=== PATIENT | male | born 1980 ===

== ENCOUNTER → 2020-06-14 09:15 | Outpatient (BNVA) | payer MEDICARE, MEDICAID, SELFPAY | PROVIDERS: PCP Internal Medicine; Referring Provider Internal Medicine; Visit Provider Nurse Practitioner Family | DX: Z76.89 Persons encountering health services in other specified circumstances (principal) ==

== ENCOUNTER 2021-03-28 06:52 | Emergency (ER) | payer MEDICARE, MEDICAID, SELFPAY ==
--- NOTE | ~2021-03-28 | CT_ITS ---
EXAMINATION: CT MASTOID CLINICAL INFORMATION: Severe right-sided ear pain. COMPARISON: None TECHNIQUE: 0.6 mm thin axial and reformatted 0.6 mm thin sagittal and coronal images of the mastoid sinuses were obtained. DLP: 431 mGy-cm. FINDINGS: There is normal aeration of bilateral mastoid sinuses without mucoperiosteal thickening or air-fluid levels. RIGHT TEMPORAL BONE: There is soft tissue wax within the right external auditory canal. The middle ear is well aerated with a small soft tissue density lateral to middle ear ossicles, likely a small cholesteatoma. The tympanic membrane is maintained normal. The scutum is preserved. The epitympanum and hypotympanum appear normal without any air-fluid levels. The internal auditory canal is normal. LEFT TEMPORAL BONE: The external auditory canal is widely patent. The middle ear ossicles are intact. No soft tissue mass or fluid seen within the middle ear. Cochlea, semicircular canals are symmetrical and normal. The internal auditory bony canal is intact. There is a large left parotid enhancing lesion in the superficial gland approximately 2.5 x 1.8 cm. The right parotid gland is normal. The prevertebral, parapharyngeal and paravertebral soft tissues are normal. No abnormal neck lymphadenopathy seen. CT/CT mastoid IMPRESSION: There is mild mucosal thickening in between the right middle ear ossicles and the scutum likely cholesteatoma. There is no air-fluid collection within the middle ear. Soft tissue lesion left parotid gland. Differential diagnosis includes large inflammatory lymph node or primary parotid mass.
[2021-03-28 07:04] VITALS: BP 152/89; PULSE 83; RESP 18; TEMP 35.8; O2SAT 97; BMI 56.5
--- NOTE | 2021-03-28 07:46 | ED_ITS ---
HPI - Ear Problem General Chief complaint: Ear Problems Stated complaint: ear pain Time Seen by Provider: 03/28/21 07:44 Source: patient and other (significant other) Mode of arrival: ambulatory Limitations: no limitations History of Present Illness MD Complaint: ear pain Location: right ear Duration: constant Severity: severe Relieving factors: nothing Exacerbating factors: chewing, position of head and palpation Discharge from ear: no Associated symptoms ear: headache, external ear tenderness and ear swelling Treatment prior to arrival: none Related Data Previous Rx's Medication Instructions Recorded hydrocodone 5 mg-acetaminophen 325 1 tab PO Q6H PRN #12 tab 03/28/21 mg tablet levofloxacin 500 mg tablet 500 mg PO DAILY #6 tab 03/28/21 ofloxacin 0.3 % ear drops 10 drp OTIC (EARS) DAILY 7 Days #5 03/28/21 ml Allergies Allergy/AdvReac Type Severity Reaction Status Date / Time Penicillins Allergy Unknown RASH,SOB,SW Unverified 05/12/20 16:48 EATING Review of Systems Review of Systems: Constitutional : No Fever, No Chills ENT/Mouth : pos sore throat, No Rhinorrhea, pos ear pain Eyes: No Eye Pain, No Swelling, No Redness Cardiovascular : No Chest Pain, No SOB Respiratory : No Cough, No Sputum Gastrointestinal : No Nausea, No Vomiting, No Diarrhea Genitourinary : No Dysuria, No Urinary Frequency Musculoskeletal : No joint pain, No Myalgias, No Joint Swelling Skin : No Skin Lesions, No rash Neuro : No Weakness, No Numbness, No Dizziness, pos Headache Psych : No Anxiety/Panic, No Depression Heme/Lymph: No Bruising, No Bleeding,No Lymphadenopathy Endocrine : No Polyuria, No Polydipsia All other systems reviewed and are negative [facility] Past Medical History Attestation statement: The following information was validated with the patient. Medical History Asthma Diabetes HTN (hypertension) Surgical History History of carpal tunnel release Hx of colonoscopy Hx of cystoscopy Family History Family History (Updated 06/14/20 @ 09:09 by DAVID Chand) Father No problems noted. Mother No problems noted. Social History Social History (Updated 03/28/21 @ 07:52 by Melinda Pond DO) Patient Tobacco Use Status: Never used Tobacco Use of substances other than those prescribed or required for medical reasons: No Advance Directives: No Advance Directives Information Provided: No Physical Exam Vital Signs: Vital Signs: Last Vital Signs Temp 96.4 F L 03/28/21 07:04 Pulse 83 03/28/21 07:04 Resp 18 03/28/21 07:04 BP 152/89 H 03/28/21 07:04 Pulse Ox 97 03/28/21 07:04 Body Mass Index 56.5 Appearance: Alert. Oriented X3. No acute distress. When I went to examine the patient and palpate his mastoid and his cervical nodes the patient became agitated and raised his R arm to me as if he were going to strike me. I moved back quickly and offered him another provider if he was going to continue this behavior, his response was No but you're not the one in fucking pain. His significant other was at the bedside and tried to calm him down. I explained I need to examine him in order to treat and diagnose him and he agreed to correct his responses and behaviors going forward. Eyes: Pupils equal, round and reactive to light. ENT: Pharynx normal. R TM with suppurative effusion, no perforation noted but patient now allowing full exam, R ext ear canal mild swelling and erythema, reports mild ttp in mastoid area, preauricular lymph node present Neck: Normal inspection. Neck supple. very thick neck with folds CVS: Normal heart rate and rhythm. Pulses normal. Respiratory: No respiratory distress. Breath sounds normal. Abdomen: Soft and nontender. Skin: Skin warm and dry. Normal skin color. Normal skin turgor. Extremities: No lower extremity edema. No calf ttp Neuro: Oriented X 3. No motor deficit. No sensory deficit. Course Course Course Narrative: no mastoiditis on CT scan will refer to ENT given possible parotid lesion MDM - Ear MDM Narrative Medical decision making narrative: 40 yo male with HTN, DM here with R ear pain dx of AOM and otitis externa his pain is out of proportion on exam I do not appreciate any auricular swelling or cellulitis , I am ordered PO antibiotics and drops, CT scan given the degree of his pain for mastoiditis, has allergy to PCN given DM will start on levofloxacin. Discharge Plan Discharge Clinical Impression: Otitis externa Qualifiers: Otitis externa type: diffuse Chronicity: acute Laterality: right Qualified Code(s): H60.311 - Diffuse otitis externa, right ear Otitis media Qualifiers: Otitis media type: suppurative Chronicity: acute Laterality: right Recurrence: recurrent Spontaneous tympanic membrane rupture: without spontaneous rupture Qualified Code(s): H66.004 - Acute suppurative otitis media without spontaneous rupture of ear drum, recurrent, right ear Patient Disposition: Home, Self-Care Instructions: Ear Infection (ED) Additional Instructions: return to ED for any worsening symptoms or concerns call ENT for follow up appointment Prescriptions: New hydrocodone-acetaminophen 5-325 mg tablet 1 tab PO Q6H PRN (Reason: pain) Qty: 12 RF: 0 ofloxacin 0.3 % drops 10 drp otic (ears) DAILY 7 Days Qty: 5 RF: 0 levofloxacin 500 mg tablet 500 mg PO DAILY Qty: 6 RF: 0 Referrals: Sunday Echevarria [Physician] - 10 days (Soft tissue lesion left parotid gland. Differential diagnosis includes large inflammatory lymph node or primary parotid mass.)
[2021-03-28] MEDS: levoFLOXacin 500 MG TABLET PO (08:15)
[2021-03-28] MEDS: HYDROcodone Bit/Acetam 5/325 TABLET 1 TAB PO (08:15)
[2021-03-28] MEDS: oxyCODONE HCl Immed Release 5 MG TABLET 10 MG PO (10:39)
== END 2021-03-28 10:57 | disposition home or self-care (01) ==
PROVIDERS: Emergency Provider Emergency Medicine; PCP Internal Medicine
DX: H60.311 Diffuse otitis externa, right ear (principal); H66.004 Acute suppurative otitis media without spontaneous rupture of ear drum, recurrent, right ear; H92.01 Otalgia, right ear; Z79.899 Other long term (current) drug therapy
CPT/HCPCS: 70481; 99284

== ENCOUNTER 2023-02-01 01:59 | Emergency (ER) | payer MEDICARE, MEDICAID, SELFPAY ==
--- NOTE | 2023-02-01 | ECG_ITS ---
Test Reason : WEAK Blood Pressure : / mmHG Vent. Rate : 111 BPM Atrial Rate : 111 BPM P-R Int : 136 ms QRS Dur : 102 ms QT Int : 366 ms P-R-T Axes : 037 038 025 degrees QTc Int : 497 ms Sinus tachycardia Otherwise normal ECG When compared with ECG of 20-SEP-2017 05:37, Vent. rate has increased BY 42 BPM Referred By: Generic ED Physician Electronically Signed By:Nabor Villarreal
[2023-02-01 02:07] VITALS: BP 148/71; BP 150/90; PULSE 115; PULSE 120; RESP 28; TEMP 36.6; O2SAT 96; O2SAT 97; BMI 49.9
[2023-02-01 02:25] LABS: Glucose, Whole Blood 335 mg/dL (60-115)
--- NOTE | 2023-02-01 02:32 | PC.NURSE ---
this RN spoke to pts who stated that he ate a few edibles and every time he eats edibles he feels very similar to this, he starts to feel palpitations, dizziness and nausea. Pt repeatedly stating his mouth is dry. Pt educated about not having any fluids by mouth until vomiting ceases. Pt projectile vomited a copious amount of pink, chunky vomit and then expressed having chest pain. EKG completed, 20g IV placed in LAC, blood drawn
[2023-02-01 02:34] LABS: Basophils Absolute Auto 0.1 X10*3/uL (0.0-0.2); Basophils Percent Auto 0.5 % (0-2); Eosinophils Absolute Auto 0.5 X10*3/uL (0.0-0.4); Eosinophils Percent Auto 2.4 % (0-4); Hematocrit 44.4 % (42.0-52.0); Hemoglobin 15.1 g/dl (14.0-18.0); Imm Gran Abs Auto 0.24 X10*3/uL (0.00-0.03); Imm Gran Pct Auto 1.2 % (0.0-0.4); Lymphocytes Percent Auto 37.5 % (20-40); MANUAL DIFF FLAG SCAN; Mean Corpuscular Hemoglobin 29.7 pg (27.0-33.0); Mean Corpuscular Volume 87.4 fL (80.0-98.0); Mean Platelet Volume 10.8 fL (9.4-12.4); Monocytes Absolute Auto 1.3 X10*3/uL (0.1-1.2); Monocytes Percent Auto 6.8 % (2-11); Neutrophils Percent Auto 51.6 % (45-73); Platelet Count 322 X10*3/uL (160-400); Red Blood Count 5.08 X10*6/uL (4.60-5.80); Red Cell Distribution Width 12.9 % (11.0-16.0); SCAN SMEAR FLAG 1; White Blood Count 19.5 X10*3/uL (4.8-10.8)
[2023-02-01 02:37] LABS: Lymphocytes Absolute Auto 7.3 X10*3/uL (1.2-4.9)
[2023-02-01 02:51] VITALS: BP 122/59; PULSE 96; RESP 31; O2SAT 94
[2023-02-01 02:52] LABS: SLIDE REVIEW VERIFIED
[2023-02-01] MEDS: 0.9 % Sodium Chloride 1,000 ML 999 ML IV (02:53)
[2023-02-01] MEDS: ondansetron HCL 4 MG/2 ML VIAL IVPUSH ×2 (02:53→03:40)
[2023-02-01 03:01] LABS: Alanine Aminotransferase 77 U/L (0-40); Albumin Level 3.9 g/dL (3.5-5.0); Alkaline Phosphatase 95 U/L (39-117); Anion Gap 14 (12-20); Aspartate Amino Transferase 67 U/L (5-37); Bilirubin Total 0.7 mg/dL (0.0-1.0); Blood Urea Nitrogen 14 mg/dL (9-16); Calcium 9.8 mg/dL (8.4-10.2); Carbon Dioxide 25 mmol/L (22-29); Chloride 102 mmol/L (96-108); Creatinine Clr Calc Pharmacy 117.6; Estimated Glomerular Filt Rate > 60; Glucose Random 356 mg/dL (60-115); Potassium 3.3 mmol/L (3.3-5.1); Sodium 138 mmol/L (135-145); Total Protein 7.4 g/dL (6.5-8.0)
--- NOTE | 2023-02-01 03:11 | PC.NURSE ---
pt medicated per MAR (verbal orders entered from MD Olson), pt now sleeping, respirations even and unlabored, skin pink, warm and sweaty. MD Olson aware of pts presence, has not seen patient at this time Report handed to YULIA Last
--- NOTE | 2023-02-01 03:15 | PC.NURSE ---
Took over care from YULIA Acevedo at 3:15am, pt is resting in bed with at the bedside, fluid running, no sign of distress at this time.
[2023-02-01 03:21] LABS: Troponin-I High Sensitivity < 2.7 ng/L (<3.5-35.0)
--- NOTE | 2023-02-01 03:35 | ED_ITS ---
HPI - General Adult General Chief complaint: General Medical Stated complaint: palpitations dizziness Time Seen by Provider: 02/01/23 03:20 Source: patient and family Mode of arrival: EMS Limitations: no limitations History of Present Illness HPI narrative: Patient comes to the emergency room via EMS complaining of not feeling well, anxious, complaining of dry mouth. Patient's explains that the patient ate an edible earlier today, and since then, the patient has been complaining of feeling nauseous, vomiting and feeling very anxious. Patient denies fever chills. Patient states that he feels weird/dizzy. Related Data Previous Rx's Medication Instructions Recorded hydrocodone 5 mg-acetaminophen 325 1 tab PO Q6H PRN pain #12 tabs 03/28/21 mg tablet levofloxacin 500 mg tablet 500 mg PO DAILY #6 tabs 03/28/21 ofloxacin 0.3 % ear drops 10 drp otic (ears) DAILY 7 days #5 03/28/21 mL Allergies Allergy/AdvReac Type Severity Reaction Status Date / Time Penicillins Allergy Severe angioedema Verified 02/01/23 02:54 and SOB Review of Systems 2 Review of Systems: Constitutional : No Weight loss, No Fever, No Chills, No Night Sweats, No Fatigue, No Malaise, complaining of feeling unwell ENT/Mouth : No Hearing loss, No Ear Pain, No Nasal Congestion, No Sinus Pain, No Hoarseness, No sore throat, No Rhinorrhea, No Swallowing Difficulty Eyes: No Eye Pain, No Swelling, No Redness, No Foreign Body, No Discharge, No Vision Changes Cardiovascular : No Chest Pain, No SOB, No Dyspnea on Exertion, No Orthopnea, No Edema, No Palpitations Respiratory : No Cough, No Sputum, No Wheezing, No Smoke Exposure, No Dyspnea Gastrointestinal : No Nausea, No Vomiting, No Diarrhea, No Constipation, No abdominal Pain, No Hematochezia, No Melena Genitourinary : no irregular bleeding, No Dysuria, No Urinary Frequency, No Hematuria, No Urinary Incontinence, No Urgency, No Flank Pain, No Urinary Flow Changes, No Hesitancy Musculoskeletal : No joint pain, No Myalgias, No Joint Swelling Skin : No Skin Lesions, No rash Neuro : No Weakness, No Numbness, No Paresthesias, No Loss of Consciousness, No Dizziness, No Headache Psych : No Anxiety/Panic, No Depression, No SI/HI/AH/VH, use marijuana/THC edibles Heme/Lymph: No Bruising, No Bleeding,No Lymphadenopathy Endocrine : No Polyuria, No Polydipsia, No Temperature Intolerance [facility] Past Medical History Medical History Asthma Diabetes HTN (hypertension) Surgical History History of carpal tunnel release Hx of colonoscopy Hx of cystoscopy Family History Family History (Updated 06/14/20 @ 09:09 by Shwetha Denney Addie) Father No problems noted. Mother No problems noted. Social History Social History (Updated 03/28/21 @ 07:52 by Desi Pond DO) Alcohol intake: never Patient Tobacco Use Status: Never used Tobacco Smoked in Last 30 Days: No Use of substances other than those prescribed or required for medical reasons: Yes Substance Use Type: Marijuana Substance Use Frequency: Occasionally Advance Directives: No Advance Directives Information Provided: Yes Physical Exam ED Vital Signs: Vital Signs - 24 hr 02/01/23 02:07 02/01/23 02:51 02/01/23 04:10 Temperature 97.8 F 97.9 F Pulse Rate 115 H 96 93 Respiratory Rate 28 H 31 H 20 Blood Pressure 148/71 H 122/59 L 110/50 L Pulse Oximetry 96 94 97 Oxygen Delivery Method Room Air Room Air Nasal Cannula Oxygen Flow Rate 3 BMI result Body Mass Index 49.9 Const Other: Appearance: Alert. Oriented X3. No acute distress. Very somnolent but easily arousable Eyes: Pupils equal, round and reactive to light. ENT: Pharynx normal. Neck: Normal inspection. Neck supple. No lymph nodes noted. No crepitus CVS: Normal heart rate and rhythm. Pulses normal. Normal S1 and S2 Respiratory: No respiratory distress. Breath sounds normal. No Wheezing. No rales Abdomen: Soft and nontender. No rigidity. No distention. Skin: Skin warm and dry. Normal skin color. Normal skin turgor. Extremities: No lower extremity edema. No Lacerations. No Rash Neuro: Oriented X 3. No motor deficit. No sensory deficit. Moving all extremities. No slurred speech. CN 2 through 12 grossly intact Psych: calm, cooperative, normal affect Medications Administered Discontinued Medications Generic Name Dose Route Start Last Admin Trade Name Saira PRN Reason Stop Dose Admin Sodium Chloride 1,000 mls @ 999 mls/hr 02/01/23 03:00 02/01/23 02:53 Ns IV 02/01/23 04:00 999 mls/hr .Q1H1M CORINNA Administration Sodium Chloride 1,000 mls @ 999 mls/hr 02/01/23 03:27 02/01/23 05:06 Ns IVCONT 02/01/23 04:27 Infused .Q1H1M ONE Infusion Insulin Human Regular 10 unit 02/01/23 03:27 02/01/23 03:36 Insulin Regular, Human 100 Unit/Ml 3 Ml Vial IVPUSH 02/01/23 03:28 10 unit ONCE ONE Administration Ondansetron HCl 4 mg 02/01/23 02:51 02/01/23 02:53 Ondansetron Hcl 4 Mg/2 Ml Vial IVPUSH 02/01/23 02:52 4 mg ONCE ONE Administration Ondansetron HCl 4 mg 02/01/23 03:27 02/01/23 03:40 Ondansetron Hcl 4 Mg/2 Ml Vial IVPUSH 02/01/23 03:28 4 mg ONCE ONE Administration Medical Decision Making Medical Decision Making MDM Narrative: -patient has been vomiting multiple times since he got here. Denies abdominal pain. Patient getting IV fluids and Zofran. -patient known to be diabetic, glucose today 256, patient receiving already IV fluids and 10 units of insulin. -discussed with the patient that ideally he should receive more insulin and fluids, glucose 315. Patient is here with his , both requesting to be discharged because they need to take their kids to school. Patient states that he has enough medications at home. Lab Data 02/01/23 02:25 02/01/23 02:25 Labs: Lab Results 02/01/23 02/01/23 02/01/23 Range/Units 02:20 02:25 02:25 WBC 19.5 H (4.8-10.8) X10*3/uL RBC 5.08 (4.60-5.80) X10*6/uL Hgb 15.1 (14.0-18.0) g/dl Hct 44.4 (42.0-52.0) % MCV 87.4 (80.0-98.0) fL MCH 29.7 (27.0-33.0) pg MCHC 34.0 (31.0-36.0) g/dl RDW 12.9 (11.0-16.0) % Plt Count 322 (160-400) X10*3/uL MPV 10.8 (9.4-12.4) fL Immature Gran % (Auto) 1.2 H (0.0-0.4) % Neut % (Auto) 51.6 (45-73) % Lymph % (Auto) 37.5 (20-40) % Cameron % (Auto) 6.8 (2-11) % Eos % (Auto) 2.4 (0-4) % Baso % (Auto) 0.5 (0-2) % Lymph # (Auto) 7.3 H (1.2-4.9) X10*3/uL Cameron # (Auto) 1.3 H (0.1-1.2) X10*3/uL Eos # (Auto) 0.5 H (0.0-0.4) X10*3/uL Baso # (Auto) 0.1 (0.0-0.2) X10*3/uL Abs Immat Gran (auto) 0.24 H (0.00-0.03) X10*3/uL Absolute Neuts (auto) 10.0 H (2.0-8.3) x10*3/uL Absolute Nucleated RBC 0.000 (0.0-0.012) X10*3/uL Nucleated RBC % (auto) 0.0 (0.0-0.2) /100WBC Smear Tech's Comments VERIFIED Sodium 138 (135-145) mmol/L Potassium 3.3 (3.3-5.1) mmol/L Chloride 102 (96-108) mmol/L Carbon Dioxide 25 (22-29) mmol/L Anion Gap 14 (12-20) BUN 14 (9-16) mg/dL Creatinine 1.14 (0.5-1.4) mg/dL Estim Creat Clear Calc 117.6 Estimated GFR > 60 POC Glucose 335 H (60-115) mg/dL Random Glucose 356 H* (60-115) mg/dL Calcium 9.8 (8.4-10.2) mg/dL Total Bilirubin 0.7 (0.0-1.0) mg/dL AST 67 H (5-37) U/L ALT 77 H (0-40) U/L Alkaline Phosphatase 95 (39-117) U/L Troponin I High Sens (<3.5-35.0) ng/L Total Protein 7.4 (6.5-8.0) g/dL Albumin 3.9 (3.5-5.0) g/dL 02/01/23 02/01/23 02/01/23 Range/Units 02:49 04:14 04:46 WBC (4.8-10.8) X10*3/uL RBC (4.60-5.80) X10*6/uL Hgb (14.0-18.0) g/dl Hct (42.0-52.0) % MCV (80.0-98.0) fL MCH (27.0-33.0) pg MCHC (31.0-36.0) g/dl RDW (11.0-16.0) % Plt Count (160-400) X10*3/uL MPV (9.4-12.4) fL Immature Gran % (Auto) (0.0-0.4) % Neut % (Auto) (45-73) % Lymph % (Auto) (20-40) % Cameron % (Auto) (2-11) % Eos % (Auto) (0-4) % Baso % (Auto) (0-2) % Lymph # (Auto) (1.2-4.9) X10*3/uL Cameron # (Auto) (0.1-1.2) X10*3/uL Eos # (Auto) (0.0-0.4) X10*3/uL Baso # (Auto) (0.0-0.2) X10*3/uL Abs Immat Gran (auto) (0.00-0.03) X10*3/uL Absolute Neuts (auto) (2.0-8.3) x10*3/uL Absolute Nucleated RBC (0.0-0.012) X10*3/uL Nucleated RBC % (auto) (0.0-0.2) /100WBC Smear Tech's Comments Sodium (135-145) mmol/L Potassium (3.3-5.1) mmol/L Chloride (96-108) mmol/L Carbon Dioxide (22-29) mmol/L Anion Gap (12-20) BUN (9-16) mg/dL Creatinine (0.5-1.4) mg/dL Estim Creat Clear Calc Estimated GFR POC Glucose 320 H 316 H (60-115) mg/dL Random Glucose (60-115) mg/dL Calcium (8.4-10.2) mg/dL Total Bilirubin (0.0-1.0) mg/dL AST (5-37) U/L ALT (0-40) U/L Alkaline Phosphatase (39-117) U/L Troponin I High Sens < 2.7 (<3.5-35.0) ng/L Total Protein (6.5-8.0) g/dL Albumin (3.5-5.0) g/dL 02/01/23 Range/Units 05:51 WBC (4.8-10.8) X10*3/uL RBC (4.60-5.80) X10*6/uL Hgb (14.0-18.0) g/dl Hct (42.0-52.0) % MCV (80.0-98.0) fL MCH (27.0-33.0) pg MCHC (31.0-36.0) g/dl RDW (11.0-16.0) % Plt Count (160-400) X10*3/uL MPV (9.4-12.4) fL Immature Gran % (Auto) (0.0-0.4) % Neut % (Auto) (45-73) % Lymph % (Auto) (20-40) % Cameron % (Auto) (2-11) % Eos % (Auto) (0-4) % Baso % (Auto) (0-2) % Lymph # (Auto) (1.2-4.9) X10*3/uL Cameron # (Auto) (0.1-1.2) X10*3/uL Eos # (Auto) (0.0-0.4) X10*3/uL Baso # (Auto) (0.0-0.2) X10*3/uL Abs Immat Gran (auto) (0.00-0.03) X10*3/uL Absolute Neuts (auto) (2.0-8.3) x10*3/uL Absolute Nucleated RBC (0.0-0.012) X10*3/uL Nucleated RBC % (auto) (0.0-0.2) /100WBC Smear Tech's Comments Sodium (135-145) mmol/L Potassium (3.3-5.1) mmol/L Chloride (96-108) mmol/L Carbon Dioxide (22-29) mmol/L Anion Gap (12-20) BUN (9-16) mg/dL Creatinine (0.5-1.4) mg/dL Estim Creat Clear Calc Estimated GFR POC Glucose 315 H (60-115) mg/dL Random Glucose (60-115) mg/dL Calcium (8.4-10.2) mg/dL Total Bilirubin (0.0-1.0) mg/dL AST (5-37) U/L ALT (0-40) U/L Alkaline Phosphatase (39-117) U/L Troponin I High Sens (<3.5-35.0) ng/L Total Protein (6.5-8.0) g/dL Albumin (3.5-5.0) g/dL Discharge Plan Discharge Clinical Impression: Cannabis intoxication, Acute hyperglycemia Patient Disposition: Home, Self-Care Instructions: Diabetic Hyperglycemia (ED) Additional Instructions: Please follow-up with your primary care physician tomorrow. If you have any worsening or new symptoms, please return to the emergency room or call 911 Prescriptions: No Action hydrocodone-acetaminophen 5-325 mg tablet 1 tab PO Q6H PRN (Reason: pain) Qty: 12 0RF ofloxacin 0.3 % drops 10 drp otic (ears) DAILY 7 Days Qty: 5 0RF levofloxacin 500 mg tablet 500 mg PO DAILY Qty: 6 0RF Rx Instructions: start on 03/29 given dose in the ED
[2023-02-01] MEDS: Insulin Regular, Human 100 UNIT/ML 3 ML VIAL 10 UNIT IVPUSH (03:36)
[2023-02-01] MEDS: 0.9 % Sodium Chloride 1,000 ML 999 ML IVCONT (03:40)
[2023-02-01 04:10] VITALS: BP 110/50; PULSE 93; RESP 20; TEMP 36.6; O2SAT 97
[2023-02-01 04:25] LABS: Glucose, Whole Blood 320 mg/dL (60-115)
[2023-02-01 04:50] LABS: Glucose, Whole Blood 316 mg/dL (60-115)
[2023-02-01 05:55] LABS: Glucose, Whole Blood 315 mg/dL (60-115)
[2023-02-01 06:00] VITALS: BP 116/68; PULSE 81; RESP 20; TEMP 36.6; O2SAT 99
--- NOTE | 2023-02-01 06:14 | PC.NURSE ---
Pt a&o, denied any sob or chest pain, Notified Dr. Pérez of [facility], Reviewed discharge instructions with pt. pt verbalized understanding. Pt discharged home with .
== END 2023-02-01 06:15 | disposition home or self-care (01) ==
PROVIDERS: Emergency Provider Emergency Medicine
DX: F12.929 Cannabis use, unspecified with intoxication, unspecified (principal); E11.65 Type 2 diabetes mellitus with hyperglycemia; R00.2 Palpitations; R42 Dizziness and giddiness; Z79.899 Other long term (current) drug therapy
CPT/HCPCS: 36415; 80053; 82947; 84484; 85025; 93005; 96361; 96374; 96375; 96376; 99284; 99285; J2405

== ENCOUNTER 2023-04-27 23:21 | Emergency (ER) | payer MEDICARE, MEDICAID, SELFPAY ==
--- NOTE | 2023-04-27 | ECG_ITS ---
Test Reason : chest pain Blood Pressure : / mmHG Vent. Rate : 102 BPM Atrial Rate : 102 BPM P-R Int : 128 ms QRS Dur : 100 ms QT Int : 364 ms P-R-T Axes : 028 028 035 degrees QTc Int : 474 ms Sinus tachycardia RSR' or QR pattern in V1 suggests right ventricular conduction delay Abnormal ECG When compared with ECG of 01-FEB-2023 02:16, RSR' or QR pattern in V1 suggests right ventricular conduction delay Referred By: Jose Barrientos Electronically Signed By:JD MASON
[2023-04-27 23:28] VITALS: BP 152/82; PULSE 110; O2SAT 94
[2023-04-27 23:30] VITALS: BP 112/74; PULSE 102; RESP 20; TEMP 36.8; O2SAT 95; BMI 58.1
--- NOTE | 2023-04-27 23:44 | ED.EXTPRO ---
HPI - Extremity Problem General Chief complaint: Extremity Problem Stated complaint: extreme cramps all on lower extremities, dizziness Time Seen by Provider: 04/27/23 23:23 Source: patient Mode of arrival: ambulatory Limitations: no limitations History of Present Illness HPI Narrative: Patient diabetic were 3 years been having lower extremity cramps for last 5- 6 years off and on seen PCP was prescribed muscle relaxants without much help has taken gabapentin which he did not like now taking amitriptyline which is not helping patient worked outside all day today came inside the house was feeling fine went for a drive started having leg times followed by anxiety none complaining of pain all over body no swelling of the extremities patient does take Lipitor for long time Related Data Previous Rx's Medication Instructions Recorded hydrocodone 5 mg-acetaminophen 325 1 tab PO Q6H PRN pain #12 tabs 03/28/21 mg tablet levofloxacin 500 mg tablet 500 mg PO DAILY #6 tabs 03/28/21 ofloxacin 0.3 % ear drops 10 drp otic (ears) DAILY 7 days #5 03/28/21 mL cyclobenzaprine 10 mg tablet 10 mg PO Q8H #20 tabs 04/28/23 Allergies Allergy/AdvReac Type Severity Reaction Status Date / Time Penicillins Allergy Severe angioedema Verified 04/27/23 23:34 and SOB Review of Systems Review of Systems: Yes all other systems are reviewed and are negative PMFSH Past Medical History Medical History Asthma Diabetes HTN (hypertension) Surgical History History of carpal tunnel release Hx of colonoscopy Hx of cystoscopy Family History Family History Father No problems noted. Mother No problems noted. Social History Social History Alcohol intake: never Patient Tobacco Use Status: Never used Tobacco Smoked in Last 30 Days: No Use of substances other than those prescribed or required for medical reasons: No Substance Use Type: Marijuana Advance Directives: No Advance Directives Information Provided: Yes Physical Exam Vital Signs: Vital Signs: Last Vital Signs Temp 97.8 F 04/28/23 02:47 Pulse 86 04/28/23 02:47 Resp 16 04/28/23 02:47 BP 121/77 04/28/23 02:47 Pulse Ox 93 04/28/23 02:47 O2 Del Method Room Air 04/28/23 02:47 BMI result Body Mass Index 58.1 Appearance: Alert. Oriented X3. In moderate distress, anxious. Eyes: PERRLA, No Nystagmus ENT: Pharynx normal. Oral Mucosa moist Neck: Normal inspection. Neck supple. CVS: Normal heart rate and rhythm. Pulses normal. Respiratory: No respiratory distress. Equal air entry bilateral, no wheezing/rales/rhonchi Abdomen: Soft and nontender. Bowel sounds are present, no mass palpable, no CVA tenderness Skin: Skin warm and dry. Normal skin color. Normal skin turgor. Extremities: No lower extremity edema. No calf tenderness Neuro: Oriented X 3. No motor deficit. No sensory deficit.No cerebellar signs , cranial nerves II-XII intact Medications Administered Discontinued Medications Generic Name Dose Route Start Last Admin Trade Name Freq PRN Reason Stop Dose Admin Sodium Chloride 1,000 mls @ 999 mls/hr 04/28/23 00:00 04/28/23 01:18 Ns IV 04/28/23 01:00 Infused .Q1H1M ONE Infusion Sodium Chloride 1,000 mls @ 999 mls/hr 04/28/23 01:21 04/28/23 02:43 Ns IV 04/28/23 02:21 Infused .Q1H1M ONE Infusion Ketorolac Tromethamine 30 mg 04/28/23 00:00 04/28/23 00:09 Ketorolac Tromethamine 30 Mg/Ml Vial IVPUSH 04/28/23 00:01 30 mg ONCE ONE Administration Lorazepam 1 mg 04/28/23 00:00 04/28/23 00:09 Lorazepam 2 Mg/Ml Vial IVPUSH 04/28/23 00:01 1 mg STAT STA Administration Morphine Sulfate 4 mg 04/28/23 01:25 04/28/23 01:40 Morphine Sulfate 4 Mg/Ml Cartridge IVPUSH 04/28/23 01:26 4 mg ONCE ONE Administration Protocol Medical Decision Making Medical Decision Making MDM Narrative: Patient taking Lipitor for last few years comes here with lower extremity cramps for last few years CPK slightly elevated. Will give patient IV fluids possible etiology could be Lipitor use/painful neuropathy / Differential Diagnosis Differential Diagnoses: The differential diagnosis associated with the presentation includes Rhabdomyolysis/restless leg syndrome/painful neuropathy Lab Data MDM Lab Attestation statement: I reviewed the patient's lab results. 04/28/23 00:05 04/28/23 00:05 Labs: Lab Results 04/28/23 04/28/23 04/28/23 Range/Units 00:05 00:05 02:51 WBC 11.7 H (4.8-10.8) X10*3/uL RBC 5.36 (4.60-5.80) X10*6/uL Hgb 16.0 (14.0-18.0) g/dl Hct 45.8 (42.0-52.0) % MCV 85.4 (80.0-98.0) fL MCH 29.9 (27.0-33.0) pg MCHC 34.9 (31.0-36.0) g/dl RDW 12.4 (11.0-16.0) % Plt Count 221 D (160-400) X10*3/uL MPV 10.5 (9.4-12.4) fL Immature Gran % (Auto) 0.6 H (0.0-0.4) % Neut % (Auto) 70.1 (45-73) % Lymph % (Auto) 21.0 (20-40) % [place] % (Auto) 6.5 (2-11) % Eos % (Auto) 1.4 (0-4) % Baso % (Auto) 0.4 (0-2) % Lymph # (Auto) 2.5 (1.2-4.9) X10*3/uL [place] # (Auto) 0.8 (0.1-1.2) X10*3/uL Eos # (Auto) 0.2 (0.0-0.4) X10*3/uL Baso # (Auto) 0.1 (0.0-0.2) X10*3/uL Abs Immat Gran (auto) 0.07 H (0.00-0.03) X10*3/uL Absolute Neuts (auto) 8.2 (2.0-8.3) x10*3/uL Absolute Nucleated RBC 0.000 (0.0-0.012) X10*3/uL Nucleated RBC % (auto) 0.0 (0.0-0.2) /100WBC Sodium 138 (135-145) mmol/L Potassium 3.3 (3.3-5.1) mmol/L Chloride 103 (96-108) mmol/L Carbon Dioxide 24 (22-29) mmol/L Anion Gap 14 (12-20) BUN 14 (9-16) mg/dL Creatinine 0.98 (0.5-1.4) mg/dL Estim Creat Clear Calc 122.9 Estimated GFR > 60 Random Glucose 211 H (60-115) mg/dL Calcium 10.0 (8.4-10.2) mg/dL Magnesium 2.0 (1.6-2.6) mg/dL Total Bilirubin 0.7 (0.0-1.0) mg/dL AST 88 H (5-37) U/L ALT 84 H (0-40) U/L Alkaline Phosphatase 102 (39-117) U/L Total Creatine Kinase 717 H (38-174) U/L Total Protein 8.3 H (6.5-8.0) g/dL Albumin 4.0 (3.5-5.0) g/dL Urine Color Dark Yellow Urine Appearance Clear Urine pH 5.5 (5.0-9.0) Ur Specific [place] >= 1.030 H (1.005-1.025) Urine Protein 100 (2+) H (Neg-Trace) mg/dL Urine Glucose (UA) >=1000 H (Negative) mg/dL Urine Ketones Trace (Negative) mg/dL Urine Blood Negative (Negative) Urine Nitrite Negative (Negative) Ur Leukocyte Esterase Negative (Negative) Urine RBC 0-2 (0-2) /HPF Urine WBC 0-5 (0-5) /HPF Ur Squamous Epith Cells 0-2 (0-2) /HPF Urine Bacteria Trace (None Seen) Hyaline Casts 6-10 (0-2) /LPF Granular Casts Present Discharge Plan Discharge Clinical Impression: Myalgia, Rhabdomyolysis Patient Disposition: Home, Self-Care Instructions: Rhabdomyolysis (ED), Musculoskeletal Pain (ED) Additional Instructions: Drink plenty of fluids Do not take Lipitor as this could be causing the pain Follow with your PCP Muscle relaxants as prescribed Prescriptions: New cyclobenzaprine 10 mg tablet 10 mg PO Q8H Qty: 20 0RF No Action hydrocodone-acetaminophen 5-325 mg tablet 1 tab PO Q6H PRN (Reason: pain) Qty: 12 0RF ofloxacin 0.3 % drops 10 drp otic (ears) DAILY 7 Days Qty: 5 0RF levofloxacin 500 mg tablet 500 mg PO DAILY Qty: 6 0RF Rx Instructions: start on 03/29 given dose in the ED Interventions: ED Discharge Assessment Last Done: 04/28/23 03:35 Discharge Date/Time: 04/28/23 03:38
[2023-04-28 00:08] LABS: MANUAL DIFF FLAG NO
[2023-04-28] MEDS: LORazepam 2 MG/ML VIAL 1 MG IVPUSH (00:09)
[2023-04-28] MEDS: Ketorolac Tromethamine 30 MG/ML VIAL IVPUSH (00:09)
[2023-04-28] MEDS: 0.9 % Sodium Chloride 1,000 ML 999 ML IV ×2 (00:09→01:40)
[2023-04-28 00:12] LABS: Basophils Absolute Auto 0.1 X10*3/uL (0.0-0.2); Basophils Percent Auto 0.4 % (0-2); Eosinophils Absolute Auto 0.2 X10*3/uL (0.0-0.4); Eosinophils Percent Auto 1.4 % (0-4); Hematocrit 45.8 % (42.0-52.0); Imm Gran Abs Auto 0.07 X10*3/uL (0.00-0.03); Imm Gran Pct Auto 0.6 % (0.0-0.4); Lymphocytes Absolute Auto 2.5 X10*3/uL (1.2-4.9); Mean Corpuscular HGB Conc 34.9 g/dl (31.0-36.0); Mean Corpuscular Hemoglobin 29.9 pg (27.0-33.0); Mean Corpuscular Volume 85.4 fL (80.0-98.0); Mean Platelet Volume 10.5 fL (9.4-12.4); Monocytes Absolute Auto 0.8 X10*3/uL (0.1-1.2); Monocytes Percent Auto 6.5 % (2-11); Neutrophils Absolute Auto 8.2 x10*3/uL (2.0-8.3); Neutrophils Percent Auto 70.1 % (45-73); Platelet Count 221 X10*3/uL (160-400); Red Blood Count 5.36 X10*6/uL (4.60-5.80); Red Cell Distribution Width 12.4 % (11.0-16.0); White Blood Count 11.7 X10*3/uL (4.8-10.8)
[2023-04-28 00:25] LABS: Anion Gap 14 (12-20)
[2023-04-28 00:28] LABS: Alanine Aminotransferase 84 U/L (0-40); Alkaline Phosphatase 102 U/L (39-117); Aspartate Amino Transferase 88 U/L (5-37); Bilirubin Total 0.7 mg/dL (0.0-1.0); Blood Urea Nitrogen 14 mg/dL (9-16); Carbon Dioxide 24 mmol/L (22-29); Chloride 103 mmol/L (96-108); Creatinine Clr Calc Pharmacy 122.9; Estimated Glomerular Filt Rate > 60; Glucose Random 211 mg/dL (60-115); Potassium 3.3 mmol/L (3.3-5.1); Sodium 138 mmol/L (135-145); Total Protein 8.3 g/dL (6.5-8.0)
[2023-04-28 01:11] VITALS: BP 133/75; PULSE 94; RESP 16; TEMP 36.8; O2SAT 91
[2023-04-28] MEDS: Morphine Sulfate 4 MG/ML CARTRIDGE IVPUSH (01:40)
[2023-04-28 02:47] VITALS: BP 121/77; PULSE 86; RESP 16; TEMP 36.6; O2SAT 93
[2023-04-28 03:00] LABS: Appearance Urine Clear; Color Urine Dark Yellow; Glucose Urine UA >=1000 mg/dL (Negative); Leukocyte Esterase Urine Negative (Negative); Nitrite Urine Negative (Negative); PH 5.5 (5.0-9.0); Specific Gravity - Urine >= 1.030 (1.005-1.025); UMIC TRIGGER UACC YES; Urine Blood Negative (Negative); Urine Ketones Trace mg/dL (Negative); Urine Protein 100 (2+) mg/dL (Neg-Trace)
[2023-04-28 03:29] LABS: Bacteria Urine Trace (None Seen); Granular Casts Urine Present; RBC Urine 0-2 /HPF (0-2); Squamous Epithelial Cell Urine 0-2 /HPF (0-2); WBC Urine 0-5 /HPF (0-5)
== END 2023-04-28 03:38 | disposition home or self-care (01) ==
PROVIDERS: Emergency Provider Internal Medicine; PCP Internal Medicine
DX: M62.82 Rhabdomyolysis (principal); F12.90 Cannabis use, unspecified, uncomplicated; E11.9 Type 2 diabetes mellitus without complications; I10 Essential (primary) hypertension; Z79.899 Other long term (current) drug therapy
CPT/HCPCS: 36415; 80053; 81001; 81003; 82550; 83735; 85025; 93005; 96361; 96374; 96375; 99284; 99285; J1885; J2060; J2270

== ENCOUNTER 2023-05-31 00:18 | Emergency (ER) | payer MEDICARE, MEDICAID, SELFPAY ==
[2023-05-31 00:28] VITALS: BP 132/87; BP 164/87; PULSE 113; PULSE 114; RESP 18; TEMP 36.8; O2SAT 97; O2SAT 99; BMI 38.2
--- NOTE | 2023-05-31 01:43 | ED.GENADULT ---
HPI - General Adult General Chief complaint: Extremity Injury, Lower Stated complaint: Leg Cramps Time Seen by Provider: 05/31/23 01:09 Source: patient, family, RN notes reviewed and old records reviewed Mode of arrival: EMS Limitations: no limitations History of Present Illness HPI narrative: 42-year-old male past medical history significant for obesity, diabetes, sleep apnea, presents for evaluation of leg cramps. He has a history of similar. He reports his symptoms started 30 minutes prior to arrival in the has severe cramping leg pain from his anterior thighs down towards his calves Since he reports that he has ?blood vessels popping out in the left leg. ? He has been seen here in the past for similar episodes and was treated with fluids, morphine, Ativan with improvement He has been taking with no improvement today Denies any trauma Denies any abdominal pain, pain in his groin/generals Denies any back pain, numbness, tingling, weakness His symptoms are waxing and waning and at worst 10/10 Related Data Previous Rx's Medication Instructions Recorded hydrocodone 5 mg-acetaminophen 325 1 tab PO Q6H PRN pain #12 tabs 03/28/21 mg tablet levofloxacin 500 mg tablet 500 mg PO DAILY #6 tabs 03/28/21 ofloxacin 0.3 % ear drops 10 drp otic (ears) DAILY 7 days #5 03/28/21 mL cyclobenzaprine 10 mg tablet 10 mg PO Q8H #20 tabs 04/28/23 cyclobenzaprine 10 mg tablet 10 mg PO TID PRN muscle spasm #15 05/31/23 tabs Allergies Allergy/AdvReac Type Severity Reaction Status Date / Time Penicillins Allergy Severe angioedema Verified 04/27/23 23:34 and SOB Review of Systems Constitutional: Constitutional: Denies chills and Denies fever(s) Eyes: Eyes: Denies blurry vision ENT: Denies sore throat Cardiovascular: Cardiovascular: Denies chest pain and Denies dyspnea Respiratory: Respiratory: Denies dyspnea Gastrointestinal: Gastrointestinal: Denies abdominal pain, Denies nausea and Denies vomiting Genitourinary: Genitourinary: Denies dysuria and Denies flank pain Musculoskeletal: Musculoskeletal: Denies back pain, Denies arthralgias, Reports muscle cramps and Reports stiffness Integumentary/Breasts: Skin/Breast: Denies rash PMFSH Past Medical History Medical History Asthma Diabetes HTN (hypertension) Surgical History History of carpal tunnel release Hx of colonoscopy Hx of cystoscopy Family History Family History Father No problems noted. Mother No problems noted. Social History Social History Alcohol intake: never Patient Tobacco Use Status: Never used Tobacco Smoked in Last 30 Days: No Use of substances other than those prescribed or required for medical reasons: No Substance Use Type: Marijuana Advance Directives: No Advance Directives Information Provided: Yes Physical Exam ED Vital Signs: Vital Signs - 24 hr 05/31/23 00:28 Temperature 98.3 F Pulse Rate 113 H Respiratory Rate 18 Blood Pressure 164/87 H Pulse Oximetry 97 BMI result Body Mass Index 38.2 Const General: healthy appearing, comfortable, no acute distress, alert and awake Nutritional Appearance: well nourished Orientation/consciousness: patient oriented x3 HENMT Head: Yes normocephalic and Yes atraumatic Eyes Eyelids: Yes eyelids normal Conjunctivae: conjunctivae normal Sclerae: sclerae normal Corneas: corneas normal Pupils: Equal, round and reactive pupils present EOM: EOMs intact bilaterally Neck Neck: Yes full ROM Resp Effort & Inspection: normal respiratory effort, able to speak in complete sentences and not labored GI Inspection: No distended Palpation (GI): Soft to palpation, not firm, nontender, no guarding and not rigid Auscultation: normoactive bowel sounds Back/Spine/Pelvis Other: Low lumbar tenderness. Negative straight leg raise Skin General skin exam: no rashes or lesions noted and elasticity normal Neuro General: patient oriented x3 Cranial nerves: Yes Equal, round and reactive pupils present and Yes Bilaterally intact EOM present Cognition (Neuro): normal cognition Extrem Other: Moving all extremities well without any obvious deformities. Negative Homans sign, no palpable cords Medications Administered Generic Name Dose Route Start Last Admin Trade Name Freq PRN Reason Stop Dose Admin Sodium Chloride 1,000 mls @ 999 mls/hr 05/31/23 01:15 05/31/23 01:35 Ns IV 05/31/23 02:15 999 mls/hr .Q1H1M CORINNA Administration Discontinued Medications Generic Name Dose Route Start Last Admin Trade Name Saira PRN Reason Stop Dose Admin Lorazepam 1 mg 05/31/23 01:14 05/31/23 01:38 Lorazepam 2 Mg/Ml Vial IVPUSH 05/31/23 01:15 Not Given STAT STA Morphine Sulfate 4 mg 05/31/23 01:14 05/31/23 01:35 Morphine Sulfate 4 Mg/Ml Cartridge IVPUSH 05/31/23 01:15 4 mg ONCE ONE Administration Protocol Medical Decision Making Medical Decision Making MDM Narrative: 42-year-old male presents for evaluation of muscle cramps. He has a history of same. Given that he feels his left side is worse and feels though there veins were pale will get ultrasound to rule out DVT. He has no lower back pain, abdominal pain. Low suspicion for cauda equina syndrome. Will check basic labs including CPK Differential Diagnosis Differential Diagnoses: The differential diagnosis associated with the presentation includes Muscle cramps Dehydration Electrolyte abnormality Hypocalcemia DVT Discharge Plan Discharge Clinical Impression: Bilateral leg cramps Patient Disposition: Home, Self-Care Instructions: Leg Cramps (ED) Additional Instructions: Your workup in the emergency department today was reassuring. He does not have a blood clot in your left leg Continue to use Flexeril as needed for pain Follow-up with your primary doctor Prescriptions: New cyclobenzaprine 10 mg tablet 10 mg PO TID PRN (Reason: muscle spasm) Qty: 15 0RF No Action hydrocodone-acetaminophen 5-325 mg tablet 1 tab PO Q6H PRN (Reason: pain) Qty: 12 0RF ofloxacin 0.3 % drops 10 drp otic (ears) DAILY 7 Days Qty: 5 0RF levofloxacin 500 mg tablet 500 mg PO DAILY Qty: 6 0RF Rx Instructions: start on 03/29 given dose in the ED cyclobenzaprine 10 mg tablet 10 mg PO Q8H Qty: 20 0RF
--- NOTE | 2023-05-31 02:09 | PC.NURSE ---
Assumed care of pt at 0028. pt transferred from EMS stretcher. pt c/o BLE cramping similar to previous episodes. pt took home Flexeril approx 15-30 min [employer]ANT. pt moving all extremities. After orders placed, this RN entered room to medicate pt for pain, pt found to be sleeping, sig other at bedside. Woke pt to provide prescribed morphine, Ativan held per pt. No acute distress noted at that time.
== END 2023-05-31 02:44 | disposition home or self-care (01) ==
PROVIDERS: Emergency Provider Internal Medicine
DX: R25.2 Cramp and spasm (principal); M79.605 Pain in left leg; E11.9 Type 2 diabetes mellitus without complications; I10 Essential (primary) hypertension; Z79.899 Other long term (current) drug therapy
CPT/HCPCS: 36415; 80053; 82550; 83735; 84100; 85025; 85610; 93971; 96361; 96374; 99284; J2270

== ENCOUNTER 2023-08-05 22:38 | Emergency (ER) | payer MEDICARE, MEDICAID, SELFPAY ==
[2023-08-05 22:44] VITALS: BP 142/83; PULSE 62; RESP 16; TEMP 36.4; O2SAT 97; BMI 44.1
[2023-08-06 06:12] VITALS: BP 130/98; PULSE 93; RESP 16; TEMP 36.8; O2SAT 99
--- NOTE | 2023-08-09 01:41 | ED_ITS ---
HPI - Dental/Oral General Chief complaint: Dental/Oral Stated complaint: jaw pain after dental procedure today Time Seen by Provider: 08/06/23 00:49 Source: patient Mode of arrival: ambulatory Limitations: no limitations History of Present Illness HPI Narrative: Patient with dental caries status post tooth extraction comes here for pain in that area with slight gum swelling no antibiotics were given by the dentist Related Data Previous Rx's Medication Instructions Recorded hydrocodone 5 mg-acetaminophen 325 1 tab PO Q6H PRN pain #12 tabs 03/28/21 mg tablet levofloxacin 500 mg tablet 500 mg PO DAILY #6 tabs 03/28/21 ofloxacin 0.3 % ear drops 10 drp otic (ears) DAILY 7 days #5 03/28/21 mL cyclobenzaprine 10 mg tablet 10 mg PO Q8H #20 tabs 04/28/23 cyclobenzaprine 10 mg tablet 10 mg PO TID PRN muscle spasm #15 05/31/23 tabs Allergies Allergy/AdvReac Type Severity Reaction Status Date / Time Penicillins Allergy Severe angioedema Verified 08/05/23 22:44 and SOB Review of Systems Review of Systems: Yes all other systems are reviewed and are negative [facility] Past Medical History Medical History HTN (hypertension) Asthma Diabetes Surgical History Hx of colonoscopy Hx of cystoscopy History of carpal tunnel release Family History Family History Father No problems noted. Mother No problems noted. Social History Social History Alcohol intake: never Patient Tobacco Use Status: Never used Tobacco Substance Use Type: Marijuana Advance Directives: No Advance Directives Information Provided: Yes Physical Exam Vital Signs: Vital Signs: Last Vital Signs Temp 98.3 F 08/06/23 06:12 Pulse 93 08/06/23 06:12 Resp 16 08/06/23 06:12 BP 130/98 H 08/06/23 06:12 Pulse Ox 99 08/06/23 06:12 O2 Del Method Room Air 08/06/23 06:12 BMI result Body Mass Index 44.1 Appearance: Alert. Oriented X3. No acute distress. ENT: Pharynx normal. Oral Mucosa moist extracted tooth with slight gum swelling left lower molar Neck: Normal inspection. Neck supple. CVS: Normal heart rate and rhythm. Pulses normal. Respiratory: No respiratory distress. Neuro: Oriented X 3. Discharge Plan Discharge Clinical Impression: Status post tooth extraction Patient Disposition: Home, Self-Care Instructions: Toothache (ED) Additional Instructions: Take pain medication antibiotic as prescribed and follow-up with your dentist Patient was given written prescription for Augmentin and naproxen Prescriptions: No Action hydrocodone-acetaminophen 5-325 mg tablet 1 tab PO Q6H PRN (Reason: pain) Qty: 12 0RF ofloxacin 0.3 % drops 10 drp otic (ears) DAILY 7 Days Qty: 5 0RF levofloxacin 500 mg tablet 500 mg PO DAILY Qty: 6 0RF Rx Instructions: start on 03/29 given dose in the ED cyclobenzaprine 10 mg tablet 10 mg PO Q8H Qty: 20 0RF cyclobenzaprine 10 mg tablet 10 mg PO TID PRN (Reason: muscle spasm) Qty: 15 0RF Interventions: ED Discharge Assessment Last Done: 08/06/23 06:13 Discharge Date/Time: 08/06/23 01:38
== END 2023-08-06 01:38 | disposition home or self-care (01) ==
PROVIDERS: Emergency Provider Internal Medicine; PCP Internal Medicine
DX: R68.84 Jaw pain (principal); Z79.899 Other long term (current) drug therapy
CPT/HCPCS: 99283; 99284

== ENCOUNTER 2023-10-08 04:27 | Emergency (ER) | payer MEDICARE, MEDICAID, SELFPAY ==
--- NOTE | 2023-10-08 | ECG_ITS ---
Test Reason : CHEST PAIN Blood Pressure : / mmHG Vent. Rate : 093 BPM Atrial Rate : 093 BPM P-R Int : 124 ms QRS Dur : 086 ms QT Int : 342 ms P-R-T Axes : -03 236 255 degrees QTc Int : 425 ms Suspect limb leads reversal Normal sinus rhythm Right superior axis deviation Low voltage QRS Abnormal ECG When compared with ECG of 27-APR-2023 23:44, QRS axis Shifted left Nonspecific T wave abnormality, worse in Inferior leads Nonspecific T wave abnormality, worse in Lateral leads Referred By: Generic ED Physician Electronically Signed By:Nabor Villarreal
--- NOTE | ~2023-10-08 | XR_ITS ---
EXAMINATION: XR CHEST CLINICAL INFORMATION: Chest pressure. COMPARISON: 09/20/2017. TECHNIQUE: 2 views of the chest were obtained. FINDINGS: No significant abnormality is noted involving the heart, lungs, mediastinum, bony thorax or soft tissues. XR/XR chest 2V IMPRESSION: Unremarkable examination.
[2023-10-08 04:30] VITALS: BP 139/68; PULSE 94; RESP 18; TEMP 37.1; O2SAT 95; BMI 46.5
[2023-10-08 04:57] LABS: Basophils Percent Auto 0.2 % (0-2); Eosinophils Percent Auto 0.2 % (0-4); Hematocrit 39.5 % (42.0-52.0); Hemoglobin 13.8 g/dl (14.0-18.0); Imm Gran Abs Auto 0.07 X10*3/uL (0.00-0.03); Imm Gran Pct Auto 1.6 % (0.0-0.4); Lymphocytes Absolute Auto 0.8 X10*3/uL (1.2-4.9); Lymphocytes Percent Auto 17.8 % (20-40); MANUAL DIFF FLAG NO; Mean Corpuscular HGB Conc 34.9 g/dl (31.0-36.0); Mean Corpuscular Hemoglobin 30.3 pg (27.0-33.0); Mean Corpuscular Volume 86.6 fL (80.0-98.0); Monocytes Absolute Auto 0.5 X10*3/uL (0.1-1.2); Monocytes Percent Auto 11.5 % (2-11); Neutrophils Percent Auto 68.7 % (45-73); Platelet Count 159 X10*3/uL (160-400); Red Blood Count 4.56 X10*6/uL (4.60-5.80); Red Cell Distribution Width 12.6 % (11.0-16.0); White Blood Count 4.4 X10*3/uL (4.8-10.8)
[2023-10-08 05:10] LABS: COVID-19 Test Negative (Negative); IDNOW Serial# 08D9AD1C; IDNOW Serial# 152EDE1D; Influenza A Negative (Negative); Influenza B2 Negative (Negative)
[2023-10-08 05:12] LABS: Alanine Aminotransferase 61 U/L (0-40); Albumin Level 3.4 g/dL (3.5-5.0); Alkaline Phosphatase 77 U/L (39-117); Anion Gap 13 (12-20); Aspartate Amino Transferase 65 U/L (5-37); Bilirubin Total 0.5 mg/dL (0.0-1.0); Blood Urea Nitrogen 9 mg/dL (9-16); Calcium 7.9 mg/dL (8.4-10.2); Carbon Dioxide 21 mmol/L (22-29); Chloride 102 mmol/L (96-108); Creatinine Clr Calc Pharmacy 146.4; Estimated Glomerular Filt Rate > 60; Glucose Random 367 mg/dL (60-115); Potassium 4.3 mmol/L (3.3-5.1); Sodium 132 mmol/L (135-145); Total Protein 6.6 g/dL (6.5-8.0)
[2023-10-08 05:17] LABS: Troponin-I High Sensitivity < 2.7 ng/L (<3.5-35.0)
[2023-10-08] MEDS: Acetaminophen 325 MG TABLET 975 MG PO (05:29)
[2023-10-08 05:30] VITALS: TEMP 38.1
[2023-10-08 06:15] VITALS: BP 119/58; PULSE 85; RESP 16; TEMP 37.1; O2SAT 98
[2023-10-08 06:16] VITALS: BP 118/62; PULSE 84; RESP 16; O2SAT 94
--- NOTE | 2023-10-08 08:02 | ED.GENADULT ---
HPI - General Adult General Chief complaint: General Medical Stated complaint: fever Time Seen by Provider: 10/08/23 07:00 History of Present Illness HPI narrative: Patient is a 43-year-old male presents today with having fever body aches malaise for the last 5 days patient claims the symptoms ongoing for the last 5 days. Symptom worse when he lies down. Complaining of bilateral eye pain. Related Data Previous Rx's Medication Instructions Recorded hydrocodone 5 mg-acetaminophen 325 1 tab PO Q6H PRN pain #12 tabs 03/28/21 mg tablet levofloxacin 500 mg tablet 500 mg PO DAILY #6 tabs 03/28/21 ofloxacin 0.3 % ear drops 10 drp otic (ears) DAILY 7 days #5 03/28/21 mL cyclobenzaprine 10 mg tablet 10 mg PO Q8H #20 tabs 04/28/23 cyclobenzaprine 10 mg tablet 10 mg PO TID PRN muscle spasm #15 05/31/23 tabs Allergies Allergy/AdvReac Type Severity Reaction Status Date / Time Penicillins Allergy Severe angioedema Verified 10/08/23 04:30 and SOB Review of Systems Review of Systems: Patient refused to answer PMFSH Past Medical History Medical History HTN (hypertension) Asthma Diabetes Surgical History Hx of colonoscopy Hx of cystoscopy History of carpal tunnel release Family History Family History Father No problems noted. Mother No problems noted. Social History Social History Alcohol intake: never Patient Tobacco Use Status: Never used Tobacco Substance Use Type: Marijuana Advance Directives: No Physical Exam ED Vital Signs: Vital Signs - 24 hr 10/08/23 04:30 10/08/23 05:30 10/08/23 06:15 Temperature 98.7 F 100.6 F H 98.8 F Pulse Rate 94 85 Respiratory Rate 18 16 Blood Pressure 139/68 119/58 L Pulse Oximetry 95 98 Oxygen Delivery Method Room Air 10/08/23 06:16 Temperature Pulse Rate 84 Respiratory Rate 16 Blood Pressure 118/62 Pulse Oximetry 94 Oxygen Delivery Method Room Air BMI result Body Mass Index 46.5 Deferred Medications Administered Discontinued Medications Generic Name Dose Route Start Last Admin Trade Name Saira PRN Reason Stop Dose Admin Acetaminophen 975 mg 10/08/23 05:26 10/08/23 05:29 Acetaminophen 325 Mg Tablet PO 10/08/23 05:27 975 mg ONCE ONE Administration Medical Decision Making Medical Decision Making [facility] Narrative: On talking to patient patient got very upset did not want to be treated. Stated he has been here since 12/23 in the morning. Did not want any further evaluation understood risk of infection stormed out of the emergency department. Patient put his own clothes on ambulated out. Explained to patient will welcome to see him we want to see him and find out what is wrong with him he refused. Risks include infection, meningitis, viral infection, pneumonia. I did review patient's lab that has already returned at this point patient's white count is normal. His sugar is 367 consistent with diabetes. He has no anion gap. His COVID and flu are negative. One set of troponin were done they were negative. Sinus pattern heart rate was about 100 PA QRS QTC within normal limits there is T-wave inversions over the inferior and lateral leads. I reviewed patient's chest x-ray. Grossly negative for any acute evidence of pneumonia. I reviewed radiology's reading. Patient left against medical advice. Patient did not wait for his paperwork. Differential Diagnosis Differential Diagnoses: The differential diagnosis associated with the presentation includes Meningitis, viral illness, pneumonia, urinary tract infection Lab Data 10/08/23 04:51 10/08/23 04:51 Labs: Lab Results 10/08/23 Range/Units 04:51 WBC 4.4 L (4.8-10.8) X10*3/uL RBC 4.56 L (4.60-5.80) X10*6/uL Hgb 13.8 L (14.0-18.0) g/dl Hct 39.5 L (42.0-52.0) % MCV 86.6 (80.0-98.0) fL MCH 30.3 (27.0-33.0) pg MCHC 34.9 (31.0-36.0) g/dl RDW 12.6 (11.0-16.0) % Plt Count 159 L (160-400) X10*3/uL MPV 10.0 (9.4-12.4) fL Immature Gran % (Auto) 1.6 H (0.0-0.4) % Neut % (Auto) 68.7 (45-73) % Lymph % (Auto) 17.8 L (20-40) % [place] % (Auto) 11.5 H (2-11) % Eos % (Auto) 0.2 (0-4) % Baso % (Auto) 0.2 (0-2) % Lymph # (Auto) 0.8 L (1.2-4.9) X10*3/uL [place] # (Auto) 0.5 (0.1-1.2) X10*3/uL Eos # (Auto) 0.0 (0.0-0.4) X10*3/uL Baso # (Auto) 0.0 (0.0-0.2) X10*3/uL Abs Immat Gran (auto) 0.07 H (0.00-0.03) X10*3/uL Absolute Neuts (auto) 3.0 (2.0-8.3) x10*3/uL Absolute Nucleated RBC 0.000 (0.0-0.012) X10*3/uL Nucleated RBC % (auto) 0.0 (0.0-0.2) /100WBC Sodium 132 L (135-145) mmol/L Potassium 4.3 (3.3-5.1) mmol/L Chloride 102 (96-108) mmol/L Carbon Dioxide 21 L (22-29) mmol/L Anion Gap 13 (12-20) BUN 9 (9-16) mg/dL Creatinine 0.87 (0.5-1.4) mg/dL Estim Creat Clear Calc 146.4 Estimated GFR > 60 Random Glucose 367 H* (60-115) mg/dL Calcium 7.9 L D (8.4-10.2) mg/dL Total Bilirubin 0.5 (0.0-1.0) mg/dL AST 65 H (5-37) U/L ALT 61 H (0-40) U/L Alkaline Phosphatase 77 (39-117) U/L Troponin I High Sens < 2.7 (<3.5-35.0) ng/L Total Protein 6.6 (6.5-8.0) g/dL Albumin 3.4 L (3.5-5.0) g/dL COVID-19 (REGI) Negative (Negative) COVID-19 Clin Com See Note Influenza Type A (JORGE ALBERTO) Negative (Negative) Influenza Type B (JORGE ALBERTO) Negative (Negative) Influenza A & B Note See Note Discharge Plan Discharge Clinical Impression: Fever Patient Disposition: Left Against Medical Advice Prescriptions: No Action hydrocodone-acetaminophen 5-325 mg tablet 1 tab PO Q6H PRN (Reason: pain) Qty: 12 0RF ofloxacin 0.3 % drops 10 drp otic (ears) DAILY 7 Days Qty: 5 0RF levofloxacin 500 mg tablet 500 mg PO DAILY Qty: 6 0RF Rx Instructions: start on 03/29 given dose in the ED cyclobenzaprine 10 mg tablet 10 mg PO Q8H Qty: 20 0RF cyclobenzaprine 10 mg tablet 10 mg PO TID PRN (Reason: muscle spasm) Qty: 15 0RF Referrals: Aubree Matute MD [Primary Care Provider] - 10/08/23 Stand Alone Forms: Against Medical Advice
== END 2023-10-08 08:35 | disposition left against medical advice (07) ==
PROVIDERS: Emergency Provider Emergency Medicine Emergency Medical Services; PCP Internal Medicine
DX: R50.9 Fever, unspecified (principal); M79.10 Myalgia, unspecified site; R07.89 Other chest pain; H57.13 Ocular pain, bilateral; Z11.52 Encounter for screening for COVID-19; Z79.899 Other long term (current) drug therapy
CPT/HCPCS: 36415; 71046; 80053; 84484; 85025; 87502; 87635; 93005; 99283; 99284

== ENCOUNTER → 2023-10-08 04:43 | Outpatient (BNV) | payer MEDICARE, MEDICAID, SELFPAY | PROVIDERS: Emergency Provider Emergency Medicine Emergency Medical Services; PCP Internal Medicine; Visit Provider Internal Medicine Cardiovascular Disease | DX: R94.31 Abnormal electrocardiogram [ECG] [EKG] (principal) | CPT/HCPCS: 93010 ==

== ENCOUNTER 2024-04-02 13:57 | Outpatient (REF) | payer MEDICARE, MEDICAID, SELFPAY ==
--- NOTE | ~2024-04-02 | XR_ITS ---
EXAMINATION: XR SHOULDER, LEFT CLINICAL INFORMATION: Pain COMPARISON: None available. TECHNIQUE: AP external rotation, Grashey, scapular Y, and axillary views of the left shoulder. Today's examination is limited secondary to difficulties with patient positioning due to body habitus. FINDINGS: Visualized portions of the proximal humerus demonstrate no fracture. Humeral head demonstrates good articulation with the glenoid fossa. No significant degenerative changes of the shoulder. Visualized ribs and lung parenchyma are unremarkable. XR/XR shoulder LT min 2V IMPRESSION: Unremarkable radiographs of the left shoulder.
[2024-04-02 16:51] LABS: Alanine Aminotransferase 55 U/L (0-40); Albumin Level 3.9 g/dL (3.5-5.0); Alkaline Phosphatase 83 U/L (39-117); Anion Gap 10 (12-20); Aspartate Amino Transferase 58 U/L (5-37); Bilirubin Total 0.8 mg/dL (0.0-1.0); Blood Urea Nitrogen 13 mg/dL (9-16); Calcium 9.7 mg/dL (8.4-10.2); Carbon Dioxide 30 mmol/L (22-29); Chloride 101 mmol/L (96-108); Cholesterol 198 mg/dL (<200); Estimated Glomerular Filt Rate > 60; Glucose Random 262 mg/dL (60-115); HDL Cholesterol 34 mg/dL (>40); LDL Cholesterol Calculated 128 mg/dL (<100); Potassium 4.3 mmol/L (3.3-5.1); Sodium 137 mmol/L (135-145); Triglycerides 180 mg/dL (<150)
[2024-04-02 16:58] LABS: TSH reflex Free T4 1.73 uIU/mL (0.32-4.0)
[2024-04-02 17:56] LABS: Reflex LDLD? No
== END 2024-04-02 13:58 | disposition home or self-care (01) ==
LOC: HO.HHCL 13:57
PROVIDERS: Visit Provider Internal Medicine
DX: M25.512 Pain in left shoulder (principal); I10 Essential (primary) hypertension; E11.65 Type 2 diabetes mellitus with hyperglycemia; Z79.4 Long term (current) use of insulin
CPT/HCPCS: 36415; 73030; 80053; 80061; 84443

== ENCOUNTER 2024-04-06 01:18 | Inpatient (IN) | payer MEDICARE, MEDICAID, SELFPAY ==
[2024-04-06] VITALS (12 sets, daily range): BP systolic 111–169; BP diastolic 61–99; PULSE 66–102; RESP 14–26; TEMP 36.3–37; O2SAT 92–98; BMI 45.5; BMI 47.0
--- NOTE | ~2024-04-06 | CT_ITS ---
EXAMINATION: CT ABDOMEN AND PELVIS WITHOUT CONTRAST CLINICAL INFORMATION: Right lower quadrant pain COMPARISON: 09/20/2017. TECHNIQUE: Multidetector volumetric imaging was performed from the superior aspect of the liver through the pubic symphysis. Sagittal and coronal reformatted images were obtained on the technologist's workstation. This CT examination was performed using dose optimization techniques as appropriate, variously including the following: *Automated exposure control *Adjustment of mA and/or kV according to patient size (this includes techniques or standardized protocols for targeted exams where dose is matched to indication/reason for exam; i.e. extremities or head) *Use of iterative reconstruction technique DLP: 1017 mGy-cm FINDINGS: LUNG BASES: The visualized lung bases are unremarkable. LIVER, GALLBLADDER, AND BILIARY TREE: The liver is slightly irregular in contour and heterogeneous in attenuation. No focal liver lesions are seen. The gallbladder is unremarkable with no evidence of radiopaque gallstones, gallbladder wall thickening, or obvious pericholecystic inflammatory changes. PANCREAS: Unremarkable. SPLEEN: Unremarkable. ADRENAL GLANDS: Unremarkable. KIDNEYS AND URETERS: The kidneys are normal in size, shape, and attenuation. No hydronephrosis, hydroureter, or calculi seen. No perinephric stranding. BLADDER: Unremarkable. GASTROINTESTINAL TRACT: The large and small bowel are unremarkable. The appendix is dilated up to 1.1 cm with multiple small appendicoliths and mild surrounding infiltration. ABDOMINAL WALL: No significant hernia is appreciated. LYMPH NODES: Normal. VASCULAR: There is atherosclerotic plaque of the abdominal aorta and proximal branches. PELVIC VISCERA: Unremarkable. OSSEOUS STRUCTURES: There is diffuse thoracolumbar degenerative change. CT/CT abdomen pelvis wo IV con IMPRESSION: Acute appendicitis. No evidence of perforation or abscess formation. Heterogeneous irregular liver suggests hepatocellular disease/early cirrhosis. Fleischner guidelines were followed.
[2024-04-06 02:43] LABS: Hematocrit 43.5 % (42.0-52.0); Mean Corpuscular HGB Conc 34.5 g/dl (31.0-36.0); Mean Corpuscular Hemoglobin 29.8 pg (27.0-33.0); Mean Corpuscular Volume 86.3 fL (80.0-98.0); Mean Platelet Volume 10.4 fL (9.4-12.4); Platelet Count 206 X10*3/uL (160-400); Red Blood Count 5.04 X10*6/uL (4.60-5.80); Red Cell Distribution Width 12.8 % (11.0-16.0); White Blood Count 16.7 X10*3/uL (4.8-10.8)
[2024-04-06 02:56] LABS: Alanine Aminotransferase 53 U/L (0-40); Albumin Level 3.8 g/dL (3.5-5.0); Alkaline Phosphatase 89 U/L (39-117); Anion Gap 14 (12-20); Aspartate Amino Transferase 61 U/L (5-37); Bilirubin Total 1.3 mg/dL (0.0-1.0); Blood Urea Nitrogen 14 mg/dL (9-16); Calcium 9.6 mg/dL (8.4-10.2); Carbon Dioxide 27 mmol/L (22-29); Chloride 101 mmol/L (96-108); Creatinine Clr Calc Pharmacy 146.2; Estimated Glomerular Filt Rate > 60; Glucose Random 212 mg/dL (60-115); Lipase 17 U/L (8-78); Sodium 138 mmol/L (135-145); Total Protein 7.6 g/dL (6.5-8.0)
[2024-04-06] MEDS: Ketorolac Tromethamine 30 MG/ML VIAL IVPUSH (03:40)
[2024-04-06] MEDS: Morphine Sulfate 2 MG/ML CARTRIDGE IVPUSH (03:40)
[2024-04-06] MEDS: 0.9 % Sodium Chloride 1,000 ML 999 ML IV ×2 (03:41→04:52)
[2024-04-06] MEDS: HYDROmorphone HCl 1 MG/ML SYRINGE IVPUSH ×2 (04:53→08:51)
--- NOTE | 2024-04-06 06:19 | ED.ABDPAIN ---
HPI - Abdominal Pain General Chief Complaint: Abdominal Pain Stated Complaint: vomiting,abd pain Time Seen by Provider: 04/06/24 03:01 Source: patient and family Mode of arrival: ambulatory Limitations: no limitations History of Present Illness ED Provider: DR. Sanabria HPI narrative: 43-year-old male came in for evaluation of abdominal pain started since yesterday pain is progressively getting worse, complaining of nausea, vomiting, decreased appetite. Patient appear in apparent discomfort and pain. No dysuria, no frequency urination, no hematuria. Last bowel movement was earlier yesterday, passing flatus, no history of intra-abdominal surgery. Related Data Previous Rx's ?Medication ?Instructions ?Recorded hydrocodone 5 mg-acetaminophen 325 1 tab PO Q6H PRN pain #12 tabs 03/28/21 mg tablet levofloxacin 500 mg tablet 500 mg PO DAILY #6 tabs 03/28/21 ofloxacin 0.3 % ear drops 10 drp otic (ears) DAILY 7 days #5 03/28/21 mL cyclobenzaprine 10 mg tablet 10 mg PO Q8H #20 tabs 04/28/23 cyclobenzaprine 10 mg tablet 10 mg PO TID PRN muscle spasm #15 05/31/23 tabs Allergies Allergy/AdvReac Type Severity Reaction Status Date / Time Penicillins Allergy Severe angioedema Verified 04/06/24 01:33 and SOB Review of Systems Review of Systems All other systems are reviewed and are negative Constitutional: Reports as per HPI and Reports no additional constitutional complaints Eyes: Reports as per HPI and Reports no additional eye complaints Reports system reviewed and no additional complaints, except as documented Cardiovascular: Reports as per HPI and Reports no additional cardiovascular complaints Respiratory: Reports as per HPI and Reports no additional respiratory complaints Gastrointestinal: Reports as per HPI and Reports no additional gastrointestinal complaints Genitourinary: Reports no additional female genitourinary complaints Musculoskeletal: Reports no additional musculoskeletal complaints Skin/Breast: Reports system reviewed and no additional complaints, except as docu Psychiatric: Reports no additional psychiatric complaints Endocrine: Reports no additional endocrine complaints Hematologic/Lymphatic: Reports no additional hematologic/lymphatic complaints Allergic/Immunologic: Reports no additional allergic/immunologic complaints Reports system reviewed and no additional complaints, except as documented and Reports Abnormal speech present [facility] Past Medical History Medical History HTN (hypertension) Asthma Diabetes Surgical History Hx of colonoscopy Hx of cystoscopy History of carpal tunnel release Family History Family History Father No problems noted. Mother No problems noted. Social History Social History Alcohol intake: never Patient Tobacco Use Status: Never used Tobacco Smoked in Last 30 Days: No Use of substances other than those prescribed or required for medical reasons: No Substance Use Type: Marijuana Advance Directives: No Advance Directives Information Provided: Yes Do you have a plan to hurt others: No Plan Physical Exam ED Vital Signs: Vital Signs - 24 hr 04/06/24 01:32 Temperature 98.6 F Pulse Rate 67 Respiratory Rate 22 H Blood Pressure 134/77 Pulse Oximetry 98 Oxygen Delivery Method Room Air BMI result Body Mass Index 45.5 Vital signs have been reviewed and appear to be correct. Blood pressure elevated. Heart rate normal. Respiratory rate normal. Temperature normal. Oxygen saturation normal. Appearance: Alert. Oriented X3. No acute distress. Head: Normal external exam. Normocephalic. Atraumatic. No Lindsey signs noted. No raccoon eyes noted Eyes: PERRLA. EOMI. Conjunctiva and sclera normal. Eyelids normal. ENT: TM's Normal. Pharynx normal. Uvula midline. Moist mucous membranes. No trismus noted. No drooling noted. No muffled voice noted. Neck: Normal inspection. Neck supple. FROM. No adenopathy. Thyroid Normal. No meningeal signs. No neck mass noted. CVS: Normal heart rate and rhythm. Heart sound normal. No murmurs noted. Pulses normal throughout. Respiratory: No respiratory distress. Painless inspiration. Breath sounds normal. No wheezes/rales/rhonchi noted. Chest nontender. No accessory muscle usage noted or decreased air movement noted. Abdomen: Obese, right lower quadrant tenderness, voluntary guarding, Bowel sounds normal in all 4 quadrants. No distention noted. No organomegaly noted. No visible injury noted. Back: No CVA tenderness. Full range of motion noted. Skin: Skin warm and dry. Normal skin color. Normal skin turgor. No rashes/lesions/lacerations noted. Extremities: No lower extremity edema. Extremities exhibit normal range of motion. Extremities nontender. Neuro: Oriented X 3. Cranial nerve exam: II-XII are grossly intact No motor deficit. No sensory deficit. Reflexes normal. Course Reevaluation(s) Reevaluation #1: 43-year-old with abdominal pain CT is consistent with acute appendicitis case discussed with Dr. Gottlieb who will evaluate the patient in the emergency department. Time: 06:21 Medical Decision Making Differential Diagnosis Differential Diagnoses: The differential diagnosis associated with the presentation includes (Acute appendicitis, colitis, acute diverticulitis, perforated viscus, ileus, SBO, pancreatitis, acute cholecystitis, electrolyte derangement, severe anemia.) Admission/Observation Consideration of admission/observation: Escalation of care including admission/observation considered Consult Healthcare Provider Management of the patient was discussed with: Gis Analyst Developer (Dr. Gottlieb) Lab Data MDM Lab Attestation statement: I reviewed the patient's lab results. 04/06/24 02:36 04/06/24 02:36 Labs: Lab Results 04/06/24 Range/Units 02:36 WBC 16.7 H (4.8-10.8) X10*3/uL RBC 5.04 (4.60-5.80) X10*6/uL Hgb 15.0 (14.0-18.0) g/dl Hct 43.5 (42.0-52.0) % MCV 86.3 (80.0-98.0) fL MCH 29.8 (27.0-33.0) pg MCHC 34.5 (31.0-36.0) g/dl RDW 12.8 (11.0-16.0) % Plt Count 206 D (160-400) X10*3/uL MPV 10.4 (9.4-12.4) fL Absolute Nucleated RBC 0.000 (0.0-0.012) X10*3/uL Nucleated RBC % (auto) 0.0 (0.0-0.2) /100WBC Sodium 138 (135-145) mmol/L Potassium 4.0 (3.3-5.1) mmol/L Chloride 101 (96-108) mmol/L Carbon Dioxide 27 (22-29) mmol/L Anion Gap 14 (12-20) BUN 14 (9-16) mg/dL Creatinine 0.86 (0.5-1.4) mg/dL Estim Creat Clear Calc 146.2 Estimated GFR > 60 Random Glucose 212 H (60-115) mg/dL Calcium 9.6 (8.4-10.2) mg/dL Total Bilirubin 1.3 H (0.0-1.0) mg/dL AST 61 H (5-37) U/L ALT 53 H (0-40) U/L Alkaline Phosphatase 89 (39-117) U/L Total Protein 7.6 (6.5-8.0) g/dL Albumin 3.8 (3.5-5.0) g/dL Lipase 17 (8-78) U/L Independent Interpretation I performed an independent interpretation of an: CT Scan (Abdomen and pelvis: Acute noncomplicated appendicitis) Radiology Impression Discussion of test interpretation with radiology: I have reviewed the radiologist's reading. Medications Administered Discontinued Medications Generic Name Dose Route Start Last Admin Trade Name Freq PRN Reason Stop Dose Admin Hydromorphone HCl 1 mg 04/06/24 04:34 04/06/24 04:53 Hydromorphone Hcl 1 Mg/Ml Syringe IVPUSH 04/06/24 04:35 1 mg ONCE ONE Administration Protocol Sodium Chloride 1,000 mls @ 999 mls/hr 04/06/24 03:02 04/06/24 04:52 Ns IV 04/06/24 04:02 Infused .Q1H1M ONE Infusion Sodium Chloride 1,000 mls @ 999 mls/hr 04/06/24 04:34 04/06/24 05:53 Ns IV 04/06/24 05:34 Infused .Q1H1M ONE Infusion Ketorolac Tromethamine 30 mg 04/06/24 03:02 04/06/24 03:40 Ketorolac Tromethamine 30 Mg/Ml Vial IVPUSH 04/06/24 03:03 30 mg ONCE ONE Administration Morphine Sulfate 2 mg 04/06/24 03:02 04/06/24 03:40 Morphine Sulfate 2 Mg/Ml Cartridge IVPUSH 04/06/24 03:03 2 mg ONCE ONE Administration Protocol Discharge Plan Discharge Clinical Impression: Acute appendicitis Patient Disposition: Admitted As Inpatient Prescriptions: No Action hydrocodone-acetaminophen 5-325 mg tablet 1 tab PO Q6H PRN (Reason: pain) Qty: 12 0RF ofloxacin 0.3 % drops 10 drp otic (ears) DAILY 7 Days Qty: 5 0RF levofloxacin 500 mg tablet 500 mg PO DAILY Qty: 6 0RF Rx Instructions: start on 03/29 given dose in the ED cyclobenzaprine 10 mg tablet 10 mg PO Q8H Qty: 20 0RF cyclobenzaprine 10 mg tablet 10 mg PO TID PRN (Reason: muscle spasm) Qty: 15 0RF Print Language: Frisian
--- NOTE | 2024-04-06 07:25 | PM.HPGS ---
History of Present Illness History of Present Illness Date of Service: 04/09/24 Chief complaint: appendicitis Narrative: Delonte Flanagan is a 43 year old male diabetes and morbid obesity, who came to the ER this morning because of abdominal pain. He said this started yesterday around 01:00 o'clock in the afternoon. This had persisted throughout the day so he decided to come to the emergency room last night. He describes some nausea and vomiting as well about 5 times since yesterday He denies any fever or chills. He denies any diarrhea or constipation. He has known diabetes and previously was on Ozempic but he said he has not been taking this. He is on glipizide and is not on any insulin. He has never had any abdominal surgeries before. Review of Systems Constitutional: Constitutional: Denies chills and Denies fever(s) Cardiovascular: Cardiovascular: Denies chest pain, Denies dyspnea and Denies dyspnea on exertion Respiratory: Respiratory: Denies cough, Denies dyspnea and Denies dyspnea on exertion Gastrointestinal: Gastrointestinal: Denies hematochezia and Denies change in bowel habits Genitourinary: Genitourinary: Denies hematuria and Denies difficulty urinating Musculoskeletal: Musculoskeletal: Denies back pain and Denies limited range of motion Neurologic: Denies focal weakness and Denies convulsions Psychiatric: Psychiatric: Denies depression and Denies mood swings PMFSH Past Medical History Medical History (Updated 04/06/24 @ 15:15 by Emma Hall RN) FANY (obstructive sleep apnea) HTN (hypertension) Asthma Diabetes Family History Family History Father No problems noted. Mother No problems noted. Surgical History Surgical History (Updated 04/07/24 @ 07:47 by Kaylene Murillo PA-C) No pertinent past surgical history Social History Social History Household Members: Family Housing: Apartment Do you presently have visiting nurse or other home services: No Alcohol intake: never Patient Tobacco Use Status: Former Tobacco user Tobacco use type: Cigarette Years Smoked: 35 Second Hand Smoke Exposure: No Substance Use Type: Marijuana service: No Meds Allergies Allergy/AdvReac Type Severity Reaction Status Date / Time Penicillins Allergy Severe angioedema Verified 04/06/24 15:04 and SOB Home Medications ?Medication ?Instructions ?Recorded ?Confirmed ?Last Taken ?Type fluoxetine 40 mg capsule 40 mg PO DAILY 04/06/24 04/06/24 04/05/24 History glipizide 10 mg tablet, extended 10 mg PO DAILY 04/06/24 04/06/24 04/05/24 History release 24 hr Physical Exam Vital Signs: Vital Signs: Last Vital Signs Temp 98.0 F 04/06/24 06:21 Pulse 73 04/06/24 06:21 Resp 14 04/06/24 06:21 BP 129/73 04/06/24 06:21 Pulse Ox 95 04/06/24 06:21 O2 Del Method Room Air 04/06/24 06:21 BMI result Body Mass Index 45.5 Const: Other: Morbidly obese General: comfortable and no acute distress Orientation/consciousness: patient oriented x3 Neck: Neck: Yes no lymphadenopathy Resp: Auscultation: clear to auscultation bilaterally Cardio: Rhythm: regular rhythm GI: Other: Some tenderness on right lower quadrant, no guarding rebound Palpation (GI): Soft to palpation, Tenderness to palpation present (GI) and no guarding Neuro: General: patient oriented x3 Results Results Labs: Short CBC 04/06/24 Range/Units 02:36 WBC 16.7 H (4.8-10.8) X10*3/uL Hgb 15.0 (14.0-18.0) g/dl Hct 43.5 (42.0-52.0) % Plt Count 206 D (160-400) X10*3/uL BMP 04/06/24 02:36 Sodium 138 Potassium 4.0 Chloride 101 Carbon Dioxide 27 BUN 14 Creatinine 0.86 Calcium 9.6 Liver Function 04/06/24 Range/Units 02:36 Total Bilirubin 1.3 H (0.0-1.0) mg/dL AST 61 H (5-37) U/L ALT 53 H (0-40) U/L Alkaline Phosphatase 89 (39-117) U/L Albumin 3.8 (3.5-5.0) g/dL Assessment and Plan (1) Acute appendicitis: Status: Acute He was admitted for abdominal pain on the right lower quadrant his CAT scan shows inflammatory changes along with edema of the appendix consistent with acute appendicitis. He has leukocytosis. I had a long discussion with him about the option of proceeding with appendectomy versus IV antibiotic treatment. I explained the technique of laparoscopic appendectomy and possible open appendectomy. I reviewed the risks including but not limited to bleeding, infections, injury to other organs including bowel and urinary tract, staple line leak, blood clots, pneumonia, as well as the benefits and alternatives. He wants to proceed with appendectomy. We will set him of the add on schedule today. His was with him during the visit. He understands that his diabetes as well as his morbid obesity puts him at an above average risk for the procedure. He does state that his blood sugars are usually below 200. Quality Stroke Does the patient have a stroke diagnosis?: No VTE Prior VTE?: No VTE Risk Level:: Medical - moderate - high VTE Device Contraindication: N/A - Device Ordered VTE Drug Contraindication: N/A - Med Ordered Procedures Date of Service Date of Service: 04/09/24
[2024-04-06] MEDS: levoFLOXacin/D5W 500 MG/100 ML PIGGYBACK 100 MG IV (08:05)
[2024-04-06] MEDS: metroNIDAZOLE/NS 500 MG/100 ML PIGGYBACK 100 MG IV ×2 (08:05→15:38)
[2024-04-06] MEDS: Lactated Ringers 1,000 ML 80 ML IVCONT ×2 (08:05→19:57)
--- NOTE | 2024-04-06 08:09 | MHC.EDTECH ---
[facility] resting, call pettit within reach. Pt request Allergy bracelet- allergic to PNC: anaphylaxis.
--- NOTE | 2024-04-06 08:31 | MHC.EDTECH ---
Pt vital signs checked, pt c/o ABd pain 10/, RN Luis notified.
--- NOTE | 2024-04-06 09:25 | P.CONHOSP_ITS ---
History of Present Illness Data of Consult Service Date: 04/06/24 Requesting physician: Rolando Gottlieb Primary Care Provider: Aubree Ramirez MD [facility] Reason for consult: Medical management 43-year-old male with history of [id number] type 2 diabetes, diabetic polyneuropathy, mood disorder, hypertension, FANY compliant with cpap, and unspecified asthma who is morbidly obese with BMI greater than 45 admitted to general surgery for acute appendicitis. He is plan for appendectomy later on today and hospitalist service has been consulted for risk stratification as well as medical management. He denies any known history of obstructive sleep apnea. denies any cigarette smoking. No regular alcohol use or illicit drug use. Reports last Ozempic use was about 2 months ago. Review of Systems 2 Review of Systems: General: No fevers, malaise, unintentional weight loss HEENT: No blurred vision, diplopia. No sore throat, nasal congestion, rhinorrhea, sinus pain, ear pain Cardiovascular: No chest pain, palpitations, or leg edema Respiratory: No shortness of breath, wheezing, cough GI:+ abdominal pain. No nausea, vomiting, diarrhea, constipation, melena, hematochezia : No dysuria, hematuria, increased urinary frequency, decreased urinary output MSK: No myalgia, back pain Neuro: No headaches, weakness, paresthesias Skin: No rashes or lesions Yes all other systems are reviewed and are negative [facility] Medical History HTN (hypertension) Asthma Diabetes Family History Father No problems noted. Mother No problems noted. Surgical History Hx of colonoscopy Hx of cystoscopy History of carpal tunnel release Social History Alcohol intake: never Patient Tobacco Use Status: Never used Tobacco Smoked in Last 30 Days: No Use of substances other than those prescribed or required for medical reasons: No Substance Use Type: Marijuana Advance Directives: No Advance Directives Information Provided: Yes Do you have a plan to hurt others: No Plan Nutrition Risks: Acute nausea or vomiting x1 week Meds Allergies Allergy/AdvReac Type Severity Reaction Status Date / Time Penicillins Allergy Severe angioedema Verified 04/06/24 01:33 and SOB Active Medications: Current Medications Acetaminophen (Acetaminophen 325 Mg Tablet) 650 mg PO Q6H PRN PRN Reason: Pain, Mild (Pain Scale 1-3), fever or headache Calcium Carbonate (Calcium Carbonate 750 Mg Tab.Chew) 750 mg PO Q4H PRN PRN Reason: Heartburn Heparin Sodium (Porcine) (Heparin Sodium,Porcine 5,000 Unit/Ml Vial) 5,000 unit SUBCUT Q8H [facility] Lactated Ringer's (Lr) 1,000 mls @ 80 mls/hr IVCONT .[id number] [facility] Last Admin: 04/06/24 08:05 Dose: 80 mls/hr Levofloxacin (Levaquin) 500 mg in 100 mls @ 100 mls/hr IV Q24H [facility] Last Infusion: 04/06/24 09:00 Dose: Infused Metronidazole (Flagyl) 500 mg in 100 mls @ 100 mls/hr IV Q8H [facility] Last Infusion: 04/06/24 08:56 Dose: Infused Magnesium Hydroxide (Milk Of Magnesia 30 Ml Oral.Susp) 30 ml PO DAILY PRN PRN Reason: Constipation Melatonin (Melatonin 3 Mg Tablet) 6 mg PO BEDTIME PRN PRN Reason: Insomnia Sodium Chloride (0.9 % Sodium Chloride Flush 3 Ml Syringe) 3 ml IVFLUSH QSHIFT [facility] Last Admin: 04/06/24 08:19 Dose: Not Given Home Medications ?Medication ?Instructions ?Recorded ?Confirmed ?Last Taken ?Type amitriptyline 25 mg tablet 25 mg PO BEDTIME pain 04/06/24 Unknown History bupropion HCl 150 mg tablet,12 hr 150 mg PO BID 04/06/24 Unknown History sustained-release canagliflozin 300 mg tablet 300 mg PO QAM 04/06/24 Unknown History (Invokana) fluoxetine 40 mg capsule 40 mg PO DAILY 04/06/24 Unknown History gabapentin 100 mg capsule 300 mg PO Q8H 04/06/24 Unknown History metformin 500 mg tablet 1,000 mg PO BID 04/06/24 Unknown History multivitamin 1 tab PO DAILY 04/06/24 Unknown History semaglutide 1 mg/dose (4 mg/3 mL) 1 mg subcut QWEEK 04/06/24 Unknown History subcutaneous pen injector (Ozempic) Physical Exam 2 Vital Signs and Narrative: Vital Signs: Last Vital Signs Temp 98.0 F 04/06/24 08:28 Pulse 66 04/06/24 08:28 Resp 20 04/06/24 08:51 BP 129/77 04/06/24 08:28 Pulse Ox 96 04/06/24 08:28 O2 Del Method Room Air 04/06/24 08:28 BMI result Body Mass Index 45.5 Constitutional - Awake and Alert, No apparent distress Eyes - PERRLA, EOMI Cardiovascular - S1S2, RRR, No edema Respiratory - Normal lung expansion, Normal respiratory effort, No respiratory distress, CTA bilaterally Extremities - no calf tenderness bilaterally, no swelling Skin - Warm/Dry Neurological - Alert & oriented x3, CN II-XII in tact, 5/5 strength BUE and BLE Psychological - Appropriate affect Results Labs 04/06/24 02:36 04/06/24 02:36 Labs: Laboratory Results - last 24 hr 04/06/24 02:36 MCV 86.3 MCH 29.8 MCHC 34.5 RDW 12.8 Plt Count 206 D MPV 10.4 Absolute Nucleated RBC 0.000 Nucleated RBC % (auto) 0.0 Anion Gap 14 Estim Creat Clear Calc 146.2 Estimated GFR > 60 Random Glucose 212 H Calcium 9.6 Total Bilirubin 1.3 H AST 61 H ALT 53 H Alkaline Phosphatase 89 Total Protein 7.6 Albumin 3.8 Lipase 17 Imaging Radiologist's Impressions: Impressions Abdomen/Pelvis CT 04/06/24 03:15 IMPRESSION: Acute appendicitis. No evidence of perforation or abscess formation. Heterogeneous irregular liver suggests hepatocellular disease/early cirrhosis. Fleischner guidelines were followed. Assessment and Plan (1) Acute appendicitis: Status: Acute Plan 43-year-old male with history of [id number] type 2 diabetes, diabetic polyneuropathy, mood disorder, hypertension, and unspecified asthma who is morbidly obese with BMI greater than 45 admitted to general surgery for acute appendicitis. # acute appendicitis -plan per General surgery -Class I risk on revised cardiac risk index. underlying FANY will increase surgical risk. Given urgent/emergent nature of surgery would proceed as planned with appropriate anesthesia precautions # [id number]-[id number] type 2 diabetes -POC glucose, advanced to diabetic diet with recommendation from General surgery -Humalog on sliding scale -hold p.o. medications # hypertension -not on antihypertensives -monitor blood pressures # unspecified asthma -not on home inhalers, albuterol p.r.n. # mood disorder -continue home medications #FANY -cpap bedtime, use anesthesia precautions breanna-operatively #morbid obesity with BMI greater than 45 -weight loss efforts encouraged Thank you for this consult, we will continue following
[2024-04-06 10:34] LABS: Glucose, Whole Blood 189 mg/dL (60-115)
--- NOTE | 2024-04-06 11:41 | PHA.MEDREC ---
Addendum entered by Roxie Zamarripa RPh 04/06/24 12:18: med rec done by [facility], reviewed by [facility] Original Note: Pharmacy Consult ? Medication Reconciliation Pharmacy has completed the medication reconciliation. Confirmed medications with patient and patient at bedside. Patient not compliant with his medication. His stated he gets all his medications filled together but he is only taking Fluoxitine, Glipizide and Gabapentin as needed . I asked about Amitriptyline 25mg, Bupropion 150mg and Invokana 300mg since those were filled 03/31 for 30 days and she states the patient has not taken those medications in over a year but has been getting them filled from pharmacy and has an overstock of it at home. Patient also was taking Metofrmin 1000mg BID but has not been taking either according to her. I also asked about the Basaglar Kwik Pen and the patient stated I have not taken that in a while . Patient also has a Glipizide 10mg tab that he was suppose to be taking 1 tab BID and he is taking 1 tab daily instead per his . Patient also taking a Gabapentin tab 100mg and patient originally was taking to 300mg Q8H but per his he is now taking 1 tablet as needed for nerve pain.
[2024-04-06 12:25] LABS: Glucose, Whole Blood 222 mg/dL (60-115)
--- NOTE | 2024-04-06 15:00 | HO.ANESPROP2 ---
HPI - Anesthesia Eval Consult details Narrative: 43 yo male patient for Laparoscopic appendectomy PMFSH Active Problems Active Problems: All Active Problems Acute appendicitis (Acute) H/o cannabis intoxication per ER record. Patient denies Anxiety/Depression FANY Asthma- long time ago per patient. No recent use of inhaler HTN- Patient not compliant with medication Gabapentin prescribed for pain- patient not using Past Medical History Medical History (Updated 04/06/24 @ 15:15 by Emma Hall RN) FANY (obstructive sleep apnea) HTN (hypertension) Asthma Diabetes Family History Family History Father No problems noted. Mother No problems noted. Family history of problems with anesthesia: No Surgical History Surgical History (Updated 04/06/24 @ 15:15 by Emma Hall RN) No pertinent past surgical history History of Problems with Anesthesia: No (Some surgeries noted in patient's previous medical records but patient denies having any surgeries ) Social History Social History Alcohol intake: never Patient Tobacco Use Status: Former Tobacco user Tobacco use type: Cigarette Years Smoked: 35 Substance Use Type: Marijuana Meds Allergies Allergy/AdvReac Type Severity Reaction Status Date / Time Penicillins Allergy Severe angioedema Verified 04/06/24 15:04 and SOB Active Medications: Current Medications Acetaminophen (Acetaminophen 325 Mg Tablet) 650 mg PO Q6H PRN PRN Reason: Pain, Mild (Pain Scale 1-3), fever or headache Calcium Carbonate (Calcium Carbonate 750 Mg Tab.Chew) 750 mg PO Q4H PRN PRN Reason: Heartburn Glucose (Glucose Gel 15 Gm Gel..Gram.) 15 gm PO Q15M PRN; Protocol PRN Reason: per Hypoglycemia Standing Ord. Heparin Sodium (Porcine) (Heparin Sodium,Porcine 5,000 Unit/Ml Vial) 5,000 unit SUBCUT Q8H [facility] Lactated Ringer's (Lr) 1,000 mls @ 80 mls/hr IVCONT .[id number] [facility] Last Admin: 04/06/24 08:05 Dose: 80 mls/hr Levofloxacin (Levaquin) 500 mg in 100 mls @ 100 mls/hr IV Q24H [facility] Last Infusion: 04/06/24 09:00 Dose: Infused Metronidazole (Flagyl) 500 mg in 100 mls @ 100 mls/hr IV Q8H [facility] Last Infusion: 04/06/24 08:56 Dose: Infused Dextrose (D10) 250 mls @ 750 mls/hr IV Q15M PRN; Protocol PRN Reason: per Hypoglycemia Standing Ord. Insulin Human Lispro (Insulin Lispro 100 Unit/Ml 3 Ml Vial) 0 unit SUBCUT QIDACHS [facility]; Protocol Last Admin: 04/06/24 11:54 Dose: Not Given Magnesium Hydroxide (Milk Of Magnesia 30 Ml Oral.Susp) 30 ml PO DAILY PRN PRN Reason: Constipation Melatonin (Melatonin 3 Mg Tablet) 6 mg PO BEDTIME PRN PRN Reason: Insomnia Morphine Sulfate (Morphine Sulfate 4 Mg/Ml Cartridge) 3 mg IVPUSH Q4H PRN; Protocol PRN Reason: Pain, Severe (Pain Scale 7-10) Sodium Chloride (0.9 % Sodium Chloride Flush 3 Ml Syringe) 3 ml IVFLUSH QSHIFT [facility] Last Admin: 04/06/24 08:19 Dose: Not Given Home Medications ?Medication ?Instructions ?Recorded ?Confirmed ?Last Taken ?Type fluoxetine 40 mg capsule 40 mg PO DAILY 04/06/24 04/06/24 04/05/24 History glipizide 10 mg tablet, extended 10 mg PO DAILY 04/06/24 04/06/24 04/05/24 History release 24 hr Exam Height,Weight and Vital Signs: Height 5 ft 8 in Weight 135.7 kg Last Vital Signs Temp 98.0 F 04/06/24 08:28 Pulse 66 04/06/24 08:28 Resp 20 04/06/24 08:51 BP 129/77 04/06/24 08:28 Pulse Ox 96 04/06/24 08:28 O2 Del Method Room Air 04/06/24 08:28 Vital Signs Temp Pulse Resp BP Pulse Ox O2 Del Method 04/06/24 15:05 97.8 F 102 H 16 169/99 H 94 Room Air 04/06/24 08:51 20 04/06/24 08:28 98.0 F 66 18 129/77 96 Room Air 04/06/24 07:30 98.1 F 78 14 123/75 96 Room Air 04/06/24 06:21 98.0 F 73 14 129/73 95 Room Air 04/06/24 01:32 98.6 F 67 22 H 134/77 98 Room Air Pertinent Lab Results Pertinent Lab Results: Laboratory Tests 04/06/24 04/06/24 04/06/24 02:36 10:30 12:21 WBC 16.7 H RBC 5.04 Hgb 15.0 Hct 43.5 MCV 86.3 MCH 29.8 MCHC 34.5 RDW 12.8 Plt Count 206 D MPV 10.4 Absolute Nucleated RBC 0.000 Nucleated RBC % (auto) 0.0 Sodium 138 Potassium 4.0 Chloride 101 Carbon Dioxide 27 Anion Gap 14 BUN 14 Creatinine 0.86 Estim Creat Clear Calc 146.2 Estimated GFR > 60 POC Glucose 189 H 222 H Random Glucose 212 H Calcium 9.6 Total Bilirubin 1.3 H AST 61 H ALT 53 H Alkaline Phosphatase 89 Total Protein 7.6 Albumin 3.8 Lipase 17 Airway Mallampati Class: Patient Non-Cooperative (Large head. Short fat neck. May be difficult to ventilate) TM Dist: >3cm Neck ROM: Full Loose/Missing/Broken Teeth: Yes (Some teeth missing ) Heart: RRR Lungs: CTAB Assessment and Plan Assessment Anesthesia Assessment: Anesthesia Plan Discussed and Chart Reviewed Final Anesthetic Review Family History of Problems with Anesthesia: No History of Problems with Anesthesia: No (Some surgeries noted in patient's previous medical records but patient denies having any surgeries ) NPO: Yes ASA Class: III and Emergency Final Preanesthetic Review: No Changes in Pt Med Stat, Meds/Allgs Chart Reviewed, Consent Obtained/Reviewed and Anes Risks/Benef Reviewed Patient Risk: Intermediate Procedure Risk: Intermediate Assessment/Block/Sedation in SS: Assess/Block/Sedation-SS Anesthetic Plan Anesthetic Plan: GA Disposition: Standard PACU
[2024-04-06 15:24] LABS: Glucose, Whole Blood 243 mg/dL (60-115)
[2024-04-06] MEDS: Lactated Ringers 1,000 ML 100 ML IVCONT (15:38)
--- NOTE | 2024-04-06 18:05 | P.OP_ITS ---
Operative Note Operative Note Date of Service: 04/06/24 Narrative: Preop diagnosis: Acute appendicitis Postop diagnosis: acute appendicitis, with a markedly suppurated and indurated appendix; the liver appeared cirrhotic Procedure: Laparoscopic appendectomy Surgeon: Rolando Gottlieb MD roofer assistant: koffi Mccall student The patient is a 43-year-old male admitted this morning because of right lower quadrant pain with note of acute appendicitis on imaging studies. He understood the technique of the procedure as well as the risks, benefits, and alternatives. He was brought to the operating room. He was placed supine under general anesthesia via endotracheal tube. A Gilbert catheter was inserted. The abdomen was prepped and draped in usual sterile fashion. A surgical time-out was done. The patient was receiving scheduled antibiotics He had a short supraumbilical incision with a blade 15. This was carried down through the full-thickness of the skin and subcutaneous fat. The patient had a very thick subcutaneous fat because of morbid obesity. We were able to eventually see the fascia. The fascia was incised. The peritoneum was entered. Through this incision the Herron port was introduced. Pneumoperitoneum was introduced to a pressure of 15 mm Hg. From here on the rest of the procedure was done under vision with the 10 mm 30 degree scope. The With laparoscopic visualization I inserted a 5/12 mm port in the left lower quadrant through a small stab incision. A 5 mm port is introduced a small incision in the suprapubic margin. Graspers were placed through the working ports. The patient was placed in a head down and [id number] position. The cecum was seen. There were a lot of bowel loops covering this right lower quadrant so we had to reflect these away gently. Following the cecum I was able to eventually see the tip of the appendix. The appendix was markedly inflamed, indurated and very superior active. I applied a grasper gently at the distal 3rd of the appendix. Was note of a lot of indurated fatty tissue surrounding this all the way to the base. We had to carefully separate this tissue from the rest of the appendix. We had to apply the grasper gently at the mid part of the appendix to allow better retraction. The appendix seemed to be friable at the mid base because of the acute inflammatory process. By applying traction I was able to visualize the base of the appendix. I used the LigaSure to divide the mesoappendix. There was note of some bleeding from the divided mesoappendix which we had to control with the application of the clip and the application of the LigaSure. Eventually, we achieved good hemostasis. I was able to therefore define the base of the appendix. This appeared to be viable. I used an Endo-JIMMY 30 mm stapler and positioned this across the base of the appendix. This was fired and the appendix was transected at the base The mesoappendix at the earlier been divided so was able to retrieved the appendix using an endobag through the left lower quadrant incision. I reinser shea all ports and re-insufflated. I was able to visualize the staple line and this was intact. There was no bleeding from the area. I irrigated and suctioned out the irrigant fluid including blood clots I observed all 4 quadrants. The liver appeared cirrhotic There was no other pathology or any evidence of any bowel injury I re-examined the area of dissection. Again this remained hemostatic without any signs of any bleeding I therefore desufflated through the port sites. I removed all ports under vision with the laparoscope. The umbilical port was removed last The fascia of the umbilical incision was closed with a [id number] Polysorb 0 stitch. Skin closure was achieved on all incisions using Polysorb 4-0 subcuticular running sutures. All incisions were infiltrated with Marcaine 0.5% for postop analgesia. Steri-Strips and dressings were applied. The procedure was completed The patient tolerated the procedure well. There were no immediate complications. Initial and final counts of sponges and instruments were correct. Estimated blood loss was about 50 cc The patient was extubated without difficulty and transferred to the recovery room with stable vital signs.
--- NOTE | 2024-04-06 18:27 | PM.EVENT ---
Event Note Date of Service: 04/06/24 Event Note: Underwent laparoscopic appendectomy - appendix was very indurated, suppurative, and surrounded by indurated fatty tissue Seen postop Still drowsy from anesthesia Otherwise looks comfortable Stable vital signs Pain management Patient has severe anxiety so Ativan also ordered p.r.n. Discussed with Time Spent With Patient Time: Total time managing care of this patient today ____ minutes.
[2024-04-06 18:55] LABS: Glucose, Whole Blood 274 mg/dL (60-115)
[2024-04-06] MEDS: 0.9 % Sodium Chloride Flush 3 ML SYRINGE IVFLUSH (19:57)
[2024-04-06 20:46] LABS: Glucose, Whole Blood 312 mg/dL (60-115)
[2024-04-06] MEDS: Insulin Lispro 100 UNIT/ML 3 ML VIAL SUBCUT (20:59)
[2024-04-06 22:25] LABS: Appearance Urine Clear; Color Urine Yellow; Glucose Urine UA >=1000 mg/dL (Negative); Leukocyte Esterase Urine Negative (Negative); Nitrite Urine Negative (Negative); PH 6.5 (5.0-9.0); Specific Gravity - Urine 1.025 (1.005-1.025); UMIC TRIGGER UACC YES; Urine Blood Trace (Negative); Urine Ketones Negative (Negative); Urine Protein Negative (Neg-Trace)
[2024-04-06 22:27] LABS: Bacteria Urine None Seen (None Seen); Hyaline Casts Urine 0-2 /LPF (0-2); Squamous Epithelial Cell Urine 0-2 /HPF (0-2); WBC Urine 0-5 /HPF (0-5)
[2024-04-07 00:32] VITALS: PULSE 86; RESP 21; O2SAT 94
[2024-04-07] MEDS: FLUoxetine HCl 20 MG CAPSULE 40 MG PO (00:45)
[2024-04-07] MEDS: metroNIDAZOLE/NS 500 MG/100 ML PIGGYBACK 100 MG IV ×2 (00:45→09:11)
[2024-04-07 03:57] VITALS: BP 139/77; PULSE 74; RESP 16; TEMP 36.7; O2SAT 96
[2024-04-07 06:58] VITALS: BP 122/76; PULSE 74; RESP 18; TEMP 36.6; O2SAT 95
[2024-04-07 07:09] LABS: Glucose, Whole Blood 167 mg/dL (60-115)
[2024-04-07] MEDS: levoFLOXacin/D5W 500 MG/100 ML PIGGYBACK 100 MG IV (07:32)
[2024-04-07] MEDS: Insulin Lispro 100 UNIT/ML 3 ML VIAL SUBCUT ×2 (07:33→11:36)
[2024-04-07] MEDS: Heparin Sodium,Porcine 5,000 UNIT/ML VIAL 5000 UNIT SUBCUT (07:34)
[2024-04-07] MEDS: 0.9 % Sodium Chloride Flush 3 ML SYRINGE IVFLUSH (07:37)
--- NOTE | 2024-04-07 07:45 | P.PNGS_ITS ---
Subjective Subjective Date of Service: 04/07/24 <Kaylene Murillo PA-C - Last Filed: 04/07/24 07:47> 04/07/24 <Rolando Gottlieb MD - Last Filed: 04/07/24 10:33> Interval history: Feels well. Tolerating solid diet. OOB and ambulating,denies any abdominal pain. <Kaylene Murillo PA-C - Last Filed: 04/07/24 07:47> Physical Exam 2 Vital Signs: Vital Signs: Last Vital Signs Temp 98 F 04/07/24 06:58 Pulse 74 04/07/24 06:58 Resp 18 04/07/24 06:58 BP 122/76 04/07/24 06:58 Pulse Ox 95 04/07/24 06:58 O2 Del Method Room Air 04/07/24 06:58 O2 Flow Rate 2 04/06/24 19:18 BMI result Body Mass Index 47.0 <Kaylene Murillo PA-C - Last Filed: 04/07/24 07:47> Const: General: comfortable, no acute distress and alert <Kaylene Murillo PA-C - Last Filed: 04/07/24 07:47> Nutritional Appearance: obese <Kaylene Murillo PA-C - Last Filed: 04/07/24 07:47> Resp: Effort & Inspection: normal respiratory effort <Kaylene Murillo PA-C - Last Filed: 04/07/24 07:47> GI: Other: protuberant abdomen <Kaylene Murillo PA-C - Last Filed: 04/07/24 07:47> Inspection: No distended and Yes incision (clean and intact) <Kaylene Murillo PA-C - Last Filed: 04/07/24 07:47> Palpation (GI): Soft to palpation, Tenderness to palpation present (GI) (mild incisional) and no guarding <SHELLIE Ortega Last Filed: 04/07/24 07:47> Skin: General skin exam: no rashes or lesions noted <SHELLIE Ortega Last Filed: 04/07/24 07:47> Objective Data Active Medications Acetaminophen (Acetaminophen 325 Mg Tablet) 650 mg PO Q6H PRN PRN Reason: Pain, Mild (Pain Scale 1-3), fever or headache Calcium Carbonate (Calcium Carbonate 750 Mg Tab.Chew) 750 mg PO Q4H PRN PRN Reason: Heartburn Fluoxetine HCl (Fluoxetine Hcl 20 Mg Capsule) 40 mg PO DAILY [facility] Last Admin: 04/07/24 00:45 Dose: 40 mg Documented By: RENE Glucose (Glucose Gel 15 Gm Gel..Gram.) 15 gm PO Q15M PRN; Protocol PRN Reason: per Hypoglycemia Standing Ord. Heparin Sodium (Porcine) (Heparin Sodium,Porcine 5,000 Unit/Ml Vial) 5,000 unit SUBCUT Q8H [facility] Last Admin: 04/07/24 07:34 Dose: 5,000 unit Documented By: SUSANNAH Lactated Ringer's (Lr) 1,000 mls @ 80 mls/hr IVCONT .[id number] [facility] Last Infusion: 04/07/24 07:20 Dose: Infused Documented By: SUSANNAH Levofloxacin (Levaquin) 500 mg in 100 mls @ 100 mls/hr IV Q24H [facility] Last Admin: 04/07/24 07:32 Dose: 100 mls/hr Documented By: SUSANNAH Metronidazole (Flagyl) 500 mg in 100 mls @ 100 mls/hr IV Q8H [facility] Last Infusion: 04/07/24 02:22 Dose: Infused Documented By: RENE Dextrose (D10) 250 mls @ 750 mls/hr IV Q15M PRN; Protocol PRN Reason: per Hypoglycemia Standing Ord. Insulin Human Lispro (Insulin Lispro 100 Unit/Ml 3 Ml Vial) 0 unit SUBCUT QIDACHS [facility]; Protocol Last Admin: 04/07/24 07:33 Dose: 2 unit Documented By: SUSANNAH Lorazepam (Lorazepam 1 Mg Tablet) 1 mg PO Q6H PRN PRN Reason: anxiety/restlessness Magnesium Hydroxide (Milk Of Magnesia 30 Ml Oral.Susp) 30 ml PO DAILY PRN PRN Reason: Constipation Melatonin (Melatonin 3 Mg Tablet) 6 mg PO BEDTIME PRN PRN Reason: Insomnia Morphine Sulfate (Morphine Sulfate 4 Mg/Ml Cartridge) 3 mg IVPUSH Q4H PRN; Protocol PRN Reason: Pain, Severe (Pain Scale 7-10) Oxycodone HCl (Oxycodone Hcl Immed Release 5 Mg Tablet) 10 mg PO Q4H PRN PRN Reason: Pain, Moderate(Pain Scale 4-6) Sodium Chloride (0.9 % Sodium Chloride Flush 3 Ml Syringe) [facility] Last Admin: 04/07/24 07:37 Dose: 3 ml Documented By: SUSANNAH <Kaylene Murillo PA-C - Last Filed: 04/07/24 07:47> Labs CBC & Chem 7: 04/06/24 02:36 04/06/24 02:36 <Kaylene Murillo PA-C - Last Filed: 04/07/24 07:47> Labs: Laboratory Results - last 24 hr 04/06/24 04/06/24 04/06/24 10:30 12:21 15:19 POC Glucose 189 H 222 H 243 H Urine Color Urine Appearance Urine pH Ur Specific [place] Urine Protein Urine Glucose (UA) Urine Ketones Urine Blood Urine Nitrite Ur Leukocyte Esterase Urine RBC Urine WBC Ur Squamous Epith Cells Urine Bacteria Hyaline Casts 04/06/24 04/06/24 04/06/24 18:51 20:35 22:11 POC Glucose 274 H 312 H Urine Color Yellow Urine Appearance Clear Urine pH 6.5 Ur Specific [place] 1.025 Urine Protein Negative Urine Glucose (UA) >=1000 H Urine Ketones Negative Urine Blood Trace H Urine Nitrite Negative Ur Leukocyte Esterase Negative Urine RBC 3-5 H Urine WBC 0-5 Ur Squamous Epith Cells 0-2 Urine Bacteria None Seen Hyaline Casts 0-2 04/07/24 07:05 POC Glucose 167 H Urine Color Urine Appearance Urine pH Ur Specific [place] Urine Protein Urine Glucose (UA) Urine Ketones Urine Blood Urine Nitrite Ur Leukocyte Esterase Urine RBC Urine WBC Ur Squamous Epith Cells Urine Bacteria Hyaline Casts <Kaylene Murillo PA-C - Last Filed: 04/07/24 07:47> Procedures Date of Service Date of Service: 04/07/24 <Kaylene Murillo PA-C - Last Filed: 04/07/24 07:47> 04/07/24 <Rolando Gottlieb MD - Last Filed: 04/07/24 10:33> Progress Note: A&P Assessment and plan (1) S/P laparoscopic appendectomy: Status: Acute <Kaylene Murillo PA-C - Last Filed: 04/07/24 07:47> Assessment and Plan: Feels much better this morning Tolerating diet Good pain control Looks well Says he is ready to be discharged Follow-up instructions reinforced with patient Seen and examined independently <Rolando Gottlieb MD - Last Filed: 04/07/24 10:33> Assessment and Plan: POD #1 s/p lap appy. Doing well post op. Tolerating solid diet, OOB and ambulating, minimal abd pain. VSS. Abd exam benign with appropriate post op tenderness, clean and intact dressings. Stable for dc to home today. F/u in office in 2 weeks. Patient comfortable with plan. <Kaylene Murillo PA-C - Last Filed: 04/07/24 07:47> Time Spent With Patient Time: Total time managing care of this patient today ____ minutes. <Kaylene Murillo PA-C - Last Filed: 04/07/24 07:47> Quality Stroke Does the patient have a stroke diagnosis?: No <Kaylene Murillo PA-C - Last Filed: 04/07/24 07:47> VTE Prior VTE?: No <Kaylene Murillo PA-C - Last Filed: 04/07/24 07:47> VTE Risk Level:: Medical - moderate - high <Kaylene Murillo PA-C - Last Filed: 04/07/24 07:47> VTE Device Contraindication: N/A - Device Ordered <Kaylene Murillo PA-C - Last Filed: 04/07/24 07:47> VTE Drug Contraindication: N/A - Med Ordered <SHELLIE Ortega Last Filed: 04/07/24 07:47>
--- NOTE | 2024-04-07 08:45 | HO.POSTANES ---
Post Anesthesia Evaluation Post Anesthesia Evaluation Date of Service: 04/06/24 Vital Signs: Vital Signs Temp Pulse Resp BP Pulse Ox O2 Del Method 04/07/24 06:58 98 F 74 18 122/76 95 Room Air 04/07/24 03:57 98.0 F 74 16 139/77 96 CPAP 04/07/24 00:32 21 H Anesthesia: General Mental Status: Awake Pain Control: Satisfactory Nausea/Vomiting: None Hydration: Adequate Anesthesia-Related Issues: No Anes. Related Issues
--- NOTE | 2024-04-07 09:23 | HO.PM.IMPN ---
Subjective Subjective Date of Service: 04/07/24 Interval History: f/u on med consult doing well post op, tolerating Physical Exam Vital Signs: Vital Signs: Last Vital Signs Temp 98 F 04/07/24 06:58 Pulse 74 04/07/24 06:58 Resp 18 04/07/24 06:58 BP 122/76 04/07/24 06:58 Pulse Ox 95 04/07/24 06:58 O2 Del Method Room Air 04/07/24 06:58 O2 Flow Rate 2 04/06/24 19:18 BMI result Body Mass Index 47.0 General: AO X 3, no acute distress Resp: CTA bilateral CVS: S1,S2,RRR GI: +BS, NT, no distention, incision site d/c/i Skin: No rash Neuro: motor grossly intact Psych: appropriate affect Objective Data Active Medications Acetaminophen (Acetaminophen 325 Mg Tablet) 650 mg PO Q6H PRN PRN Reason: Pain, Mild (Pain Scale 1-3), fever or headache Calcium Carbonate (Calcium Carbonate 750 Mg Tab.Chew) 750 mg PO Q4H PRN PRN Reason: Heartburn Fluoxetine HCl (Fluoxetine Hcl 20 Mg Capsule) 40 mg PO DAILY [facility] Last Admin: 04/07/24 00:45 Dose: 40 mg Documented By: RENE Glucose (Glucose Gel 15 Gm Gel..Gram.) 15 gm PO Q15M PRN; Protocol PRN Reason: per Hypoglycemia Standing Ord. Heparin Sodium (Porcine) (Heparin Sodium,Porcine 5,000 Unit/Ml Vial) 5,000 unit SUBCUT Q8H [facility] Last Admin: 04/07/24 07:34 Dose: 5,000 unit Documented By: SUSANNAH Lactated Ringer's (Lr) 1,000 mls @ 80 mls/hr IVCONT .[id number] [facility] Last Infusion: 04/07/24 07:20 Dose: Infused Documented By: SUSANNAH Levofloxacin (Levaquin) 500 mg in 100 mls @ 100 mls/hr IV Q24H [facility] Last Infusion: 04/07/24 09:01 Dose: Infused Documented By: SUSANNAH Dextrose (D10) 250 mls @ 750 mls/hr IV Q15M PRN; Protocol PRN Reason: per Hypoglycemia Standing Ord. Metronidazole (Flagyl) 500 mg in 100 mls @ 100 mls/hr IV Q8H [facility] Last Admin: 04/07/24 09:11 Dose: 100 mls/hr Documented By: SUSANNAH Insulin Human Lispro (Insulin Lispro 100 Unit/Ml 3 Ml Vial) [facility]; Protocol Last Admin: 04/07/24 07:33 Dose: 2 unit Documented By: SUSANNAH Lorazepam (Lorazepam 1 Mg Tablet) 1 mg PO Q6H PRN PRN Reason: anxiety/restlessness Magnesium Hydroxide (Milk Of Magnesia 30 Ml Oral.Susp) 30 ml PO DAILY PRN PRN Reason: Constipation Melatonin (Melatonin 3 Mg Tablet) 6 mg PO BEDTIME PRN PRN Reason: Insomnia Morphine Sulfate (Morphine Sulfate 4 Mg/Ml Cartridge) 3 mg IVPUSH Q4H PRN; Protocol PRN Reason: Pain, Severe (Pain Scale 7-10) Oxycodone HCl (Oxycodone Hcl Immed Release 5 Mg Tablet) 10 mg PO Q4H PRN PRN Reason: Pain, Moderate(Pain Scale 4-6) Sodium Chloride (0.9 % Sodium Chloride Flush 3 Ml Syringe) 3 ml IVFLUSH [facility] Last Admin: 04/07/24 07:37 Dose: 3 ml Documented By: SUSANNAH Labs 04/06/24 02:36 04/06/24 02:36 Labs: Laboratory Results - last 24 hr 04/06/24 04/06/24 04/06/24 10:30 12:21 15:19 POC Glucose 189 H 222 H 243 H Urine Color Urine Appearance Urine pH Ur Specific [place] Urine Protein Urine Glucose (UA) Urine Ketones Urine Blood Urine Nitrite Ur Leukocyte Esterase Urine RBC Urine WBC Ur Squamous Epith Cells Urine Bacteria Hyaline Casts 04/06/24 04/06/24 04/06/24 18:51 20:35 22:11 POC Glucose 274 H 312 H Urine Color Yellow Urine Appearance Clear Urine pH 6.5 Ur Specific [place] 1.025 Urine Protein Negative Urine Glucose (UA) >=1000 H Urine Ketones Negative Urine Blood Trace H Urine Nitrite Negative Ur Leukocyte Esterase Negative Urine RBC 3-5 H Urine WBC 0-5 Ur Squamous Epith Cells 0-2 Urine Bacteria None Seen Hyaline Casts 0-2 04/07/24 07:05 POC Glucose 167 H Urine Color Urine Appearance Urine pH Ur Specific [place] Urine Protein Urine Glucose (UA) Urine Ketones Urine Blood Urine Nitrite Ur Leukocyte Esterase Urine RBC Urine WBC Ur Squamous Epith Cells Urine Bacteria Hyaline Casts Assessment and Plan (1) Acute appendicitis: Status: Acute Plan 43-year-old male with history of [id number] type 2 diabetes, diabetic polyneuropathy, mood disorder, hypertension, and unspecified asthma who is morbidly obese with BMI greater than 45 admitted to general surgery for acute appendicitis. # acute appendicitis -S/P surgery, plan per General surgery # [id number] type 2 diabetes -POC glucose, advanced to diabetic diet with recommendation from General surgery -Humalog on sliding scale -resume meds upon dc # hypertension--nl, no meds # unspecified asthma -not on home inhalers, albuterol p.r.n. # mood disorder -continue home medications #FANY -cpap bedtime, use anesthesia precautions breanna-operatively #morbid obesity with BMI greater than 45 -weight loss efforts encouraged medically ok to dc with prior meds Quality Stroke Does the patient have a stroke diagnosis?: No VTE Prior VTE?: No VTE Risk Level:: Medical - moderate - high VTE Device Contraindication: N/A - Device Ordered VTE Drug Contraindication: N/A - Med Ordered
[2024-04-07 11:14] LABS: Glucose, Whole Blood 223 mg/dL (60-115)
--- NOTE | 2024-04-07 11:19 | PM.DS ---
DS: Providers Provider Date of Service: 04/07/24 Date of admission: 04/06/24 07:30 Date of discharge: 04/07/24 Primary care physician: Aubree Ramirez MD Attending physician on admission: Rolando Gottlieb Consults: 04/06/24 06:22 Consult to General Surgery Stat Consulting Provider: [facility] Reason for consultation: Acute appendicitis Has provider been notified: Yes 04/06/24 07:32 Consult to Hospitalist Routine Comment: Consulting Provider: Hospitalist Reason For Exam: DM Attending physician on discharge: Rolando Gottlieb DS: Diagnosis Discharge Diagnosis (1) S/P laparoscopic appendectomy: Status: Acute DS: Summary Hospital Course Hospital Course: HPI AT ADMISSION: Delonte Flanagan is a 43 year old male diabetes and morbid obesity, who came to the ER this morning because of abdominal pain. He said this started yesterday around 01:00 o'clock in the afternoon. This had persisted throughout the day so he decided to come to the emergency room last night. He describes some nausea and vomiting as well about 5 times since yesterday. He denies any fever or chills. He denies any diarrhea or constipation. He has known diabetes and previously was on Ozempic but he said he has not been taking this. He is on glipizide and is not on any insulin. He has never had any abdominal surgeries before. CAT scan shows inflammatory changes along with edema of the appendix consistent with acute appendicitis. He has leukocytosis. HOSPITAL COURSE: The patient was admitted to the surgical service for further treatment of the acute appendicitis. He elected to proceed with laparoscopic appendectomy. He was added onto the OR schedule for that day. Hospitalist consult was obtained for management of his diabetes. On 04/06/24, a laparoscopic appendectomy was performed by Dr. Gottlieb without complication. The patient tolerated the procedure well. He had an uncomplicated recovery course. On POD #1, he felt well and was tolerating a solid diet without nausea or vomiting, had good pain control and was ambulating without difficulty. He was hemodynamically stable. His abdomen was benign with appropriate post op tenderness and clean and intact dressings. He felt ready for discharge. He was discharged to home on 04/07/24 in stable condition. He is to follow up in the office in 2 weeks. Time Attestation Discharge Coordination Time (in mins): 30 Quality: Safe Use of Opioids Does Pt have an Active Cancer Diagnosis on the Problem List?: No Quality: Stroke Does the patient have a stroke diagnosis?: No Physical Exam Vital Signs: Vital Signs: Last Vital Signs Temp 98 F 04/07/24 06:58 Pulse 74 04/07/24 06:58 Resp 18 04/07/24 06:58 BP 122/76 04/07/24 06:58 Pulse Ox 95 04/07/24 06:58 O2 Del Method Room Air 04/07/24 06:58 O2 Flow Rate 2 04/06/24 19:18 BMI result Body Mass Index 47.0 Const: General: comfortable, no acute distress and alert Orientation/consciousness: patient oriented x3 Resp: Effort & Inspection: normal respiratory effort GI: Other: protuberant abdomen Inspection: No distended and Yes incision (dressings clean and intact) Palpation (GI): Soft to palpation, Tenderness to palpation present (GI) (mild incisional) and no guarding Skin: General skin exam: no rashes or lesions noted Neuro: General: patient oriented x3 DS: Data Data Completed and Pending Pending studies at discharge: Pending at discharge 04/06/24 17:38 Surgical [PTH] Routine Labs on day of discharge: Laboratory Results - last 24 hr 04/06/24 04/06/24 04/06/24 12:21 15:19 18:51 POC Glucose 222 H 243 H 274 H Urine Color Urine Appearance Urine pH Ur Specific [place] Urine Protein Urine Glucose (UA) Urine Ketones Urine Blood Urine Nitrite Ur Leukocyte Esterase Urine RBC Urine WBC Ur Squamous Epith Cells Urine Bacteria Hyaline Casts 04/06/24 04/06/24 04/07/24 20:35 22:11 07:05 POC Glucose 312 H 167 H Urine Color Yellow Urine Appearance Clear Urine pH 6.5 Ur Specific [place] 1.025 Urine Protein Negative Urine Glucose (UA) >=1000 H Urine Ketones Negative Urine Blood Trace H Urine Nitrite Negative Ur Leukocyte Esterase Negative Urine RBC 3-5 H Urine WBC 0-5 Ur Squamous Epith Cells 0-2 Urine Bacteria None Seen Hyaline Casts 0-2 04/07/24 11:05 POC Glucose 223 H Urine Color Urine Appearance Urine pH Ur Specific Hazlet Urine Protein Urine Glucose (UA) Urine Ketones Urine Blood Urine Nitrite Ur Leukocyte Esterase Urine RBC Urine WBC Ur Squamous Epith Cells Urine Bacteria Hyaline Casts Discharge Plan Discharge Anticipated Discharge Date/Time: 04/07/24 10:48 Patient Disposition: Home, Self-Care Discharge Diagnosis: s/p laparoscopic appendectomy Referrals: Aubree Matute MD [Primary Care Provider] - 1 Week Rolando Gottlieb MD [Physician] - 2 Weeks Discharge Medications: New oxycodone 5 mg tablet 5 mg PO Q4H PRN (Reason: pain (scale score 7-10)) Qty: 24 0RF Rx Instructions: Partial Fill upon patient request. docusate sodium [Colace] 100 mg capsule 100 mg PO BID Qty: 30 0RF Continued fluoxetine 40 mg capsule 40 mg PO DAILY glipizide 10 mg tablet extended release 24hr 10 mg PO DAILY Discharge Orders: Discharge Order (Routine); Ordered 04/07/24 Ordered By: Kaylene Murillo Diet: Diabetic diet Activity on Discharge: No heavy lifting Stand Alone Forms: Patient Portal Discharge page Print Language: Polish Activity Restrictions/Additional Instructions: If the incision area is tender, you may apply an ice pack for short intervals (No more than 20 minutes on, followed by at least 20 minutes off). Do not apply heat. Do not use creams, lotions, or topical antibiotics. These can cause infection or allergic reaction. Ok to shower 24 hours after your surgery. Remove bandaids in 2 days and replace. You have steri strips (small white cloth strips) covering your incision- these will fall off ~1 week. Follow up in office with Dr. Gottlieb in 2 weeks. ([phone]) No heavy lifting (>10-20lbs) or strenuous activity! Call Your Doctor If: -Your temperature exceeds 101.5? F -You experience excessive pain or swelling -You have an unexpected reaction to medication -You have excessive bleeding -You experience continued vomiting/nausea -Your incision begins to separate -Your incision shows signs of infection such as increased redness, swelling, excessive pain, drainage (light blood or clear fluid is normal) or heat Care Plan Goals: Return to baseline health and resume normal activities following recovery period. Health Concerns: acute appendicitis diabetes mellitus Plan of Treatment: s/p laparoscopic appendectomy f/u in office in 2 weeks pain control Assessment: doing well post op
--- NOTE | 2024-04-07 12:06 | MHC.CM.PN ---
IMM 04/07. Pt self-care, lives at home with his who will transport him home. New HCP completed with pt, now on file. PCP: Aubree Ramirez
--- NOTE | 2024-04-07 12:08 | MHC.CM.PN ---
Pt is medically cleared for discharge home self-care, pts to transport him home.
== END 2024-04-07 12:10 | disposition home or self-care (01) | DRG 398 ==
LOC: HO.ED 07:18 → HO.EDOVER 07:34 → HO.S3 14:50
PROVIDERS: Emergency Medicine; Admitting Provider Surgery; Emergency Provider Emergency Medicine Emergency Medical Services; PCP Internal Medicine; Visit Provider Surgery
PROC: 0DTJ4ZZ Resection of Appendix, Percutaneous Endoscopic Approach (ICD-10-PCS; CPT 44970; principal; 2024-04-06 15:30)
DX: K35.80 Unspecified acute appendicitis (principal); Z68.42 Body mass index [BMI] 45.0-49.9, adult; E11.42 Type 2 diabetes mellitus with diabetic polyneuropathy; F39 Unspecified mood [affective] disorder; I10 Essential (primary) hypertension; K74.60 Unspecified cirrhosis of liver; J45.909 Unspecified asthma, uncomplicated; G47.33 Obstructive sleep apnea (adult) (pediatric); E66.01 Morbid (severe) obesity due to excess calories; Z87.891 Personal history of nicotine dependence; Z79.84 Long term (current) use of oral hypoglycemic drugs; Z79.899 Other long term (current) drug therapy
CPT/HCPCS: 44970; 36415; 74176; 80053; 81001; 82947; 83690; 85027; 88304; 94660; 96361; 96365; 96366; 96368; 96372; 96375; 96376; 99285; J0131; J1100; J1170; J1644; J1836; J1885; J1956; J2250; J2270; J2405; J2704; J2795; J3010; J7120

== ENCOUNTER → 2024-04-06 07:30 | Outpatient (BNV) | payer MEDICARE, MEDICAID, SELFPAY | PROVIDERS: Admitting Provider Surgery; Emergency Provider Emergency Medicine Emergency Medical Services; PCP Internal Medicine; Visit Provider Physician Assistant | DX: E11.42 Type 2 diabetes mellitus with diabetic polyneuropathy (principal); K35.80 Unspecified acute appendicitis | CPT/HCPCS: 99222; 99232 ==

== ENCOUNTER → 2024-04-06 07:30 | Outpatient (BNV) | payer MEDICARE, MEDICAID, SELFPAY | PROVIDERS: Admitting Provider Surgery; Emergency Provider Emergency Medicine Emergency Medical Services; PCP Internal Medicine; Visit Provider Surgery | DX: Z90.49 Acquired absence of other specified parts of digestive tract (principal) | CPT/HCPCS: 44970; 99024; 99222; 99499 ==

== ENCOUNTER 2024-12-12 00:19 | Emergency (ER) | payer MEDICARE, MEDICAID, SELFPAY ==
--- NOTE | ~2024-12-12 | XR_ITS ---
CLINICAL HISTORY: s p fall, severe knee pain 4 view right knee Comparison: None Findings: Moderate effusion present. No acute displaced fracture. No dislocation. Mild osteoarthritis of the right knee. Vascular calcifications noted. Ligament calcifications include patellar tendon. Periosteal thickening including proximal tibia as can be seen with venous stasis and stress phenomenon. No radiopaque retained foreign body. IMPRESSION: 1. Abnormal effusion. 2. Mild osteoarthritis without acute fracture. This document has been electronically signed by: Anirudh Bucio MD on 12/12/2024 01:28:15
--- NOTE | ~2024-12-12 | CT_ITS ---
CLINICAL HISTORY: trauma CT right knee without contrast Comparison: CR/PA - XR KNEE RT 4V - 12/12/24 00:48 EDT Findings: The distal quadriceps tendon is thickened and ill-defined with some surrounding ill-defined hematoma suspicious for quadriceps tendon rupture. There are few tiny bone fragments superior to the patella in the region of the distal quadriceps tendon most likely small avulsion fractures from the patella. Joint alignment is normal. Joint spaces are preserved. There is no effusion. There is arterial calcification. IMPRESSION: Findings suspicious for distal quadriceps tendon rupture with small avulsion fractures from the superior patella. This document has been electronically signed by: Nick Gan MD on 12/12/2024 04:23:21
[2024-12-12 00:27] VITALS: BP 109/69; BP 152/84; PULSE 76; PULSE 80; RESP 20; TEMP 36.8; O2SAT 96; O2SAT 99; BMI 37.6
[2024-12-12 02:36] VITALS: RESP 18
[2024-12-12] MEDS: Morphine Sulfate 10 MG/ML CARTRIDGE 8 MG IM (02:36)
[2024-12-12] MEDS: Ondansetron ODT 4 MG TAB.RAPDIS TRANSLINGU (02:36)
--- NOTE | 2024-12-12 03:00 | ED_ITS ---
HPI - General Adult General Chief complaint: Extremity Injury, Lower Stated complaint: R knee injury Time Seen by Provider: 12/12/24 01:42 Source: patient, RN notes reviewed and old records reviewed Mode of arrival: EMS Limitations: no limitations History of Present Illness ED Provider: Kelsey WOOD narrative: 44-year-old male presents for evaluation of right knee pain. Patient reports that he was on his steps outside of his apartment. He bent down to pick something up off the ground when he fell down 3 steps. He injured his right knee He was unable to bear any weight or even bend the knee. Denies any his head or losing consciousness. Denies any other injuries He was not on any anticoagulation His pain is 06/04 Related Data Home Medications ?Medication ?Instructions ?Recorded ?Confirmed fluoxetine 40 mg capsule 40 mg PO DAILY 04/06/24 04/06/24 glipizide 10 mg tablet, extended 10 mg PO DAILY 04/06/24 04/06/24 release 24 hr Previous Rx's ?Medication ?Instructions ?Recorded docusate sodium 100 mg capsule 100 mg PO BID #30 caps 04/07/24 (Colace) oxycodone 5 mg tablet 5 mg PO Q4H PRN pain (scale score 04/07/24 7-10) #24 tabs oxycodone 5 mg tablet 5 mg PO Q6H PRN severe pain (scale 12/12/24 score 7-10) #12 tabs Allergies Allergy/AdvReac Type Severity Reaction Status Date / Time Penicillins Allergy Severe angioedema Verified 12/12/24 00:29 and SOB Review of Systems Constitutional: Constitutional: Denies body ache(s), Denies chills and Denies fever(s) Eyes: Eyes: Denies blurry vision ENT: Denies vertigo and Denies dizziness Cardiovascular: Cardiovascular: Denies chest pain Musculoskeletal: Musculoskeletal: Reports arthralgias, Reports joint swelling and Reports limited range of motion Integumentary/Breasts: Skin/Breast: Denies rash Neurologic: Denies vertigo and Denies dizziness [facility] Past Medical History Medical History (Updated 12/13/24 @ 00:01 by Jyothi Graham) FANY (obstructive sleep apnea) HTN (hypertension) Asthma Diabetes Surgical History (Updated 04/07/24 @ 07:47 by Kaylene Murillo PA-C) No pertinent past surgical history Family History Family History Father No problems noted. Mother No problems noted. Social History Social History Household Members: Family Housing: Apartment Do you presently have visiting nurse or other home services: No Alcohol intake: never Patient Tobacco Use Status: Former Tobacco user Tobacco use type: Cigarette Years Smoked: 35 Smoked in Last 30 Days: No Second Hand Smoke Exposure: No Use of substances other than those prescribed or required for medical reasons: No Substance Use Type: Marijuana Advance Directives: No Advance Directives Information Provided: Yes Do you have a plan to hurt others: No Plan service: No Physical Exam ED Vital Signs: Vital Signs - 24 hr 12/12/24 00:27 12/12/24 02:36 12/12/24 05:09 Temperature 98.2 F 98.0 F Pulse Rate 76 82 Respiratory Rate 20 18 16 Blood Pressure 109/69 126/70 Pulse Oximetry 96 97 Oxygen Delivery Method Room Air Room Air BMI result Body Mass Index 37.6 Const General: healthy appearing, comfortable, no acute distress, alert and awake Nutritional Appearance: well nourished Orientation/consciousness: patient oriented x3 HENMT Head: Yes normocephalic and Yes atraumatic Eyes Eyelids: Yes eyelids normal Conjunctivae: conjunctivae normal Sclerae: sclerae normal Corneas: corneas normal Pupils: Equal, round and reactive pupils present EOM: EOMs intact bilaterally Neck Neck: Yes full ROM Resp Effort & Inspection: normal respiratory effort, able to speak in complete sentences and not labored Skin General skin exam: elasticity normal Neuro General: patient oriented x3 Cranial nerves: Yes Equal, round and reactive pupils present and Yes Bilaterally intact EOM present Cognition (Neuro): normal cognition Extrem Other: There is a moderate to large joint effusion of the right knee. The right knee is globally tender to palpation. It was difficult to assess laxity as the patient is unable to tolerate a thorough exam of the right knee. There is tenderness over the patellar tendon region and quadriceps tendon region without bogginess. He has reduced range of motion. Medications Administered Discontinued Medications Generic Name Dose Route Start Last Admin Trade Name Freq PRN Reason Stop Dose Admin Acetaminophen 975 mg 12/12/24 04:03 12/12/24 04:10 Acetaminophen 325 Mg Tablet PO 12/12/24 04:04 975 mg ONCE ONE Administration Morphine Sulfate 8 mg 12/12/24 02:28 12/12/24 02:36 Morphine Sulfate 10 Mg/Ml Cartridge IM 12/12/24 02:29 8 mg ONCE ONE Administration Protocol Ondansetron HCl 4 mg 12/12/24 02:28 12/12/24 02:36 Ondansetron Odt 4 Mg Tab.Rapdis TRANSLINGU 12/12/24 02:29 4 mg ONCE ONE Administration Medical Decision Making Medical Decision Making MDM Narrative: 44-year-old male presents for evaluation of a traumatic injury to the right knee. He was unable to bear weight. X-ray shows an abnormal joint effusion of the right knee. This is likely a traumatic effusion given a recent fall. There was no reason to suggest infectious process. Given the patient's significant exam findings we will get a CT scan of the knee to evaluate for surgical emergency such as quadriceps tendon rupture, patellar tendon rupture. I received sign-out from my colleague RACHEL Cole CT scan suspicious for distal quadriceps tendon rupture with small avulsion fractures from the superior patella Patient is like was placed on a knee brace and given crutches. Patient instructed to follow-up with orthopedics and primary care physician. Differential Diagnosis Differential Diagnoses: The differential diagnosis associated with the presentation includes Right knee pain Right knee contusion Quadriceps tendon rupture Patellar tendon rupture Patellar fracture Tibial plateau fracture Admission/Observation Consideration of admission/observation: Escalation of care including admission/observation considered (Given patient's complaining of pain, observation was considered) Independent Interpretation I performed an independent interpretation of an: CT Scan Radiology Impression Discussion of test interpretation with radiology: I have reviewed the radiologist's reading. Radiologist Impression: The distal quadriceps tendon is thickened and ill-defined with some surrounding ill-defined hematoma suspicious for quadriceps tendon rupture. There are few tiny bone fragments superior to the patella in the region of the distal quadriceps tendon most likely small avulsion fractures from the patella. Joint alignment is normal. Joint spaces are preserved. There is no effusion. There is arterial calcification. IMPRESSION: Findings suspicious for distal quadriceps tendon rupture with small avulsion fractures from the superior patella. Prescription Management I considered prescription management with: Pain Medication Critical Care Time Critical Care Time Critical Care Time: Yes Total Critical Care Time: 35 Attestation: I have personally provided critical care time. Time includes review of lab data, radiology results, discussion with consultants, and monitoring for potential decompensation. Intervention performed as documented. Discharge Plan Discharge Clinical Impression: Quadriceps tendon rupture, Patella fracture Patient Disposition: Home, Self-Care Instructions: Crutch Instructions (ED), Muscle Strain (DC), Patellar Fracture (ED), Tendon Rupture (ED) Additional Instructions: Please follow-up with your primary care physician tomorrow. If you have any worsening or new symptoms, please return to the emergency room or call 911 Prescriptions: New oxycodone 5 mg tablet 5 mg PO Q6H PRN (Reason: severe pain (scale score 7-10)) Qty: 12 0RF Rx Instructions: Partial Fill upon patient request. No Action fluoxetine 40 mg capsule 40 mg PO DAILY glipizide 10 mg tablet extended release 24hr 10 mg PO DAILY oxycodone 5 mg tablet 5 mg PO Q4H PRN (Reason: pain (scale score 7-10)) Qty: 24 0RF Rx Instructions: Partial Fill upon patient request. docusate sodium [Colace] 100 mg capsule 100 mg PO BID Qty: 30 0RF Referrals: Leticia Jones PA-C [Physician Note Teller] - 12/14/24 Stand Alone Forms: Work/School Release Interventions: ED Discharge Assessment Last Done: 12/12/24 05:09 Discharge Date/Time: 12/12/24 05:10 Print Language: Setswana
[2024-12-12] MEDS: Acetaminophen 325 MG TABLET 975 MG PO (04:10)
--- NOTE | 2024-12-12 04:12 | PC.NURSE ---
Patient medicated per OCT for 8/10 pain in right knee.
[2024-12-12 05:09] VITALS: BP 126/70; PULSE 82; RESP 16; TEMP 36.7; O2SAT 97
== END 2024-12-12 05:10 | disposition home or self-care (01) ==
PROVIDERS: Emergency Provider Emergency Medicine; PCP Internal Medicine
DX: S82.001A Unspecified fracture of right patella, initial encounter for closed fracture (principal); S76.111A Strain of right quadriceps muscle, fascia and tendon, initial encounter; W10.9XXA Fall (on) (from) unspecified stairs and steps, initial encounter; Y93.9 Activity, unspecified; Y92.9 Unspecified place or not applicable; Y99.9 Unspecified external cause status; M25.561 Pain in right knee
CPT/HCPCS: 73564; 73700; 96372; 99284; J2270

== ENCOUNTER → 2024-12-12 00:33 | Outpatient (BNV) | payer MEDICARE, MEDICAID, SELFPAY | PROVIDERS: Visit Provider Radiology Neuroradiology | DX: S80.911A Unspecified superficial injury of right knee, initial encounter (principal); M25.561 Pain in right knee; W19.XXXA Unspecified fall, initial encounter | CPT/HCPCS: 73700 ==

== ENCOUNTER 2024-12-17 11:34 | Outpatient (AMB) | payer MEDICARE, MEDICAID, SELFPAY ==
--- NOTE | 2024-12-17 11:35 | MHC.OFFVIS ---
Vital Signs 12/17/24 11:46 Height 5 ft 8 in Weight 234 lb BMI 35.6 Intake Visit Reasons: FC-right knee injury, patella FC-DOI 12/11/24 Intake Note: Delonte is a 44 year old male who presents today with his for a evaluation of his right knee injury, DOI 12/11/24. Patient reports that he was on his steps outside of his apartment. He bent down to pick something up off the ground when he fell down 3 steps. Patient Patient is in allot of pain and he is not able to sleep at night. Patient mentions that he had a fall yesterday at his home as well.He tried oxycodone 5mg with no relief and also they gave him a shot of morphine at the ED with relief. IMPRESSION (x ray): 1. Abnormal effusion. 2. Mild osteoarthritis without acute fracture. IMPRESSION (CT): Findings suspicious for distal quadriceps tendon rupture with small avulsion fractures from the superior patella. Allergies Penicillins Allergy (Severe, Verified 12/17/24 11:43) angioedema and SOB HPI HPI FC-right knee injury, patella FC-DOI 12/11/24: Details: Mr. Flanagan is a 44-year-old male who presents to the office today after sustaining an injury to the right knee on . He fell down the stairs and presented to the emergency department where x-rays and CT scan was obtained. He was placed into a knee immobilizer instructed to follow up with orthopedics outpatient for further evaluation and treatment. Since then, the patient reports that his right knee has given out on him while trying to ambulate even in the knee immobilizer causing him to fall again. [facility] Medical History (Updated 12/17/24 @ 12:00 by Leticia Jones PA-C) FANY (obstructive sleep apnea) HTN (hypertension) Asthma Diabetes Surgical History (Updated 04/07/24 @ 07:47 by Kaylene Murillo PA-C) No pertinent past surgical history Family History Father No problems noted. Mother No problems noted. 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 Unable to perform straight leg raise. Moderate edema makes palpating the distal quad tendon difficult. However, I do feel there is a defect. Assessment & Plan Assessment & Plan (1) Rupture of right quadriceps tendon: Code(s): S76.111A - Strain of right quadriceps muscle, fascia and tendon, initial encounter Category: Medical Plan I discussed in detail the procedure and what to expect pre and post operatively. We discussed the risks, benefits and alternatives to the surgery as well as the rehabilitation course. The risks; which include, but are not limited to infection, bleeding, nerve injury, ongoing pain, swelling, and stiffness, perioperative risk of injury to bones and soft tissues, and blood clots. I?ve answered all questions and with their understanding they have consented to move forward with right quad tendon repair with Dr. Munroe. Medications: New oxycodone-acetaminophen 5-325 mg Partial Fill upon patient request. 1 tab PO Q4-6H 7 days PRN 42 tabs 0RF pain Coding Level of Care Code New Pt Level 4 (65020) Diagnoses Rupture of right quadriceps tendon S76.111A
[2024-12-17 11:46] VITALS: BMI 35.6
--- OUTSIDE RECORDS SUMMARY | 2024-12-17 13:54 | XMS_ITS | Encounter Summary ---
Author Organization [employer] Address [address] [place] [address] Care Team Providers Care Blind Lacer Name Role Phone Aubree Matute MD Primary Care Provide r Encounter Details Date Type Department Care Team (Late Contact Info) Description 03/08/2023 Orders Only [facility] [address] [place], [place] [phone] Astrid Irvin LPN Social History Tobacco Use Types Packs/Day Years Used Date Smoking Tobacco: Former Cigarettes Smokeless Tobacco: Current Comments:Vaper sometimes Alcohol Use Standard Drinks/Week Comments Never 0 (1 standard drink = 0.6 oz pur e alcohol) Depression Answer Date Recorded Patient Health Questionnaire-9 Score 13 03/07/2023 Depression Answer Date Recorded Patient Health Questionnaire-2 Score 4 03/07/2023 Sex and Gender Information Value Date Recorded Sex Assigned at Male 06/25/2022 10:19 AM EDT Legal Sex Male 10:19 AM EDT Gender Identity Choose not to disclose 10:19 AM EDT Sexual Orientation Choose not to disclose 2021 10:19 AM EDT documented as of this encounter Plan of Treatment Upcoming Encounters Date Type Department Care Team (Late st Contact Info) Description 12/30/2024 10:45 AM EDT Office Visit [facility] [address] [place], [place] [phone] Aubree Matute MD [address] [place], [place] [phone] documented as of this encounter Visit Diagnoses Not on filedocumented in this encounter Additional Health Concerns Assessment Noted Time PHQ-9 Depression Total Score: 13 023 1:12 PM EDT documented as of this encounter Care Teams Blind Lacer Relationship Specialty Start Date End Date Aubree Matute MD [address] [place] [address] PCP - General Family Medicine 11/10/19 documented as of this encounter
--- OUTSIDE RECORDS SUMMARY | 2024-12-17 13:54 | XMS_ITS | Encounter Summary ---
Author Organization [employer] Address [address] [place] [address] Care Team Providers Care Non Categorical Preschool Teacher Name Role Phone Aubree Matute MD Primary Care Provide r Encounter Details Date Type Department Care Team (Late Contact Info) Description 03/26/2023 Orders Only [facility] [address] [place], [place] [phone] Astrid Irvin LPN Social History Tobacco Use [...] Description 12/30/2024 10:45 AM EDT Office Visit [facility] [address] [place], [place] [phone] Aubree Matute MD [address] [place], [place] [phone] documented as of this encounter Visit Diagnoses Not on filedocumented in this encounter Additional Health Concerns Assessment Noted Time PHQ-9 Depression Total Score: 13 023 1:12 PM EDT documented as of this encounter Care Teams Non Categorical Preschool Teacher Relationship Specialty Start Date End Date Aubree Matute MD [address] [place] [address] PCP - General Family Medicine 11/10/19 documented as of this encounter
--- OUTSIDE RECORDS SUMMARY | 2024-12-17 13:55 | XMS_ITS | Encounter Summary ---
Author Organization [employer] Address [address] [place] [address] Care Team Providers Care Fuel Cell Technician Name Role Phone Aubree Matute MD Primary Care Provide r Encounter Details Date Type Department Care Team ([facility] st Contact Info) Description 06/21/[address] [facility] MEDICINE [address] [place], [place] [phone] Aubree Matute MD [address] [place], [place] [phone] Social History Tobacco Use Types Packs/Day Years Used Date Smoking Tobacco: Former Cigarettes Smokeless Tobacco: Current Comments:Vaper sometimes Alcohol Use Standard Drinks/Week Comments Never 0 (1 standard drink = 0.6 oz pur e alcohol) Depression Answer Date Recorded Patient Health Questionnaire-9 Score 13 03/07/2023 Housing Stability Answer Date Recorded What is your housing situation today? I have jadawhit michaels 06/10/[address] you li ve. Do you have problems with any of the following? None of the above 06/10/2023 Food Insecurity Answer Date Recorded Within the past 12 months, y ou worried that your food would run out before you got money to buy more: Never True 06/10/2023 Within the past 12 months,th e food you bought just didn't last and you didn't have enough money to get more: Never True Transportation Answer Date Recorded In the past 12 months, has l ack of transportation kept you from medical appts, meetings, work or from getting things needed for daily living? Yes, it has kept me from medical appointments or getting medications. 06/05/2023 Utilities Answer Date Recorded In the past 12 months, has t he electric, gas, oil or water company threatened to shut off services in your home? No 06/10/2023 Depression Answer Date Recorded Patient Health Questionnaire-2 [...] Description 12/30/2024 10:45 AM EDT Office Visit [facility] MEDICINE [address] [place] [phone] Aubree Matute MD [address] [place] [address] documented as of this encounter Visit Diagnoses Not on filedocumented in this encounter Additional Health Concerns Assessment Noted Time PHQ-9 Depression Total Score: 13 023 1:12 PM EDT documented as of this encounter Care Teams Fuel Cell Technician Relationship Specialty Start Date End Date Aubree Matute MD [address] [place] [phone] PCP - General Family Medicine 11/10/19 documented as of this encounter
--- OUTSIDE RECORDS SUMMARY | 2024-12-17 13:55 | XMS_ITS | Encounter Summary ---
Author Organization [employer] Address [address] 7[address] [place] [address] Care Team Providers Care Unattended Ground Sensor Specialist Name Role Phone Aubree Matute MD Primary Care Provide r Encounter Details Date Type Department Care Team (Late st Contact Info) Description 12/12/2024 Orders Only [facility] External Provider, [facility] Social History Tobacco Use Types Packs/Day Years Used Date Smoking Tobacco: Former Cigarettes Passive Smoke Exposure: Past Smokeless Tobacco: Current Comments:Vaper sometimes Alcohol Use Standard Drinks/Week Comments Never 0 (1 standard drink = 0.6 oz pur e alcohol) Depression Answer Date Recorded Patient Health Questionnaire-9 Score 13 03/07/2023 Housing Stability Answer Date Recorded What is your housing situation today? I have jada michaels 06/10/[address] you [...] Description 12/30/2024 10:45 AM EDT Office Visit [facility] [address] [facility] [place] [place] [address] Aubree Matute MD [address] [place] [address] documented as of this encounter Procedures Procedure Name Priority Date/Time Associated Diagnosis Comments CT KNEE WO CONTRAST RIGHT Routine 12/12/2024 4:23 AM EDT documented in this encounter Results * CT Knee w/o Contrast Right (12/12/2024 4:23 AM EDT) Anatomical Region Laterality Modality Lower Extremities, Knee Right Computed Tomography 12/12/2024 4:23 AM EDT Narrative 12/12/2024 4:25 AM EDT ? [facility] ?[address] ?[place] [address] ? CT Scan Report ? Signed ? Patient: Flanagan,Lyons ?MR#: [id number] ?? [id number] ? : 1980 ?Acct:[id number] ? Age/Sex: 44 / M ?ADM Date: 12/12/24 ? Loc: HO.ED ? Attending Dr: ? Ordering Physician: Temo Cole ?? Date of Service: 12/12/24 ?? Procedure(s): CT knee RT wo IV con ?? Accession Number(s): [id number] ? cc: Aubree Matute MD; Temo Cole ? Report Number: ?? [id number]: Total DLP = ??243.00 mGy-cm ? CLINICAL HISTORY: trauma ? CT right knee without contrast ? Comparison: CR/DE - XR KNEE RT 4V - 12/12/24 00:48 EDT ? Findings: ?? The distal quadriceps tendon is thickened and ill-defined with some ?? surrounding ill-defined hematoma suspicious for quadriceps tendon rupture. ?? There are few tiny bone fragments superior to the patella in the region of ?? the distal quadriceps tendon most likely small avulsion fractures from the ?? patella. Joint alignment is normal. Joint spaces are preserved. There is ?? no effusion. There is arterial calcification. ? IMPRESSION: ?? Findings suspicious for distal quadriceps tendon rupture with small ?? avulsion fractures from the superior patella. ? This document has been electronically signed by: Nick Gan MD on ?? 12/12/2024 04:23:21 ? Dictated By: ?Nick Gan MD ? Signed By: ?<Electronically signed by Nick Gan MD in OV> ? 12/12/24 0424 ? DD/ 0423 ? TD/TT: 12/12/24 0423 ? Cross Country And Track And Field Coach: ? Procedure Note Donjimter, Image - 12/12/[address] [place] [address] [address] Scan Report Signed Patient: Delonte FlanaganMR#: [id number] : 1980Acct:[id number] Age/Sex: 44 / MADM Date: 12/12/24 Loc: HO.ED Attending Dr: Ordering Physician: Temo Cole Date of Service: 12/12/24 Procedure(s): CT knee RT wo IV con Accession Number(s): [id number] cc: Aubree Matute MD; Temo Cole Report Number: [id number]: Total DLP = 243.00 mGy-cm CLINICAL HISTORY: trauma CT right knee without contrast Comparison: CR/DE - XR KNEE RT 4V - 12/12/24 00:48 EDT Findings: The distal quadriceps tendon is thickened and ill-defined with some surrounding ill-defined hematoma suspicious for quadriceps tendon rupture. There are few tiny bone fragments superior to the patella in the region of the distal quadriceps tendon most likely small avulsion fractures from the patella. Joint alignment is normal. Joint spaces are preserved. There is no effusion. There is arterial calcification. IMPRESSION: Findings suspicious for distal quadriceps tendon rupture with small avulsion fractures from the superior patella. This document has been electronically signed by: Nick Gan MD on 12/12/2024 04:23:21 Dictated By: Nick Gan MD Signed By: <Electronically signed by Nick Gan MD in OV> 12/12/244 DD/ 2 TD/TT: 12/12/24422 Cross Country And Track And Field Coach: [facility] External Provider IMG CT PROCEDURES Final Result documented in this encounter Visit Diagnoses Not on filedocumented in this encounter Additional Health Concerns Assessment Noted Time PHQ-9 Depression Total Score: 13 023 1:12 PM EDT documented as of this encounter Care Teams Unattended Ground Sensor Specialist Relationship Specialty Start Date End Date Aubree Matute MD [address] [place] [address] PCP - General Family Medicine 11/10/19 documented as of this encounter
--- OUTSIDE RECORDS SUMMARY | 2024-12-17 13:55 | XMS_ITS | Encounter Summary ---
Author Organization [employer] Address [address] [place] [address] Care Team Providers Care Price Changer Name Role Phone Aubree Matute MD Primary Care Provide r Reason for Visit * Reason Comments Med Refill Encounter Details Date Type Department Care Team ([facility] st Contact Info) Description 07/24/2023 Refill [facility] MEDICINE [address] [place], [place] [phone] Aubree Matute MD [address] [place], [place] [phone] Anxiety Social History Tobacco Use Types Packs/Day Years Used Date Smoking Tobacco: Former Cigarettes Smokeless Tobacco: Current Comments:Vaper sometimes Alcohol Use Standard Drinks/Week Comments Never 0 (1 standard drink = 0.6 oz pur e alcohol) Depression Answer Date Recorded Patient Health Questionnaire-9 Score 13 03/07/2023 Housing Stability Answer Date Recorded What is your housing situation today? I have jada xenia 06/10/[address] you li [...] Description 12/30/2024 10:45 AM EDT Office Visit [facility] [address] [place] [address] Aubree Matute MD [address] [place] [address] documented as of this encounter Visit Diagnoses Diagnosis Anxiety Anxiety state, unspecified documented in this encounter Additional Health Concerns Assessment Noted Time PHQ-9 Depression Total Score: 13 023 1:12 PM EDT documented as of this encounter Care Teams Price Changer Relationship Specialty Start Date End Date Aubree Matute MD [address] [place] [phone] PCP - General Family Medicine 11/10/19 documented as of this encounter
--- OUTSIDE RECORDS SUMMARY | 2024-12-17 13:55 | XMS_ITS | Encounter Summary ---
Author Organization [employer] Address [address] [place] [address] Care Team Providers Care Multimedia Developer Name Role Phone Aubree Matute MD Primary Care Provide r Reason for Visit * Reason Onset Date Comments med b form 09/04/2022 Encounter Details Date Type Department Care Team (Late st Contact Info) Description 09/04/2022 Telephone [facility] MEDICINE [address] [place] [address] [phone] Aubree Matute MD [address] [place], [place] [phone] med b form Social History Tobacco Use Types Packs/Day Years Used Date Smoking Tobacco: Never Assessed Sex and Gender Information Value Date Recorded Sex Assigned at Male 06/25/2022 10:19 AM EDT Legal Sex Male 10:19 AM EDT Gender Identity Choose not to disclose 10:19 AM EDT Sexual Orientation Choose not to disclose 2021 10:19 AM EDT documented as of this encounter Miscellaneous Notes * Telephone Encounter - Yodit Lizarraga - 09/04/2022 9:36 AM EST Tc from pt stated need a med b form for test strips and lancets. Pt without testing supplies. PCP Dr. Eden documented in this encounter Plan of Treatment Upcoming Encounters Date Type Department Care Team (Late Contact Info) Description 12/30/2024 10:45 AM EDT Office Visit [facility] MEDICINE [address] [place], [place] [phone] Aubree Matute MD [address] [place] [address] documented as of this encounter Visit Diagnoses Not on filedocumented in this encounter Care Teams Multimedia Developer Relationship Specialty Start Date End Date Aubree Matute MD [address] [place], [place] [phone] PCP - General Family Medicine 11/10/19 documented as of this encounter
--- OUTSIDE RECORDS SUMMARY | 2024-12-17 13:55 | XMS_ITS | Encounter Summary ---
Author Organization [employer] Address [address] [place] [address] Care Team Providers Care Manager Government Name Role Phone Aubree Matute MD Primary Care Provide r Encounter Details Date Type Department Care Team ([facility] st Contact Info) Description 06/21/2023 Abstract [facility] MEDICINE [address] [place], [place] [phone] Aubree Matute MD [address] [place], [place] [phone] Social History Tobacco Use Types Packs/Day Years [...] Description 12/30/2024 10:45 AM EDT Office Visit [facility] MEDICINE [address] [place] [phone] Aubree Matute MD [address] [place] [address] documented as of this encounter Visit Diagnoses Not on filedocumented in this encounter Additional Health Concerns Assessment Noted Time PHQ-9 Depression Total Score: 13 023 1:12 PM EDT documented as of this encounter Care Teams Manager Government Relationship Specialty Start Date End Date Aubree Matute MD [address] [place] [phone] PCP - General Family Medicine 11/10/19 documented as of this encounter
--- OUTSIDE RECORDS SUMMARY | 2024-12-17 13:55 | XMS_ITS | Encounter Summary ---
Author Organization [employer] Address [address] [place] [address] Care Team Providers Care Chain Sales Representative Name Role Phone Aubree Matute MD Primary Care Provide r Encounter Details Date Type Department Care Team ([facility] st Contact Info) Description 06/21/2023 Abstract [facility] MEDICINE [address] [place], [place] [phone] Aubree Matute MD [address] [place], [place] [phone] Social History Tobacco Use Types Packs/Day Years [...] Description 12/30/2024 10:45 AM EDT Office Visit [facility] MEDICINE [address] [place] [phone] Aubree Matute MD [address] [place] [phone] documented as of this encounter Visit Diagnoses Not on filedocumented in this encounter Additional Health Concerns Assessment Noted Time PHQ-9 Depression Total Score: 13 023 1:12 PM EDT documented as of this encounter Care Teams Chain Sales Representative Relationship Specialty Start Date End Date Aubree Matute MD [address] [place] [phone] PCP - General Family Medicine 11/10/19 documented as of this encounter
--- OUTSIDE RECORDS SUMMARY | 2024-12-17 13:55 | XMS_ITS | Clinical Summary ---
Author Organization [employer] Address [address] [place] [address] Care Team Providers Care Marketing Proposal Coordinator Name Role Phone Aubree Matute MD Primary Care Provide r Allergies Active Allergy Reactions Criticality Noted Date Comments Penicillins Angioedema High 09/01/2015 Other reaction(s): Hives/Skin Rash Medications * This document contains information received from the source organization and may not represent a complete record from that organization. ergocalciferol (Vitamin D2) 1.25 MG (31258 UT) capsule TAKE 1 CAPSULE BY MOUTH ONCE A WEEK 08/21/20 22 Active lisinopril 5 MG tabletIndications: Primary hypertension Take 1 tablet (5 mg) by mouth in the morning. 90 tablet 03/07/20 23 Active Additional Information Patient not taking.Reported on 10/21/2023 QUEtiapine (SEROquel) 50 MG tabletIndications: Current mild episode of major depressive disorder, unspecified whether recurrent (CMS/HCC) Take 1 tablet (50 mg) by mouth at bedtime. 90 tablet 03/07/20 23 Active Additional Information Patient not taking.Reported on 10/21/2023 TRUEplus Lancets 33G miscIndications:Ty pe 2 diabetes mellitus with hyperglycemia (CMS/HCC) TEST BLOOD SUGAR 3 TIMES A DAY 100 each 5 03/27/20 23 Active FREESTYLE LITE test stripIndications:T ype 2 diabetes mellitus with hyperglycemia (CMS/HCC) TEST BLOOD SUGAR 3 TIMES A DAY 200 strip 5 03/27/20 23 Active cyclobenzaprine (Flexeril) 10 MG tabletIndications: Bilateral foot pain TAKE 1 TABLET BY MOUTH THREE TIMES DAILY 30 tablet 1 04/30/20 23 Active Additional Information Patient not taking.Reported on 10/21/2023 ibuprofen 600 MG tablet TAKE 1 TABLET BY MOUTH THREE TIMES A DAY WITH FOOD NEEDED 07/15/20 23 Active UltiCare Pen [place] 29G X 12.7MM misc USE EVERY DAY WITH INSULIN 100 each 3 08/06/20 23 Active Continuous Blood Gluc Park Maintenance Technician (Dexcom G7 Park Maintenance Technician) device USE DIRECTED 09/27/19 24 Active FLUoxetine (PROzac) 20 MG capsuleIndications :Mixed anxiety and depressive disorder TAKE 1 CAPSULE BY MOUTH EVERY MORNING 30 capsule 2 02/26/20 24 Active glipiZIDE XL (Glucotrol XL) 10 MG 24 hr tabletIndications: Type 2 diabetes mellitus without complication, without long-term current use of insulin (CMS/HCC) TAKE 1 TABLET BY MOUTH TWICE DAILY WITH BREAKFAST AND WITH DINNER 180 tablet 3 02/28/20 24 Active Invokana 300 MGIndications:Type 2 diabetes mellitus with hyperglycemia, with long-term current use of insulin (CMS/HCC) TAKE 1 TABLET BY MOUTH EVERY DAY BEFORE BREAKFAST 30 tablet 11 03/25/20 24 Active semaglutide (Ozempic) 2 MG/1.5ML solution pen-injectorIndica tions:Type 2 diabetes mellitus with hyperglycemia, with long-term current use of insulin (CMS/[facility]) Inject 1 mg under the skin 1 (one) time per week. 2 each 12 04/02/20 24 Active FLUoxetine (PROzac) 40 MG capsuleIndications :Mixed anxiety and depressive disorder Take 1 capsule (40 mg) by mouth Once per day. 30 capsule 11 04/02/20 24 025 Active gabapentin (Neurontin) 100 MG capsuleIndications :Diabetic polyneuropathy associated with type 2 diabetes mellitus (CMS/HCC) Take 3 capsules (300 mg) by mouth every 8 (eight) hours. 270 capsule 04/02/20 24 025 Active Multiple Vitamin (Multivitamin) tablet TAKE 1 TABLET BY MOUTH EVERY DAY 90 tablet 3 04/16/20 24 Active metFORMIN (Glucophage) 500 MG tabletIndications: Type 2 diabetes mellitus with hyperglycemia, with long-term current use of insulin (CMS/HCC) TAKE 2 TABLETS BY MOUTH TWICE DAILY 360 tablet 1 07/15/20 24 Active amitriptyline (Elavil) 25 MG tabletIndications: Other chronic pain TAKE 1 TABLET BY MOUTH AT BEDTIME FOR PAIN 30 tablet 3 09/16/19 25 Active Basaglar KwikPen 100 UNIT/ML penIndications:Typ e 2 diabetes mellitus with hyperglycemia, with long-term current use of insulin ([facility]) INJECT 16 UNITS SUBCUTANEOUSLY EVERY DAY AT BEDTIME 15 mL 2 10/01/19 25 Active Continuous Glucose Sensor (Dexcom G7 Sensor) miscIndications:Ty pe 2 diabetes mellitus with hyperglycemia (CMS/HCC) USE DIRECTED TO TEST BLOOD SUGAR THREE TIMES DAILY, CHANGE sensory EVERY 10 DAYS 3 each 1 11/10/19 25 Active Active Problems Problem Noted Date Diagnosed Date Diabetic polyneuropathy asso ciated with type 2 diabetes mellitus 04/02/2024 Colon cancer screening 04/02/2024 Acute pain of left shoulder 04/02/2024 Anxiety 06/05/2023 Assessment & Plan (07/04/2023 12:19 PM EST): I went up on fluoxetine to 20mg daily Assessment & Plan (06/05/2023 4:39 PM EDT): Counseling doen I will start him on fluoxetine RTC 4 weeks televisit Bilateral foot pain 03/07/2023 Varicose veins of leg with pain, bilateral 03/07 COVID-19 11/22/2022 Type 2 diabetes mellitus wit h hyperglycemia, with long-term current use of insulin 11/22/2022 Assessment & Plan (04/02/2024 3:31 PM EDT): Diabetes is: not controlled but improved - Lab Results Component Value Date HGBA1C 8.8 (A) 04/02/2024 HGBA1C 12.8 (A) 06/05/2023 HGBA1C 10.2 (A) 03/07/2023 - Lab Results Component Value Date CREATININE 0.98 04/28/2023 -Changes: I increase ozempic to 1mg weekly c/w glipizide, metformin, invokana - Diabetic eye exam:up to date - Diabetic foot exam:referral done today - Continue lifestyle modifications - Continue current medications - Follow up: 3 months Assessment & Plan (07/04/2023 12:20 PM EST): I went up on ozempic to 0.5mg weekly C/w rest of medications C/w low calorie diet RTC 3 months Assessment & Plan (06/05/2023 4:38 PM EDT): - Lab Results Component Value Date HGBA1C 12.8 (A) 06/05/2023 HGBA1C 10.2 (A) 03/07/2023 HGBA1C 8.9 (H) 07/19/2021 - Lab Results Component Value Date CREATININE 0.98 04/28/2023 - c/w metformin, glipizide, invokana and lantus, today I will start him on ozempic, it is my medical opinion this will be beneficial for patient to help him get at goal A1c, it will be beneficial for him if he loses weigh and surgical intervention is avoided -Also patient is already on insulin and several medications it is my medical opinion patient will be benefit from continues glucose monitor, it will give me more information for further medication adjustment Assessment & Plan (03/07/2023 1:55 PM EDT): - Lab Results Component Value Date HGBA1C 10.2 (A) 03/07/2023 HGBA1C 8.9 (H) 07/19/2021 - Lab Results Component Value Date CREATININE 1.14 02/01/2023 - Diabetic eye exam: referral today - Diabetic foot exam: pending - Continue lifestyle modifications I increase lantus to 16U at bed time and I increase invokona to 300mg daily - FANY (obstructive sleep apnea) 12/01/2015 Cigarette smoker 09/01/2015 Epigastric pain 09/01/2015 Essential hypertension 09/01/2015 Assessment & Plan (04/02/2024 3:28 PM EDT): - Aerobic exercise to reduce BP. Initial goal of 30 min walk 3-5x/week. Increase as tolerated. - low-sodium diet (goal: <2g/day) and heart healthy diet such as DASH to reduce BP and prevent ASCVD. - Home BP monitoring 1-2 x day with goal of <140/90. - Seek immediate medical attention for chest pain, palpitations, SOB, syncope, or sudden changes in mental status. - Do not change or discontinue current prescriptions without first consulting health care provider Assessment & Plan (03/07/2023 1:30 PM EDT): - Aerobic exercise to reduce BP. Initial goal of 30 min walk 3-5x/week. Increase as tolerated. - low-sodium diet (goal: <2g/day) and heart healthy diet such as DASH to reduce BP and prevent ASCVD. - Home BP monitoring 1-2 x day with goal of <140/90. - Seek immediate medical attention for chest pain, palpitations, SOB, syncope, or sudden changes in mental status. - Do not change or discontinue current prescriptions without first consulting health care provider Headache 09/01/2015 Mixed anxiety and depressive disorder 09/01/2015 Assessment & Plan (04/02/2024 3:29 PM EDT): C/w therapist I increase fluoxetine to 40mg daily Encounters Date Type Department Care Team Description 12/12/2024 Orders Only [facility] External Provider, [facility] 11/30/2024 Telephone [facility] [address] [place] [address] Aubree Matute MD Nurse Triage 11/08/2024 Refill [facility] [address] [place] [address] Aubree Matute MD Type 2 diabetes mellitus with hyperglycemia ([facility]) 11/06/2024 Population Health Risk Score [facility] (C3) Department [address] [place] [phone] Provider, Population Health Generic 10/01/2024 Refill [facility] [address] [place] [address] Aubree Matute MD Type 2 diabetes mellitus with hyperglycemia, with long-term current use of insulin (CMS/[facility]) from Last 3 Months Immunizations Name Administration Dates Next Due Hep B, adult 02/17/2016,12/19/2015 Influenza Injectable Quadriv alant Preservative Free IIV4 MDCK 09/02/2021 Influenza injectable quadrivalent preservative f ree 08/21/2016 Pneumococcal Conjugate PCV 20 04/02/2024 Pneumococcal Polysaccharide PPSV23 07/03/2019 Tdap 02/17/2016 Social History Tobacco Use Types Packs/Day Years Used Date Smoking Tobacco: Former Cigarettes Passive Smoke Exposure: Past Smokeless Tobacco: Current Tobacco Cessation:Ready to Q uit: Not Asked; Counseling Given: Not Answered Comments:Vaper sometimes Alcohol Use Standard Drinks/Week Comments [...] not to disclose 2021 10:19 AM EDT Last Filed Vital Signs Vital Sign Reading Time Taken Comments Blood Pressure 135/87 04/02/2024 1:12 PM EDT Pulse 72 04/02/2024 1:12 PM EDT Temperature 36.2 ??C (97.1 ??F) 04/02/2024 1:12 PM ED T Respiratory Rate 20 04/02/2024 1:12 PM EDT Oxygen Saturation 96% 04/02/2024 1:12 PM EDT Inhaled Oxygen Concentration - - Weight 140 kg (309 lb 3.2 oz) 04/02/2024 1:12 PM EDT Height 172.7 cm (5' 8 ) 04/02/2024 1:12 PM EDT Body Mass Index 47.01 04/02/2024 1:12 PM EDT Plan of Treatment Upcoming Encounters Date Type Department Care Team (Late st Contact Info) Description 12/30/2024 10:45 AM EDT Office Visit [facility] [address] [place] [address] Aubree Matute MD [address] [place] [address] Health Maintenance Due Date Last Done Comments CT Colonography 1978 Colonoscopy 1978 Colorectal Cancer Screening 1978 FIT DNA/Cologuard 1978 FIT 1978 FOBT 1978 HIV Screening 1978 Sigmoidoscopy 1978 Diabetes: Foot Exam 1988 Alcohol/Substance Use Screening 1990 Family Planning (PISQ) 1993 Hepatitis C Screening 1996 Diabetes: Urine Protein Screening 1997 Hepatitis B Vaccines (3 of 3 - 19+ 3-dose series) 06/19/2016 02/17/2016, 12/19/2015 Depression Screening 03/07/2024 03/07/2023, 03/07/20 23 SDOH Screening 03/07/2024 03/07/2023 COVID-19 Vaccine ( season) 2024 09/23/2021, 09/02/2021 Influenza Vaccine (#1) 2024 09/02/2021, 2015 Diabetes: Hemoglobin A1C 07/03/2024 024, 06/05/2023, 03/07/2023, Additional history exists Lipid Panel 04/02/2025 04/02/2024, 07/19/2021 Tobacco Screening 04/02/2025 04/02/2024 Eye Exam 07/11/2025 07/11/2023, 06/26, 07/11/2023, Additional history exists DTaP/Tdap/Td Vaccines (2 - Td or Tdap) 02/16/2026 02/17/2016 Zoster Vaccines (1 of 2) 2028 RSV Patients and Patients Aged 60 years or older (1 - 1-dose 75+ series) 2053 Pneumococcal Vaccine: Pediatrics (0 to 5 Years) and At-Risk Patients (6 to 49) Years) Completed 04/02/2024, 07/03/2019 HIB Vaccines Aged Out No longer eligi ble based on patient's age to complete this topic HPV Vaccines Aged Out No longer eligi ble based on patient's age to complete this topic Hepatitis A Vaccines Aged Out No long er eligible based on patient's age to complete this topic IPV Vaccines Aged Out No longer eligi ble based on patient's age to complete this topic Meningococcal Vaccine Aged Out No sven camron eligible based on patient's age to complete this topic RSV under 20 months Aged Out No longe r eligible based on patient's age to complete this topic Rotavirus Vaccines Aged Out No longer eligible based on patient's age to complete this topic Procedures Procedure Name Priority Date/Time Associated Diagnosis Comments CT KNEE WO CONTRAST RIGHT Routine 12/12/2024 4:23 AM EDT LIPID PANEL WITH REFLEX TO DIRECT LDL Routine 04/02/2024 2:00 PM EDT Type 2 diabetes mellitus with hyperglycemia, with long-term current use of insulin ([facility]) Essential hypertension POCT GLYCATED HEMOGLOBIN, TOTAL Routine 04/02/2024 1:14 PM EDT Type 2 diabetes mellitus with hyperglycemia, with long-term current use of insulin ([facility]) from Last 3 Months or Most Recently Relevant to Health Maintenance Results * CT Knee w/o Contrast Right (12/12/2024 4:23 AM EDT) Anatomical Region Laterality Modality Lower Extremities, Knee Right Computed Tomography 12/12/2024 4:23 AM EDT Narrative 12/12/2024 4:25 AM EDT ? [facility] ?[address] ?[place] [address] ? CT Scan Report ? Signed ? Patient: Flanagan,Sidnaw ?MR#: [id number] ?? [id number] ? : 1980 ?Acct:[id number] ? Age/Sex: 44 / M ?ADM Date: 12/12/24 ? Loc: HO.ED ? Attending Dr: ? Ordering Physician: Temo Cole ?? Date of Service: 12/12/24 ?? Procedure(s): CT knee RT wo IV con ?? Accession Number(s): [id number] ? cc: Aubree Matute MD; Temo Cole ? Report Number: ?? [id number]: Total DLP = ??243.00 mGy-cm ? CLINICAL HISTORY: trauma ? CT right knee without contrast ? Comparison: CR/WV - XR KNEE RT 4V - 12/12/24 [...] DD/ 0423 ? TD/TT: 12/12/24 0423 ? Long Chain Beamer: ? Procedure Note Spencer, Georgiana - 12/12/[address] [address] [place] Scan Report Signed Patient: Delonte FlanaganMR#: [id number] : 1980Acct:[id number] Age/Sex: 44 / MADM Date: 12/12/24 Loc: HO.ED Attending Dr: Ordering Physician: Temo Cole Date of Service: 12/12/24 Procedure(s): CT knee RT wo IV con Accession Number(s): [id number] cc: Aubree Matute MD; Temo Cole Report Number: [id number]: Total DLP = 243.00 mGy-cm CLINICAL HISTORY: trauma CT right knee without contrast Comparison: CR/WV - XR KNEE RT 4V - 12/12/24 [...] signed by Nick Gan MD in OV> 12/12/24423 DD/ 2 TD/TT: 12/12/24422 Long Chain Beamer: [facility] External Provider IMG CT PROCEDURES Final Result * (ABNORMAL) Lipid Panel with Reflex to Direct LDL (04/02/2024 2:00 PM EDT) Triglycerides 180(H) <150 mg/dL [facility] Comment:Desirable Triglyceri de: less than 150 mg/dLBorderline High Triglyceride 150-199 mg/dLHigh Triglyceride: 200-499 mg/dLVery High Triglyceride: greater than or equal to 5OO mg/dL Cholesterol 198 <200 mg/dL [facility] Comment:Desirable Cholestero l: less than 200 mg/dLBorderline High Cholesterol: 200-239 mg/dLHigh Cholesterol: greater than 239 mg/dL LDL Cholesterol Calculated 128(H) <100 mg/dL [facility] Comment:Desirable LDL: less than 100 mg/dLNear Optimal/Above Optimal LDL: 110- 129 mg/dLBorderline High LDL: 130-159 mg/dLHigh LDL: 160-189 mg/dLVery High LDL: greater than or equal to 190 mg/dL HDL Cholesterol 34(L) >40 mg/dL [facility] Comment:Desirable HDL: great er than 40 mg/dL Note: This HDL assay may give artificially low results in patients with liver disease. Blood 04/02/2024 2:00 PM EDT 04/02/2024 4:11 PM EDT Aubree Ramirez MD LAB BLOOD ORDERABLES Final Result [facility] [address] [place] [address] [phone] * (ABNORMAL) POCT HGB A1C (04/02/2024 1:14 PM EDT) Hemoglobin A1C 8.8(A) 4.0 - 6.0 % QC Media Lot # [id number] Lot# Expiration Date [id number] Blood 04/02/2024 1:14 PM EDT Aubree Ramirez MD POINT OF CARE TEST EN TER/EDIT ORDERABLES Final Result from Last 3 Months or Most Recently Relevant to Health Maintenance Insurance [place] [address] [place] [id number] [facility] Care Teams Marketing Proposal Coordinator Relationship Specialty Start Date End Date Aubree Matute MD [address] [place] [phone] PCP - General Family Medicine 11/10/19
== END 2024-12-17 12:15 | disposition home or self-care (01) ==
LOC: HO.HOS 11:34
PROVIDERS: PCP Internal Medicine; Visit Provider Physician Assistant
DX: S76.111A Strain of right quadriceps muscle, fascia and tendon, initial encounter (principal); W10.9XXA Fall (on) (from) unspecified stairs and steps, initial encounter
CPT/HCPCS: 99204

== ENCOUNTER → 2024-12-17 11:34 | Outpatient (BNVA) | payer MEDICARE, MEDICAID, SELFPAY | PROVIDERS: PCP Internal Medicine; Visit Provider Physician Assistant | DX: S76.111A Strain of right quadriceps muscle, fascia and tendon, initial encounter (principal); W10.9XXA Fall (on) (from) unspecified stairs and steps, initial encounter; Y93.9 Activity, unspecified; Y92.9 Unspecified place or not applicable; Y99.9 Unspecified external cause status | CPT/HCPCS: 99202 ==

== ENCOUNTER 2024-12-22 08:00 | Day surgery (SDC) | payer MEDICARE, MEDICAID, SELFPAY ==
--- OUTSIDE RECORDS SUMMARY | 2024-12-17 14:38 | XMS_ITS | Encounter Summary ---
Author Organization [employer] Address [address] [facility] [address] [place] [address] Care Team Providers Care Manufacturing Scheduler Name Role Phone Aubree Matute MD Primary Care Provide r Reason for Visit * Reason Onset Date Comments med b form 09/04/2022 Encounter Details Date Type Department Care Team (Late st Contact Info) Description 09/04/2022 Telephone [facility] [address] [place] [address] [phone] Aubree Matute MD [address] [place], [place] [phone] med b form Social History Tobacco Use [...] Description 12/30/2024 10:45 AM EDT Office Visit [facility] [address] [place], [place] [phone] Aubree Matute MD [address] [place] [address] documented as of this encounter Visit Diagnoses Not on filedocumented in this encounter Care Teams Manufacturing Scheduler Relationship Specialty Start Date End Date Aubree Matute MD [address] [place], [place] [phone] PCP - General Family Medicine 11/10/19 documented as of this encounter
--- OUTSIDE RECORDS SUMMARY | 2024-12-17 14:38 | XMS_ITS | Clinical Summary ---
Author Organization [address] [facility] Address [address] [place] [address] Phone Care Team Providers Care Gridcap Machine Operator Name Role Phone Aubree Matute MD Primary Care Provide r Medications amitriptyline (ELAVIL) 25 mg tablet Take 1 tablet (25 mg total) by mouth at bedtime. Active insulin glargine,hum.re c.anlog (Basaglar KwikPen U-100 Insulin) 100 unit/mL (3 mL) injection pen Inject 100 Units under the skin at bedtime. Active blood-glucose meter,continuou s (Dexcom G7 Factory Manager) misc Activ e cyclobenzaprine (FLEXERIL) 10 mg tablet Take 1 tablet (10 mg total) by mouth 3 (three) times a day if needed for muscle spasms. Active ergocalciferol (VITAMIN D-2) 1,250 mcg (50,000 unit) capsule Take 1 capsule (50,000 Units total) by mouth 1 (one) time per week. Active FLUoxetine (PROzac) 20 mg capsule Take 1 capsule (20 mg total) by mouth 1 (one) time each day. Active glipiZIDE (GLUCOTROL XL) 10 mg 24 hr tablet Take 1 tablet (10 mg total) by mouth 1 (one) time each day. Do not crush, chew, or split. Active ibuprofen (ADVIL,MOTRIN) 600 mg tablet Take 1 tablet (600 mg total) by mouth. Active canagliflozin (Invokana) 300 mg tablet Take 1 tablet (300 mg total) by mouth 1 (one) time each day. Active lisinopriL (PRINIVIL,ZESTR IL) 5 mg tablet Take 1 tablet (5 mg total) by mouth 1 (one) time each day. Active metFORMIN (FORTAMET) 500 mg 24 hr tablet Take 1 tablet (500 mg total) by mouth 1 (one) time each day with dinner. Do not crush, chew, or split. Active QUEtiapine (SEROquel) 50 mg tablet Take 1 tablet (50 mg total) by mouth at bedtime. Active Active Problems Problem Noted Date Diagnosed Date Type 2 diabetes mellitus wit h hyperglycemia, with long-term current use of insulin ([facility] V24, [facility] V28) 07/06/2024 Diabetic polyneuropathy asso ciated with type 2 diabetes mellitus ([facility] V24, [facility] V28) 07/06/2024 Cigarette smoker 07/06/2024 COVID-19 07/06/2024 Epigastric pain 07/06/2024 Essential hypertension 07/06/2024 Headache 07/06/2024 Mixed anxiety and depressive disorder 07/06/2024 FANY (obstructive sleep apnea) 07/06/2024 Bilateral foot pain 07/06/2024 Varicose veins of leg with pain, bilateral 07/06 Anxiety 07/06/2024 Acute pain of left shoulder 07/06/2024 Social History Tobacco Use Types Packs/Day Years Used Date Smoking Tobacco: Never Assessed Sex and Gender Information Value Date Recorded Sex Assigned at Not on file Legal Sex Male 5:41 AM EST Gender Identity Not on file Sexual Orientation Not on file Plan of Treatment Health Maintenance Due Date Last Done Comments Diabetes: Annual GFR (Glomer ular Filtration Rate) 1978 Diabetes: Annual Foot Exam 1988 Diabetes: Annual Retina Eye Exam 1988 DTaP,Tdap,and Td Vaccines (1 - Tdap) 1997 Hepatitis B Vaccines (1 of 3 - 19+ 3-dose series) 1997 Pneumococcal Vaccine: Pediat rics (0 to 5 Years) and At-Risk Patients (6 to 64 Years) (1 of 2 - PCV) 1997 Cholesterol Screening (Lipid Panel) 07/29/2022 Colorectal Cancer Screening: Colonoscopy 07/29/2022 Depression Screening 07/29/2022 HIV Screening 07/29/2022 Hepatitis C Screening 07/29/2022 Medicare Annual Wellness Visit 07/29/2022 Social Influencers of Health Screening 07/29/2022 COVID-19 Vaccine ( - 2023-2 5 season) 2024 Diabetes: Annual Urine Albumin-Creatinine Ratio (uACR) 07/06/2024 Diabetes: Blood Sugar Contro l Test (HGBA1C) 07/06/2024 Hypertension/CHF/CAD Annual BMP Blood Test 07/06/2024 Influenza Vaccine (Season Ended) 2025 HIB Vaccines Aged Out No longer eligi [...] on patient's age to complete this topic MMR Vaccines Aged Out No longer eligi ble based on patient's age to complete this topic Meningococcal ACWY Vaccine Aged Out N o longer eligible based on patient's age to complete this topic Meningococcal B Vaccine Aged Out No l onger eligible based on patient's age to complete this topic RSV Immunization Patients Un n[place] 20 months Aged Out No longer eligible b ased on patient's age to complete this topic Varicella Vaccines Aged Out No longer eligible based on patient's age to complete this topic Insurance MEDICARE MEDICAID - [place] Care Teams Gridcap Machine Operator Relationship Specialty Start Date End Date Aubree Matute MD [address] [phone] PCP - General 04/20/24
--- OUTSIDE RECORDS SUMMARY | 2024-12-17 14:38 | XMS_ITS | Encounter Summary ---
Author Organization [employer] Address [address] [place] [address] Care Team Providers Care Search Planner Name Role Phone Aubree Matute MD Primary Care Provide r Reason for Visit * Reason Comments Med Refill Encounter Details Date Type Department Care Team ([facility] st Contact Info) Description 07/24/2023 Refill [facility] [address] [place], [place] [phone] Aubree Matute MD [address] [place], [place] [phone] Anxiety Social History Tobacco Use Types Packs/Day [...] Description 12/30/2024 10:45 AM EDT Office Visit [facility] [address] [place] [phone] Aubree Matute MD [address] [place] [address] documented as of this encounter Visit Diagnoses Diagnosis Anxiety Anxiety state, unspecified documented in this encounter Additional Health Concerns Assessment Noted Time PHQ-9 Depression Total Score: 13 023 1:12 PM EDT documented as of this encounter Care Teams Search Planner Relationship Specialty Start Date End Date Aubree Matute MD [address] [place] [phone] PCP - General Family Medicine 11/10/19 documented as of this encounter
--- OUTSIDE RECORDS SUMMARY | 2024-12-17 14:38 | XMS_ITS | Encounter Summary ---
Author Organization [employer] Address [address] [facility] [place] [address] Care Team Providers Care Telesales Agent Name Role Phone Aubree Matute MD Primary Care Provide r Encounter Details Date Type Department Care Team ([facility] st Contact Info) Description 06/21/2023 Abstract [facility] [address] [place], [place] [phone] Aubree Matute MD [address] [place], [place] [phone] Social History Tobacco Use Types Packs/Day Years [...] Description 12/30/2024 10:45 AM EDT Office Visit [facility] [address] [place] [phone] Aubree Matute MD [address] [place] [phone] documented as of this encounter Visit Diagnoses Not on filedocumented in this encounter Additional Health Concerns Assessment Noted Time PHQ-9 Depression Total Score: 13 023 1:12 PM EDT documented as of this encounter Care Teams Telesales Agent Relationship Specialty Start Date End Date Aubree Matute MD [address] [place] [phone] PCP - General Family Medicine 11/10/19 documented as of this encounter
--- OUTSIDE RECORDS SUMMARY | 2024-12-17 14:38 | XMS_ITS | Encounter Summary ---
Author Organization [employer] Address [address] [place] [address] Care Team Providers Care Automatic Vulcanizing Operator Name Role Phone Aubree Matute MD Primary Care Provide r Encounter Details Date Type Department Care Team ([facility] st Contact Info) Description 06/21/2023 Abstract [facility] [address] [place], [place] [phone] Aubree Matute MD [address] [place], [place] [phone] Social History Tobacco Use Types Packs/Day Years [...] Description 12/30/2024 10:45 AM EDT Office Visit [facility] [address] [place] [phone] Aubree Matute MD [address] [place] [phone] documented as of this encounter Visit Diagnoses Not on filedocumented in this encounter Additional Health Concerns Assessment Noted Time PHQ-9 Depression Total Score: 13 023 1:12 PM EDT documented as of this encounter Care Teams Automatic Vulcanizing Operator Relationship Specialty Start Date End Date Aubree Matute MD [address] [place] [phone] PCP - General Family Medicine 11/10/19 documented as of this encounter
--- OUTSIDE RECORDS SUMMARY | 2024-12-17 14:38 | XMS_ITS | Encounter Summary ---
Author Organization [employer] Address [address] [place] [address] Care Team Providers Care Obstetrics Nurse Name Role Phone Aubree Matute MD Primary Care Provide r Encounter Details Date Type Department Care Team (Late Contact Info) Description 03/26/[address] [facility] [address] [place], [place] [phone] Astrid Irvin LPN Social History Tobacco Use [...] Description 12/30/2024 10:45 AM EDT Office [address] [facility] [address] [place], [place] [phone] Aubree Matute MD [address] [place], [place] [phone] documented as of this encounter Visit Diagnoses Not on filedocumented in this encounter Additional Health Concerns Assessment Noted Time PHQ-9 Depression Total Score: 13 023 1:12 PM EDT documented as of this encounter Care Teams Obstetrics Nurse Relationship Specialty Start Date End Date Aubree Matute MD [address] [place] [address] PCP - General Family Medicine 11/10/19 documented as of this encounter
--- OUTSIDE RECORDS SUMMARY | 2024-12-17 14:38 | XMS_ITS | Encounter Summary ---
Author Organization [employer] Address [address] [place] [address] Care Team Providers Care Drilling Manager Name Role Phone Aubree Matute MD Primary Care Provide r Encounter Details Date Type Department Care Team ([facility] st Contact Info) Description 06/21/2023 Abstract [facility] [address] [place], [place] [phone] Aubree Matute MD [address] [place], [place] [phone] Social History Tobacco Use Types Packs/Day Years [...] Description 12/30/2024 10:45 AM EDT Office Visit [facility] [address] [place] [phone] Aubree Matute MD [address] [place] [phone] documented as of this encounter Visit Diagnoses Not on filedocumented in this encounter Additional Health Concerns Assessment Noted Time PHQ-9 Depression Total Score: 13 023 1:12 PM EDT documented as of this encounter Care Teams Drilling Manager Relationship Specialty Start Date End Date Aubree Matute MD [address] [place] [phone] PCP - General Family Medicine 11/10/19 documented as of this encounter
--- OUTSIDE RECORDS SUMMARY | 2024-12-17 14:38 | XMS_ITS | Clinical Summary ---
Author Organization [employer] Address [address] 7[address] [place] [address] Care Team Providers Care Gate Guard Name Role Phone Aubree Matute MD Primary Care Provide r Allergies Active Allergy Reactions Criticality Noted Date Comments Penicillins Angioedema High 09/01/2015 Other reaction(s): Hives/Skin Rash Medications * This document contains information received from the source organization and may not represent a complete record from that organization. ergocalciferol (Vitamin D2) 1.25 MG (02401 UT) capsule TAKE 1 CAPSULE BY MOUTH [...] FOOD NEEDED 07/15/20 23 Active UltiCare Pen [place] 29G X 12.7MM misc USE EVERY DAY WITH INSULIN 100 each 3 08/06/20 23 Active Continuous Blood Gluc Electrical High Tension Tester (Dexcom G7 Electrical High Tension Tester) device USE DIRECTED 09/27/19 24 Active FLUoxetine [...] hyperglycemia, with long-term current use of insulin ([facility]) Inject 1 mg under the skin 1 [...] hyperglycemia, with long-term current use of insulin ([facility]) INJECT 16 UNITS SUBCUTANEOUSLY EVERY DAY AT [...] Department Care Team Description 12/12/2024 Orders Only [facility] External Provider, [facility] 11/30/2024 Telephone [facility] [address] [place] [address] Aubree Matute MD Nurse Triage 11/08/2024 Refill [facility] [address] [place] [address] Aburee Matute MD Type 2 diabetes mellitus with hyperglycemia ([facility]) 11/06/2024 Population Health Risk Score [facility] [address] [place] [address] [phone] Provider, Population Health Generic 10/01/2024 Refill [facility] [address] [place] [address] Aubree Matute MD Type 2 diabetes mellitus with hyperglycemia, with long-term current use of insulin ([facility]) from Last 3 Months Immunizations Name Administration [...] Description 12/30/2024 10:45 AM EDT Office Visit [facility] [address] [place] [address] Aubree Matute MD [address] [place] [address] Health Maintenance Due Date Last Done Comments [...] hyperglycemia, with long-term current use of insulin ([facility]) Essential hypertension POCT GLYCATED HEMOGLOBIN, TOTAL Routine 04/02/2024 1:14 PM EDT Type 2 diabetes mellitus with hyperglycemia, with long-term current use of insulin ([facility]) from Last 3 Months or Most Recently Relevant to Health Maintenance Results * CT Knee w/o Contrast Right (12/12/2024 4:23 AM EDT) Anatomical Region Laterality Modality Lower Extremities, Knee Right Computed Tomography 12/12/2024 4:23 AM EDT Narrative 12/12/2024 4:25 AM EDT ? [facility] ?[address] ?[place] [address] ? CT Scan Report ? Signed ? Patient: Flanagan,[place] ?MR#: [id number] ?? [id number] ? : 1980 ?Acct:[id number] ? Age/Sex: 44 / M ?ADM Date: 12/12/24 ? Loc: HO.ED ? Attending Dr: ? Ordering Physician: Temo Cole ?? Date of Service: 12/12/24 ?? Procedure(s): CT knee RT wo IV con ?? Accession Number(s): [id number] ? cc: Aubree Matute MD; Temo Cole ? Report Number: ?? [id number]: Total DLP = ??243.00 mGy-cm ? CLINICAL HISTORY: trauma ? CT right knee without contrast ? Comparison: CR/FL - XR KNEE RT 4V - 12/12/24 [...] DD/ 0423 ? TD/TT: 12/12/24 0423 ? Supervisor Long Goods: ? Procedure Note Spencer, Georgiana - 12/12/[address] [address] [address] Scan Report Signed Patient: Delonte FlanaganMR#: [id number] : 1980Acct:[id number] Age/Sex: 44 / MADM Date: 12/12/24 Loc: HO.ED Attending Dr: Ordering Physician: Temo Cole Date of Service: 12/12/24 Procedure(s): CT knee RT wo IV con Accession Number(s): [id number] cc: Aubree Matute MD; Temo Cole Report Number: [id number]: Total DLP = 243.00 mGy-cm CLINICAL HISTORY: trauma CT right knee without contrast Comparison: CR/FL - XR KNEE RT 4V - 12/12/24 [...] in OV> 12/12/24423 DD/ 2 TD/TT: 12/12/24422 Supervisor Long Goods: [facility] External Provider IMG CT PROCEDURES Final Result * (ABNORMAL) Lipid Panel with Reflex to Direct LDL (04/02/2024 2:00 PM EDT) Triglycerides 180(H) <150 mg/dL [facility] Comment:Desirable Triglyceri de: less than 150 mg/dLBorderline High Triglyceride 150-199 mg/dLHigh Triglyceride: 200-499 mg/dLVery High Triglyceride: greater than or equal to 5OO mg/dL Cholesterol 198 <200 mg/dL [facility] Comment:Desirable Cholestero l: less than 200 mg/dLBorderline High Cholesterol: 200-239 mg/dLHigh Cholesterol: greater than 239 mg/dL LDL Cholesterol Calculated 128(H) <100 mg/dL [facility] Comment:Desirable LDL: less than 100 mg/dLNear Optimal/Above Optimal LDL: 110- 129 mg/dLBorderline High LDL: 130-159 mg/dLHigh LDL: 160-189 mg/dLVery High LDL: greater than or equal to 190 mg/dL HDL Cholesterol 34(L) >40 mg/dL [facility] Comment:Desirable HDL: great er than 40 mg/dL Note: This HDL assay may give artificially low results in patients with liver disease. Blood 04/02/2024 2:00 PM EDT 04/02/2024 4:11 PM EDT Aubree Ramirez MD LAB BLOOD ORDERABLES Final Result [facility] [address] [place] [address] [phone] * (ABNORMAL) POCT HGB A1C (04/02/2024 1:14 PM EDT) Hemoglobin A1C 8.8(A) 4.0 - 6.0 % QC Media Lot # [id number] Lot# Expiration Date [id number] Blood 04/02/2024 1:14 PM EDT Aubree Ramirez MD POINT OF CARE TEST EN TER/EDIT ORDERABLES Final Result from Last 3 Months or Most Recently Relevant to Health Maintenance Insurance [place] [address] [place] [id number] [facility] Care Teams Gate Guard Relationship Specialty Start Date End Date Aubree Matute MD [address] [place] [phone] PCP - General Family Medicine 11/10/19
--- OUTSIDE RECORDS SUMMARY | 2024-12-17 14:38 | XMS_ITS | Encounter Summary ---
Author Organization [employer] Address [address] [place] [address] Care Team Providers Care Reporting Developer Name Role Phone Aubree Matute MD Primary Care Provide r Encounter Details Date Type Department Care Team (Late st Contact Info) Description 12/12/2024 Orders Only [facility] External Provider, [facility] Social History Tobacco Use Types Packs/Day [...] Description 12/30/2024 10:45 AM EDT Office Visit [facility] [address] [facility] [place] [address] Aubree Matute MD 230 [place] [address] documented as of this encounter Procedures Procedure Name Priority Date/Time Associated Diagnosis Comments CT KNEE WO CONTRAST RIGHT Routine 12/12/2024 4:23 AM EDT documented in this encounter Results * CT Knee w/o Contrast Right (12/12/2024 4:23 AM EDT) Anatomical Region Laterality Modality Lower Extremities, Knee Right Computed Tomography 12/12/2024 4:23 AM EDT Narrative 12/12/2024 4:25 AM EDT ? [facility] ?[address] ?[place] [address] ? CT Scan Report ? Signed ? Patient: Flanagan,Corinne ?MR#: [id number] ?? [id number] ? : 1980 ?Acct:[id number] ? Age/Sex: 44 / M ?ADM Date: 12/12/24 ? Loc: HO.ED ? Attending Dr: ? Ordering Physician: Temo Cole ?? Date of Service: 12/12/24 ?? Procedure(s): CT knee RT wo IV con ?? Accession Number(s): [id number] ? cc: Aubree Matute MD; Temo Cole ? Report Number: ?? [id number]: Total DLP = ??243.00 mGy-cm ? CLINICAL HISTORY: trauma ? CT right knee without contrast ? Comparison: CR/NE - XR KNEE RT 4V - 12/12/24 [...] DD/ 0423 ? TD/TT: 12/12/24 0423 ? Barrel Charrer Helper: ? Procedure Note Donjimter, Image - 12/12/[address] [place] [address] [address] Scan Report Signed Patient: Delonte FlanaganMR#: [id number] : 1980Acct:[id number] Age/Sex: 44 / MADM Date: 12/12/24 Loc: HO.ED Attending Dr: Ordering Physician: Temo Cole Date of Service: 12/12/24 Procedure(s): CT knee RT wo IV con Accession Number(s): [id number] cc: Aubree Matute MD; Temo Cole Report Number: [id number]: Total DLP = 243.00 mGy-cm CLINICAL HISTORY: trauma CT right knee without contrast Comparison: CR/NE - XR KNEE RT 4V - 12/12/24 [...] in OV> 12/12/244 DD/ 2 TD/TT: 12/12/24422 Barrel Charrer Helper: [facility] External Provider IMG CT PROCEDURES Final Result documented in this encounter Visit Diagnoses Not on filedocumented in this encounter Additional Health Concerns Assessment Noted Time PHQ-9 Depression Total Score: 13 023 1:12 PM EDT documented as of this encounter Care Teams Reporting Developer Relationship Specialty Start Date End Date Aubree Matute MD [address] [place] [address] PCP - General Family Medicine 11/10/19 documented as of this encounter
--- OUTSIDE RECORDS SUMMARY | 2024-12-17 14:38 | XMS_ITS | Encounter Summary ---
Author Organization [employer] Address [address] [place] [address] Care Team Providers Care Gallery Manager Name Role Phone Aubree Matute MD Primary Care Provide r Encounter Details Date Type Department Care Team (Late Contact Info) Description 03/08/2023 Orders Only [facility] [address] [place], [place] [phone] Astrid Irvin LPN Social History Tobacco Use [...] 10:45 AM EDT Office Visit [facility] [address] [place], [place] [phone] Aubree Matute MD [address] [place], [place] [phone] documented as of this encounter Visit Diagnoses Not on filedocumented in this encounter Additional Health Concerns Assessment Noted Time PHQ-9 Depression Total Score: 13 023 1:12 PM EDT documented as of this encounter Care Teams Gallery Manager Relationship Specialty Start Date End Date Aubree Matute MD [address] [place] [address] PCP - General Family Medicine 11/10/19 documented as of this encounter
--- NOTE | 2024-12-21 08:51 | HO.ANESPROP2 ---
HPI - Anesthesia Eval Consult details Narrative: 44yo M for Right Quad Tendon Repair s/p lap appy 03/2024 with GA-ETT 8 PMFSH Active Problems Active Problems: All Active Problems Rupture of right quadriceps tendon (Acute) S/P laparoscopic appendectomy (Acute) Past Medical History Medical History (Updated 12/17/24 @ 12:00 by Leticia Jones PA-C) FANY (obstructive sleep apnea) HTN (hypertension) Asthma Diabetes Family History Family History Father No problems noted. Mother No problems noted. Family history of problems with anesthesia: No Surgical History Surgical History (Updated 04/07/24 @ 07:47 by Kaylene Murillo PA-C) No pertinent past surgical history History of Problems with Anesthesia: No (Some surgeries noted in patient's previous medical records but patient denies having any surgeries ) Social History Social History (Updated 12/17/24 @ 11:46 by Percy Carter) Household Members: Family Housing: Apartment Do you presently have visiting nurse or other home services: No Alcohol intake: never Patient Tobacco Use Status: Former Tobacco user Tobacco use type: Cigarette Years Smoked: 35 Second Hand Smoke Exposure: No Substance Use Type: Marijuana service: No Current occupational status: disabled 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 Meds Allergies Allergy/AdvReac Type Severity Reaction Status Date / Time Penicillins Allergy Severe angioedema Verified 12/17/24 11:43 and SOB Home Medications ?Medication ?Instructions ?Recorded ?Confirmed ?Last Taken ?Type fluoxetine 40 mg capsule 40 mg PO DAILY 04/06/24 04/06/24 04/05/24 History glipizide 10 mg tablet, extended 10 mg PO DAILY 04/06/24 04/06/24 04/05/24 History release 24 hr Exam Pertinent Lab Results Pertinent Lab Results: [facility] 08/2024 CBC and BMP OK Narrative Narrative: EKG 08/2024 ST @ 106 Assessment and Plan Assessment Anesthesia Assessment: Chart Reviewed Final Anesthetic Review Family History of Problems with Anesthesia: No History of Problems with Anesthesia: No (Some surgeries noted in patient's previous medical records but patient denies having any surgeries )
[2024-12-22] VITALS (17 sets, daily range): BP systolic 106–135; BP diastolic 52–85; PULSE 70–81; RESP 16–20; TEMP 35.9–36.9; O2SAT 94–99; BMI 44.9
--- NOTE | 2024-12-22 09:31 | MHC.SHP ---
Pre-Procedural Eval Section A - 24 Hr Update-Section A only Date of Service: 12/22/24 The patient is an INPATIENT: No Changes since office visit: No Cold of Flu in the past 2 weeks, No New Medical Problems, No Changes in Medication and No Patient answered all questions The patient has been examined within 24 hours of the surgical procedure. The History & Physical has been completed within 30 days and I have reviewed it.: Yes Section B - Complete if H&P > 30 days Chief Complaint: Strain of right quadriceps muscle, fascia and tend Allergies: Allergies Allergy/AdvReac Type Severity Reaction Status Date / Time Penicillins Allergy Severe angioedema Verified 12/17/24 11:43 and SOB Plan I have reviewed the history and physical and performed a pertinent physical examination on my patient. No changes have occurred unless specified. Time Spent With Patient Time: Total time managing care of this patient today ____ minutes.
[2024-12-22 09:42] LABS: Glucose, Whole Blood 340 mg/dL (60-115)
--- NOTE | 2024-12-22 09:55 | PC.NURSE ---
PATIENTS STATES PATIENT HASNT TAKEN HIS OZEMPIC IN MONTHS OR HIS INVOKANA. ALSO STATES HE DOESNT TAKE HIS METFORMIN. ALSO ONLY TAKES HIS GLIPIZIDE WHEN HIS BLOOD SUGAR IS HIGH.
[2024-12-22] MEDS: Lactated Ringers 1,000 ML 100 ML IVCONT ×2 (10:07→16:34)
[2024-12-22] MEDS: Clindamycin Phosphate/D5W 900 MG/50 ML PIGGYBACK 50 MG IV (12:00)
--- NOTE | 2024-12-22 13:18 | P.OP_ITS ---
Operative Note Operative Note Date of Service: 12/22/24 Narrative: Date of Service: 12/22/24 Pre-op diagnosis: Right quad rupture Post-op diagnosis: same Procedure: Right quadriceps repair Implants: Morales [employer] Nephew double loaded 4.75 suture anchor x 2 Surgeon: Everette Munroe MD Anesthesia: GETA and regional Was an Diaphragm Builder used for this Procedure?: No Estimated blood loss (mL): 50 IV fluids (mL): 1,000 Pathology: none sent Condition: stable Disposition: PACU Procedure in detail: Patient was brought to the operating room and placed supine on the surgical table. He was prepped and draped in standard sterile fashion and a time out was called to identify proper site, proper procedure and IV antibiotics per weight were administered. I began by making a ~6 cm incision over the patella and distal quad tendon. I dissected down to the fascia overlying the quadriceps tendon. I incised through this and there was complete quadriceps rupture off the patellar insertion. The wound was irrigated and the ends of the quadriceps was debrided and cleaned and the attachment site on the patella was debrided with a rongeur down to bleeding bone. I then placed two all suture, fiber tape loaded, anchors into the patella. 2 limbs from each anchor were then whip stitched up and back through each side of the quadriceps tendon using Anchorage locking stitch. Theses limbs were then tied to their corresponding limbs and re-approximated to the patellar insertion with the leg in hyper extension. The repair was anatomic. The fascia was closed and the sub q was closed and the skin with jose. Sterile dressing were applied and the patient was placed in a locked brace in extension and extubated and brought to the recovery room in stable condition. There were no known complications.
[2024-12-22] MEDS: HYDROmorphone HCl 0.5 MG/0.5 ML SYRINGE 0.25 MG IVPUSH ×7 (13:36→18:02)
[2024-12-22 16:27] LABS: Glucose, Whole Blood 278 mg/dL (60-115)
[2024-12-22] MEDS: 0.9 % Sodium Chloride Flush 3 ML SYRINGE IVFLUSH ×2 (16:34→20:17)
[2024-12-22] MEDS: Insulin Lispro 100 UNIT/ML 3 ML VIAL SUBCUT ×2 (16:53→21:47)
--- NOTE | 2024-12-22 17:15 | P.DS_ITS ---
DS: Providers Provider Date of Service: 12/23/24 Date of discharge: 12/23/24 Primary care physician: Aubree Ramirez MD Consults: 12/22/24 16:40 Consult to Hospitalist Routine Comment: Consulting Provider: [facility] Reason For Exam: Diabetes Management DS: Summary Hospital Course Hospital Course: The patient underwent a successful right quad tendon repair, they were transferred to PACU and then to the floor to recover. During their stay, their vitals were stable, afebrile at 97.9. Labs were unremarkable, H/H 14.9/44.4. POD 1 they were started on Lovenox 40mg subq QD for DVT ppx, they also received Physical Therapy services twice a day. Prior to discharge, their dressing wasclean dry and intact, and the plan was to be discharged home. Time Attestation Discharge Coordination Time (in mins): 30 Quality: Safe Use of Opioids Does Pt have an Active Cancer Diagnosis on the Problem List?: No Quality: Stroke Does the patient have a stroke diagnosis?: No Physical Exam Vital Signs: Vital Signs: Last Vital Signs Temp 98.5 F 12/22/24 15:30 Pulse 70 12/22/24 15:30 Resp 16 12/22/24 15:30 BP 135/73 12/22/24 15:30 Pulse Ox 98 12/22/24 15:30 O2 Del Method Nasal Cannula 12/22/24 15:30 O2 Flow Rate 2 12/22/24 15:30 BMI result Body Mass Index 44.9 Const: General: cooperative, healthy appearing and no acute distress Resp: Effort & Inspection: normal respiratory effort and able to speak in complete sentences Cardio: Rate: regular rate Peripheral pulses: Peripheral pulses 2+ throughout GI: Palpation (GI): Soft to palpation Skin: Lesions: no lesions Rashes: no rashes Extrem: Other: Right knee dressing is c/d/i. Able to dorsi/plantar flex. Calf is supple and nontender. Sensation intact. Pedal pulse intact. DS: Data Data Completed and Pending Completed studies during hospitalization [Text1]: Procedures Assistance with Respiratory Ventilation, Less than 24 Consecutive Hours, Continuous Positive Airway Pressure (04/06/24) Resection of Appendix, Percutaneous Endoscopic Approach (04/06/24) Labs on day of discharge: Laboratory Results - last 24 hr 12/22/24 12/22/24 09:33 16:22 POC Glucose 340 H 278 H Discharge Plan Discharge Patient Disposition: Home, Self-Care Referrals: Leticia Jones PA-C [Physician Right Of Way Agent] - 12/29/24 8:30 am Discharge Medications: New oxycodone-acetaminophen [Percocet] 5-325 mg tablet 1 tab PO Q4-6H PRN (Reason: pain (scale score 4-6)) 7 Days Qty: 42 0RF Rx Instructions: Partial Fill upon patient request. Continued fluoxetine 40 mg capsule 40 mg PO DAILY Discontinued oxycodone 5 mg tablet 5 mg PO Q4H PRN (Reason: pain (scale score 7-10)) Qty: 24 0RF Rx Instructions: Partial Fill upon patient request. oxycodone 5 mg tablet 5 mg PO Q6H PRN (Reason: severe pain (scale score 7-10)) Qty: 12 0RF Rx Instructions: Partial Fill upon patient request. oxycodone-acetaminophen 5-325 mg tablet 1 tab PO Q4-6H PRN (Reason: pain) 7 Days Qty: 42 0RF Rx Instructions: Partial Fill upon patient request. No Action glipizide 10 mg tablet extended release 24hr 10 mg PO DAILY PRN (Reason: High Blood Pressure) amitriptyline 25 mg tablet 25 mg PO BEDTIME gabapentin 100 mg capsule 300 mg PO Q8H Ozempic 1 mg/dose (4 mg/3 mL) pen injector 1 mg subcut QWEEK metformin 500 mg tablet 1,000 mg PO BID Discharge Orders: Discharge Order (Routine); Ordered 12/23/24 Ordered By: Leticia Jones Diet: Advance to usual diet Activity on Discharge: Walk with crutches Activity Restrictions/Additional Instructions: Keep the bandage/dressings clean, dry, and intact. Brace is to remain on at all times Weightbearing with crutches and brace Weightbearing as tolerated Elevate, ice, perform ankle pumps Follow up with orthopedics 7-10 days post op Print Language: Kiswahili
--- NOTE | 2024-12-22 17:16 | P.F2F_ITS ---
Service Date Service Date: 12/22/24 Encounter Date of encounter: 12/23/24 Reasons for Services Signs and symptoms assessed: s/p right quad tendon repair Pt. is considered homebound due to recent surgery. Unable to drive, poor balance, poor gait mechanics. Reason for residential: administration of IV, SQ, or IM injection Reason for physical therapy: home safety and mobility, therapeutic exercises, restore joint function, gait/transfer training and ADL training Homebound: Leaving the home is medically contraindicated at this time without the asist of a device and/or another person due th the listed conditions above and below. Reason homebound: unsteady gait / fall risk, leg weakness, pain with ambulation, poor balance / fall risk and unable to drive Certification: Based on the above findings, I certify that this patient is confined to the home and needs intermittent residential care, physical therapy and/or speech therapy, or continues to need occupational therapy. The patient is under my care, and I have initiated the establishment of the plan of care. The patient will be followed by a physician who will periodically review the plan of care. Time Spent With Patient Time: Total time managing care of this patient today ____ minutes.
--- NOTE | 2024-12-22 19:09 | PHA.MEDREC ---
Pharmacy Consult ? Medication Reconciliation Pharmacy has completed the medication reconciliation. Spoke with patient and patients to confirm the med rec and they both confirmed the patient has not been compliant with taking any of his medications in the last 2-3 months due to patient experiencing bad side effects while taking them but patient should be taking them. The patient confirmed he has been taking Glipizide 10mg tabs only as needed for high blood sugars and states hes used that in the last few weeks but did not know when he last took them. Patients confirmed the patient never started the Invokana stating the patient was scared of the side effects. The patient stopped taking the Fluoxitine tabs stating he saw no change while taking it . He also stopped the Metformin 1000mg tabs and Amitryptyline 25mg tabs. The patient claims the Gabapentin capsules made him feel weird and stopped those. The claims the patient has not taken any Ozempic in about 3 months.
--- NOTE | 2024-12-22 19:29 | PHA.MEDREC ---
Addendum entered by [facility], located [facility] 12/22/24 19:40: med rec reviewed Original Note: Pharmacy Consult ? Medication Reconciliation Pharmacy has completed the medication reconciliation. Spoke with patient and patients to confirm the med rec and they both confirmed the patient has not been compliant with taking any of his medications in the last 2-3 months due to patient experiencing bad side effects while taking them but patient should be taking them. The patient confirmed he has been taking Glipizide 10mg tabs only as needed for high blood sugars and states hes used that in the last few weeks but did not know when he last took them. Patients confirmed the patient never started the Invokana stating the patient was scared of the side effects. The patient stopped taking the Fluoxitine tabs stating he saw no change while taking it . He also stopped the Metformin 500mg tabs and Amitryptyline 25mg tabs. The patient claims the Gabapentin capsules made him feel weird and stopped those. The claims the patient has not taken any Ozempic in about 3 months.
[2024-12-22] MEDS: Docusate Sodium 100 MG CAPSULE PO (20:16)
[2024-12-22] MEDS: Clindamycin HCL 300 MG CAPSULE 600 MG PO (20:16)
[2024-12-22] MEDS: oxyCODONE HCl ER 10 MG TAB.ER.12H PO (20:16)
[2024-12-22] MEDS: Celecoxib 200 MG CAPSULE PO (20:16)
[2024-12-22] MEDS: oxyCODONE HCl Immed Release 5 MG TABLET PO (20:16)
[2024-12-22 20:30] LABS: Glucose, Whole Blood 377 mg/dL (60-115)
--- NOTE | 2024-12-22 21:21 | P.CONHOSP_ITS ---
History of Present Illness Data of Consult Service Date: 12/22/24 Requesting physician: Leticia Jones Primary Care Provider: Aubree Ramirez MD [facility] Reason for consult: Diabetes management Pt is a 44 yo male with PMH DMII uncontrolled, HTN, Mild COPD, MO, depression underwent right quadraceps repair today and surgery consulted hospitalist for diabetes management. Patient agreeable to consultation but was initially guarded, somewhat agitated when talking about his diabetes. Patient states he was not taking his metformin as it had GI side effects including vomiting. Patient also stated the metformin made him feel weird but was nonspecific. Patient also was not taking his Ozempic weekly for the last 3 months because he he was not interested in using this medication. Patient was not checking his blood sugars routinely. Patient has been told by his PCP that his blood sugars are elevated and there was some serious concern. Patient states he has not seen an data operations director. Discussed with patient starting Lantus insulin and at 1st patient said I am not starting any new medication until I speak to my spouse and he called her. Over the phone they discussed this option and patient was able to respond commonly that he is willing to start the medication. Based on patient's weight and overall blood sugars, patient will start Lantus 20 units at HS. We also discussed continuous glucose monitoring and patient is familiar with this but does not currently have a device at home. Patient educated that he can speak to his primary care physician to have this ordered for him once he is discharged and this could be life changing in regards to managing his diabetes. Education provided on hypoglycemia. Patient understands signs and symptoms to report to nursing and promises to do so. In addition patient is agreeable to fingersticks a.c. and HS and we will continue sliding scale insulin. Hemoglobin A1c is pending. Patient understands that target organ damage is preventable if diabetes is under control. Reviewed how the heart, kidneys, eyes, brain, circulation are all impacted by uncontrolled diabetes. Further education will be provided through consultation with clinical educator and through nursing every shift. Patient also has history of hypertension and is not currently on medication. Blood pressure is currently controlled. Discussed patient's weight and how Ozempic may help patient with weight loss but we also reviewed side effects of Ozempic and patient currently is not interested in resuming this medication. Patient understands the importance of weight loss overall. Patient cognizant that this recent surgery we will impact the ability to lose weight but patient is motivated. Patient did deny current tobacco use, alcohol use, marijuana use and illicit drug use. Review of Systems Review of Systems: Patient denies any chest pain, shortness of breath at rest or with exertion, abdominal pain, nausea, vomiting, diarrhea or constipation. Patient denies any open wounds or history of unhealed wounds. Patient denies any thyroid history, stroke or seizure history. Yes all other systems are reviewed and are negative [facility] Medical History (Updated 12/22/24 @ 21:29 by JAMIE Marks) FANY (obstructive sleep apnea) HTN (hypertension) Asthma Diabetes Cognitive capacity: Alert and orientated x3 Functional capacity: independent ambulation (Prior to surgery) Family History Father No problems noted. Mother No problems noted. Surgical History Hx of appendectomy Social History Household Members: Spouse and Children Housing: Apartment Do you presently have visiting nurse or other home services: No Alcohol intake: never Patient Tobacco Use Status: Former Tobacco user Tobacco use type: Cigarette Years Smoked: 35 Second Hand Smoke Exposure: No Use of substances other than those prescribed or required for medical reasons: No Substance Use Type: Marijuana Currently Displaying Signs/Symptoms of Drug Intoxication Withdrawal: No Do you feel safe in your current relationship?: Yes Are you DNR?: No Advance Directives: No Advance Directives Information Provided: Yes Do you have a plan to hurt others: No Plan Recently lost weight without trying: No Poor oral hygiene: No service: No Current occupational status: disabled 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 Ebola Risk: Travel/Contact With Anyone From Affected Area/s: No Has Patient Experienced Ebola Symptoms: No Meds Allergies Allergy/AdvReac Type Severity Reaction Status Date / Time Penicillins Allergy Severe angioedema Verified 12/17/24 11:43 and SOB Active Medications: Current Medications Acetaminophen (Acetaminophen 325 Mg Tablet) 650 mg PO Q6H PRN PRN Reason: Pain, Mild 1-3,fever,headache Celecoxib (Celecoxib 200 Mg Capsule) 200 mg PO BID [facility] Last Admin: 12/22/24 20:16 Dose: 200 mg Dextrose (Dextrose 50 % 25 Gm/50 Ml Syringe) 25 gm IVPUSH Q15M PRN; Protocol PRN Reason: per Hypoglycemia Standing Ord. Docusate Sodium (Docusate Sodium 100 Mg Capsule) 100 mg PO BID [facility] Last Admin: 12/22/24 20:16 Dose: 100 mg Enoxaparin Sodium (Enoxaparin Sodium 40 Mg/0.4 Ml Syringe) 40 mg SUBCUT Q24H [facility] Glipizide (Glipizide 10 Mg Tablet) 10 mg PO DAILY [facility] Glucose (Glucose Gel 15 Gm Gel..Gram.) 15 gm PO Q15M PRN; Protocol PRN Reason: per Hypoglycemia Standing Ord. Hydromorphone HCl (Hydromorphone Hcl 0.5 Mg/0.5 Ml Syringe) 0.25 mg IVPUSH Q4H PRN; Protocol PRN Reason: Pain, Severe (Pain Scale 7-10) Last Admin: 12/22/24 18:02 Dose: 0.25 mg Lactated Ringer's (Lr) 1,000 mls @ 100 mls/hr IVCONT .Q10H [facility] Last Admin: 12/22/24 16:34 Dose: 100 mls/hr Insulin Glargine (Insulin Glargine,Hum.Rec.Anlog 100 Unit/Ml 10 Ml Vial) 20 unit SUBCUT BEDTIME [facility] Insulin Human Lispro (Insulin Lispro 100 Unit/Ml 3 Ml Vial) 0 unit SUBCUT QIDACHS [facility]; Protocol Last Admin: 12/22/24 16:53 Dose: 6 unit Naloxone HCl (Naloxone Hcl 0.4 Mg/Ml Vial) 0.04 mg IVPUSH Q5M PRN PRN Reason: Excessive sedation or RR < 8 Ondansetron HCl (Ondansetron Hcl 4 Mg/2 Ml Vial) 4 mg IVPUSH Q8H PRN PRN Reason: Nausea and Vomiting Oxycodone HCl (Oxycodone Hcl Er 10 Mg Tab.Er.12h) 10 mg PO BID [facility] Last Admin: 12/22/24 20:16 Dose: 10 mg Oxycodone HCl (Oxycodone Hcl Immed Release 5 Mg Tablet) 5 mg PO Q4H PRN PRN Reason: Pain, Moderate(Pain Scale 4-6) Last Admin: 12/22/24 20:16 Dose: 5 mg Sodium Chloride (0.9 % Sodium Chloride Flush 3 Ml Syringe) 3 ml IVFLUSH QSHIFT CORINNA Last Admin: 12/22/24 20:17 Dose: 3 ml Home Medications ?Medication ?Instructions ?Recorded ?Confirmed ?Last Taken ?Type fluoxetine 40 mg capsule 40 mg PO DAILY 04/06/24 12/22/24 04/05/24 History amitriptyline 25 mg tablet 25 mg PO BEDTIME pain 12/22/24 12/22/24 Unknown History gabapentin 100 mg capsule 300 mg PO Q8H 12/22/24 12/22/24 Unknown History glipizide 10 mg tablet, extended 10 mg PO DAILY PRN High Blood 12/22/24 12/22/24 Unknown History release 24 hr Pressure metformin 500 mg tablet 1,000 mg PO BID 12/22/24 12/22/24 Unknown History semaglutide 1 mg/dose (4 mg/3 mL) 1 mg subcut QWEEK 12/22/24 12/22/24 Unknown History subcutaneous pen injector (Ozempic) Physical Exam Vital Signs and Narrative: Vital Signs: Last Vital Signs Temp 98.5 F 12/22/24 19:10 Pulse 76 12/22/24 19:10 Resp 20 12/22/24 19:10 BP 124/73 12/22/24 19:10 Pulse Ox 98 12/22/24 19:10 O2 Del Method Nasal Cannula 12/22/24 19:10 O2 Flow Rate 2 12/22/24 19:10 BMI result Body Mass Index 44.9 Results Labs Labs: Laboratory Results - last 24 hr 12/22/24 12/22/24 12/22/24 09:33 16:22 20:26 POC Glucose 340 H 278 H 377 H* Assessment and Plan (1) Diabetes: Status: Acute Plan Pt is a 44 yo male with PMH DMII uncontrolled, mild COPD, HTN, MO, depression underwent right quadraceps repair today and surgery consulted hospitalist for diabetes management. Patient has not been compliant with his medications at home including metformin and Ozempic due to overall side effects. Patient states he was taking his glipizide at home. Patient was not monitoring his blood glucose levels regularly at home and does not currently have a continuous glucose monitoring system. Patient does not currently follow with an data operations director. Diabetes management -after education and discussion with the spouse, patient is agreeable to starting Lantus 20 units at HS along with sliding scale insulin and patient will continue his glipizide. -patient will not start metformin or Ozempic due to side effects and patient is adamant about this. -initiated a diabetic education including hypoglycemia and signs and symptoms to report to nursing, diabetic diet, ,benefits of weight loss target organ damage and how to prevent this -A1c ordered, hospitalist group will continue to follow -sliding scale insulin with a.c. h.s. blood glucose checks -patient should follow-up with an data operations director as an outpatient. Patient may need referral from PCP Morbid obesity -patient educated on the benefits of weight loss. Patient is aware that is GLP 1 Ozempic can help with weight loss and again is refusing to resume this medication due to side effects. -patient will likely benefit from rehabilitation status post right quadriceps repair. -diabetic diet ordered -diabetic education consult ordered Mild COPD/ history of smoking -patient only uses rescue inhaler at home, does not use daily -patient has completed smoking cessation for the last 4 years and does not plan to resume smoking -patient currently on room air, no indication for chest x-ray or inpatient follow-up Patient offered that he had no other major medical concerns and he does not take medication for high blood pressure. Vital signs currently stable. Hospitalist group will continue to follow for diabetes management to ensure blood sugars improve on Lantus, sliding scale insulin and glipizide. Diabetic education consult ordered and nursing will provide continued diabetic education with each shift. Education was initiated during this consultation regarding target organ damage, hypoglycemia, benefits of weight loss and overall benefits of diabetic control and what the hemoglobin A1c indicates. Labs are currently pending. Thank you for this consultation and the hospitalist group will continue to monitor.
[2024-12-22] MEDS: Insulin Glargine,Hum.rec.anlog 100 UNIT/ML 10 ML VIAL 20 UNIT SUBCUT (21:46)
[2024-12-22 22:08] LABS: Alanine Aminotransferase 71 U/L (0-40); Albumin Level 3.6 g/dL (3.5-5.0); Alkaline Phosphatase 89 U/L (39-117); Anion Gap 15 (12-20); Aspartate Amino Transferase 65 U/L (5-37); Bilirubin Total 0.9 mg/dL (0.0-1.0); Blood Urea Nitrogen 14 mg/dL (9-16); Calcium 9.4 mg/dL (8.4-10.2); Carbon Dioxide 27 mmol/L (22-29); Chloride 97 mmol/L (96-108); Creatinine Clr Calc Pharmacy 137.2; Estimated Glomerular Filt Rate > 60; Glucose Random 377 mg/dL (60-115); Magnesium 1.6 mg/dL (1.6-2.6); Potassium 4.5 mmol/L (3.3-5.1); Sodium 134 mmol/L (135-145)
[2024-12-22 22:14] LABS: TSH reflex Free T4 0.81 uIU/mL (0.32-4.0)
[2024-12-22] MEDS: Zolpidem Tartrate 5 MG TABLET PO (22:24)
[2024-12-22] MEDS: HYDROmorphone HCl 0.5 MG/0.5 ML SYRINGE IVPUSH (22:24)
[2024-12-23 00:25] VITALS: PULSE 78; RESP 18; O2SAT 94
[2024-12-23] MEDS: oxyCODONE HCl Immed Release 5 MG TABLET PO ×2 (00:33→07:32)
[2024-12-23] MEDS: Lactated Ringers 1,000 ML 100 ML IVCONT (01:40)
[2024-12-23 03:00] VITALS: BP 118/67; PULSE 78; RESP 20; TEMP 36; O2SAT 94
[2024-12-23 06:19] LABS: MANUAL DIFF FLAG NO
[2024-12-23 06:27] LABS: Basophils Percent Auto 0.3 % (0-2); Eosinophils Absolute Auto 0.2 X10*3/uL (0.0-0.4); Eosinophils Percent Auto 1.8 % (0-4); Hematocrit 44.4 % (42.0-52.0); Hemoglobin 14.9 g/dl (14.0-18.0); Imm Gran Abs Auto 0.09 X10*3/uL (0.00-0.03); Imm Gran Pct Auto 0.8 % (0.0-0.4); Lymphocytes Percent Auto 25.3 % (20-40); Mean Corpuscular HGB Conc 33.6 g/dl (31.0-36.0); Mean Corpuscular Hemoglobin 28.7 pg (27.0-33.0); Mean Corpuscular Volume 85.5 fL (80.0-98.0); Mean Platelet Volume 11.2 fL (9.4-12.4); Neutrophils Absolute Auto 7.6 x10*3/uL (2.0-8.3); Neutrophils Percent Auto 63.8 % (45-73); Platelet Count 201 X10*3/uL (160-400); Red Blood Count 5.19 X10*6/uL (4.60-5.80); Red Cell Distribution Width 12.9 % (11.0-16.0)
[2024-12-23 06:43] VITALS: BP 140/79; PULSE 81; RESP 17; TEMP 36.6; O2SAT 96
[2024-12-23 06:48] LABS: Anion Gap 11 (12-20); Blood Urea Nitrogen 15 mg/dL (9-16); Carbon Dioxide 29 mmol/L (22-29); Chloride 99 mmol/L (96-108); Creatinine Clr Calc Pharmacy 154.3; Estimated Glomerular Filt Rate > 60; Glucose Fasting 315 mg/dL (60-99); Sodium 135 mmol/L (135-145)
[2024-12-23 07:01] LABS: Glucose, Whole Blood 297 mg/dL (60-115)
[2024-12-23 07:11] LABS: Estimated Average Glucose 298 mg/dL; Hemoglobin A1C 431.8177 umol/L; Total Hemoglobin (HGBA1C) 4021.8946 umol/L
[2024-12-23] MEDS: Insulin Lispro 100 UNIT/ML 3 ML VIAL SUBCUT (07:32)
[2024-12-23] MEDS: Celecoxib 200 MG CAPSULE PO (07:32)
[2024-12-23] MEDS: oxyCODONE HCl ER 10 MG TAB.ER.12H PO (07:32)
[2024-12-23] MEDS: glipiZIDE 10 MG TABLET PO (07:32)
[2024-12-23] MEDS: Docusate Sodium 100 MG CAPSULE PO (07:32)
[2024-12-23 08:28] VITALS: BP 140/79; PULSE 81; O2SAT 96
--- NOTE | 2024-12-23 08:52 | MHC.CM.PN ---
Patient comes from home w/ . assisting w/ ADL's PRN. No AD's at baseline, but has crutches and walker to use post-op. PCP Aubree Ramirez MD HCP on file and verified. DP: Cleared for dc home w/ family support. Is aware he will start PT after f/u with ortho. to transport. RN aware.
--- NOTE | 2024-12-23 09:28 | HO.POSTANES ---
Post Anesthesia Evaluation Post Anesthesia Evaluation Date of Service: 12/23/24 Vital Signs: Vital Signs Temp Pulse Resp BP Pulse Ox O2 Del Method O2 Flow Rate 12/23/24 08:28 81 140/79 H 96 12/23/24 06:43 97.9 F 81 17 140/79 H 96 BiPAP 12/23/24 03:00 96.8 F 78 20 118/67 94 CPAP 12/23/24 00:25 18 12/22/24 23:00 97.9 F 79 20 122/71 94 Nasal Cannula 2 Anesthesia: General LMA Mental Status: Awake Pain Control: Satisfactory Nausea/Vomiting: None Hydration: Adequate Anesthesia-Related Issues: No Anes. Related Issues
--- NOTE | 2024-12-23 12:04 | PM.EVENT ---
Event Note Date of Service: 12/23/24 Event Note: Patient was discharged by surgical team this morning Patient was briefly seen earlier and discussed with him about diabetic uncontrolled: In addition patient was started on Lantus during this admission, Patient says that he can use Lantus and they know Lantus administration. His hemoglobin A1c is 12 Explained to them in detail that monitor fingersticks closely at home, Lantus prescription sent. Spoke to patient's in detail length. Syl OliverAliyah bill over the phone. phone no [phone] Time Spent With Patient Time: Total time managing care of this patient today ____ minutes.
== END 2024-12-23 09:45 | disposition home or self-care (01) ==
LOC: HO.SSS 10:19 → HO.S3 15:31
PROVIDERS: Nurse Practitioner Family; Physician Assistant; PCP Internal Medicine; Visit Provider Orthopaedic Surgery
PROC: (CPT 27385; principal; 2024-12-22 11:10)
DX: S76.111A Strain of right quadriceps muscle, fascia and tendon, initial encounter (principal); M23.51 Chronic instability of knee, right knee; W10.8XXA Fall (on) (from) other stairs and steps, initial encounter; Y93.89 Activity, other specified; Y92.038 Other place in apartment as the place of occurrence of the external cause; Y99.9 Unspecified external cause status; E11.9 Type 2 diabetes mellitus without complications; I10 Essential (primary) hypertension; G47.33 Obstructive sleep apnea (adult) (pediatric); J45.909 Unspecified asthma, uncomplicated; Z79.84 Long term (current) use of oral hypoglycemic drugs; Z88.0 Allergy status to penicillin; Z87.891 Personal history of nicotine dependence
CPT/HCPCS: 27385; 36415; 80048; 80053; 82947; 83036; 83735; 84443; 85025; 97162; C1713; J0131; J0736; J1171; J2003; J2250; J2704; J2795; J3010; J7120

== ENCOUNTER → 2024-12-22 08:00 | Outpatient (BNV) | payer MEDICARE, MEDICAID, SELFPAY | PROVIDERS: PCP Internal Medicine; Visit Provider Orthopaedic Surgery | DX: Z47.89 Encounter for other orthopedic aftercare (principal); S76.101D Unspecified injury of right quadriceps muscle, fascia and tendon, subsequent encounter | CPT/HCPCS: 27385; 99024 ==

== ENCOUNTER → 2024-12-22 08:00 | Outpatient (BNV) | payer MEDICARE, MEDICAID, SELFPAY | PROVIDERS: PCP Internal Medicine; Visit Provider Nurse Practitioner Family | DX: E11.9 Type 2 diabetes mellitus without complications (principal) | CPT/HCPCS: 99222; 99499 ==

== ENCOUNTER 2024-12-29 08:25 | Outpatient (AMB) | payer MEDICARE, MEDICAID, SELFPAY ==
--- NOTE | 2024-12-29 08:27 | MHC.OFFVIS ---
Intake Visit Reasons: PO RT quad tendon repair 12/22/24 NE Intake Note: Delonte is a 44 year old male who presents today with his for a post op appointment s/p right quad tendon repair 12/22/24 NE. Patient reports he is still having pain in his knee. He is nervous about this natalie being removed since he is sensitive with pain. Allergies Penicillins Allergy (Severe, Verified 12/17/24 11:43) angioedema and SOB HPI HPI PO RT quad tendon repair 12/22/24 NE: Details: Mr. Flanagan is a 44-year-old male who presents to the office today status post right quad tendon repair on 12/22/[address] Munroe. He presents to the office today in the knee immobilizer ACL brace as directed locked in extension. He continues to experience pain and discomfort. He is extremely nervous about staple removal today. [facility] Medical History (Updated 12/25/24 @ 00:01 by Background Gladys) FANY (obstructive sleep apnea) HTN (hypertension) Asthma Diabetes Surgical History (Updated 12/25/24 @ 00:01 by Background Daofeon) Hx of appendectomy Family History Father No problems noted. Mother No problems noted. 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 No surrounding erythema or drainage. No signs of infection. Natalie intact. Able to dorsiflex and plantar flex. Calf is supple and nontender. NVI. Assessment & Plan Assessment & Plan (1) Rupture of right quadriceps tendon: Code(s): S76.111A - Strain of right quadriceps muscle, fascia and tendon, initial encounter Category: Medical Plan Mr. Flnaagan is a 44-year-old male who presents to the office today status post right quad tendon repair on 12/22/[address] Munroe. He presents to the office today in the knee immobilizer ACL brace as directed locked in extension. He continues to experience pain and discomfort. He is extremely nervous about staple removal today. While in the office today, after much reassurance natalie were removed and Steri-Strips were applied. He was placed back into the ACL brace locked in extension. A physical therapy order has been placed while in the office today. He will follow up in [address] Munroe, sooner if needed. Orders: Orders PT Evaluation and Treatment Today S76.111A - Strain of right quadriceps muscle, fascia and tendon, initial encounter Coding Level of Care Code Global (42008) Diagnoses Rupture of right quadriceps tendon S76.111A
--- OUTSIDE RECORDS SUMMARY | 2024-12-29 08:43 | XMS_ITS | Encounter Summary ---
Author Organization [employer] Address [address] [place] [address] Care Team Providers Care Schedule Clerk Name Role Phone Aubree Matute MD Primary Care Provide r Reason for Visit * Reason Comments Med Change Request Encounter Details Date Type Department Care Team ([facility] Contact Info) Description 12/25/2024 Refill [facility] MEDICINE [address] [place], [place] [phone] Aubree Matute MD [address] [place], [place] [phone] Type 2 diabetes mellitus with hyperglycemia (CMS/HCC) Social History Tobacco Use Types Packs/Day Years [...] Description 12/30/2024 10:45 AM EDT Office Visit [facility] MEDICINE [address] [place] [address] Aubree Matute MD [address] [place] [phone] documented as of this encounter Visit Diagnoses Diagnosis Type 2 diabetes mellitus with hyperglycemia (CMS/HCC) documented in this encounter Additional Health Concerns Assessment Noted Time PHQ-9 Depression Total Score: 13 023 1:12 PM EDT documented as of this encounter Care Teams Schedule Clerk Relationship Specialty Start Date End Date Aubree Matute MD [address] [place] [phone] PCP - General Family Medicine 11/10/19 documented as of this encounter
--- OUTSIDE RECORDS SUMMARY | 2024-12-29 08:43 | XMS_ITS | Encounter Summary ---
Author Organization [employer] Address [address] [facility] [place] [address] Care Team Providers Care P D Driver Name Role Phone Aubree Matute MD Primary Care Provide r Encounter Details Date Type Department Care Team ([facility] st Contact Info) Description 06/21/2023 Abstract [facility] MEDICINE [address] [place], [place] [phone] Aubree Matute MD [address] [place], [place] [phone] Social History Tobacco Use Types Packs/Day Years [...] 10:45 AM EDT Office Visit [facility] MEDICINE [address] [place] [phone] Aubree Matute MD [address] [place] [phone] documented as of this encounter Visit Diagnoses Not on filedocumented in this encounter Additional Health Concerns Assessment Noted Time PHQ-9 Depression Total Score: 13 023 1:12 PM EDT documented as of this encounter Care Teams P D Driver Relationship Specialty Start Date End Date Aubree Matute MD [address] [place] [phone] PCP - General Family Medicine 11/10/19 documented as of this encounter
--- OUTSIDE RECORDS SUMMARY | 2024-12-29 08:43 | XMS_ITS | Encounter Summary ---
Author Organization [employer] Address [address] [place] [address] Care Team Providers Care Wood Club Neck Whipper Name Role Phone Aubree Matute MD Primary Care Provide r Reason for Visit * Reason Comments Med Refill Encounter Details Date Type Department Care Team ([facility] st Contact Info) Description 07/24/2023 Refill [facility] MEDICINE [address] [place], [place] [phone] Aubree Matute MD [address] [place], [place] [phone] Anxiety Social History Tobacco Use Types Packs/Day [...] Description 12/30/2024 10:45 AM EDT Office Visit [facility] MEDICINE [address] [place] [phone] Aubree Matute MD [address] [place] [address] documented as of this encounter Visit Diagnoses Diagnosis Anxiety Anxiety state, unspecified documented in this encounter Additional Health Concerns Assessment Noted Time PHQ-9 Depression Total Score: 13 023 1:12 PM EDT documented as of this encounter Care Teams Wood Club Neck Whipper Relationship Specialty Start Date End Date Aubree Matute MD [address] [place] [phone] PCP - General Family Medicine 11/10/19 documented as of this encounter
--- OUTSIDE RECORDS SUMMARY | 2024-12-29 08:43 | XMS_ITS | Encounter Summary ---
Author Organization [employer] Address [address] [place] [address] Care Team Providers Care Washer Blanket Name Role Phone Aubree Matute MD Primary Care Provide r Encounter Details Date Type Department Care Team ([facility] st Contact Info) Description 12/25/2024 Orders Only [facility] MEDICINE [address] [place], [place] [phone] Aubree Matute MD [address] [place], [place] [phone] Type 2 diabetes mellitus with hyperglycemia ([facility]) Social History Tobacco Use Types Packs/Day Years [...] Description 12/30/2024 10:45 AM EDT Office Visit [facility] MEDICINE [address] [place] [address] Aubree Matute MD [address] [place], [place] [phone] documented as of this encounter Visit Diagnoses Diagnosis Type 2 diabetes mellitus with hyperglycemia (CMS/HCC) documented in this encounter Additional Health Concerns Assessment Noted Time PHQ-9 Depression Total Score: 13 023 1:12 PM EDT documented as of this encounter Care Teams Washer Blanket Relationship Specialty Start Date End Date Aubree Matute MD [address] [place] [address] PCP - General Family Medicine 11/10/19 documented as of this encounter
--- OUTSIDE RECORDS SUMMARY | 2024-12-29 08:43 | XMS_ITS | Encounter Summary ---
Author Organization [employer] Address [address] [place] [address] Care Team Providers Care Administrative Specialist Name Role Phone Aubree Matute MD Primary Care Provide r Encounter Details Date Type Department Care Team ([facility] st Contact Info) Description 06/21/2023 Abstract [facility] MEDICINE [address] [place], [place] [phone] Aubree Matute MD [address] [place], [place] [phone] Social History Tobacco Use Types Packs/Day Years [...] Description 12/30/2024 10:45 AM EDT Office Visit [facility] MEDICINE [address] [place] [phone] Aubree Matuet MD [address] [place] [phone] documented as of this encounter Visit Diagnoses Not on filedocumented in this encounter Additional Health Concerns Assessment Noted Time PHQ-9 Depression Total Score: 13 023 1:12 PM EDT documented as of this encounter Care Teams Administrative Specialist Relationship Specialty Start Date End Date Aubree Matute MD [address] [place] [phone] PCP - General Family Medicine 11/10/19 documented as of this encounter
--- OUTSIDE RECORDS SUMMARY | 2024-12-29 08:43 | XMS_ITS | Encounter Summary ---
Author Organization [employer] Address [address] [place] [address] Care Team Providers Care Railroad Car Inspector Name Role Phone Aubree Matute MD Primary Care Provide r Encounter Details Date Type Department Care Team ([facility] st Contact Info) Description 06/21/[address] [facility] [address] [place], [place] [phone] Aubree Matute MD [address] [place], [place] [phone] Social History Tobacco Use Types Packs/Day Years [...] 12/30/2024 10:45 AM EDT Office Visit [facility] [address] [place] [phone] Aurbee Matute MD [address] [place] [phone] documented as of this encounter Visit Diagnoses Not on filedocumented in this encounter Additional Health Concerns Assessment Noted Time PHQ-9 Depression Total Score: 13 023 1:12 PM EDT documented as of this encounter Care Teams Railroad Car Inspector Relationship Specialty Start Date End Date Aubree Matute MD [address] [place] [phone] PCP - General Family Medicine 11/10/19 documented as of this encounter
--- OUTSIDE RECORDS SUMMARY | 2024-12-29 08:43 | XMS_ITS | Clinical Summary ---
Author Organization [facility] Address [address] [place] [address] Phone Care Team Providers Care [employer] Hat Linux Administrator Name Role Phone Aubree Matute MD Primary Care Provide r Medications amitriptyline (ELAVIL) 25 mg tablet Take 1 tablet (25 mg total) by mouth at bedtime. Active insulin glargine,hum.re c.anlog (Basaglar KwikPen U-100 Insulin) 100 unit/mL (3 mL) injection pen Inject 100 Units under the skin at bedtime. Active blood-glucose meter,continuou s (Dexcom G7 System Admin) misc Activ e cyclobenzaprine (FLEXERIL) 10 mg [...] hyperglycemia, with long-term current use of insulin ([facility] V24, [facility] V28) 07/06/2024 Diabetic polyneuropathy asso ciated with type 2 diabetes mellitus ([facility] V24, [facility] V28) 07/06/2024 Cigarette smoker 07/06/2024 COVID-19 07/06/2024 [...] Insurance MEDICARE MEDICAID - [place] Care Teams Red Hat Linux Administrator Relationship Specialty Start Date End Date Aubree Matute MD [address] [phone] PCP - General 04/20/24
--- OUTSIDE RECORDS SUMMARY | 2024-12-29 08:43 | XMS_ITS | Encounter Summary ---
Author Organization [employer] Address [address] [place] [address] Care Team Providers Care Bituminous Paving Machine Operator Name Role Phone Aubere Matute MD Primary Care Provide r Encounter Details Date Type Department Care Team ([facility] st Contact Info) Description 12/25/2024 Orders Only [facility] [address] [place], [place] [phone] Aubree Matute MD [address] [place], [place] [phone] Type 2 diabetes mellitus with hyperglycemia ([facility]) Social History Tobacco Use Types Packs/Day Years [...] Description 12/30/2024 10:45 AM EDT Office Visit [facility] [address] [place] [address] Aubree Matute MD [address] [place], [place] [phone] documented as of this encounter Visit Diagnoses Diagnosis Type 2 diabetes mellitus with hyperglycemia (CMS/HCC) documented in this encounter Additional Health Concerns Assessment Noted Time PHQ-9 Depression Total Score: 13 023 1:12 PM EDT documented as of this encounter Care Teams Bituminous Paving Machine Operator Relationship Specialty Start Date End Date Aubree Matute MD [address] [place] [phone] PCP - General Family Medicine 11/10/19 documented as of this encounter
--- OUTSIDE RECORDS SUMMARY | 2024-12-29 08:43 | XMS_ITS | Encounter Summary ---
Author Organization [employer] Address [address] [place] [address] Care Team Providers Care Diplomatic Courier Name Role Phone Aubree Matute MD Primary Care Provide r Encounter Details Date Type Department Care Team (Late Contact Info) Description 03/26/2023 Orders Only [facility] [address] [place], [place] [phone] Astrid Irvin LPN Social History Tobacco Use [...] 12/30/2024 10:45 AM EDT Office Visit [facility] [address] [place], [place] [phone] Aubree Matute MD [address] [place], [place] [phone] documented as of this encounter Visit Diagnoses Not on filedocumented in this encounter Additional Health Concerns Assessment Noted Time PHQ-9 Depression Total Score: 13 023 1:12 PM EDT documented as of this encounter Care Teams Diplomatic Courier Relationship Specialty Start Date End Date Aubree Matute MD [address] [place] [phone] PCP - General Family Medicine 11/10/19 documented as of this encounter
--- OUTSIDE RECORDS SUMMARY | 2024-12-29 08:43 | XMS_ITS | Encounter Summary ---
Author Organization [employer] Address [address] [place] [address] Care Team Providers Care Adolescent Medicine Specialist Name Role Phone Aubree Matute MD Primary Care Provide r Encounter Details Date Type Department Care Team (Late Contact Info) Description 03/08/2023 Orders Only [facility] [address] [place], [place] [phone] Astrid Irvin LPN Social History Tobacco Use [...] Description 12/30/2024 10:45 AM EDT Office Visit [facility] [address] [place], [place] [phone] Aubree Matute MD [address] [place], [place] [phone] documented as of this encounter Visit Diagnoses Not on filedocumented in this encounter Additional Health Concerns Assessment Noted Time PHQ-9 Depression Total Score: 13 023 1:12 PM EDT documented as of this encounter Care Teams Adolescent Medicine Specialist Relationship Specialty Start Date End Date Aubree Matute MD [address] [place] [address] PCP - General Family Medicine 11/10/19 documented as of this encounter
--- OUTSIDE RECORDS SUMMARY | 2024-12-29 08:43 | XMS_ITS | Clinical Summary ---
Author Organization [employer] Address [address] [place] [address] Care Team Providers Care Paper Rewinder Name Role Phone Aubree Matute MD Primary Care Provide r Allergies Active Allergy Reactions Criticality Noted Date Comments Penicillins Angioedema High 09/01/2015 Other reaction(s): Hives/Skin Rash Medications * This document contains information received from the source organization and may not represent a complete record from that organization. ergocalciferol (Vitamin D2) 1.25 MG (98028 UT) capsule TAKE 1 CAPSULE BY MOUTH ONCE A WEEK 022 Active lisinopril 5 MG tabletIndication s:Primary hypertension Take 1 tablet (5 mg) by mouth in the morning. 90 tablet 023 Active Additional Information Patient not taking.Reported on 10/21/2023 QUEtiapine (SEROquel) 50 MG tabletIndication s:Current mild episode of major depressive disorder, unspecified whether recurrent (CMS/HCC) Take 1 tablet (50 mg) by mouth at bedtime. 90 tablet 023 Active Additional Information Patient not taking.Reported on 10/21/2023 cyclobenzaprine (Flexeril) 10 MG tabletIndication s:Bilateral foot pain TAKE 1 TABLET BY MOUTH THREE TIMES DAILY 30 tablet 1 023 Active Additional Information Patient not taking.Reported on 10/21/2023 ibuprofen 600 MG tablet TAKE 1 TABLET BY MOUTH THREE TIMES A DAY WITH FOOD NEEDED 023 Active Continuous Blood Gluc Forger Helper (Dexcom G7 Forger Helper) device USE DIRECTED 024 Active FLUoxetine (PROzac) 20 MG capsuleIndicatio ns:Mixed anxiety and depressive disorder TAKE 1 CAPSULE BY MOUTH EVERY MORNING 30 capsule 2 07/03/2 024 Active glipiZIDE XL (Glucotrol XL) 10 MG 24 hr tabletIndication s:Type 2 diabetes mellitus without complication, without long-term current use of insulin ([facility]) TAKE 1 TABLET BY MOUTH TWICE DAILY WITH BREAKFAST AND WITH DINNER 180 tablet 3 024 Active Invokana 300 MGIndications:Ty pe 2 diabetes mellitus with hyperglycemia, with long-term current use of insulin ([facility]) TAKE 1 TABLET BY MOUTH EVERY DAY BEFORE BREAKFAST 30 tablet 11 024 Active semaglutide (Ozempic) 2 MG/1.5ML solution pen-injectorIndi cations:Type 2 diabetes mellitus with hyperglycemia, with long-term current use of insulin ([facility]) Inject 1 mg under the skin 1 (one) time per week. 2 each 12 024 Active FLUoxetine (PROzac) 40 MG capsuleIndicatio ns:Mixed anxiety and depressive disorder Take 1 capsule (40 mg) by mouth Once per day. 30 capsule 11 024 2024 Active gabapentin (Neurontin) 100 MG capsuleIndicatio ns:Diabetic polyneuropathy associated with type 2 diabetes mellitus ([facility]) Take 3 capsules (300 mg) by mouth every 8 (eight) hours. 270 capsule 11 024 2024 Active Multiple Vitamin (Multivitamin) tablet TAKE 1 TABLET BY MOUTH EVERY DAY 90 tablet 3 024 Active metFORMIN (Glucophage) 500 MG tabletIndication s:Type 2 diabetes mellitus with hyperglycemia, with long-term current use of insulin ([facility]) TAKE 2 TABLETS BY MOUTH TWICE DAILY 360 tablet 1 024 Active amitriptyline (Elavil) 25 MG tabletIndication s:Other chronic pain TAKE 1 TABLET BY MOUTH AT BEDTIME FOR PAIN 30 tablet 3 025 Active Basaglar KwikPen 100 UNIT/ML penIndications:T ype 2 diabetes mellitus with hyperglycemia, with long-term current use of insulin ([facility]) INJECT 16 UNITS SUBCUTANEOUSLY EVERY DAY AT BEDTIME 15 mL 2 Active Continuous Glucose Sensor (Dexcom G7 Sensor) miscIndications: Type 2 diabetes mellitus with hyperglycemia ([facility]) USE DIRECTED TO TEST BLOOD SUGAR THREE TIMES DAILY, CHANGE sensory EVERY 10 DAYS 3 each 1 025 Active insulin pen needle (UltiCare Pen Normal) 29G x 12.7mm misc Inject under the skin 3 times daily. Use as instructed 100 each 3 025 Active FREESTYLE LITE test stripIndications :Type 2 diabetes mellitus with hyperglycemia (CMS/HCC) USE DIRECTED TO TEST BLOOD SUGAR THREE TIMES DAILY 300 each 3 025 Active TRUEplus Lancets 33G miscIndications: Type 2 diabetes mellitus with hyperglycemia (CMS/HCC) USE DIRECTED TO TEST BLOOD SUGAR THREE TIMES DAILY 300 each 3 025 Active TRUEplus Lancets 33G miscIndications: Type 2 diabetes mellitus with hyperglycemia (CMS/HCC) TEST BLOOD SUGAR 3 TIMES A DAY 100 each 5 023 2024 Discontinued(R eorder (will not trigger notification to Pharmacy)) FREESTYLE LITE test stripIndications :Type 2 diabetes mellitus with hyperglycemia (CMS/HCC) TEST BLOOD SUGAR 3 TIMES A DAY 200 strip 023 2024 Discontinued(R eorder (will not trigger notification to Pharmacy)) UltiCare Pen Normal 29G X 12.7MM misc USE EVERY DAY WITH INSULIN 100 each 3 023 2024 Discontinued(R eorder (will not trigger notification to Pharmacy)) glucose blood (FREESTYLE LITE) test stripIndications :Type 2 diabetes mellitus with hyperglycemia (CMS/HCC) 1 each by Other route Once per day. 200 strip 025 2024 Discontinued TRUEplus Lancets 33G miscIndications: Type 2 diabetes mellitus with hyperglycemia (CMS/HCC) Inject 1 each under the skin Once per day. 100 each 025 2024 Discontinued(R eorder (will not trigger notification to Pharmacy)) TRUEplus Lancets 33G miscIndications: Type 2 diabetes mellitus with hyperglycemia (CMS/HCC) Inject 1 each under the skin 3 times daily. 100 each 025 2024 Discontinued Active Problems Problem Noted Date Diagnosed Date [...] Encounters Date Type Department Care Team Description 12/25/2024 Refill [facility] [address] [place] [address] Aubree Matute MD Type 2 diabetes mellitus with hyperglycemia (CMS/HCC) 12/25/2024 Orders Only [facility] [address] [place] [phone] Aubree Matute MD Type 2 diabetes mellitus with hyperglycemia (CMS/HCC) 12/25/2024 Orders Only [facility] [address] [place] [phone] Aubree Matute MD Type 2 diabetes mellitus with hyperglycemia ([facility]) 12/23/2024 Patient Outreach [facility] [address] [place] [phone] Aubree Matute MD Pre-visit Planning (LVM) 12/23/2024 Orders Only GENERIC EXTERNAL DATA DEPARTMENT Provider, Generic External Data 12/22/2024 Orders Only GENERIC EXTERNAL DATA DEPARTMENT Provider, Generic External Data 12/12/2024 Orders Only [facility] External Provider, [facility] 11/30/2024 Telephone [facility] [address] [place] [phone] Aubree Matute MD Nurse Triage 11/08/2024 Refill [facility] [address] [place] [phone] Aubree Matute MD Type 2 diabetes mellitus with hyperglycemia (CMS/HCC) 11/06/2024 Population Health Risk Score [facility] ([facility]) Department [address] [phone] Provider, Population Health Generic 10/01/2024 Refill [facility] [address] [place] [phone] Aubree Matute MD Type 2 diabetes mellitus with hyperglycemia, with long-term current use of insulin ([facility]) from Last 3 Months Immunizations Name Administration [...] the past 12 months, has t he [employer], gas, oil or water [employer] threatened to shut off services in your [...] 12/30/2024 10:45 AM EDT Office Visit [facility] [address], [place] [phone] Aubree Matute MD [address] [place], [place] [phone] Health Maintenance Due Date Last Done Comments [...] (#1) 2024 09/02/2021, 2015 Diabetes: Hemoglobin A1C 03/23/2025 025, 04/02/2024, 06/05/2023, Additional history exists Lipid Panel 04/02/2025 04/02/2024, [...] Procedure Name Priority Date/Time Associated Diagnosis Comments GLUCOSE, WHOLE BLOOD Routine 12/23/2024 6:57 AM EDT BASIC METABOLIC PANEL, FASTING Routine 12/23/2024 5:23 AM EDT CBC WITH AUTO DIFFERENTIAL Routine 12/23/2024 5:23 AM EDT HEMOGLOBIN A1C Routine 12/22/2024 9:33 PM EDT TSH W/REFLEX TO FT4 Routine 12/22/2024 9 :33 PM EDT MAGNESIUM Routine 12/22/2024 9:33 PM EDT COMPREHENSIVE METABOLIC PANEL Routine 12/22/2024 9:33 PM EDT GLUCOSE, WHOLE BLOOD Routine 12/22/2024 8:26 PM EDT GLUCOSE, WHOLE BLOOD Routine 12/22/2024 4:22 PM EDT GLUCOSE, WHOLE BLOOD Routine 12/22/2024 9:[address] KNEE WO CONTRAST RIGHT Routine 12/12/2024 4:23 AM EDT LIPID PANEL WITH REFLEX TO DIRECT LDL Routine 04/02/2024 2:00 PM EDT Type 2 diabetes mellitus with hyperglycemia, with long-term current use of insulin ([facility]) Essential hypertension from Last 3 Months or Most Recently Relevant to Health Maintenance Results * (ABNORMAL) Glucose, Whole Blood (12/23/2024 6:57 AM EDT) Only the most recent of4 resultswithin the time period is included. Glucose, Whole Blood 297(H) 60 - 115 mg/dL [facility] Comment:METER #: [id number] 12/23/2024 6:57 AM EDT 12/23/2024 7:00 AM EDT us Generic External Data Provider LAB BLOOD ORDERAB LES Final Result [facility] [address] [place] [address] [phone] * (ABNORMAL) Basic Metabolic Panel, Fasting (12/23/2024 5:23 AM EDT) Pathologist [facility] Sodium 135 135 - 145 mmol/L [facility] Potassium 4.0 3.3 - 5.1 mmol/L [facility] Chloride 99 96 - 108 mmol/L [facility] Carbon Dioxide 29 22 - 29 mmol/L [facility] Anion Gap 11(L) 12 - 20 [facility] Urea Nitrogen (BUN) 15 9 - 16 mg/dL [facility] Creatinine, Serum 0.80 0.5 - 1.4 mg/dL [facility] Creatinine Clr Calc Pharmacy 154.3 [facility] Comment:eGFR (calculated fro m the MDRD study equation) and eCrCl(calculated from the Cockcroft-Gault equation) are based ondifferent parameters and may not yield comparable results.If eCrCl result is absurd, please check patient'sheight/weight. Estimated Glomerular Filt Rate >60 [facility] Comment:Chronic Kidney Disea se: Estimated GFR < 60 mL/min/1.59l4Pzeheq Kidney Disease: Estimated GFR < 15 mL/min/1.73m2 Glucose Fasting 315(H) 60 - 99 mg/dL [facility] Comment:A fasting glucose of 126 mg/dl or greater on more than oneoccasion is considered diagnostic of diabetes. Calcium 9.0 8.4 - 10.2 mg/dL [facility] 12/23/2024 5:23 AM EDT 12/23/2024 6:17 AM EDT us Generic External Data Provider LAB BLOOD ORDERAB LES Final Result [facility] [address] [place] [phone] * (ABNORMAL) CBC auto differential (12/23/2024 5:23 AM EDT) White Blood Count 12.0(H) 4.8 - 10.8 X10*3/uL [facility] Red Blood Count 5.19 4.60 - 5.80 X10*6/uL [facility] Hemoglobin 14.9 14.0 - 18.0 g/dl [facility] Hematocrit 44.4 42.0 - 52.0 % [facility] Mean Corpuscular Volume 85.5 80.0 - 98.0 fL [facility] Mean Corpuscular Hemoglobin 28.7 27.0 - 33.0 pg [facility] Mean Corpuscular HGB Conc 33.6 31.0 - 36.0 g/dl [facility] Red Cell Distribution Width 12.9 11.0 - 16.0 % [facility] Platelet Count 201 160 - 400 X10*3/uL [facility] Mean Platelet Volume 11.2 9.4 - 12.4 fL [facility] Neutrophils Percent Auto 63.8 45 - 73 % [facility] Imm Gran Pct Auto 0.8(H) 0.0 - 0.4 % [facility] Lymphocytes Percent Auto 25.3 20 - 40 % [facility] Monocytes Percent Auto 8.0 2 - 11 % [facility] Eosinophils Percent Auto 1.8 0 - 4 % [facility] Basophils Percent Auto 0.3 0 - 2 % [facility] NRBC Pct Auto 0.0 0.0 - 0.2 /100WBC [facility] Neutrophils Absolute Auto 7.6 2.0 - 8.3 x10*3/uL [facility] Imm Gran Abs Auto 0.09(H) 0.00 - 0.03 X10*3/uL [facility] Lymphocytes Absolute Auto 3.0 1.2 - 4.9 X10*3/uL [facility] Monocytes Absolute Auto 1.0 0.1 - 1.2 X10*3/uL [facility] Eosinophils Absolute Auto 0.2 0.0 - 0.4 X10*3/uL [facility] Basophils Absolute Auto 0.0 0.0 - 0.2 X10*3/uL [facility] NRBC Abs Auto 0.000 0.0 - 0.012 X10*3/uL [facility] 12/23/2024 5:23 AM EDT 12/23/2024 6:17 AM EDT us Generic External Data Provider LAB BLOOD ORDERAB LES Final Result [facility] [address] [place] [address] [phone] * TSH with Reflex to Free T4 (12/22/2024 9:33 PM EDT) TSH reflex Free T4 0.81 0.32 - 4.0 uIU/mL [facility] 12/22/2024 9:33 PM EDT 12/22/2024 9:36 PM EDT Generic External Data Provider LAB BLOOD ORDERAB LES Final Result Performing Organization Address City/[facility]/ZIP Co de Phone Number [facility] [address] [place] [phone] * Magnesium (12/22/2024 9:33 PM EDT) Magnesium 1.6 1.6 - 2.6 mg/dL [facility] 12/22/2024 9:33 PM EDT 12/22/2024 9:36 PM EDT Generic External Data Provider LAB BLOOD ORDERAB LES Final Result Performing Organization Address [facility]/ZIP Co de Phone Number [facility] [address] [place] [phone] * (ABNORMAL) Hemoglobin A1c (12/22/2024 9:33 PM EDT) Hemoglobin A1c 12.0(H) <6.0 % [facility] Comment:Hemoglobin A1C Refer ence Range Adults: 4.8 - 6.0 % Non diabetic: < 6.0 % Goal: < 7.0 %Additional Action Suggested: > 8.0 %Note: Hemoglobin A1c results are invalid for patients with abnormal amounts of HbF. Blood transfusions may impact the HbA1c concentration in the patient sample. Estimated Average Glucose 298 mg/dL [facility] Comment:eAG = Estimated ave rage glucose which is %A1C expressed asaverage glucose, using the formula of the [id number] Glucose study (ADAG), Diabetes Care, Vol.31,#8,2007 12/22/2024 9:33 PM EDT 12/22/2024 9:36 PM EDT us Generic External Data Provider LAB BLOOD ORDERAB LES Final Result [facility] [address] [place] [phone] * (ABNORMAL) Comprehensive Metabolic Panel (12/22/2024 9:33 PM EDT) Sodium 134(L) 135 - 145 mmol/L [facility] Potassium 4.5 3.3 - 5.1 mmol/L [facility] Chloride 97 96 - 108 mmol/L [facility] Carbon Dioxide 27 22 - 29 mmol/L [facility] Anion Gap 15 12 - 20 [facility] Urea Nitrogen (BUN) 14 9 - 16 mg/dL [facility] Creatinine, Serum 0.90 0.5 - 1.4 mg/dL [facility] Creatinine Clr Calc Pharmacy 137.2 [facility] Comment:eGFR (calculated fro m the MDRD study equation) and eCrCl(calculated from the Cockcroft-Gault equation) are based ondifferent parameters and may not yield comparable results.If eCrCl result is absurd, please check patient'sheight/weight. Estimated Glomerular Filt Rate >60 [facility] Comment:Chronic Kidney Disea se: Estimated GFR < 60 mL/min/1.39c9Izvmnw Kidney Disease: Estimated GFR < 15 mL/min/1.73m2 Glucose 377(HH) 60 - 115 mg/dL [facility] Comment:Critical GLUR sent b y a secure message and confirmed Trinh GAUTHIER 12-22-24 [id number] Tech:KUSF Calcium 9.4 8.4 - 10.2 mg/dL [facility] Bilirubin, Total 0.9 0.0 - 1.0 mg/dL [facility] Aspartate Amino Transferase 65(H) 5 - 37 U/L [facility] Alanine Aminotransferase 71(H) 0 - 40 U/L [facility] Total Protein 7.0 6.5 - 8.0 g/dL [facility] Albumin Level 3.6 3.5 - 5.0 g/dL [facility] Alkaline Phosphatase 89 39 - 117 U/L [facility] 12/22/2024 9:33 PM EDT 12/22/2024 9:36 PM EDT us Generic External Data Provider LAB BLOOD ORDERAB LES Final Result [facility] [address] [place] [address] [phone] * CT Knee w/o Contrast Right (12/12/2024 4:23 AM EDT) Anatomical Region Laterality Modality Lower Extremities, Knee Right Computed Tomography 12/12/2024 4:23 AM EDT Narrative 12/12/2024 4:25 AM EDT ? [facility] ?[address] ?[place] [address] ? CT Scan Report ? Signed ? Patient: Flanagan,[place] ?MR#: [id number] ?? [id number] ? : 1980 ?Acct:[id number] ? Age/Sex: 44 / M ?ADM Date: 12/12/24 ? Loc: HO.ED ? Attending Dr: ? Ordering Physician: Temo Cole ?? Date of Service: 12/12/24 ?? Procedure(s): CT knee RT wo IV con ?? Accession Number(s): [id number] ? cc: Aubree Matute MD; Temo Cole ? Report Number: ?? [id number]: Total DLP = ??243.00 mGy-cm ? CLINICAL HISTORY: trauma ? CT right knee without contrast ? Comparison: CR/MS - XR KNEE RT 4V - 12/12/24 [...] in OV> ? 12/12/24 0424 ? DD/ 2 ? TD/TT: 12/12/24422 ? Wrapper Stemmer Operator: ? Procedure Note Donjimter, Image - 12/12/[address] [address] [address] Scan Report Signed Patient: Delonte FlanaganMR#: [id number] : 1980Acct:[id number] Age/Sex: 44 / MADM Date: 12/12/24 Loc: HO.ED Attending Dr: Ordering Physician: Temo Cole Date of Service: 12/12/24 Procedure(s): CT knee RT wo IV con Accession Number(s): [id number] cc: Aubree Matute MD; Temo Cole Report Number: [id number]: Total DLP = 243.00 mGy-cm CLINICAL HISTORY: trauma CT right knee without contrast Comparison: CR/MS - XR KNEE RT 4V - 12/12/24 [...] in OV> 12/12/244 DD/ 2 TD/TT: 12/12/24422 Wrapper Stemmer Operator: us [facility] External Provider IMG CT PROCEDURES Final Result * (ABNORMAL) Lipid Panel with Reflex to Direct LDL (04/02/2024 2:00 PM EDT) Triglycerides 180(H) <150 mg/dL [facility] Comment:Desirable Triglyceri de: less than 150 mg/dLBorderline High Triglyceride 150-199 mg/dLHigh Triglyceride: 200-499 mg/dLVery High Triglyceride: greater than or equal to 5OO mg/dL Cholesterol 198 <200 mg/dL [facility] Comment:Desirable Cholestero l: less than 200 mg/dLBorderline High Cholesterol: 200-239 mg/dLHigh Cholesterol: greater than 239 mg/dL LDL Cholesterol Calculated 128(H) <100 mg/dL [facility] Comment:Desirable LDL: less than 100 mg/dLNear Optimal/Above Optimal LDL: 110- 129 mg/dLBorderline High LDL: 130-159 mg/dLHigh LDL: 160-189 mg/dLVery High LDL: greater than or equal to 190 mg/dL HDL Cholesterol 34(L) >40 mg/dL [facility] Comment:Desirable HDL: great er than 40 mg/dL Note: This HDL assay may give artificially low results in patients with liver disease. Blood 04/02/2024 2:00 PM EDT 04/02/2024 4:11 PM EDT us Aubree Ramirez MD LAB BLOOD ORDERABLES Final Result [facility] [address] [place] [address] [phone] from Last 3 Months or Most Recently Relevant to Health Maintenance Insurance MEDICARE [facility] Care Teams Paper Rewinder Relationship Specialty Start Date End Date Aubree Matute MD [address] [place] [phone] PCP - General Family Medicine 11/10/19
--- OUTSIDE RECORDS SUMMARY | 2024-12-29 08:44 | XMS_ITS | Encounter Summary ---
Author Organization [employer] Address [address] [facility] [address] [place] [address] Care Team Providers Care Marketing Program Coordinator Name Role Phone Aubree Matute MD Primary Care Provide r Reason for Visit * Reason Onset Date Comments med b form 09/04/2022 Encounter Details Date Type Department Care Team (Late st Contact Info) Description 09/04/2022 Telephone [facility] [address] [place] [phone] Aubree Matute MD [address] [place], [place] [phone] med b form Social History Tobacco Use [...] Visit [facility] [address] [place] [address] [phone] Aubree Matute MD [address] [place] [address] documented as of this encounter Visit Diagnoses Not on filedocumented in this encounter Care Teams Marketing Program Coordinator Relationship Specialty Start Date End Date Aubree Matute MD [address] [place], [place] [phone] PCP - General Family Medicine 11/10/19 documented as of this encounter
== END 2024-12-29 09:11 | disposition home or self-care (01) ==
LOC: HO.HOS 08:26
PROVIDERS: PCP Internal Medicine; Visit Provider Physician Assistant
DX: S76.111A Strain of right quadriceps muscle, fascia and tendon, initial encounter (principal)
CPT/HCPCS: 99024

== ENCOUNTER → 2024-12-29 08:25 | Outpatient (BNVA) | payer MEDICARE, MEDICAID, SELFPAY | PROVIDERS: PCP Internal Medicine; Visit Provider Physician Assistant | DX: S76.111D Strain of right quadriceps muscle, fascia and tendon, subsequent encounter (principal) | CPT/HCPCS: 99212 ==

== ENCOUNTER 2025-01-10 12:14 | Emergency (ER) | payer MEDICARE, MEDICAID, SELFPAY ==
--- NOTE | ~2025-01-10 | CT_ITS ---
CLINICAL HISTORY: KNEE TRAUMA CT knee without contrast Comparison: 12/11/2024 Findings: There are 2 new surgical tracts within the patella likely secondary to quadriceps tendon repair. There are multiple small bone fragments superior to the patella. Two new fragments adjacent to the surgical tracts are most likely secondary to interval surgery. Multiple additional fragments are without significant change. There is severe edema of the soft tissues with worsening and there is a small hemarthrosis. There are minimal arthritic changes. Impression: 1. No acute bony abnormality. 2. Small hemarthrosis. 3. Severe edema of the soft tissues. This document has been electronically signed by: Neris Forte MD on 01/10/2025 15:40:45
--- NOTE | ~2025-01-10 | US_ITS ---
CLINICAL HISTORY: Recent knee surgery, increased swelling, R O DVT Venous duplex ultrasound right lower extremity Comparison: US/SR - US VENOUS DUPLEX LE LT - 05/31/23 02:04 EDT Findings: The visualized deep veins are fully compressible with normal Doppler color flow and spectral tracings. No popliteal cyst. Right inguinal lymph nodes measuring 28 mm and 14 mm. IMPRESSION: 1. Negative for right lower extremity deep vein thrombosis. 2. Right inguinal adenopathy. This document has been electronically signed by: Corazon Weber MD on 01/10/2025 19:32:08
--- NOTE | ~2025-01-10 | XR_ITS ---
CLINICAL HISTORY: TRAUMA 4 view right knee Comparison: CT/SR - CT KNEE RT WO IV CON - 12/12/24 02:46 EDT CR/VA - XR KNEE RT 4V - 12/12/24 00:48 EDT Findings: Multiple small bone fragments superior to the patella in the region of the quadriceps tendon insertion, without significant change. No new fracture. No dislocation. Severe anterior soft tissue edema. No significant arthritic change or erosions. There is a small knee effusion. No radiopaque foreign body. IMPRESSION: 1. Avulsed bone fragments in the region of the quadriceps tendon insertion, similar to the prior CT. No new fracture identified. 2. There is a small knee effusion. This document has been electronically signed by: Neris Forte MD on 01/10/2025 13:20:04
[2025-01-10 12:28] VITALS: BP 145/75; BP 170/100; PULSE 83; PULSE 87; RESP 22; TEMP 36.6; O2SAT 95; O2SAT 97; BMI 44.9
--- NOTE | 2025-01-10 12:28 | ED_ITS ---
HPI - Extremity Problem General Chief complaint: Fall Stated complaint: FALL ON RLE,RECENT KNEE SURG,-HS,-THINNER PER EMS Time Seen by Provider: 01/10/25 12:21 Source: patient Mode of arrival: EMS Limitations: no limitations History of Present Illness HPI Narrative: THIS IS A 44 YEARS OLD MALE PRESENTED TO THE EMERGENCY DEPARTMENT BY AMBULANCE COMPLAINING OF RIGHT KNEE PAIN PATIENT IS STATUS POST REPAIR OF THE RIGHT PATELLAR TENDON ON DECEMBER 22, TODAY STATED THAT HE WAS GETTING OUT TO THE CAR AND FELL IS COMPLAINING OF KNEE PAIN MD Complaint: extremity pain Onset (ago): hour(s) (1) Pain Consistency: constant Location: right Quality: aching Radiation: none Relieving factors: nothing Exacerbating factors: nothing Associated symptoms: denies other symptoms Related Data Home Medications ?Medication ?Instructions ?Recorded ?Confirmed fluoxetine 40 mg capsule 40 mg PO DAILY 04/06/24 12/22/24 amitriptyline 25 mg tablet 25 mg PO BEDTIME pain 12/22/24 12/22/24 gabapentin 100 mg capsule 300 mg PO Q8H 12/22/24 12/22/24 glipizide 10 mg tablet, extended 10 mg PO DAILY PRN High Blood 12/22/24 12/22/24 release 24 hr Pressure metformin 500 mg tablet 1,000 mg PO BID 12/22/24 12/22/24 semaglutide 1 mg/dose (4 mg/3 mL) 1 mg subcut QWEEK 12/22/24 12/22/24 subcutaneous pen injector (Ozempic) Previous Rx's ?Medication ?Instructions ?Recorded oxycodone-acetaminophen 5 mg-325 1 tab PO Q4-6H PRN pain (scale 12/22/24 mg tablet (Percocet) score 4-6) 7 days #42 tabs alcohol swabs 1 pad topical QIDACHS #100 ea 12/23/24 blood sugar diagnostic (FreeStyle #100 ea 12/23/24 Lite Strips) blood-glucose meter (FreeStyle #1 ea 12/23/24 Lite Meter kit) insulin glargine 100 unit/mL (3 20 unit (0.2 mL) subcut DAILY #15 12/23/24 mL) subcutaneous pen (Lantus mL Solostar U-100 Insulin) lancets 28 gauge (FreeStyle #100 ea 12/23/24 Lancets) pen needle, diabetic 32 gauge x #100 ea 12/23/24 1/4 ibuprofen 800 mg tablet 800 mg PO TID #90 tabs 12/25/24 oxycodone-acetaminophen 10 mg-325 1 tab PO Q6H PRN pain 3 days #12 12/25/24 mg tablet tabs oxycodone-acetaminophen 5 mg-325 1 tab PO Q4-6H PRN pain 7 days #42 12/29/24 mg tablet tabs acetaminophen 500 mg tablet 1,000 mg (2 x 500 mg) PO Q6H PRN 01/10/25 (Tylenol Extra Strength) fever or pain #20 tabs ibuprofen 400 mg tablet 400 mg PO TID PRN fever or pain 01/10/25 #30 tabs morphine 15 mg immediate release 15 mg PO Q6H PRN pain #14 tabs 01/10/25 tablet Allergies Allergy/AdvReac Type Severity Reaction Status Date / Time Penicillins Allergy Severe angioedema Verified 01/10/25 12:31 and SOB Review of Systems Constitutional: Constitutional: Reports no additional constitutional complaints ENT: Reports system reviewed and no additional complaints, except as documented Gastrointestinal: Gastrointestinal: Reports no additional gastrointestinal complaints Integumentary/Breasts: Skin/Breast: Reports as per [facility] Past Medical History Attestation statement: The following information was validated with the patient. Medical History FANY (obstructive sleep apnea) HTN (hypertension) Asthma Diabetes Surgical History Hx of appendectomy Family History Family History Father No problems noted. Mother No problems noted. 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 Physical Exam Vital Signs: Vital Signs: Last Vital Signs Temp 98.1 F 01/10/25 22:08 Pulse 85 01/10/25 22:08 Resp 16 01/10/25 22:08 BP 148/85 H 01/10/25 22:08 Pulse Ox 97 01/10/25 22:08 O2 Del Method Room Air 01/10/25 22:08 BMI result Body Mass Index 44.9 NO ACUTE DISTRESS Const: General: cooperative Nutritional Appearance: average body habitus Orientation/consciousness: patient oriented x3 HEENT: Head: Yes normal to inspection General nose exam: Normal external nose present Mouth: Normal oral and palatal mucosa present Neck: Neck: Yes normal visual inspection Chest: Chest palpation & inspection: normal inspection of the chest Cardio: Jugular venous distension: no JVD Rate: regular rate Rhythm: regular rhythm GI: Inspection: Yes normal to inspection Auscultation: normal bowel sounds Skin: General skin exam: no rashes or lesions noted and elasticity normal Rashes: no rashes Neuro: General: patient oriented x3 Extrem: Other: EXAMINATION OF THE RIGHT KNEE SHOWED TENDERNESS SWELLING DECREASED RANGE OF MOTION Course Reevaluation(s) Reevaluation #1: Signed out to Dr Hodgson,we need to trial ambulation with crutches Time: 16:31 Reevaluation #2: 01/10/25 2220 Jose Hodgson MD note: I assumed care of this patient from Dr. Carter at 17:00 hours. The patient had a recent knee surgery 2 weeks prior and while getting out of the passenger side the car he had a mechanical fall and felt a popping in his right knee. Patient had x-rays which were negative. CT scan of the knee revealed no occult fracture. Duplex ultrasound revealed no significant blood clot. Patient was having severe pain and did not get any relief with oxycodone orally and Dilaudid IM. I ordered morphine 4 mg IV x2 with improvement of his pain. Patient was discharged home and prescribed ibuprofen 400 mg every 6 hours as needed for pain, extra-strength Tylenol 1000 mg every 6 hours as needed for pain and for pain not relieved by these medications he was prescribed morphine 15 mg every 6 hours as needed for pain dispense 14 pills with no refills. Patient has a physical therapy appointment tomorrow but given the severity of his pain I think he should skip this appointment and keep his next appointment. He was given a note to give to the physical therapist. Patient was discharged home with printed and verbal instructions. Medications Administered Discontinued Medications Generic Name Dose Route Start Last Admin Trade Name Saira PRN Reason Stop Dose Admin Acetaminophen 975 mg 01/10/25 12:24 01/10/25 12:38 Acetaminophen 325 Mg Tablet PO 01/10/25 12:25 975 mg ONCE ONE Administration Hydromorphone HCl 2 mg 01/10/25 13:27 01/10/25 13:48 Hydromorphone Hcl 2 Mg/Ml Vial IM 01/10/25 13:28 2 mg ONCE ONE Administration Protocol Insulin Human Lispro 10 unit 01/10/25 15:48 01/10/25 15:59 Insulin Lispro 100 Unit/Ml 3 Ml Vial SUBCUT 01/10/25 15:49 10 unit ONCE ONE Administration Morphine Sulfate 4 mg 01/10/25 18:11 01/10/25 18:25 Morphine Sulfate 4 Mg/Ml Cartridge IVPUSH 01/10/25 18:12 4 mg ONCE STA Administration Protocol Morphine Sulfate 4 mg 01/10/25 20:22 01/10/25 20:32 Morphine Sulfate 4 Mg/Ml Cartridge IVPUSH 01/10/25 20:23 4 mg ONCE STA Administration Protocol Ondansetron HCl 8 mg 01/10/25 15:48 01/10/25 15:59 Ondansetron Odt 8 Mg Tab.Rapdis TRANSLINGU 01/10/25 15:49 8 mg ONCE ONE Administration Oxycodone HCl 10 mg 01/10/25 12:24 01/10/25 12:38 Oxycodone Hcl Immed Release 5 Mg Tablet PO 01/10/25 12:25 10 mg ONCE ONE Administration Medical Decision Making Medical Decision Making MDM Narrative: PATIENT IS HERE FALL COMPLAINING OF KNEE PAIN OBTAIN IMAGING Differential Diagnosis Differential Diagnoses: The differential diagnosis associated with the presentation includes FRACTURE KNEE/ DISLOCATION KNEE Lab Data Labs: Lab Results 01/10/25 01/10/25 Range/Units 15:07 16:43 POC Glucose 379 H* 347 H (60-115) mg/dL Discharge Plan Discharge Clinical Impression: Contusion of knee, right Patient Disposition: Home, Self-Care Additional Instructions: The x-ray, CT scan of your knee did not reveal any broken bones or fractures which is reassuring. The duplex ultrasound of your right leg did not reveal any blood clots. Take ibuprofen 400 mg pills, 1 pills every 6 hours as needed for pain. Take extra-strength Tylenol (acetaminophen) 500 mg pills, 2 pills every 6 hours as needed for pain. For pain not relieved by ibuprofen or Tylenol take morphine 15 mg pills, 1 pill every 6 hours as needed for pain. This medication will make you sleepy, do not drive or work while taking this medication. Morphine is a narcotic medication and can be addicting. If you are concerned about addiction you can ask the pharmacist for less pills or do not get this prescription filled. Follow-up with your doctor in 2 days. Stop the oxycodone while you are taking morphine. Please return to the emergency department if your symptoms get worse or if you develop any symptoms that are concerning to you. I do not want you to go to physical therapy tomorrow, and I gave you a note to give to the physical therapist. Prescriptions: New acetaminophen [Tylenol Extra Strength] 500 mg tablet 1,000 mg PO Q6H PRN (Reason: fever or pain) Qty: 20 0RF ibuprofen 400 mg tablet 400 mg PO TID PRN (Reason: fever or pain) Qty: 30 0RF morphine 15 mg tablet 15 mg PO Q6H PRN (Reason: pain) Qty: 14 0RF Rx Instructions: Patient may request partial fill; Partial Fill upon patient request. No Action ibuprofen 800 mg tablet 800 mg PO TID Qty: 90 0RF oxycodone-acetaminophen 10-325 mg tablet 1 tab PO Q6H PRN (Reason: pain) 3 Days Qty: 12 0RF Rx Instructions: Partial Fill upon patient request. oxycodone-acetaminophen [Percocet] 5-325 mg tablet 1 tab PO Q4-6H PRN (Reason: pain (scale score 4-6)) 7 Days Qty: 42 0RF Rx Instructions: Partial Fill upon patient request. glipizide 10 mg tablet extended release 24hr 10 mg PO DAILY PRN (Reason: High Blood Pressure) amitriptyline 25 mg tablet 25 mg PO BEDTIME gabapentin 100 mg capsule 300 mg PO Q8H Ozempic 1 mg/dose (4 mg/3 mL) pen injector 1 mg subcut QWEEK metformin 500 mg tablet 1,000 mg PO BID (DME) FreeStyle Lite Strips Strip Qty: 100 0RF Rx Instructions: Test four times a day or as directed. (DME) blood-glucose meter [FreeStyle Lite Meter] Kit Qty: 1 0RF Rx Instructions: As Directed alcohol swabs Pads, Medicated 1 pad TOPICAL QIDACHS Qty: 100 0RF Rx Instructions: Use four times a day or as directed. insulin glargine [Lantus Solostar U-100 Insulin] 100 unit/mL (3 mL) insulin pen 20 unit SUBCUT DAILY Qty: 15 0RF (DME) pen needle, diabetic 32 gauge x 1/4 needle Qty: 100 0RF Rx Instructions: Use four times a day or as directed. (DME) lancets [FreeStyle Lancets] 28 gauge misc Qty: 100 0RF Rx Instructions: Test four times a day or as directed. fluoxetine 40 mg capsule 40 mg PO DAILY oxycodone-acetaminophen 5-325 mg tablet 1 tab PO Q4-6H PRN (Reason: pain) 7 Days Qty: 42 0RF Rx Instructions: Partial Fill upon patient request. Stand Alone Forms: Work/School Release Print Language: Vietnamese
[2025-01-10] MEDS: Acetaminophen 325 MG TABLET 975 MG PO (12:38)
[2025-01-10] MEDS: oxyCODONE HCl Immed Release 5 MG TABLET 10 MG PO (12:38)
--- NOTE | 2025-01-10 12:44 | PC.NURSE ---
patient a&ox3, vss, patient went to xr for knee xr. was brought into room, pt medicated upon his return for 06/04 rt knee pain- 7 steri strips intact. rt knee notable swelling, this nurse wanted to place ice on rt knee- pt currently refusing ice. call pettit within reach, plan of care ongoing- pt awaiting radiology results.
--- OUTSIDE RECORDS SUMMARY | 2025-01-10 12:44 | XMS_ITS | Encounter Summary ---
Author Organization [employer] Address [address] [place] [address] Care Team Providers Care Lead Care Manager Name Role Phone Aubree Matute MD Primary Care Provide r Encounter Details Date Type Department Care Team ([facility] st Contact Info) Description 06/21/2023 Abstract [facility] MEDICINE [address] [place], [place] [phone] Aubree Matute MD [address] [place], [place] [phone] Social History Tobacco Use Types Packs/Day Years [...] Care Team (Late st Contact Info) Description 02/04/2025 1:15 PM EDT Office Visit [facility] [address] [place] [phone] Aubree Matute MD [address] [place] [phone] documented as of this encounter Visit Diagnoses Not on filedocumented in this encounter Additional Health Concerns Assessment Noted Time PHQ-9 Depression Total Score: 13 023 1:12 PM EDT documented as of this encounter Care Teams Lead Care Manager Relationship Specialty Start Date End Date Aubree Matute MD [address] [place] [phone] PCP - General Family Medicine 11/10/19 documented as of this encounter
--- OUTSIDE RECORDS SUMMARY | 2025-01-10 12:44 | XMS_ITS | Encounter Summary ---
Author Organization [employer] Address [address] [place] [address] Care Team Providers Care Head Athletic Trainer Name Role Phone Aubree Matute MD Primary Care Provide r Encounter Details Date Type Department Care Team ([facility] st Contact Info) Description 06/21/2023 Abstract [facility] MEDICINE [address] [place], [place] [phone] Aubree Matute MD [address] [place], [place] [phone] Social History Tobacco Use Types Packs/Day Years [...] Description 02/04/2025 1:15 PM EDT Office Visit [facility] MED[facility]INE [address] [place] [phone] Aubree Matute MD [address] [place] [phone] documented as of this encounter Visit Diagnoses Not on filedocumented in this encounter Additional Health Concerns Assessment Noted Time PHQ-9 Depression Total Score: 13 023 1:12 PM EDT documented as of this encounter Care Teams Head Athletic Trainer Relationship Specialty Start Date End Date Aubree Matute MD [address] [place] [phone] PCP - General Family Medicine 11/10/19 documented as of this encounter
--- OUTSIDE RECORDS SUMMARY | 2025-01-10 12:44 | XMS_ITS | Clinical Summary ---
Author Organization [facility] Address [address] [place] [address] Phone Care Team Providers Care Chief Jailer Name Role Phone Aubree Matute MD Primary Care Provide r Medications amitriptyline (ELAVIL) 25 mg tablet Take 1 tablet (25 mg total) by mouth at bedtime. Active insulin glargine,hum.re c.anlog (Basaglar KwikPen U-100 Insulin) 100 unit/mL (3 mL) injection pen Inject 100 Units under the skin at bedtime. Active blood-glucose meter,continuou s (Dexcom G7 Infection Control Coordinator) misc Activ e cyclobenzaprine (FLEXERIL) 10 mg [...] hyperglycemia, with long-term current use of insulin ([facility] V24, [facility] V28) 07/06/2024 Diabetic polyneuropathy asso ciated with type 2 diabetes mellitus ([facility] V24, [facility] V28) 07/06/2024 Cigarette smoker 07/06/2024 COVID-19 07/06/2024 [...] Insurance MEDICARE MEDICAID - [place] Care Teams Chief Jailer Relationship Specialty Start Date End Date Aubree Matute MD [address] [phone] PCP - General 04/20/24
--- OUTSIDE RECORDS SUMMARY | 2025-01-10 12:44 | XMS_ITS | Encounter Summary ---
Author Organization [employer] Address [address] [place] [address] Care Team Providers Care Director Clinical Pharmacology Name Role Phone Aubree Matute MD Primary Care Provide r Encounter Details Date Type Department Care Team (Late Contact Info) Description 03/08/2023 Orders Only [facility] [address] [place], [place] [phone] Astrid Irvin LPN Social History Tobacco Use [...] Description 02/04/2025 1:15 PM EDT Office Visit [facility] MEDICINE [address] [place], [place] [phone] Aubree Matute MD [address] [place], [place] [phone] documented as of this encounter Visit Diagnoses Not on filedocumented in this encounter Additional Health Concerns Assessment Noted Time PHQ-9 Depression Total Score: 13 023 1:12 PM EDT documented as of this encounter Care Teams Director Clinical Pharmacology Relationship Specialty Start Date End Date Aubree Matute MD [address] [place] [phone] PCP - General Family Medicine 11/10/19 documented as of this encounter
--- OUTSIDE RECORDS SUMMARY | 2025-01-10 12:44 | XMS_ITS | Encounter Summary ---
Author Organization [employer] Address [address] [place] [address] Care Team Providers Care Payroll Master Name Role Phone Aubree Matute MD Primary Care Provide r Reason for Visit * Reason Comments Med Refill Encounter Details Date Type Department Care Team ([facility] st Contact Info) Description 07/24/2023 Refill [facility] MEDICINE [address] [place], [place] [phone] Aubree Matute MD [address] [place], [place] [phone] Anxiety Social History Tobacco Use Types Packs/Day [...] Description 02/04/2025 1:15 PM EDT Office Visit [facility] MEDICINE [address] [place] [phone] Aubree Matute MD [address] [place] [address] documented as of this encounter Visit Diagnoses Diagnosis Anxiety Anxiety state, unspecified documented in this encounter Additional Health Concerns Assessment Noted Time PHQ-9 Depression Total Score: 13 023 1:12 PM EDT documented as of this encounter Care Teams Payroll Master Relationship Specialty Start Date End Date Aubree Matute MD [address] [place] [phone] PCP - General Family Medicine 11/10/19 documented as of this encounter
--- OUTSIDE RECORDS SUMMARY | 2025-01-10 12:44 | XMS_ITS | Clinical Summary ---
Author Organization [employer] Address [address] [place] [address] Care Team Providers Care Poultry Hatchery Supervisor Name Role Phone Aubree Matute MD Primary Care Provide r Allergies Active Allergy Reactions Criticality Noted Date Comments Penicillins Angioedema High 09/01/2015 Other reaction(s): Hives/Skin Rash Medications * This document contains information received from the source organization and may not represent a complete record from that organization. ergocalciferol (Vitamin D2) 1.25 MG (13344 UT) capsule TAKE 1 CAPSULE BY MOUTH [...] FOOD NEEDED 023 Active Continuous Blood Gluc Research Quality Assurance Specialist (Dexcom G7 Research Quality Assurance Specialist) device USE DIRECTED 024 Active FLUoxetine (PROzac) 20 MG capsuleIndicatio ns:Mixed anxiety and depressive disorder TAKE 1 CAPSULE BY MOUTH EVERY MORNING 30 capsule 2 07/03/2 024 Active glipiZIDE XL (Glucotrol XL) 10 MG 24 hr tabletIndication s:Type 2 diabetes mellitus without complication, without long-term current use of insulin ([facility]) TAKE 1 TABLET BY MOUTH TWICE DAILY WITH BREAKFAST AND WITH DINNER 180 tablet 3 Active Invokana 300 MGIndications:Ty pe 2 diabetes mellitus with hyperglycemia, with long-term current use of insulin ([facility]) TAKE 1 TABLET BY MOUTH EVERY DAY BEFORE BREAKFAST 30 tablet 11 Active semaglutide (Ozempic) 2 MG/1.5ML solution pen-injectorIndi cations:Type 2 diabetes mellitus with hyperglycemia, with long-term current use of insulin ([facility]) Inject 1 mg under the skin 1 (one) time per week. 2 each 12 Active FLUoxetine (PROzac) 40 MG capsuleIndicatio ns:Mixed anxiety and depressive disorder Take 1 capsule (40 mg) by mouth Once per day. 30 capsule 11 024 2024 Active gabapentin (Neurontin) 100 MG capsuleIndicatio ns:Diabetic polyneuropathy associated with type 2 diabetes mellitus ([facility]) Take 3 capsules (300 mg) by mouth every 8 (eight) hours. 270 capsule 024 2024 Active Multiple Vitamin (Multivitamin) tablet TAKE 1 TABLET BY MOUTH EVERY DAY 90 tablet 3 Active metFORMIN (Glucophage) 500 MG tabletIndication s:Type 2 diabetes mellitus with hyperglycemia, with long-term current use of insulin ([facility]) TAKE 2 TABLETS BY MOUTH TWICE DAILY 360 tablet 1 Active amitriptyline (Elavil) 25 MG tabletIndication s:Other chronic pain TAKE 1 TABLET BY MOUTH AT BEDTIME FOR PAIN 30 tablet 3 Active Basaglar KwikPen 100 UNIT/ML penIndications:T ype 2 diabetes mellitus with hyperglycemia, with long-term current use of insulin ([facility]) INJECT 16 UNITS SUBCUTANEOUSLY EVERY DAY AT BEDTIME 15 mL 2 Active insulin pen needle (UltiCare Pen [place]) 29G x 12.7mm misc Inject under the skin 3 times daily. Use as instructed 100 each 3 05/02/2 025 Active FREESTYLE LITE test stripIndications :Type 2 diabetes mellitus with hyperglycemia (CMS/HCC) USE DIRECTED TO TEST BLOOD SUGAR THREE TIMES DAILY 300 each 3 Active TRUEplus Lancets 33G miscIndications: Type 2 diabetes mellitus with hyperglycemia (CMS/HCC) USE DIRECTED TO TEST BLOOD SUGAR THREE TIMES DAILY 300 each 3 025 Active Continuous Glucose Sensor (Dexcom G7 Sensor) miscIndications: Type 2 diabetes mellitus with hyperglycemia (CMS/HCC) USE DIRECTED TO TEST BLOOD SUGAR THREE TIMES DAILY, CHANGE sensory EVERY 10 DAYS 3 each 1 025 Active TRUEplus Lancets 33G miscIndications: Type 2 diabetes mellitus with hyperglycemia (CMS/HCC) TEST BLOOD SUGAR 3 TIMES A DAY 100 each 5 023 2024 Discontinued(R eorder (will not trigger notification to Pharmacy)) FREESTYLE LITE test stripIndications :Type 2 diabetes mellitus with hyperglycemia (CMS/HCC) TEST BLOOD SUGAR 3 TIMES A DAY 200 strip 5 023 2024 Discontinued(R eorder (will not trigger notification to Pharmacy)) UltiCare Pen [place] 29G X 12.7MM misc USE EVERY DAY WITH INSULIN 100 each 3 023 2024 Discontinued(R eorder (will not trigger notification to Pharmacy)) Continuous Glucose Sensor (Dexcom G7 Sensor) miscIndications: Type 2 diabetes mellitus with hyperglycemia (CMS/HCC) USE DIRECTED TO TEST BLOOD SUGAR THREE TIMES DAILY, CHANGE sensory EVERY 10 DAYS 3 each 1 025 2024 Discontinued glucose blood (FREESTYLE LITE) test stripIndications :Type 2 diabetes mellitus with hyperglycemia (CMS/HCC) 1 each by Other route Once per day. 200 strip 5 025 2024 Discontinued TRUEplus Lancets 33G miscIndications: Type 2 diabetes mellitus with hyperglycemia (CMS/HCC) Inject 1 each under the skin Once per day. 100 each 5 025 2024 Discontinued(R eorder (will not trigger notification to Pharmacy)) TRUEplus Lancets 33G miscIndications: Type 2 diabetes mellitus with hyperglycemia (CMS/HCC) Inject 1 each under the skin 3 times daily. 100 each 5 025 2024 Discontinued Active Problems Problem Noted Date Diagnosed Date Diabetic polyneuropathy lilliana ciated with type 2 diabetes mellitus 04/02/2024 [...] Encounters Date Type Department Care Team Description 01/07/2025 Refill [facility] [address] [place] [address] Aubree Matute MD Type 2 diabetes mellitus with hyperglycemia ([facility]) 12/29/2024 Travel 12/29/2024 Telephone [facility] [address] [place] [address] Aubree Matute MD Call Back Request 12/25/2024 Refill [facility] [address] [place] [address] Aubree Matute MD Type 2 diabetes mellitus with hyperglycemia ([facility]) 12/25/2024 Orders Only [facility] [address] [place] [address] Aubree Matute MD Type 2 diabetes mellitus with hyperglycemia ([facility]) 12/25/2024 Orders Only [facility] [address] [place] [phone] Aubree Matute MD Type 2 diabetes mellitus with hyperglycemia ([facility]) 12/23/2024 Patient Outreach [facility] [address] [place] [address] Aubree Matute MD Pre-visit Planning (LVM) 12/23/2024 Orders Only GENERIC EXTERNAL DATA DEPARTMENT Provider, Generic External Data 12/22/2024 Orders Only GENERIC EXTERNAL DATA DEPARTMENT Provider, Generic External Data 12/12/2024 Orders Only [facility] External Provider, [facility] 11/30/2024 Telephone [facility] [address] [place] [address] Aubree Matute MD Nurse Triage 11/08/2024 Refill [facility] [address] [place] [address] Aubree Matute MD Type 2 diabetes mellitus with hyperglycemia (CMS/HCC) 11/06/2024 Population Health Risk Score [facility] () Department [address] [place] [phone] Provider, Population Health Generic from Last 3 Months Immunizations Immunization Administration Dates Next Due Hep B, adult [...] Office Visit [facility] [address] [place] [address] Aubree Matute MD [address] [place] [address] Health Maintenance Due Date Last Done Comments [...] 02/17/2016, 12/19/2015 Depression Screening 03/07/2024 03/07/2023, 03/07/20 SDOH Screening 03/07/2024 03/07/2023 COVID-19 Vaccine ( [...] hyperglycemia, with long-term current use of insulin ([facility]) Essential hypertension from Last 3 Months or Most Recently Relevant to Health Maintenance Results * (ABNORMAL) Glucose, Whole Blood (12/23/2024 6:57 AM EDT) Only the most recent of4 resultswithin the time period is included. Glucose, Whole Blood 297(H) 60 - 115 mg/dL [facility] Comment:METER #: [id number] 12/23/2024 6:57 AM EDT 12/23/2024 7:00 AM EDT us Generic External Data Provider LAB BLOOD ORDERAB LES Final Result [facility] [address] [place] [address] [phone] * (ABNORMAL) Basic Metabolic Panel, Fasting (12/23/2024 5:23 AM EDT) Pathologist [facility] Sodium 135 135 - 145 mmol/L [facility] Potassium 4.0 3.3 - 5.1 mmol/L [facility] Chloride 99 96 - 108 mmol/L [facility] Carbon Dioxide 29 22 - 29 mmol/L [facility] Anion Gap 11(L) 12 - 20 [facility] Urea Nitrogen (BUN) 15 9 - 16 mg/dL [facility] Creatinine, Serum 0.80 0.5 - 1.4 mg/dL [facility] Creatinine Clr Calc Pharmacy 154.3 [facility] Comment:eGFR (calculated fro m the MDRD study equation) and eCrCl(calculated from the Cockcroft-Gault equation) are based ondifferent parameters and may not yield comparable results.If eCrCl result is absurd, please check patient'sheight/weight. Estimated Glomerular Filt Rate >60 [facility] Comment:Chronic Kidney Disea se: Estimated GFR < 60 mL/min/1.63l0Lokrfz Kidney Disease: Estimated GFR < 15 mL/min/1.73m2 Glucose Fasting 315(H) 60 - 99 mg/dL [facility] Comment:A fasting glucose of 126 mg/dl or greater on more than oneoccasion is considered diagnostic of diabetes. Calcium 9.0 8.4 - 10.2 mg/dL [facility] 12/23/2024 5:23 AM EDT 12/23/2024 6:17 AM EDT us Generic External Data Provider LAB BLOOD ORDERAB LES Final Result [facility] [address] [place] [address] [phone] * (ABNORMAL) CBC auto differential (12/23/2024 5:23 AM EDT) Pathologist [facility] White Blood Count 12.0(H) 4.8 - 10.8 X10*3/uL [facility] Red Blood Count 5.19 4.60 - 5.80 X10*6/uL [facility] Hemoglobin 14.9 14.0 - 18.0 g/dl [facility] Hematocrit 44.4 42.0 - 52.0 % [facility] Mean Corpuscular Volume 85.5 80.0 - 98.0 fL [facility] Mean Corpuscular Hemoglobin 28.7 27.0 - 33.0 pg [facility] Mean Corpuscular HGB Conc 33.6 31.0 - 36.0 g/dl [facility] Red Cell Distribution Width 12.9 11.0 - 16.0 % [facility] Platelet Count 201 160 - 400 X10*3/uL [facility] Mean Platelet Volume 11.2 9.4 - 12.4 fL [facility] Neutrophils Percent Auto 63.8 45 - 73 % [facility] Imm Gran Pct Auto 0.8(H) 0.0 - 0.4 % [facility] Lymphocytes Percent Auto 25.3 20 - 40 % [facility] Monocytes Percent Auto 8.0 2 - 11 % [facility] Eosinophils Percent Auto 1.8 0 - 4 % [facility] Basophils Percent Auto 0.3 0 - 2 % [facility] NRBC Pct Auto 0.0 0.0 - 0.2 /100WBC [facility] Neutrophils Absolute Auto 7.6 2.0 - 8.3 x10*3/uL [facility] Imm Gran Abs Auto 0.09(H) 0.00 - 0.03 X10*3/uL [facility] Lymphocytes Absolute Auto 3.0 1.2 - 4.9 X10*3/uL [facility] Monocytes Absolute Auto 1.0 0.1 - 1.2 X10*3/uL [facility] Eosinophils Absolute Auto 0.2 0.0 - 0.4 X10*3/uL [facility] Basophils Absolute Auto 0.0 0.0 - 0.2 X10*3/uL [facility] NRBC Abs Auto 0.000 0.0 - 0.012 X10*3/uL [facility] 12/23/2024 5:23 AM EDT 12/23/2024 6:17 AM EDT Generic External Data Provider LAB BLOOD ORDERAB LES Final Result Performing Organization Address [facility] Co de Phone Number [facility] [address] [place] [phone] * TSH with Reflex to Free T4 (12/22/2024 9:33 PM EDT) Pathologist [facility] TSH reflex Free T4 0.81 0.32 - 4.0 uIU/mL [facility] 12/22/2024 9:33 PM EDT 12/22/2024 9:36 PM EDT Generic External Data Provider LAB BLOOD ORDERAB LES Final Result Performing Organization Address [facility] Co de Phone Number [facility] [address] [place] [phone] * Magnesium (12/22/2024 9:33 PM EDT) [facility] Magnesium 1.6 1.6 - 2.6 mg/dL [facility] 12/22/2024 9:33 PM EDT 12/22/2024 9:36 PM EDT Generic External Data Provider LAB BLOOD ORDERAB LES Final Result Performing Organization Address [facility] Co de Phone Number [facility] [address] [place] [phone] * (ABNORMAL) Hemoglobin A1c (12/22/2024 9:33 PM EDT) Hemoglobin A1c 12.0(H) <6.0 % [facility] Comment:Hemoglobin A1C Refer ence Range Adults: 4.8 - 6.0 % Non diabetic: < 6.0 % Goal: < 7.0 %Additional Action Suggested: > 8.0 %Note: Hemoglobin A1c results are invalid for patients with abnormal amounts of HbF. Blood transfusions may impact the HbA1c concentration in the patient sample. Estimated Average Glucose 298 mg/dL [facility] Comment:eAG = Estimated ave rage glucose which is %A1C expressed asaverage glucose, using the formula of the K3Z-AdjlyegKwuzuut Glucose study (ADAG), Diabetes Care, Vol.31,#8,Mar. 2007 12/22/2024 9:33 PM EDT 12/22/2024 9:36 PM EDT us Generic External Data Provider LAB BLOOD ORDERAB LES Final Result [facility] [address] [place] [address] [phone] * (ABNORMAL) Comprehensive Metabolic Panel (12/22/2024 9:33 PM EDT) Sodium 134(L) 135 - 145 mmol/L [facility] Potassium 4.5 3.3 - 5.1 mmol/L [facility] Chloride 97 96 - 108 mmol/L [facility] Carbon Dioxide 27 22 - 29 mmol/L [facility] Anion Gap 15 12 - 20 [facility] Urea Nitrogen (BUN) 14 9 - 16 mg/dL [facility] Creatinine, Serum 0.90 0.5 - 1.4 mg/dL [facility] Creatinine Clr Calc Pharmacy 137.2 [facility] Comment:eGFR (calculated fro m the MDRD study equation) and eCrCl(calculated from the Cockcroft-Gault equation) are based ondifferent parameters and may not yield comparable results.If eCrCl result is absurd, please check patient'sheight/weight. Estimated Glomerular Filt Rate >60 [facility] Comment:Chronic Kidney Disea se: Estimated GFR < 60 mL/min/1.11p1Rlysjr Kidney Disease: Estimated GFR < 15 mL/min/1.73m2 Glucose 377(HH) 60 - 115 mg/dL [facility] Comment:Critical GLUR sent b y a secure message and confirmed Trinh GAUTHIER 12-22-24 [id number] Tech:KUSF Calcium 9.4 8.4 - 10.2 mg/dL [facility] Bilirubin, Total 0.9 0.0 - 1.0 mg/dL [facility] Aspartate Amino Transferase 65(H) 5 - 37 U/L [facility] Alanine Aminotransferase 71(H) 0 - 40 U/L [facility] Total Protein 7.0 6.5 - 8.0 g/dL [facility] Albumin Level 3.6 3.5 - 5.0 g/dL [facility] Alkaline Phosphatase 89 39 - 117 U/L [facility] 12/22/2024 9:33 PM EDT 12/22/2024 9:36 PM EDT us Generic External Data Provider LAB BLOOD ORDERAB LES Final Result Performing Organization Address City/State/[facility] Co de Phone Number [facility] [address] [place] [address] [phone] * CT Knee w/o Contrast Right (12/12/2024 4:23 AM EDT) Anatomical Region Laterality Modality Lower Extremities, Knee Right Computed Tomography 12/12/2024 4:23 AM EDT Narrative 12/12/2024 4:25 AM EDT ? [facility] ?[address] ?[place] [address] ? CT Scan Report ? Signed ? Patient: Flanagan,Webb ?MR#: [id number] ?? [id number] ? : 1980 ?Acct:[id number] ? Age/Sex: 44 / M ?ADM Date: 04/19/25 ? Loc: HO.ED ? Attending Dr: ? Ordering Physician: Temo Cole ?? Date of Service: 12/12/24 ?? Procedure(s): CT knee RT wo IV con ?? Accession Number(s): [id number] ? cc: Aubree Matute MD; Temo Cole ? Report Number: ?? [id number]: Total DLP = ??243.00 mGy-cm ? CLINICAL HISTORY: trauma ? CT right knee without contrast ? Comparison: CR/MT - XR KNEE RT 4V - 12/12/24 [...] DD/ 0423 ? TD/TT: 12/12/24 0423 ? Media Relations Coordinator: ? Procedure Note Spencer, Georgiana - 12/12/[address] [place] [address] [address] Scan Report Signed Patient: Delonte FlanaganMR#: [id number] : 1980Acct:[id number] Age/Sex: 44 / MADM Date: 12/12/24 Loc: HO.ED Attending Dr: Ordering Physician: Temo Cole Date of Service: 12/12/24 Procedure(s): CT knee RT wo IV con Accession Number(s): [id number] cc: Aubree Matute MD; Temo Cole Report Number: [id number]: Total DLP = 243.00 mGy-cm CLINICAL HISTORY: trauma CT right knee without contrast Comparison: CR/MT - XR KNEE RT 4V - 12/12/24 [...] in OV> 12/12/24423 DD/ 2 TD/TT: 12/12/24422 Media Relations Coordinator: us [facility] External Provider IMG CT PROCEDURES Final Result * (ABNORMAL) Lipid Panel with Reflex to Direct LDL (04/02/2024 2:00 PM EDT) Triglycerides 180(H) <150 mg/dL [facility] Comment:Desirable Triglyceri de: less than 150 mg/dLBorderline High Triglyceride 150-199 mg/dLHigh Triglyceride: 200-499 mg/dLVery High Triglyceride: greater than or equal to 5OO mg/dL Cholesterol 198 <200 mg/dL [facility] Comment:Desirable Cholestero l: less than 200 mg/dLBorderline High Cholesterol: 200-239 mg/dLHigh Cholesterol: greater than 239 mg/dL LDL Cholesterol Calculated 128(H) <100 mg/dL [facility] Comment:Desirable LDL: less than 100 mg/dLNear Optimal/Above Optimal LDL: 110- 129 mg/dLBorderline High LDL: 130-159 mg/dLHigh LDL: 160-189 mg/dLVery High LDL: greater than or equal to 190 mg/dL HDL Cholesterol 34(L) >40 mg/dL [facility] Comment:Desirable HDL: great er than 40 mg/dL Note: This HDL assay may give artificially low results in patients with liver disease. Blood 04/02/2024 2:00 PM EDT 04/02/2024 4:11 PM EDT us Aubree Ramirez MD LAB BLOOD ORDERABLES Final Result [facility] [address] [place] [address] [phone] from Last 3 Months or Most Recently Relevant to Health Maintenance Insurance MEDICARE Member Subscriber Plan / Payer ( fective 2022-Present) Name:Lashonda Flanaganct Member ID:[id number] Relation to Subscriber:Self Name:Delonte Flanagan Subscriber ID:[id number] Payer ID:STATE Group ID:Not on file Type:Medicare Address: [place] [employer] [address] [address] [facility] STAND[facility] Care Teams Poultry Hatchery Supervisor Relationship Specialty Start Date End Date Aubree Matute MD [address] [place] [address] PCP - General Family Medicine 11/10/19
--- OUTSIDE RECORDS SUMMARY | 2025-01-10 12:44 | XMS_ITS | Encounter Summary ---
Author Organization [employer] Address [address] [facility] [address] [place] [address] Care Team Providers Care Table Lever Operator Name Role Phone Aubree Matute MD Primary Care Provide r Encounter Details Date Type Department Care Team ([facility] st Contact Info) Description 06/21/2023 Abstract [facility] [address] [place], [place] [phone] Aubree Matute MD [address] [place], [place] [phone] Social History Tobacco Use Types Packs/Day Years [...] Description 02/04/2025 1:15 PM EDT Office Visit [facility] [address] [place] [phone] Aubree Matute MD [address] [place] [phone] documented as of this encounter Visit Diagnoses Not on filedocumented in this encounter Additional Health Concerns Assessment Noted Time PHQ-9 Depression Total Score: 13 023 1:12 PM EDT documented as of this encounter Care Teams Table Lever Operator Relationship Specialty Start Date End Date Aubree Matute MD [address] [place] [phone] PCP - General Family Medicine 11/10/19 documented as of this encounter
--- OUTSIDE RECORDS SUMMARY | 2025-01-10 12:44 | XMS_ITS | Encounter Summary ---
Author Organization [employer] Address [address] [facility] [address] [place] [address] Care Team Providers Care Cord Maker Name Role Phone Aubree Matute MD Primary Care Provide r Reason for Visit * Reason Onset Date Comments med b form 09/04/2022 Encounter Details Date Type Department Care Team (Late st Contact Info) Description 09/04/2022 Telephone [facility] MED[facility]INE [address] [place] [address] [phone] Aubree Matute MD [address] [place], [place] [phone] med b form Social History Tobacco Use [...] Description 02/04/2025 1:15 PM EDT Office Visit [facility] [address] [place] [address] [phone] Aubree Matute MD [address] [place] [address] documented as of this encounter Visit Diagnoses Not on filedocumented in this encounter Care Teams Cord Maker Relationship Specialty Start Date End Date Aubree Matute MD [address] [place], [place] [phone] PCP - General Family Medicine 11/10/19 documented as of this encounter
--- OUTSIDE RECORDS SUMMARY | 2025-01-10 12:44 | XMS_ITS | Encounter Summary ---
Author Organization [email or web address] Address [address] [facility] [address] [place] [address] Care Team Providers Care Hot Stone Setter Name Role Phone Aubree Matute MD Primary Care Provide r Reason for Visit * Reason Comments Med Refill Encounter Details Date Type Department Care Team ([facility] st Contact Info) Description 01/07/2025 Refill [facility] [address] [place], [place] [phone] Aubree Matute MD [address] [place], [place] [phone] Type 2 diabetes mellitus with hyperglycemia (CMS/HCC) [...] Description 02/04/2025 1:15 PM EDT Office Visit [facility] [address] [place] [address] Aubree Matute MD [address] [place] [address] documented as of this encounter Visit Diagnoses Diagnosis Type 2 diabetes mellitus with hyperglycemia (CMS/HCC) documented in this encounter Additional Health Concerns Assessment Noted Time PHQ-9 Depression Total Score: 13 023 1:12 PM EDT documented as of this encounter Care Teams Hot Stone Setter Relationship Specialty Start Date End Date Aubree Matute MD [address] [place] [address] [phone] PCP - General Family Medicine 11/10/19 documented as of this encounter
[2025-01-10] MEDS: HYDROmorphone HCl 2 MG/ML VIAL IM (13:48)
--- NOTE | 2025-01-10 13:57 | PC.NURSE ---
patient medicated for 10/10 rt knee pain, pt to have ct scan. pt requesting food and was told he has to remain NPO for the time being until results from CT scan are back
[2025-01-10 15:10] LABS: Glucose, Whole Blood 379 mg/dL (60-115)
--- NOTE | 2025-01-10 15:47 | PC.NURSE ---
pt requested poc- tech obtained poc, additionally pt complaining of nausea, dr. goodwin went to see patient to update him on the CT sca, pt having a diet gingerale.
[2025-01-10] MEDS: Insulin Lispro 100 UNIT/ML 3 ML VIAL 10 UNIT SUBCUT (15:59)
[2025-01-10] MEDS: Ondansetron ODT 8 MG TAB.RAPDIS TRANSLINGU (15:59)
--- NOTE | 2025-01-10 16:03 | PC.NURSE ---
pts stating that the patient is needing something more than oxycodone at home, states that he used the oxycodone he had post op which didnt help the pain much, she feels he needs greater pain relief. this nurse inquired about the patient going to a rehab facility short term which pt adamantly refused and stated he just needs to get home with pain medications and he begins PT as an outpt tomm.
[2025-01-10 16:09] VITALS: BP 111/66; PULSE 70; RESP 16; TEMP 36.8; O2SAT 96
[2025-01-10 16:46] LABS: Glucose, Whole Blood 347 mg/dL (60-115)
[2025-01-10] MEDS: Morphine Sulfate 4 MG/ML CARTRIDGE IVPUSH ×2 (18:25→20:32)
--- NOTE | 2025-01-10 18:30 | PC.NURSE ---
patient a&ox, pt continued to have pain and unable to ambulate, evening provider re-evaluated patient, requested iv to be inserted and pt was medicated with morphine for 8/10 pain, family at bedside, plan of care ongoing.
[2025-01-10 19:41] VITALS: BP 121/70; PULSE 71; RESP 12; TEMP 36.7; O2SAT 98
--- NOTE | 2025-01-10 19:50 | PC.NURSE ---
assumed care of patient, patient at bedside. Awaiting results of ultrasound patient reported decreased pain after medication. Liquids provided and urinal emptied for 600mL
[2025-01-10 22:08] VITALS: BP 148/85; PULSE 85; RESP 16; TEMP 36.7; O2SAT 97
[2025-01-10 22:49] VITALS: BP 148/85; PULSE 85; RESP 16; TEMP 36.7; O2SAT 97
== END 2025-01-10 22:50 | disposition home or self-care (01) ==
PROVIDERS: Emergency Medicine; Emergency Provider Emergency Medicine Emergency Medical Services; PCP Internal Medicine
DX: M25.561 Pain in right knee (principal); M79.661 Pain in right lower leg; S80.01XA Contusion of right knee, initial encounter; X50.9XXA Other and unspecified overexertion or strenuous movements or postures, initial encounter; E11.9 Type 2 diabetes mellitus without complications; I10 Essential (primary) hypertension; J45.909 Unspecified asthma, uncomplicated; Z87.891 Personal history of nicotine dependence; Y93.89 Activity, other specified; Y92.810 Car as the place of occurrence of the external cause; Y99.9 Unspecified external cause status
CPT/HCPCS: 73564; 73700; 82947; 93971; 96372; 96374; 96376; 99285; J1171; J2270

== ENCOUNTER → 2025-01-10 12:24 | Outpatient (BNV) | payer MEDICARE, MEDICAID, SELFPAY | PROVIDERS: Emergency Provider Emergency Medicine; PCP Internal Medicine; Visit Provider Radiology Diagnostic Radiology | DX: M25.061 Hemarthrosis, right knee (principal); R60.0 Localized edema; R59.0 Localized enlarged lymph nodes; M25.461 Effusion, right knee | CPT/HCPCS: 73564; 73700 ==

== ENCOUNTER 2025-01-14 09:39 | Outpatient (REF) | payer MEDICARE, MEDICAID, SELFPAY ==
--- NOTE | ~2025-01-14 | XR_ITS ---
EXAMINATION: XR KNEE, RIGHT CLINICAL INFORMATION: M25.569 - Pain in unspecified knee COMPARISON: 01/10/2025 right knee x-ray and CT. 12/12/2024 right knee x-ray and CT. TECHNIQUE: Four views of the right knee. FINDINGS: Findings related to recent quadriceps tendon repair. There is suprapatellar soft tissue swelling. Tiny bone fragments again noted, similar to the prior CT. There is a small joint effusion present. No additional fracture or malalignment. The medial lateral compartments appear normal. Vascular calcifications noted posteriorly. XR/XR knee RT 2V IMPRESSION: No significant interval change from 01/10/2025. Electronically signed by: Bhavesh Salinas MD 01/14/2025 01:13 PM EDT
--- OUTSIDE RECORDS SUMMARY | 2025-01-14 10:30 | XMS_ITS | Clinical Summary ---
Author Organization [facility] Address [address] [place] [address] Phone Care Team Providers Care Pie Dough Roller Name Role Phone Aubree Matute MD Primary Care Provide r Medications amitriptyline (ELAVIL) 25 mg tablet Take 1 tablet (25 mg total) by mouth at bedtime. Active insulin glargine,hum.re c.anlog (Basaglar KwikPen U-100 Insulin) 100 unit/mL (3 mL) injection pen Inject 100 Units under the skin at bedtime. Active blood-glucose meter,continuou s (Dexcom G7 Can Tester) misc Activ e cyclobenzaprine (FLEXERIL) 10 mg [...] of insulin ([facility] V24, [facility] V28) 07/06/2024 Diabetic polyneuropathy asso ciated with type 2 diabetes mellitus ([facility] V24, [facility] V28) 07/06/2024 Cigarette smoker 07/06/2024 COVID-19 07/06/2024 [...] Insurance MEDICARE [place]ICAID - [place] Care Teams Pie Dough Roller Relationship Specialty Start Date End Date Aubree Matute MD [address] [phone] PCP - General 04/20/24
== END 2025-01-14 09:40 | disposition home or self-care (01) ==
LOC: HO.HOSX 09:39
PROVIDERS: PCP Internal Medicine; Visit Provider Physician Assistant
DX: M25.561 Pain in right knee (principal); S76.111A Strain of right quadriceps muscle, fascia and tendon, initial encounter
CPT/HCPCS: 73560; 99212

== ENCOUNTER 2025-01-14 09:39 | Outpatient (AMB) | payer MEDICARE, MEDICAID, SELFPAY ==
--- NOTE | 2025-01-14 09:44 | A.OFFVIS_ITS ---
Intake Visit Reasons: PO RT quad tendon repair 12/22/24 NE-DOI 01/10/25 Intake Note: Delonte is a 44 year old male who presents today with his for a post op appointment s/p right quad tendon repair 12/22/24 NE. DOI 01/10/25. Patient reports he fell on his knee when he was getting out of his car. He is having increase pain in his right knee. IMPRESSION: 1. Avulsed bone fragments in the region of the quadriceps tendon insertion, similar to the prior CT. No new fracture identified. 2. There is a small knee effusion Allergies Penicillins Allergy (Severe, Verified 01/14/25 09:47) angioedema and SOB HPI HPI PO RT quad tendon repair 12/22/24 NE-DOI 01/10/25: Details: Mr. Flanagan is a 44-year-old male status post right quad tendon repair performed on 12/22/[address] Munroe. Unfortunately, the patient was ambulating around his vehicle and sustained a fall on 01/10/2025. He developed bruising on the medial aspect of the right knee. He has had increased pain. He has difficulty performing a straight leg raise is which was where he was at prior to this new injury. [facility] Medical History FANY (obstructive sleep apnea) HTN (hypertension) Asthma Diabetes Surgical History Hx of appendectomy Family History Father No problems noted. Mother No problems noted. 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 Steri-Strips intact. No surrounding erythema or drainage. No signs of infection. Patient is able to engage his quad muscle. Unable to perform a straight leg raise. NVI. Assessment & Plan Assessment & Plan (1) Rupture of right quadriceps tendon: Code(s): S76.111A - Strain of right quadriceps muscle, fascia and tendon, initial encounter Category: Medical Plan Mr. Flanagan is a 44-year-old male status post right quad tendon repair performed on 12/22/[address] Munroe. Unfortunately, the patient was ambulating around his vehicle and sustained a fall on 01/10/2025. He developed bruising on the medial aspect of the right knee. He has had increased pain. He has difficulty performing a straight leg raise is which was where he was at prior to this new injury. While in the office today, Dr. Munroe was available to see the patient with me in a collaborative treatment plan was created. At this time the patient is able to engage his quad muscle but does have significant weakness attempting straight leg raise. At this time there is no palpable defect over the quad tendon repair. However, we will keep a close eye on the patient to see how he is doing and recovering. He was placed back into the ACL brace locked in extension. He we will continue attending physical therapy. He will continue using the brace locked in extension with the use of crutches to assist with ambulation. He will follow up in 1 week, sooner if needed. A refill of oxycodone-acetaminophen 5- 325 p.o. q.4-6 hours p.r.n. pain was sent to the pharmacy. X-rays of the BODYPART which were obtained while in the office today and were reviewed by me, Leticia Jones PA-C, revealed no acute fracture or dislocation. No evidence of patella baja or [place]. Orders: Orders XR knee RT 2V Today M25.569 - Pain in unspecified knee Medications: Refilled oxycodone-acetaminophen 5-325 mg Partial Fill upon patient request. 1 tab PO Q4-6H 7 days PRN 42 tabs 0RF pain Coding Level of Care Code Global (11410) Diagnoses Rupture of right quadriceps tendon S76.111A
--- OUTSIDE RECORDS SUMMARY | 2025-01-14 09:56 | XMS_ITS | Encounter Summary ---
Author Organization [employer] Address [address] [facility] [address] [place] [address] Care Team Providers Care Electric Meter Setter Name Role Phone Aubree Matute MD Primary Care Provide r Encounter Details Date Type Department Care Team (Late Contact Info) Description 03/08/2023 Orders Only [facility] PEDS [address], [place] [phone] Astrid Irvin LPN Social History Tobacco Use [...] Description 02/04/2025 1:15 PM EDT Office Visit [facility] MEDICINE [address] [place], [place] [id number] Aubree Matute MD [address] [place], [place] [phone] documented as of this encounter Visit Diagnoses Not on filedocumented in this encounter Additional Health Concerns Assessment Noted Time PHQ-9 Depression Total Score: 13 023 1:12 PM EDT documented as of this encounter Care Teams Electric Meter Setter Relationship Specialty Start Date End Date Aubree Matute MD [address] [place] [address] PCP - General Family Medicine 11/10/19 documented as of this encounter
--- OUTSIDE RECORDS SUMMARY | 2025-01-14 09:56 | XMS_ITS | Encounter Summary ---
Author Organization [employer] Address [address] [facility] [address] [place] [address] Care Team Providers Care Bright Cutter Name Role Phone Aubree Matute MD Primary Care Provide r Encounter Details Date Type Department Care Team (Late Contact Info) Description 03/26/2023 Orders Only [facility] MED & PEDS [address] [place], [place] [phone] Astrid Irvin LPN Social History Tobacco Use [...] Description 02/04/2025 1:15 PM EDT Office Visit [facility] MEDICINE [address] [place], [place] [phone] Aubree Matute MD [address] [place], [place] [phone] documented as of this encounter Visit Diagnoses Not on filedocumented in this encounter Additional Health Concerns Assessment Noted Time PHQ-9 Depression Total Score: 13 023 1:12 PM EDT documented as of this encounter Care Teams Bright Cutter Relationship Specialty Start Date End Date Aubree Matute MD [address] [place] [address] PCP - General Family Medicine 11/10/19 documented as of this encounter
--- OUTSIDE RECORDS SUMMARY | 2025-01-14 09:57 | XMS_ITS | Clinical Summary ---
Author Organization [address] [facility] Address [address] [place] [address] Phone Care Team Providers Care Fruit Farmworker Name Role Phone Aubree Matute MD Primary Care Provide r Medications amitriptyline (ELAVIL) 25 mg tablet Take 1 tablet (25 mg total) by mouth at bedtime. Active insulin glargine,hum.re c.anlog (Basaglar KwikPen U-100 Insulin) 100 unit/mL (3 mL) injection pen Inject 100 Units under the skin at bedtime. Active blood-glucose meter,continuou s (Dexcom G7 Childbirth Educator) misc Activ e cyclobenzaprine (FLEXERIL) 10 mg [...] hyperglycemia, with long-term current use of insulin ([facility] V24, [facility] V28) 07/06/2024 Diabetic polyneuropathy asso ciated with type 2 diabetes mellitus ([facility] V24, [facility] V28) 07/06/2024 Cigarette smoker 07/06/2024 [...] Insurance MEDICARE MEDICAID - [place] Care Teams Fruit Farmworker Relationship Specialty Start Date End Date Aubree Matute MD [address] [phone] PCP - General 04/20/24
--- OUTSIDE RECORDS SUMMARY | 2025-01-14 09:57 | XMS_ITS | Clinical Summary ---
Author Organization [employer] Address [address] [place] [address] Care Team Providers Care Custodian Name Role Phone Aubree Matute MD Primary Care Provide r Allergies Active Allergy Reactions Criticality Noted Date Comments Penicillins Angioedema High 09/01/2015 Other reaction(s): Hives/Skin Rash Medications * This document contains information received from the source organization and may not represent a complete record from that organization. 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) device USE DIRECTED 024 Active FLUoxetine (PROzac) 20 MG capsuleIndicatio ns:Mixed anxiety and depressive disorder TAKE 1 CAPSULE BY MOUTH EVERY MORNING 30 capsule 2 Active glipiZIDE XL (Glucotrol XL) 10 MG 24 hr tabletIndication s:Type 2 diabetes mellitus without complication, without long-term current use of insulin ([facility]) TAKE 1 TABLET BY MOUTH TWICE DAILY WITH BREAKFAST AND WITH DINNER 180 tablet 3 024 Active Invokana 300 MGIndications:Ty pe 2 diabetes mellitus with hyperglycemia, with long-term current use of insulin ([facility]) TAKE 1 TABLET BY MOUTH EVERY DAY BEFORE BREAKFAST 30 tablet 11 024 Active semaglutide (Ozempic) 2 MG/1.5ML solution pen-injectorIndi cations:Type 2 diabetes mellitus with hyperglycemia, with long-term current use of insulin ([facility]) Inject 1 mg under the skin 1 (one) time per week. 2 each 12 024 Active FLUoxetine (PROzac) 40 MG capsuleIndicatio ns:Mixed anxiety and depressive disorder Take 1 capsule (40 mg) by mouth Once per day. 30 capsule 11 024 2024 Active gabapentin (Neurontin) 100 MG capsuleIndicatio ns:Diabetic polyneuropathy associated with type 2 diabetes mellitus ([facility]) Take 3 capsules (300 mg) by mouth every 8 (eight) hours. 270 capsule 11 024 2024 Active Multiple Vitamin (Multivitamin) tablet TAKE 1 TABLET BY MOUTH EVERY DAY 90 tablet 3 024 Active metFORMIN (Glucophage) 500 MG tabletIndication s:Type 2 diabetes mellitus with hyperglycemia, with long-term current use of insulin ([facility]) TAKE 2 TABLETS BY MOUTH TWICE DAILY 360 tablet 1 024 Active amitriptyline (Elavil) 25 MG tabletIndication s:Other chronic pain TAKE 1 TABLET BY MOUTH AT BEDTIME FOR PAIN 30 tablet 3 025 Active Basaglar KwikPen 100 UNIT/ML penIndications:T ype 2 diabetes mellitus with hyperglycemia, with long-term current use of insulin ([facility]) INJECT 16 UNITS SUBCUTANEOUSLY EVERY DAY AT BEDTIME 15 mL 2 025 Active insulin pen needle (UltiCare Pen Ferndale) 29G x 12.7mm misc Inject under the [...] not trigger notification to Pharmacy)) UltiCare Pen [place] 29G X 12.7MM misc USE EVERY DAY [...] Noted Date Diagnosed Date Diabetic polyneuropathy lilliana stone with type 2 diabetes mellitus 04/02/2024 Colon [...] Encounters Date Type Department Care Team Description 01/10/2025 Orders Only [facility] External Provider, [facility] 01/07/2025 Refill [facility] [address] [place] [address] Aubree Matute MD Type 2 diabetes mellitus with hyperglycemia ([facility]) 12/29/2024 Travel 12/29/[address] [address] Aubree Matute MD Call Back Request 12/25/2024 Refill [facility] [address] [place] [address] Aubree Matute MD Type 2 diabetes mellitus with hyperglycemia ([facility]) 12/25/2024 Orders Only [facility] [address] [place] [address] Aubree Matute MD Type 2 diabetes mellitus with hyperglycemia ([facility]) 12/25/2024 Orders Only [facility] [address] [place] [address] Aubree Matute MD Type 2 diabetes mellitus with hyperglycemia ([facility]) 12/23/2024 Patient Outreach [facility] [address] [place] [phone] Aubree Matute MD Pre-visit Planning (LVM) 12/23/2024 Orders Only GENERIC EXTERNAL DATA DEPARTMENT Provider, Generic External Data 12/22/2024 Orders Only GENERIC EXTERNAL DATA DEPARTMENT Provider, Generic External Data 12/12/2024 Orders Only [facility] External Provider, [facility] 11/30/2024 Telephone [facility] [address] [place] [address] Aubree Matute MD Nurse Triage 11/08/2024 Refill [facility] [address] [place] [address] Aubree Matute MD Type 2 diabetes mellitus with hyperglycemia (CMS/HCC) 11/06/2024 Population Health Risk Score [facility] () Department [address] [place] [phone] Provider, Population Health Generic from Last [...] Description 02/04/2025 1:15 PM EDT Office Visit [facility] [address] [place] [phone] Aubree Matute MD [address] [place] [address] Health Maintenance Due Date Last Done Comments CT Colonography 1978 Colonoscopy 1978 Colorectal Cancer Screening 1978 FIT DNA/Cologuard 1978 FIT 1978 FOBT 1978 HIV Screening 1978 Sigmoidoscopy 1978 Disability Screening 1978 Diabetes: Foot Exam 1988 Alcohol/Substance Use Screening 1990 Family Planning (PISQ) 1993 Hepatitis C Screening 1996 Diabetes: Urine Protein Screening 1997 Hepatitis B Vaccines (3 of 3 - 19+ 3-dose series) 06/19/2016 02/17/2016, 12/19/2015 Depression Screening 03/07/2024 03/07/2023, 03/07/20 23 SDOH Screening 03/07/2024 03/07/2023 COVID-19 Vaccine (3 - 2023- season) 2024 09/23/2021, 09/02/2021 Influenza Vaccine (#1) [...] Procedure Name Priority Date/Time Associated Diagnosis Comments US VENOUS DUPLEX LE RT Routine 01/10/2025 7:32 PM EDT GLUCOSE, WHOLE BLOOD Routine 01/10/2025 4:[address] KNEE WO CONTRAST RIGHT Routine 01/10/2025 3:40 PM EDT GLUCOSE, WHOLE BLOOD Routine 01/10/2025 3:07 PM EDT XR KNEE 4+ VIEWS RIGHT Routine 01/10/2025 1:20 PM EDT GLUCOSE, WHOLE BLOOD Routine 12/23/2024 6:57 AM [...] hyperglycemia, with long-term current use of insulin ([facility]) Essential hypertension from Last 3 Months or Most Recently Relevant to Health Maintenance Results * US VENOUS DUPLEX LE RT (01/10/2025 7:32 PM EDT) Anatomical Region Laterality Modality Abdomen Ultrasound 01/10/2025 7:32 PM EDT Narrative 01/10/2025 7:33 PM EDT ? [facility] ?[address] ?[place] [address] ? Ultrasound Report ? Signed ? Patient: Flanagan,Pineville ?MR#: [id number] ?? [id number] ? : 1980 ?Acct:[id number] ? Age/Sex: 44 / M ?ADM Date: 01/10/25 ? Loc: HO.ED ? Attending Dr: ? Ordering Physician: Jose Hodgson MD ?? Date of Service: 01/10/25 ?? Procedure(s): US venous duplex LE RT ?? Accession Number(s): [id number] ? cc: Aubree Matute MD; Jose Hodgson MD ? CLINICAL HISTORY: Recent knee surgery, increased swelling, R O DVT ? Venous duplex ultrasound right lower extremity ? Comparison: US/SR - US VENOUS DUPLEX LE LT - 05/31/23 02:04 EDT ? Findings: ?? The visualized deep veins are fully compressible with normal Doppler color ?? flow and spectral tracings. ?? No popliteal cyst. Right inguinal lymph nodes measuring 28 mm and 14 mm. ? IMPRESSION: ?? 1. Negative for right lower extremity deep vein thrombosis. ?? 2. Right inguinal adenopathy. ? This document has been electronically signed by: Corazon Weber MD on ?? 01/10/2025 19:32:08 ? Dictated By: ?Corazon Weber MD ? Signed By: ?<Electronically signed by Corazon Weber MD in OV> ? 01/10/25 1933 ? DD/ 31 ? TD/TT: 01/10/251931 ? [employer]ute [employer] Supervisor: ? Procedure Note Georgiana Palmer - 01/11/[address] [address] Ultrasound Report Signed Patient: Lashonda Flanaganvilma#: [id number] : 1980Acct:[id number] Age/Sex: 44 / MADM Date: 01/10/25 Loc: HO.ED Attending Dr: Ordering Physician: Jose Hodgson MD Date of Service: 01/10/25 Procedure(s): US venous duplex LE RT Accession Number(s): [id number] cc: Aubree Matute MD; Jose Hodgson MD CLINICAL HISTORY: Recent knee surgery, increased swelling, R O DVT Venous duplex ultrasound right lower extremity Comparison: US/SR - US VENOUS DUPLEX LE LT - 05/31/23 02:04 EDT Findings: The visualized deep veins are fully compressible with normal Doppler color flow and spectral tracings. No popliteal cyst. Right inguinal lymph nodes measuring 28 mm and 14 mm. IMPRESSION: 1. Negative for right lower extremity deep vein thrombosis. 2. Right inguinal adenopathy. This document has been electronically signed by: Corazon Weber MD on 01/10/2025 19:32:08 Dictated By: Corazon Weber MD Signed By: <Electronically signed by Corazon Weber MD in OV> 01/10/251932 DD/ 31 TD/TT: 01/10/251931 [employer] Supervisor: [facility] External Provider IMG US PROCEDURES Edited Result - Final * (ABNORMAL) Glucose, Whole Blood (01/10/2025 4:43 PM EDT) Only the most recent of6 resultswithin the time period is included. Glucose, Whole Blood 347(H) 60 - 115 mg/dL [facility] Comment:METER #: [id number] 01/10/2025 4:43 PM EDT 01/10/2025 4:46 PM EDT Generic External Data Provider LAB BLOOD ORDERAB LES Final Result [facility] [address] [place] [phone] * CT Knee w/o Contrast Right (01/10/2025 3:40 PM EDT) Only the most recent of2 resultswithin the time period is included. Anatomical Region Laterality Modality Lower Extremities, Knee Right Computed Tomography 01/10/2025 3:40 PM EDT Narrative 01/10/2025 3:42 PM EDT ? [facility] ?[address] ?[place] [address] ? CT Scan Report ? Signed ? Patient: Flanagan,Pineville ?MR#: [id number] ?? [id number] ? : 1980 ?Acct:[id number] ? Age/Sex: 44 / M ?ADM Date: 01/10/25 ? Loc: HO.ED ? Attending Dr: ? Ordering Physician: Ephraim Carter MD ?? Date of Service: 01/10/25 ?? Procedure(s): CT knee RT wo IV con ?? Accession Number(s): [id number] ? cc: Aubree Matute MD; Ephraim Carter MD ? Report Number: ?? [id number]: Total DLP = ??158.00 mGy-cm ? CLINICAL HISTORY: KNEE TRAUMA ? CT knee without contrast ? Comparison: 12/11/2024 ? Findings: ?? There are 2 new surgical tracts within the patella likely secondary to ?? quadriceps tendon repair. ?? There are multiple small bone fragments superior to the patella. Two new ?? fragments adjacent to the surgical tracts are most likely secondary to ?? interval surgery. Multiple additional fragments are without significant ?? change. There is severe edema of the soft tissues with worsening and there ?? is a small hemarthrosis. ?? There are minimal arthritic changes. ? Impression: ?? 1. No acute bony abnormality. ?? 2. Small hemarthrosis. ?? 3. Severe edema of the soft tissues. ? This document has been electronically signed by: Neris Forte MD on ?? 01/10/2025 15:40:45 ? Dictated By: ?Neris Forte MD ? Signed By: ?<Electronically signed by Neris Forte MD in OV> ? 01/10/25 1542 ? DD/ 1540 ? TD/TT: 01/10/25 1540 ? [employer] Supervisor: ? Procedure Note Spencer, Georgiana - 01/11/[address] [address] [address] Scan Report Signed Patient: Delonte FlanaganMR#: [id number] : 1980Acct:[id number] Age/Sex: 44 / MADM Date: 01/10/25 Loc: HO.ED Attending Dr: Ordering Physician: Ephraim Carter MD Date of Service: 01/10/25 Procedure(s): CT knee RT wo IV con Accession Number(s): [id number] cc: Aubree Matute MD; Ephraim Carter MD Report Number: [id number]: Total DLP = 158.00 mGy-cm CLINICAL HISTORY: KNEE TRAUMA CT knee without contrast Comparison: 12/11/2024 Findings: There are 2 new surgical tracts within the patella likely secondary to quadriceps tendon repair. There are multiple small bone fragments superior to the patella. Two new fragments adjacent to the surgical tracts are most likely secondary to interval surgery. Multiple additional fragments are without significant change. There is severe edema of the soft tissues with worsening and there is a small hemarthrosis. There are minimal arthritic changes. Impression: 1. No acute bony abnormality. 2. Small hemarthrosis. 3. Severe edema of the soft tissues. This document has been electronically signed by: Neris Forte MD on 01/10/2025 15:40:45 Dictated By: Neris Forte MD Signed By: <Electronically signed by Neris Forte MD in OV> 01/10/25 1542 DD/ 1540 TD/TT: 01/10/25 1540 [employer] Supervisor: [facility] External Provider IMG CT PROCEDURES Edited Result - Final * XR Knee 4+ Views Right (01/10/2025 1:20 PM EDT) Anatomical Region Laterality Modality Lower Extremities, Knee Right Radiogra phic Imaging 01/10/2025 1:20 PM EDT Narrative 01/10/2025 1:21 PM EDT ? [place] [facility] ?[address] ?[place] [address] ?XRay Report ? Signed ? Patient: Flanagan,Pineville ?MR#: [id number] ?? [id number] ? : 1980 ?Acct:[id number] ? Age/Sex: 44 / M ?ADM Date: 01/10/25 ? Loc: HO.ED ? Attending Dr: ? Ordering Physician: Ephraim Carter MD ?? Date of Service: 01/10/25 ?? Procedure(s): XR knee RT 4V ?? Accession Number(s): [id number] ? cc: Aubree Matute MD; Ephraim Carter MD ? CLINICAL HISTORY: TRAUMA ? 4 view right knee ? Comparison: CT/SR - CT KNEE RT WO IV CON - 12/12/24 02:46 EDT ?? CR/NE - XR KNEE RT 4V - 12/12/24 00:48 EDT ? Findings: ?? Multiple small bone fragments superior to the patella in the region of the ?? quadriceps tendon insertion, without significant change. No new fracture. ?? No dislocation. Severe anterior soft tissue edema. ?? No significant arthritic change or erosions. ?? There is a small knee effusion. ?? No radiopaque foreign body. ? IMPRESSION: ?? 1. Avulsed bone fragments in the region of the quadriceps tendon ?? insertion, similar to the prior CT. No new fracture identified. ?? 2. There is a small knee effusion. ? This document has been electronically signed by: Neris Forte MD on ?? 01/10/2025 13:20:04 ? Dictated By: ?Neris Forte MD ? Signed By: ?<Electronically signed by Neris Forte MD in OV> ? 01/10/25 1321 ? DD/ 1320 ? TD/TT: 01/10/25 1320 ? [employer] Supervisor: ? Procedure Note Spencer, Georgiana - 01/11/[address] [address] XRay Report Signed Patient: Delonte FlanaganMR#: [id number] : 1980Acct:[id number] Age/Sex: 44 / MADM Date: 01/10/25 Loc: HO.ED Attending Dr: Ordering Physician: Ephraim Carter MD Date of Service: 01/10/25 Procedure(s): XR knee RT 4V Accession Number(s): [id number] cc: Aubree Matute MD; Ephraim Carter MD CLINICAL HISTORY: TRAUMA 4 view right knee Comparison: CT/SR - CT KNEE RT WO IV CON - 12/12/24 02:46 EDT CR/NE - XR KNEE RT 4V - 12/12/24 00:48 EDT Findings: Multiple small bone fragments superior to the patella in the region of the quadriceps tendon insertion, without significant change. No new fracture. No dislocation. Severe anterior soft tissue edema. No significant arthritic change or erosions. There is a small knee effusion. No radiopaque foreign body. IMPRESSION: 1. Avulsed bone fragments in the region of the quadriceps tendon insertion, similar to the prior CT. No new fracture identified. 2. There is a small knee effusion. This document has been electronically signed by: Neris Forte MD on 01/10/2025 13:20:04 Dictated By: Neris Forte MD Signed By: <Electronically signed by Neris Forte MD in OV> 01/10/25 1321 DD/ 1320 TD/TT: 01/10/25 1320 [employer]achute [employer] Supervisor: [facility] External Provider IMG XR PROCEDURES Edited Result - Final * (ABNORMAL) Basic Metabolic Panel, Fasting (12/23/2024 5:23 AM EDT) Sodium 135 135 - 145 mmol/L [facility] Potassium 4.0 3.3 - 5.1 mmol/L [facility] Chloride 99 96 - 108 mmol/L [facility] Carbon Dioxide 29 22 - 29 mmol/L [facility] Anion Gap 11(L) 12 - 20 [facility] Urea Nitrogen (BUN) 15 9 - 16 mg/dL [facility] Creatinine, Serum 0.80 0.5 - 1.4 mg/dL [facility] Creatinine Clr Calc Pharmacy 154.3 [facility] Comment:eGFR (calculated fro m the MDRD study equation) and eCrCl(calculated from the Cockcroft-Gault equation) are based ondifferent parameters and may not yield comparable results.If eCrCl result is absurd, please check patient'sheight/weight. Estimated Glomerular Filt Rate >60 [facility] Comment:Chronic Kidney Disea se: Estimated GFR < 60 mL/min/1.79x3Livrdy Kidney Disease: Estimated GFR < 15 mL/min/1.73m2 Glucose Fasting 315(H) 60 - 99 mg/dL [facility] Comment:A fasting glucose of 126 mg/dl or greater on more than oneoccasion is considered diagnostic of diabetes. Calcium 9.0 8.4 - 10.2 mg/dL [facility] 12/23/2024 5:23 AM EDT 12/23/2024 6:17 AM EDT us Generic External Data Provider LAB BLOOD ORDERAB LES Final Result [facility] [address] [place] [phone] * (ABNORMAL) CBC auto differential (12/23/2024 5:23 AM EDT) White Blood Count 12.0(H) 4.8 - 10.8 X10*3/uL [facility] Red Blood Count 5.19 4.60 - 5.80 X10*6/uL [facility] Hemoglobin 14.9 14.0 - 18.0 g/dl [facility] Hematocrit 44.4 42.0 - 52.0 % [facility] Mean Corpuscular Volume 85.5 80.0 - 98.0 fL [facility] Mean Corpuscular Hemoglobin 28.7 27.0 - 33.0 pg [facility] Mean Corpuscular HGB Conc 33.6 31.0 - 36.0 g/dl [facility] Red Cell Distribution Width 12.9 11.0 - 16.0 % [facility] Platelet Count 201 160 - 400 X10*3/uL [facility] Mean Platelet Volume 11.2 9.4 - 12.4 fL [facility] Neutrophils Percent Auto 63.8 45 - 73 % [facility] Imm Gran Pct Auto 0.8(H) 0.0 - 0.4 % [facility] Lymphocytes Percent Auto 25.3 20 - 40 % [facility] Monocytes Percent Auto 8.0 2 - 11 % [facility] Eosinophils Percent Auto 1.8 0 - 4 % [facility] Basophils Percent Auto 0.3 0 - 2 % [facility] NRBC Pct Auto 0.0 0.0 - 0.2 /100WBC [facility] Neutrophils Absolute Auto 7.6 2.0 - 8.3 x10*3/uL [facility] Imm Gran Abs Auto 0.09(H) 0.00 - 0.03 X10*3/uL [facility] Lymphocytes Absolute Auto 3.0 1.2 - 4.9 X10*3/uL [facility] Monocytes Absolute Auto 1.0 0.1 - 1.2 X10*3/uL [facility] Eosinophils Absolute Auto 0.2 0.0 - 0.4 X10*3/uL [facility] Basophils Absolute Auto 0.0 0.0 - 0.2 X10*3/uL [facility] NRBC Abs Auto 0.000 0.0 - 0.012 X10*3/uL [facility] 12/23/2024 5:23 AM EDT 12/23/2024 6:17 AM EDT us Generic External Data Provider LAB BLOOD ORDERAB LES Final Result Performing Organization Address [facility] Co de Phone Number [facility] [address] [place] [phone] * TSH with Reflex to Free T4 (12/22/2024 9:33 PM EDT) TSH reflex Free T4 0.81 0.32 - 4.0 uIU/mL [facility] 12/22/2024 9:33 PM EDT 12/22/2024 9:36 PM EDT us Generic External Data Provider LAB BLOOD ORDERAB LES Final Result [facility] [address] [place] [phone] * Magnesium (12/22/2024 9:33 PM EDT) Pathologist [facility] Magnesium 1.6 1.6 - 2.6 mg/dL [facility] 12/22/2024 9:33 PM EDT 12/22/2024 9:36 PM EDT Generic External Data Provider LAB BLOOD ORDERAB LES Final Result Performing Organization Address [facility] Co de Phone Number [facility] [address] [place] [phone] * (ABNORMAL) Hemoglobin A1c (12/22/2024 9:33 PM EDT) [facility] Hemoglobin A1c 12.0(H) <6.0 % [facility] Comment:Hemoglobin A1C Refer ence Range Adults: 4.8 - 6.0 % Non diabetic: < 6.0 % Goal: < 7.0 %Additional Action Suggested: > 8.0 %Note: Hemoglobin A1c results are invalid for patients with abnormal amounts of HbF. Blood transfusions may impact the HbA1c concentration in the patient sample. Estimated Average Glucose 298 mg/dL [facility] Comment:eAG = Estimated ave rage glucose which is %A1C expressed asaverage glucose, using the formula of the G1P-PgtwyudBesmpct Glucose study (ADAG), Diabetes Care, Vol.31,#8,Mar. 2007 12/22/2024 9:33 PM EDT 12/22/2024 9:36 PM EDT Generic External Data Provider LAB BLOOD ORDERAB LES Final Result Performing Organization Address [facility] Co de Phone Number [facility] [address] [place] [phone] * (ABNORMAL) Comprehensive Metabolic Panel (12/22/2024 9:33 PM EDT) Pathologist [facility] Sodium 134(L) 135 - 145 mmol/L [facility] Potassium 4.5 3.3 - 5.1 mmol/L [facility] Chloride 97 96 - 108 mmol/L [facility] Carbon Dioxide 27 22 - 29 mmol/L [facility] Anion Gap 15 12 - 20 [facility] Urea Nitrogen (BUN) 14 9 - 16 mg/dL [facility] Creatinine, Serum 0.90 0.5 - 1.4 mg/dL [facility] Creatinine Clr Calc Pharmacy 137.2 [facility] Comment:eGFR (calculated fro m the MDRD study equation) and eCrCl(calculated from the Cockcroft-Gault equation) are based ondifferent parameters and may not yield comparable results.If eCrCl result is absurd, please check patient'sheight/weight. Estimated Glomerular Filt Rate >60 [facility] Comment:Chronic Kidney Disea se: Estimated GFR < 60 mL/min/1.50l2Vqgmwv Kidney Disease: Estimated GFR < 15 mL/min/1.73m2 Glucose 377(HH) 60 - 115 mg/dL [facility] Comment:Critical GLUR sent b y a secure message and confirmed Trinh GAUTHIER 12-22-245 Tech:KUSF Calcium 9.4 8.4 - 10.2 mg/dL [facility] Bilirubin, Total 0.9 0.0 - 1.0 mg/dL [facility] Aspartate Amino Transferase 65(H) 5 - 37 U/L [facility] Alanine Aminotransferase 71(H) 0 - 40 U/L [facility] Total Protein 7.0 6.5 - 8.0 g/dL [facility] Albumin Level 3.6 3.5 - 5.0 g/dL [facility] Alkaline Phosphatase 89 39 - 117 U/L [facility] 12/22/2024 9:33 PM EDT 12/22/2024 9:36 PM EDT us Generic External Data Provider LAB BLOOD ORDERAB LES Final Result [facility] [address] [place] [phone] * (ABNORMAL) Lipid Panel with Reflex to Direct LDL (04/02/2024 2:00 PM EDT) Triglycerides 180(H) <150 mg/dL [facility] Comment:Desirable Triglyceri de: less than 150 mg/dLBorderline High Triglyceride 150-199 mg/dLHigh Triglyceride: 200-499 mg/dLVery High Triglyceride: greater than or equal to 5OO mg/dL Cholesterol 198 <200 mg/dL [facility] Comment:Desirable Cholestero l: less than 200 mg/dLBorderline High Cholesterol: 200-239 mg/dLHigh Cholesterol: greater than 239 mg/dL LDL Cholesterol Calculated 128(H) <100 mg/dL [facility] Comment:Desirable LDL: less than 100 mg/dLNear Optimal/Above Optimal LDL: 110- 129 mg/dLBorderline High LDL: 130-159 mg/dLHigh LDL: 160-189 mg/dLVery High LDL: greater than or equal to 190 mg/dL HDL Cholesterol 34(L) >40 mg/dL [facility] Comment:Desirable HDL: great er than 40 mg/dL Note: This HDL assay may give artificially low results in patients with liver disease. Blood 04/02/2024 2:00 PM EDT 04/02/2024 4:11 PM EDT us Aubree Ramirez MD LAB BLOOD ORDERABLES Final Result [facility] [address] [place] [address] [phone] from Last 3 Months or Most Recently Relevant to Health Maintenance Insurance MEDICARE [facility] STANDARD Care Teams Custodian Relationship Specialty Start Date End Date Aubree Matute MD [address] [place] [phone] PCP - General Family Medicine 11/10/19
--- OUTSIDE RECORDS SUMMARY | 2025-01-14 09:57 | XMS_ITS | Encounter Summary ---
Author Organization [employer] Address [address] [facility] 7t [place] [address] Care Team Providers Care Manager Clinical Name Role Phone Aubree Matute MD Primary Care Provide r Reason for Visit * Reason Onset Date Comments med b form 09/04/2022 Encounter Details Date Type Department Care Team (Late st Contact Info) Description 09/04/2022 Telephone [facility] [address] [place] [address] [phone] Aubree Matute MD [address] [place], [place] [phone] med b form Social History Tobacco Use [...] Department Care Team (Late Contact Info) Description 02/04/2025 1:15 PM EDT Office Visit [facility] [address] [place] [address] [phone] Aubree Matute MD [address] [place] [address] documented as of this encounter Visit Diagnoses Not on filedocumented in this encounter Care Teams Manager Clinical Relationship Specialty Start Date End Date Aubree Matute MD [address] [place], [place] [phone] PCP - General Family Medicine 11/10/19 documented as of this encounter
--- OUTSIDE RECORDS SUMMARY | 2025-01-14 09:57 | XMS_ITS | Encounter Summary ---
Author Organization [employer] Address [address] [facility] [address] 7t [place] [address] Care Team Providers Care Director Of Marketing Operations Name Role Phone Aubree Matute MD Primary Care Provide r Encounter Details Date Type Department Care Team (Late st Contact Info) Description 01/10/2025 Orders Only [facility] External Provider, [facility] Social History Tobacco Use Types Packs/Day [...] Description 02/04/2025 1:15 PM EDT Office Visit [facility] [address] [place] [address] Aubree Matute MD [address] [place], [place] [phone] documented as of this encounter Procedures Procedure Name Priority Date/Time Associated Diagnosis Comments US VENOUS DUPLEX LE RT Routine 01/10/2025 7:32 PM EDT GLUCOSE, WHOLE BLOOD Routine 01/10/2025 4:[address] KNEE WO CONTRAST RIGHT Routine 01/10/2025 3:40 PM EDT GLUCOSE, WHOLE BLOOD Routine 01/10/2025 3:07 PM EDT XR KNEE 4+ VIEWS RIGHT Routine 01/10/2025 1:20 PM EDT documented in this encounter Results * US VENOUS DUPLEX LE RT (01/10/2025 7:32 PM EDT) Anatomical Region Laterality Modality Abdomen Ultrasound 01/10/2025 7:32 PM EDT Narrative 01/10/2025 7:33 PM EDT ? [facility] ?[address] ?[place] [address] ? Ultrasound Report ? Signed ? Patient: Flanagan,Swink ?MR#: [id number] ?? [id number] ? : 1980 ?Acct:[id number] ? Age/Sex: 44 / M ?ADM Date: 05/18/25 ? Loc: HO.ED ? Attending Dr: ? Ordering Physician: Jose Hodgson MD ?? Date of Service: 01/10/25 ?? Procedure(s): US venous duplex LE RT ?? Accession Number(s): [id number] ? cc: Aubree Matute MD; Jose Hodgson [...] ? DD/ 31 ? TD/TT: 01/10/251931 ? Elevator Builder: ? Procedure Note Spencer, Image - 01/11/2025 [place] [address] Ultrasound Report Signed Patient: Delonte FlanaganMR#: [id number] : 1980Acct:[id number] Age/Sex: 44 / MADM Date: 01/10/25 Loc: HO.ED Attending Dr: Ordering Physician: Jose Hodgson MD Date of Service: 01/10/25 Procedure(s): US venous duplex LE RT Accession Number(s): [id number] cc: Aubree Matute MD; Jose Hodgson MD [...] in OV> 01/10/251932 DD/ 31 TD/TT: 01/10/251931 Elevator Builder: us [facility] External Provider IMG US PROCEDURES Edited Result - Final * (ABNORMAL) Glucose, Whole Blood (01/10/2025 4:43 PM EDT) Glucose, Whole Blood 347(H) 60 - 115 mg/dL [facility] Comment:METER #: [id number] 01/10/2025 4:43 PM EDT 01/10/2025 4:46 PM EDT Generic External Data Provider LAB BLOOD ORDERAB LES Final Result [facility] [address] [place] [address] [phone] * CT Knee w/o Contrast Right (01/10/2025 3:40 PM EDT) Anatomical Region Laterality Modality Lower Extremities, Knee Right Computed Tomography 01/10/2025 3:40 PM EDT Narrative 01/10/2025 3:42 PM EDT ? [facility] ?[address] ?[place] [address] ? CT Scan Report ? Signed ? Patient: Flanagan,Swink ?MR#: [id number] ?? [id number] ? : 1980 ?Acct:[id number] ? Age/Sex: 44 / M ?ADM Date: 05/18/25 ? Loc: HO.ED ? Attending Dr: ? Ordering Physician: Ephraim Carter MD ?? Date of Service: 01/10/25 ?? Procedure(s): CT knee RT wo IV con ?? Accession Number(s): [id number] ? cc: Aubree Matute MD; Ephraim Carter MD ? Report Number: ?? [id number]: Total DLP = ??158.00 mGy-cm ? CLINICAL [...] DD/ 1540 ? TD/TT: 01/10/25 1540 ? Elevator Builder: ? Procedure Note Georgiana Palmer - 01/11/[address] [place] [address] [address] Scan Report Signed Patient: Delonte FlanaganMR#: [id number] : 1980Acct:[id number] Age/Sex: 44 / MADM Date: 01/10/25 Loc: HO.ED Attending Dr: Ordering Physician: Ephraim Carter MD Date of Service: 01/10/25 Procedure(s): CT knee RT wo IV con Accession Number(s): [id number] cc: Aubree Matute MD; Ephraim Carter MD Report Number: [id number]: Total DLP = 158.00 mGy-cm CLINICAL HISTORY: [...] 01/10/25 1542 DD/ 1540 TD/TT: 01/10/25 1540 Elevator Builder: [facility] External Provider IMG CT PROCEDURES Edited Result - Final * (ABNORMAL) Glucose, Whole Blood (01/10/2025 3:07 PM EDT) Glucose, Whole Blood 379(HH) 60 - 115 mg/dL [facility] Comment:METER #: [id number] 01/10/2025 3:07 PM EDT 01/10/2025 3:10 PM EDT Generic External Data Provider LAB BLOOD ORDERAB LES Final Result Performing Organization Address [facility]/State/[facility] Co de Phone Number [facility] [address] [place] [phone] * XR Knee 4+ Views Right (01/10/2025 1:20 PM EDT) Anatomical Region Laterality Modality Lower Extremities, Knee Right Radiogra phic Imaging 01/10/2025 1:20 PM EDT Narrative 01/10/2025 1:21 PM EDT ? [facility] ?[address] ?[place] [address] ?XRay Report ? Signed ? Patient: Flanagan,Swink ?MR#: [id number] ?? [id number] ? : 1980 ?Acct:[id number] ? Age/Sex: 44 / M ?ADM Date: 05/18/25 ? Loc: HO.ED ? Attending Dr: ? Ordering Physician: Ephraim Carter MD ?? Date of Service: 01/10/25 ?? Procedure(s): XR knee RT 4V ?? Accession Number(s): [id number] ? cc: Aubree Matute MD; Ephraim Carter MD ? CLINICAL HISTORY: TRAUMA ? 4 view right knee ? Comparison: CT/SR - CT KNEE RT WO IV CON - 12/12/24 02:46 EDT ?? CR/AZ - XR KNEE RT 4V - 12/12/24 [...] DD/ 1320 ? TD/TT: 01/10/25 1320 ? Elevator Builder: ? Procedure Note Spencer, Image - 01/11/2025 [place] [address] XRay Report Signed Patient: Delonte FlanaganMR#: [id number] : 1980Acct:[id number] Age/Sex: 44 / MADM Date: 01/10/25 Loc: HO.ED Attending Dr: Ordering Physician: Ephraim Carter MD Date of Service: 01/10/25 Procedure(s): XR knee RT 4V Accession Number(s): [id number] cc: Aubree Matute MD; Ephraim Carter MD CLINICAL HISTORY: TRAUMA 4 view right knee Comparison: CT/SR - CT KNEE RT WO IV CON - 4/19/25 02:46 EDT CR/AZ - XR KNEE RT 4V - 12/12/24 [...] 01/10/25 1321 DD/ 1320 TD/TT: 01/10/25 1320 Elevator Builder: [facility] External Provider IMG XR PROCEDURES Edited Result - Final documented in this encounter Visit Diagnoses Not on filedocumented in this encounter Additional Health Concerns Assessment Noted Time PHQ-9 Depression Total Score: 13 023 1:12 PM EDT documented as of this encounter Care Teams Director Of Marketing Operations Relationship Specialty Start Date End Date Aubree Matute MD [address] [place] [address] PCP - General Family Medicine 11/10/19 documented as of this encounter
--- OUTSIDE RECORDS SUMMARY | 2025-01-14 09:57 | XMS_ITS | Encounter Summary ---
Author Organization [employer] Address [address] [facility] [address] 7[address] [place] [address] Care Team Providers Care Retail Coordinator Name Role Phone Aubree Matute MD Primary Care Provide r Encounter Details Date Type Department Care Team ([facility] st Contact Info) Description 06/21/2023 Abstract [facility] [address] [place], [place] [phone] Aubree Matute MD 230 [place], [place] [phone] Social History Tobacco Use Types Packs/Day Years [...] 1:15 PM EDT Office Visit [facility] [address] [place] [phone] Aubree Matute MD [address] [place] [phone] documented as of this encounter Visit Diagnoses Not on filedocumented in this encounter Additional Health Concerns Assessment Noted Time PHQ-9 Depression Total Score: 13 023 1:12 PM EDT documented as of this encounter Care Teams Retail Coordinator Relationship Specialty Start Date End Date Aubree Matute MD [address] [place] [phone] PCP - General Family Medicine 11/10/19 documented as of this encounter
--- OUTSIDE RECORDS SUMMARY | 2025-01-14 09:57 | XMS_ITS | Encounter Summary ---
Author Organization [employer] Address [address] [facility] [address] 7t [place] [address] Care Team Providers Care Specimen Technician Name Role Phone Aubree Matute MD Primary Care Provide r Encounter Details Date Type Department Care Team ([facility] st Contact Info) Description 06/21/2023 Abstract [facility] [address] [place], [place] [phone] Aubree Matute MD 230 [place], [place] [phone] Social History Tobacco Use Types Packs/Day Years [...] 02/04/2025 1:15 PM EDT Office Visit [facility] [address] [place] [phone] Aubree Matute MD [address] [place] [phone] documented as of this encounter Visit Diagnoses Not on filedocumented in this encounter Additional Health Concerns Assessment Noted Time PHQ-9 Depression Total Score: 13 023 1:12 PM EDT documented as of this encounter Care Teams Specimen Technician Relationship Specialty Start Date End Date Aubree Matute MD [address] [place] [phone] PCP - General Family Medicine 11/10/19 documented as of this encounter
--- OUTSIDE RECORDS SUMMARY | 2025-01-14 09:57 | XMS_ITS | Encounter Summary ---
Author Organization [employer] Address [address] [facility] [address] 7[address] [place] [address] Care Team Providers Care Learning Strategist Name Role Phone Aubree Matute MD Primary Care Provide r Encounter Details Date Type Department Care Team ([facility] st Contact Info) Description 06/21/2023 Abstract [facility] [address] [place], [place] [phone] Aubree Matute MD 230 [place], [place] [phone] Social History Tobacco Use Types Packs/Day Years [...] Description 02/04/2025 1:15 PM EDT Office Visit [facility] [address] [place] [phone] Aubree Matute MD [address] [place] [phone] documented as of this encounter Visit Diagnoses Not on filedocumented in this encounter Additional Health Concerns Assessment Noted Time PHQ-9 Depression Total Score: 13 023 1:12 PM EDT documented as of this encounter Care Teams Learning Strategist Relationship Specialty Start Date End Date Aubree Matute MD [address] [place] [phone] PCP - General Family Medicine 11/10/19 documented as of this encounter
--- OUTSIDE RECORDS SUMMARY | 2025-01-14 09:57 | XMS_ITS | Encounter Summary ---
Author Organization [employer] Address [address] [facility] 7t [place] [address] Care Team Providers Care Supervisor Instant Potato Processing Name Role Phone Aubree Matute MD Primary Care Provide r Reason for Visit * Reason Comments Med Refill Encounter Details Date Type Department Care Team ([facility] st Contact Info) Description 07/24/2023 Refill [facility] 230 [place], [place] [phone] Aubree Matute MD 230 [place], [place] [phone] Anxiety Social History Tobacco Use Types Packs/Day [...] 1:15 PM EDT Office Visit [facility] [address] [place] [phone] Aubree Matute MD 230 [place] [address] documented as of this encounter Visit Diagnoses Diagnosis Anxiety Anxiety state, unspecified documented in this encounter Additional Health Concerns Assessment Noted Time PHQ-9 Depression Total Score: 13 023 1:12 PM EDT documented as of this encounter Care Teams Supervisor [employer] Potato Processing Relationship Specialty Start Date End Date Aubree Matute MD [address] [place] [phone] PCP - General Family Medicine 11/10/19 documented as of this encounter
== END 2025-01-14 10:32 | disposition home or self-care (01) ==
LOC: HO.HOS 09:39
PROVIDERS: PCP Internal Medicine; Visit Provider Physician Assistant
DX: S76.111A Strain of right quadriceps muscle, fascia and tendon, initial encounter (principal)
CPT/HCPCS: 99024

== ENCOUNTER → 2025-01-14 10:13 | Outpatient (BNV) | payer MEDICARE, MEDICAID, SELFPAY | PROVIDERS: PCP Internal Medicine; Visit Provider Radiology Diagnostic Radiology | DX: M25.561 Pain in right knee (principal) | CPT/HCPCS: 73560 ==

== ENCOUNTER 2025-01-21 12:52 | Outpatient (AMB) | payer MEDICARE, MEDICAID, SELFPAY ==
--- OUTSIDE RECORDS SUMMARY | 2025-01-21 12:55 | XMS_ITS | Encounter Summary ---
Author Organization [email or web address] Address 75 [facility] 7t [place] [address] Care Team Providers Care Medical Detailist Name Role Phone Aubree Matute MD Primary Care Provide r Reason for Visit * Reason Onset Date Comments Appointment Request 01/19/2025 Encounter Details Date Type Department Care Team ([facility] st Contact Info) Description 01/19/2025 Telephone [facility] 230 [place], [place] [phone] Aubree Matute MD 230 [place], [place] [phone] Appointment Request Social History Tobacco Use Types Packs/Day Years [...] encounter Miscellaneous Notes * Telephone Encounter - Marychuybarbraa Vidales - 01/19/2025 1:31 PM EDT Called PT to let them know that the appt for 02/04/25 is cancelled due to PCP not being in. NA\LVM If PT calls back please book a PE PCP: Karey Appt Slot: any PE available. Appt Notes: annual pt hx of mh and rx in 2023. Call for be, if needed. documented in this encounter Plan of Treatment Not on file documented as of this encounter Visit Diagnoses Not on filedocumented in this encounter Additional Health Concerns Assessment Noted Time PHQ-9 Depression Total Score: 13 023 1:12 PM EDT documented as of this encounter Care Teams Medical Detailist Relationship Specialty Start Date End Date Aubree Matute MD [address] [place] [address] PCP - General Family Medicine 11/10/19 documented as of this encounter
--- NOTE | 2025-01-21 12:57 | A.OFFVIS_ITS ---
Intake Visit Reasons: PO RT quad tendon repair 12/22/24 NE-DOI 01/10/25 Intake Note: Delonte is a 44 year old male who presents today with his for a post op appointment s/p right quad tendon repair 12/22/24 NE. DOI 01/10/25. At his last visit he was recommend to keep going to physical therapy and use his ACL brace locked in extension with crutches. Patient reports he is doing better today. He has noticed some bruising around the incision area. Allergies Penicillins Allergy (Severe, Verified 01/21/25 13:07) angioedema and SOB HPI HPI PO RT quad tendon repair 12/22/24 NE-DOI 01/10/25: Details: Ms. Flanagan is a 44-year-old male who presents to the office today status post right quad tendon repair performed on 12/22/[address] Munroe. Unfortunately, during his recovery he did sustain another injury where his right leg gave out on him. Date of new injury was 01/10/2025. He was seen in the office roughly 1 week ago immediately after the injury. At that time he had si gnificant bruising and a large effusion. He has continued to remain in the ACL brace locked in extension. He does admit to performing some knee bending. This was encouraged to the patient to avoid. He continues to have difficulty engaging the quad and is unable to perform a straight leg raise. [facility] Medical History FANY (obstructive sleep apnea) HTN (hypertension) Asthma Diabetes Surgical History Hx of appendectomy Family History Father No problems noted. Mother No problems noted. 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 No surrounding erythema or drainage. No signs of infection. Patient is able to engage his quad muscle with significant weakness. Unable to perform a straight leg raise. Questionable topical deformity at the quad tendon insertion along the medial aspect. NVI. Assessment & Plan Assessment & Plan (1) Rupture of right quadriceps tendon: Code(s): S76.111A - Strain of right quadriceps muscle, fascia and tendon, initial encounter Category: Medical Plan Ms. Flanagan is a 44-year-old male who presents to the office today status post right quad tendon repair performed on 12/22/[address] Munroe. Unfortunately, during his recovery he did sustain another injury where his right leg gave out on him. Date of new injury was 01/10/2025. He was seen in the office roughly 1 week ago immediately after the injury. At that time he had significant bruising and a large effusion. He has continued to remain in the ACL brace locked in extension. He does admit to performing some knee bending. This was encouraged to the patient to avoid. He continues to have difficulty engaging the quad and is unable to perform a straight leg raise. On the office today, Dr. Munroe was available to see the patient with me. Based off of physical examination of a likely palpable deformity at the quad tendon insertion and inability to perform a straight leg raise, the recommendation is to perform a right knee exploration with possible quad tendon repair. Patient will continue using his ACL brace locked in extension. Patient is tentatively scheduled for 01/26/2025 for exploration with possible repair. I discussed in detail the procedure and what to expect pre and post operatively. We discussed the risks, benefits and alternatives to the surgery as well as the rehabilitation course. The risks; which include, but are not limited to infection, bleeding, nerve injury, ongoing pain, swelling, and stiffness, perioperative risk of injury to bones and soft tissues, and blood clots. I?ve answered all questions and with their understanding they have consented to move forward with right knee exploration with possible quad tendon repair with Dr. Munroe. Coding Level of Care Code Global (83998) Diagnoses Rupture of right quadriceps tendon S76.111A
== END 2025-01-21 13:54 | disposition home or self-care (01) ==
LOC: HO.HOS 12:53
PROVIDERS: PCP Internal Medicine; Visit Provider Physician Assistant
DX: S76.111A Strain of right quadriceps muscle, fascia and tendon, initial encounter (principal)
CPT/HCPCS: 99024

== ENCOUNTER → 2025-01-21 12:52 | Outpatient (BNVA) | payer MEDICARE, MEDICAID, SELFPAY | PROVIDERS: PCP Internal Medicine; Visit Provider Physician Assistant | DX: S76.111D Strain of right quadriceps muscle, fascia and tendon, subsequent encounter (principal); X58.XXXD Exposure to other specified factors, subsequent encounter; Z98.890 Other specified postprocedural states | CPT/HCPCS: 99212 ==

== ENCOUNTER 2025-01-26 09:35 | Day surgery (SDC) | payer MEDICARE, MEDICAID, SELFPAY ==
--- OUTSIDE RECORDS SUMMARY | 2025-01-25 15:38 | XMS_ITS | Encounter Summary ---
Author Organization [employer] Address 75 [facility] 7t [place] [address] Care Team Providers Care Purchase Request Editor Name Role Phone Aubree Matute MD Primary Care Provide r Encounter Details Date Type Department Care Team (Late st Contact Info) Description 03/26/2023 Orders Only [facility] [address] [place], [place] [phone] Astrid Irvin LPN Social History Tobacco Use [...] as of this encounter Plan of Treatment Not on file documented as of this encounter Visit Diagnoses Not on filedocumented in this encounter Additional Health Concerns Assessment Noted Time PHQ-9 Depression Total Score: 13 023 1:12 PM EDT documented as of this encounter Care Teams Purchase Request Editor Relationship Specialty Start Date End Date Aubree Matute MD [address] [place], [place] [phone] PCP - General Family Medicine 11/10/19 documented as of this encounter
[2025-01-26] VITALS (22 sets, daily range): BP systolic 118–158; BP diastolic 63–97; PULSE 70–91; RESP 14–18; TEMP 36.2–36.8; O2SAT 94–99; BMI 44.0
--- NOTE | 2025-01-26 10:07 | MHC.SHP ---
Pre-Procedural Eval Section A - 24 Hr Update-Section A only Date of Service: 01/26/25 The patient is an INPATIENT: No Changes since office visit: No Cold of Flu in the past 2 weeks, No New Medical Problems, No Changes in Medication and No Patient answered all questions The patient has been examined within 24 hours of the surgical procedure. The History & Physical has been completed within 30 days and I have reviewed it.: Yes Section B - Complete if H&P > 30 days Chief Complaint: Strain of right quadriceps muscle, fascia and tend Allergies: Allergies Allergy/AdvReac Type Severity Reaction Status Date / Time Penicillins Allergy Severe angioedema Verified 01/21/25 13:07 and SOB Plan I have reviewed the history and physical and performed a pertinent physical examination on my patient. No changes have occurred unless specified. Time Spent With Patient Time: Total time managing care of this patient today ____ minutes.
[2025-01-26 10:22] LABS: Glucose, Whole Blood 349 mg/dL (60-115)
--- NOTE | 2025-01-26 11:31 | PC.NURSE ---
MD VALLECILLO AND MD MEJIA AWARE OF PATIENTS BLOOD SUGAR. AWAITING NEW INSULIN ORDERS TO MEDICATE.
[2025-01-26] MEDS: Lactated Ringers 1,000 ML 50 ML IVCONT (11:56)
[2025-01-26] MEDS: Insulin Regular, Human 100 UNIT/ML 10 ML VIAL IVPUSH (12:15)
[2025-01-26 14:01] LABS: Glucose, Whole Blood 281 mg/dL (60-115)
--- NOTE | 2025-01-26 14:33 | P.CONAN_ITS ---
HPI - Anesthesia Eval Consult details Narrative: super morbid obesity with uncontrolled diabetes and pt non compliant. hbA1C 12 bs 359 received 5 units reg insulin bs 250 PMFSH Active Problems Active Problems: All Active Problems Rupture of right quadriceps tendon (Acute) S/P laparoscopic appendectomy (Acute) Past Medical History Medical History FANY (obstructive sleep apnea) HTN (hypertension) Asthma Diabetes Family History Family History Father No problems noted. Mother No problems noted. Family history of problems with anesthesia: No Surgical History Surgical History History of surgery on lower extremity Hx of appendectomy History of Problems with Anesthesia: No (Some surgeries noted in patient's previous medical records but patient denies having any surgeries ) Social History Social History Household Members: Spouse and Children Housing: Apartment Do you presently have visiting nurse or other home services: No Alcohol intake: never Patient Tobacco Use Status: Former Tobacco user Tobacco use type: Cigarette Years Smoked: 35 Second Hand Smoke Exposure: No Use of substances other than those prescribed or required for medical reasons: No Substance Use Type: Marijuana Are you DNR?: No Advance Directives: No Advance Directives Information Provided: Yes Poor oral hygiene: No service: No Current occupational status: disabled 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 Meds Allergies Allergy/AdvReac Type Severity Reaction Status Date / Time Penicillins Allergy Severe angioedema Verified 01/21/25 13:07 and SOB Active Medications: Current Medications Lactated Ringer's (Lr) 1,000 mls @ 50 mls/hr IVCONT .Q20H CORINNA Last Admin: 01/26/25 11:56 Dose: 50 mls/hr Home Medications ?Medication ?Instructions ?Recorded ?Confirmed ?Last Taken ?Type fluoxetine 40 mg capsule 40 mg PO DAILY 04/06/24 12/22/24 04/05/24 History amitriptyline 25 mg tablet 25 mg PO BEDTIME pain 12/22/24 12/22/24 Unknown History gabapentin 100 mg capsule 300 mg PO Q8H 12/22/24 12/22/24 Unknown History glipizide 10 mg tablet, extended 10 mg PO DAILY PRN High Blood 12/22/24 12/22/24 Unknown History release 24 hr Pressure metformin 500 mg tablet 1,000 mg PO BID 12/22/24 12/22/24 Unknown History Exam Height,Weight and Vital Signs: Height 5 ft 8 in Weight 131.2 kg Last Vital Signs Temp 97.7 F 01/26/25 10:25 Pulse 83 01/26/25 10:25 Resp 16 01/26/25 10:25 BP 134/92 H 01/26/25 10:25 Pulse Ox 97 01/26/25 10:25 O2 Del Method Room Air 01/26/25 10:25 Pertinent Lab Results Pertinent Lab Results: Laboratory Tests 01/26/25 01/26/25 10:18 13:57 POC Glucose 349 H 281 H Airway Mallampati Class: III TM Dist: <=3cm Neck ROM: Limited Heart: rrr Lungs: cta Assessment and Plan Assessment Anesthesia Assessment: Anesthesia Plan Discussed and Chart Reviewed Final Anesthetic Review Family History of Problems with Anesthesia: No History of Problems with Anesthesia: No (Some surgeries noted in patient's previous medical records but patient denies having any surgeries ) NPO: Yes ASA Class: III Final Preanesthetic Review: No Changes in Pt Med Stat, Meds/Allgs Chart Reviewed, Consent Obtained/Reviewed and Anes Risks/Benef Reviewed Patient Risk: Intermediate Procedure Risk: Intermediate Anesthetic Plan Anesthetic Plan: GA Disposition: Standard PACU
--- NOTE | 2025-01-26 16:10 | P.BOP_ITS ---
Brief Operative Note Date of Service: 01/26/25 Pre-op diagnosis: right quadriceps tendon re rupture Post-op diagnosis: same Procedure: Repair right quad tendon Implants: 1 4.75 double loaded helacoil and 1 large Regeneten bioinductive collagen patch Surgeon: Everette Munroe MD Anesthesia: GETA and local Was an Child Welfare Assistant used for this Procedure?: Yes Child Welfare Assistant: Dylon Luo Estimated blood loss (mL): 50 IV fluids (mL): 750 Pathology: none sent Condition: stable Disposition: PACU
[2025-01-26 16:17] LABS: Glucose, Whole Blood 293 mg/dL (60-115)
[2025-01-26] MEDS: fentaNYL citrate/PF 100 MCG/2 ML VIAL 25 MCG IVPUSH ×8 (16:17→17:02)
[2025-01-26] MEDS: oxyCODONE HCl Immed Release 5 MG TABLET PO (16:48)
[2025-01-26] MEDS: HYDROmorphone HCl 0.5 MG/0.5 ML SYRINGE IVPUSH ×3 (17:27→17:50)
[2025-01-26] MEDS: Acetaminophen 1,000 MG/100 ML PIGGYBACK 400 MG IV (17:29)
--- NOTE | 2025-01-26 19:40 | PHA.MEDREC ---
Addendum entered by Donavan Kessler, [facility] 01/26/25 20:01: med rec reviewed Original Note: Pharmacy Consult ? Medication Reconciliation Pharmacy has completed the medication reconciliation. Spoke with pt spouse at bedside and she was able to confirm the pt medications. Pt confirmed the pt has a lot of medications filled and picking everything up but is not taking really any of them except for the Lantus. She stated the pt's Amitriptyline 25mg tab as needed for pain, she confirmed the Glipizide 10mg tab as needed for hyperglycemia, she also stated the pt never started the Invokana tablets, the confirmed the pt is no longer taking Gabapentin 100mg tabs and stated it was making him sick and the pt stopped it about 3 months ago, she confirmed the pt has not taken his Metformin 500mg tabs in about 6 months ago but should be. She confirmed the Lantus and that the pt injects 20 units of that daily in the morning.
[2025-01-26] MEDS: ondansetron HCL 4 MG/2 ML VIAL IVPUSH (21:18)
[2025-01-26] MEDS: Lactated Ringers 1,000 ML 100 ML IVCONT (21:18)
[2025-01-26] MEDS: oxyCODONE HCl ER 10 MG TAB.ER.12H PO (21:22)
[2025-01-26] MEDS: Celecoxib 200 MG CAPSULE PO (21:22)
[2025-01-26] MEDS: Clindamycin HCL 300 MG CAPSULE 900 MG PO (21:23)
[2025-01-26] MEDS: Docusate Sodium 100 MG CAPSULE PO (21:23)
[2025-01-26 22:47] LABS: Glucose, Whole Blood 444 mg/dL (60-115)
[2025-01-26] MEDS: Insulin Lispro 100 UNIT/ML 3 ML VIAL 10 UNIT SUBCUT (22:56)
[2025-01-26 23:06] LABS: Troponin-I High Sensitivity < 2.7 ng/L (<3.5-35.0)
[2025-01-26 23:08] LABS: Anion Gap 14 (12-20); Blood Urea Nitrogen 10 mg/dL (9-16); Calcium 9.1 mg/dL (8.4-10.2); Carbon Dioxide 29 mmol/L (22-29); Chloride 96 mmol/L (96-108); Creatinine Clr Calc Pharmacy 137.1; Estimated Glomerular Filt Rate > 60; Glucose Random 415 mg/dL (60-115); Potassium 4.3 mmol/L (3.3-5.1); Sodium 135 mmol/L (135-145)
--- NOTE | 2025-01-26 23:35 | HO.PM.IMCN ---
History of Present Illness Data of Consult Service Date: 01/26/25 Requesting physician: Everette Munroe Primary Care Provider: Aubree Ramirez MD HPI Reason for consult: medical management pt is a 44 yo male with a pmhx significant for T2DM on insulin, mood disorder, morbid obesity, s/p R quad tendon repair today, medical consult placed for diabetes management. pt reports that he is feeling very anxious and off but cannot describe his sx. he denies chest pain, nausea, vomiting, abd pain, headache, or dizziness. his pain is adequately controlled at this time. he is very concered about the amount of fentanyl that he received in PACU and is scared to fall asleep . Review of Systems Constitutional: Constitutional: Denies chills, Denies fatigue, Denies fever(s) and Denies headache(s) Eyes: Eyes: Denies change in vision and Denies photophobia ENT: Denies headache(s) and Denies sore throat Cardiovascular: Cardiovascular: Denies chest pain, Denies rapid heart rate, Denies leg edema, Denies lightheadedness and Denies dyspnea Respiratory: Respiratory: Denies chest congestion, Denies cough, Denies dyspnea and Denies wheezing Gastrointestinal: Gastrointestinal: Denies abdominal pain, Denies diarrhea, Denies nausea and Denies vomiting Genitourinary: Genitourinary: Denies dysuria, Denies urinary frequency and Denies urinary urgency Musculoskeletal: Musculoskeletal: Reports as per HPI Integumentary/Breasts: Skin/Breast: Denies rash Neurologic: Denies confusion and Denies headache(s) Psychiatric: Psychiatric: Reports anxiety and Denies confusion Endocrine: Endocrine: Denies fatigue Hematologic/Lymphatic: Hematologic/Lymphatic: Denies easy bleeding and Denies easy bruising Allergic/Immunologic: Allergic/Immunologic: Denies wheezing [facility] Medical History (Updated 01/26/25 @ 23:41 by Yolis Lopez PA-C) Morbid obesity FANY (obstructive sleep apnea) HTN (hypertension) Asthma Diabetes Family History Father No problems noted. Mother No problems noted. Surgical History History of surgery on lower extremity Hx of appendectomy Social History Household Members: Family Housing: Apartment Do you presently have visiting nurse or other home services: No Alcohol intake: never Patient Tobacco Use Status: Former Tobacco user Tobacco use type: Cigarette Years Smoked: 35 Second Hand Smoke Exposure: No Use of substances other than those prescribed or required for medical reasons: No Substance Use Type: Marijuana Have you been hit, kicked, punched, or otherwise hurt by someone within the past year? 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 Docusate Sodium (Docusate Sodium 100 Mg Capsule) 100 mg PO BID [facility] Last Admin: 01/26/25 21:23 Dose: 100 mg Glucose (Glucose Gel 15 Gm Gel..Gram.) 15 gm PO Q15M PRN; Protocol PRN Reason: per Hypoglycemia Standing Ord. Hydromorphone HCl (Hydromorphone Hcl 0.5 Mg/0.5 Ml Syringe) 0.25 mg IVPUSH Q4H PRN; Protocol PRN Reason: Pain, Severe (Pain Scale 7-10) Lactated Ringer's (Lr) 1,000 mls @ 100 mls/hr IVCONT .Q10H [facility] Stop: 01/27/25 08:00 Last Admin: 01/26/25 21:18 Dose: 100 mls/hr Insulin Human Lispro (Insulin Lispro 100 Unit/Ml 3 Ml Vial) 0 unit SUBCUT QIDACHS [facility]; Protocol Naloxone HCl (Naloxone Hcl 0.4 Mg/Ml Vial) 0.04 mg IVPUSH Q5M PRN PRN Reason: Excessive sedation or RR < 8 Ondansetron HCl (Ondansetron Hcl 4 Mg/2 Ml Vial) 4 mg IVPUSH Q8H PRN PRN Reason: Nausea and Vomiting Last Admin: 01/26/25 21:18 Dose: 4 mg Oxycodone HCl (Oxycodone Hcl Immed Release 5 Mg Tablet) 5 mg PO Q4H PRN PRN Reason: Pain, Moderate(Pain Scale 4-6) Last Admin: 01/26/25 16:48 Dose: 5 mg Oxycodone HCl (Oxycodone Hcl Er 10 Mg Tab.Er.12h) 10 mg PO BID [facility] Last Admin: 01/26/25 21:22 Dose: 10 mg Sodium Chloride (0.9 % Sodium Chloride Flush 3 Ml Syringe) 3 [facility] Home Medications ?Medication ?Instructions ?Recorded ?Confirmed ?Last Taken ?Type fluoxetine 40 mg capsule 40 mg PO DAILY 04/06/24 01/26/25 4 Months Ago History ~09/28/24 amitriptyline 25 mg tablet 25 mg PO BEDTIME PRN pain 12/22/24 01/26/25 Unknown History glipizide 10 mg tablet, extended 10 mg PO BIDWM PRN Hyperglycemia 12/22/24 01/26/25 Unknown History release 24 hr metformin 500 mg tablet 1,000 mg PO BID 12/22/24 01/26/25 6 Months Ago History ~07/28/24 melatonin 10 mg tablet 10 mg PO BEDTIME PRN Sleep 01/26/25 01/26/25 Unknown History Physical Exam Vital Signs and Narrative: Vital Signs: Last Vital Signs Temp 97.8 F 01/26/25 19:17 Pulse 79 01/26/25 21:50 Resp 16 01/26/25 19:17 BP 118/72 01/26/25 21:50 Pulse Ox 97 01/26/25 19:17 O2 Del Method Nasal Cannula 01/26/25 19:17 O2 Flow Rate 1 01/26/25 19:17 BMI result Body Mass Index 44.0 General: AOx3, no acute distress, anxious and irritated, seen with significant other Resp: CTA bilaterally CVS: S1, S2, RRR GI: +BS, NT, no distention Skin: Warm, dry Neuro: Cranial nerves II-XII grossly intact bilaterally. Motor grossly intact bilaterally Extremities: No LE edema. normal capillary refill. pedal pulses equal bilaterally. Psych: Appropriate affect Const: General: No confusion Orientation/consciousness: No confusion Eyes: Direct Ophthalmoscopy: No photophobia Neuro: General: No confusion Results Labs 01/26/25 22:36 Labs: Laboratory Results - last 24 hr 01/26/25 01/26/25 01/26/25 10:18 13:57 16:13 Anion Gap Estim Creat Clear Calc Estimated GFR POC Glucose 349 H 281 H 293 H Random Glucose Calcium Troponin I High Sens 01/26/25 01/26/25 22:36 22:42 Anion Gap 14 Estim Creat Clear Calc 137.1 Estimated GFR > 60 POC Glucose 444 H* Random Glucose 415 H* Calcium 9.1 Troponin I High Sens < 2.7 Assessment and Plan (1) Rupture of right quadriceps tendon: Status: Acute (2) T2DM (type 2 diabetes mellitus): Status: Acute (3) Morbid obesity: Status: Acute Plan pt is a 44 yo male with a pmhx significant for T2DM on insulin, mood disorder, morbid obesity, s/p R quad tendon repair today, medical consult placed for diabetes management. s/p R quadriceps tendon repair - POD 0 - pain controlled currently - plan per surgery T2DM - POC 444, BMP without gap or metabolic acidosis - recent A1c 12.0 - give lispro 10 U now and recheck in 2 hours - diabetic diet - lantus 20U daily - hold metformin and glipizide FANY - CPAP at bedtime anxiety - trop normal, BMP without DKA - continue home fluoxetine and melatonin Morbid obesity - BMI 44.0 - weight loss encouraged Thank you for allowing me to participate in the pt's care. Will continue to follow due to uncontrolled DM. Please contact the medical team if any questions or concerns.
[2025-01-27 03:19] VITALS: BP 129/71; PULSE 78; RESP 18; TEMP 36; O2SAT 94
[2025-01-27] MEDS: Lactated Ringers 1,000 ML 100 ML IVCONT (06:35)
[2025-01-27 06:47] VITALS: BP 130/75; PULSE 82; RESP 17; TEMP 36.7; O2SAT 95
[2025-01-27 07:06] LABS: Glucose, Whole Blood 318 mg/dL (60-115)
--- NOTE | 2025-01-27 07:12 | P.OP_ITS ---
Operative Note Operative Note Date of Service: 01/26/25 Narrative: Date of Service: 01/26/25 Pre-op diagnosis: right quadriceps tendon re rupture Post-op diagnosis: same Procedure: Repair right quad tendon Implants: 1 4.75 double loaded helacoil and 1 large Regeneten bioinductive collagen patch Surgeon: Everette Munroe MD Anesthesia: GETA and local Was an Warehouse Insulation Worker used for this Procedure?: Yes Warehouse Insulation Worker: Dylon Luo Estimated blood loss (mL): 50 IV fluids (mL): 750 Pathology: none sent Condition: stable Disposition: PACU Procedure in detail: Patient was brought to the operating room and placed supine on the surgical table. He was prepped and draped in standard sterile fashion and a time out was called to identify proper site, proper procedure and IV antibiotics per weight were administered. I began by making a ~6 cm incision over the prior incision. I dissected bluntly down to the fascia overlying the quadriceps tendon. There was a thick layer of scar tissue below the skin which I from the overlying dermal layer. The underlying quad tendon was completely retorn. The retinaculum medially and laterally remained intact and so the quadriceps tendon had retracted proximally 1 cm. This was an irregular tear with a portion of the tendon attached to the bone and a delamination type of tear of the distal tendon. There was no evidence of infection. I removed the suture from the quad tendon and placed a additional double loaded 4.75 Healicoil in the center of the patella at the extra-articular level. This was then whipstitched through the torn tendon. Prior to this I debrided the tendon down to healthy-appearing tissue and removed extensive fibrous tissue. Once this was done I used a 2.0 drill medially and laterally through the patella and placed 1 FiberWire through this with the loose ends proximal. These loose ends were then both whip sti tched through the quadriceps tendon. I then tied the sutures while the knee was in hyperextension reattaching the torn quadriceps tendon to its insertion on the patella. The bone was debrided down prior to this to allow for a healing bed. This was a revision of a full-thickness tear and so the quality of the tissue was suboptimal and there was some subacute retraction so, overall, I was satisfi ed with the repair but I did feel that a Regeneten bio inductive collagen patch would augment the repair. Prior to this I oversewed the tendon with a fiber wire and then irrigated copiously. The fascia was closed and the sub q was closed and the skin with jose. Sterile dressing were applied and the patient was placed in a locked brace in extension and extubated and brought to the recovery room in stable condition. There were no known complications.
--- NOTE | 2025-01-27 07:29 | PM.DS ---
DS: Providers Provider Date of Service: 01/27/25 Date of discharge: 01/27/25 Primary care physician: Aubree Ramirez MD Consults: 01/26/25 16:44 Consult to Hospitalist Routine Comment: Consulting Provider: [facility] [place] [facility] [place] Reason For Exam: uncontrolled diabetes DS: Diagnosis Discharge Diagnosis (1) Rupture of right quadriceps tendon: Status: Acute (2) T2DM (type 2 diabetes mellitus): Status: Acute (3) Morbid obesity: Status: Acute DS: Summary Hospital Course Hospital Course: The patient underwent a successful revision right quad tendon repair, they were transferred to PACU and then to the floor to recover. During their stay, their vitals were stable, afebrile at 98.1. The patient received Physical Therapy services. Prior to discharge, their dressing was clean dry and intact and the plan was to be discharged home with VNA services. He should remain in the brace locked in extension for six weeks. He may WBAT with crutches and in the brace. Brace is to remain on at all times. No bending of the knee. Time Attestation Discharge Coordination Time (in mins): 30 Quality: Safe Use of Opioids Does Pt have an Active Cancer Diagnosis on the Problem List?: No Quality: Stroke Does the patient have a stroke diagnosis?: No Physical Exam Vital Signs: Vital Signs: Last Vital Signs Temp 98.1 F 01/27/25 06:47 Pulse 82 01/27/25 06:47 Resp 17 01/27/25 06:47 BP 130/75 01/27/25 06:47 Pulse Ox 95 01/27/25 06:47 O2 Del Method BiPAP 01/27/25 06:47 O2 Flow Rate 1 01/26/25 19:17 BMI result Body Mass Index 44.0 Const: General: cooperative, healthy appearing and no acute distress Resp: Effort & Inspection: normal respiratory effort and able to speak in complete sentences Cardio: Rate: regular rate Peripheral pulses: Peripheral pulses 2+ throughout GI: Palpation (GI): Soft to palpation Skin: Lesions: no lesions Rashes: no rashes Extrem: Other: right knee dressing is c/d/i. Able to dorsi/plantar flex. Calf is supple and nontender. Sensation intact. Pedal pulse intact. DS: Data Data Completed and Pending Completed studies during hospitalization [Text1]: Procedures Assistance with Respiratory Ventilation, Less than 24 Consecutive Hours, Continuous Positive Airway Pressure (04/06/24) Resection of Appendix, Percutaneous Endoscopic Approach (04/06/24) Labs on day of discharge: Laboratory Results - last 24 hr 01/26/25 01/26/25 01/26/25 10:18 13:57 16:13 Sodium Potassium Chloride Carbon Dioxide Anion Gap BUN Creatinine Estim Creat Clear Calc Estimated GFR POC Glucose 349 H 281 H 293 H Random Glucose Calcium Troponin I High Sens 01/26/25 01/26/25 01/27/25 22:36 22:42 07:02 Sodium 135 Potassium 4.3 Chloride 96 Carbon Dioxide 29 Anion Gap 14 BUN 10 Creatinine 0.89 Estim Creat Clear Calc 137.1 Estimated GFR > 60 POC Glucose 444 H* 318 H Random Glucose 415 H* Calcium 9.1 Troponin I High Sens < 2.7 Discharge Plan Discharge Patient Disposition: Home, Self-Care Referrals: Dylon Luo PA-C [Physician Computational Scientist] - 1 Week (02/01/25 10:00 [facility] [place] [facility] [place] [facility] Dylon Luo PA-C) Discharge Medications: New celecoxib 200 mg Capsule 200 mg PO BID 30 Days Qty: 60 0RF docusate sodium 100 mg Capsule 100 mg PO BID 30 Days Qty: 60 0RF oxycodone 5 mg Tablet 5 mg PO Q4H PRN (Reason: Pain, Moderate(Pain Scale 4-6)) 7 Days Qty: 42 0RF Rx Instructions: Partial Fill upon patient request. Continued glipizide 10 mg tablet extended release 24hr 10 mg PO BIDWM PRN (Reason: Hyperglycemia) amitriptyline 25 mg tablet 25 mg PO BEDTIME PRN (Reason: pain) metformin 500 mg tablet 1,000 mg PO BID (DME) FreeStyle Lite Strips Strip Qty: 100 0RF Rx Instructions: Test four times a day or as directed. (DME) blood-glucose meter [FreeStyle Lite Meter] Kit Qty: 1 0RF Rx Instructions: As Directed insulin glargine [Lantus Solostar U-100 Insulin] 100 unit/mL (3 mL) insulin pen 20 unit SUBCUT DAILY Qty: 15 0RF (DME) pen needle, diabetic 32 gauge x 1/4 needle Qty: 100 0RF Rx Instructions: Use four times a day or as directed. (DME) lancets [FreeStyle Lancets] 28 gauge misc Qty: 100 0RF Rx Instructions: Test four times a day or as directed. melatonin 10 mg Tablet 10 mg PO BEDTIME PRN (Reason: Sleep) fluoxetine 40 mg capsule 40 mg PO DAILY acetaminophen [Tylenol Extra Strength] 500 mg tablet 1,000 mg PO Q6H PRN (Reason: fever or pain) Qty: 20 0RF Discharge Orders: Discharge Order (Routine); Ordered 01/27/25 Ordered By: Leticia Jones Diet: Regular diet Activity on Discharge: Use Splints or Immobilizers Activity Restrictions/Additional Instructions: WBAT with brace locked in extension at all times DO NOT BEND THE KNEE Keep dressing clean, dry and intact Perform Ankle pumps for leg circulation 4x a day Elevate leg above the level of the heart on 3 pillows Any questions or concerns please call the office ASIF Print Language: Indonesian
[2025-01-27] MEDS: Insulin Lispro 100 UNIT/ML 3 ML VIAL SUBCUT ×3 (07:41→10:21)
[2025-01-27] MEDS: oxyCODONE HCl ER 10 MG TAB.ER.12H PO (07:41)
[2025-01-27] MEDS: Insulin Glargine,Hum.rec.anlog 100 UNIT/ML 10 ML VIAL 20 UNIT SUBCUT (07:41)
[2025-01-27] MEDS: oxyCODONE HCl Immed Release 5 MG TABLET PO (07:42)
[2025-01-27] MEDS: Celecoxib 200 MG CAPSULE PO (07:43)
[2025-01-27] MEDS: Docusate Sodium 100 MG CAPSULE PO (07:44)
[2025-01-27 08:19] VITALS: BP 130/75; PULSE 82; O2SAT 95
--- NOTE | 2025-01-27 08:35 | MHC.CM.PN ---
Patient lives in an apt w/ his . assists w/ ADL's PRN. Ambulates w/ rollator, also has crutches. No services. Has outpatient PT at an office in [facility] (cannot recall name). PCP Aubree Ramirez MD HCP on file and verified. [facility] is , [facility]. DP: PT rec home w/ services. Patient prefers to continue outpatient PT. Ortho aware. Cleared for dc home. will transport. RN aware.
[2025-01-27] MEDS: glipiZIDE XL 10 MG TAB.ER.24 PO (08:45)
--- NOTE | 2025-01-27 09:34 | HO.POSTANES ---
Post Anesthesia Evaluation Post Anesthesia Evaluation Date of Service: 01/27/25 Vital Signs: Vital Signs Temp Pulse Resp BP Pulse Ox O2 Del Method 01/27/25 08:19 82 130/75 95 01/27/25 06:47 98.1 F 82 17 130/75 95 BiPAP 01/27/25 03:19 96.8 F 78 18 129/71 94 CPAP 01/26/25 23:35 98.3 F 83 16 122/63 94 Room Air 01/26/25 21:50 79 118/72 Anesthesia: General Mental Status: Awake Pain Control: Satisfactory Nausea/Vomiting: None Hydration: Adequate Anesthesia-Related Issues: No Anes. Related Issues
[2025-01-27 09:36] LABS: Estimated Average Glucose 289 mg/dL; Hemoglobin A1C 404.6241 umol/L; Hemoglobin A1c % 11.7 % (<6.0); Total Hemoglobin (HGBA1C) 3866.8715 umol/L
[2025-01-27 10:08] LABS: Anion Gap 15 (12-20); Blood Urea Nitrogen 12 mg/dL (9-16); Calcium 9.4 mg/dL (8.4-10.2); Carbon Dioxide 30 mmol/L (22-29); Chloride 96 mmol/L (96-108); Creatinine Clr Calc Pharmacy 141.9; Estimated Glomerular Filt Rate > 60; Potassium 3.9 mmol/L (3.3-5.1); Sodium 137 mmol/L (135-145)
[2025-01-27] MEDS: Insulin Glargine,Hum.rec.anlog 100 UNIT/ML 10 ML VIAL 10 UNIT SUBCUT (10:20)
[2025-01-27 11:12] LABS: Glucose, Whole Blood 357 mg/dL (60-115)
[2025-01-27 11:26] VITALS: BP 131/73; PULSE 82; RESP 16; TEMP 36.3; O2SAT 97
--- NOTE | 2025-01-27 11:32 | P.PNIM_ITS ---
Subjective Subjective Date of Service: 01/27/25 Interval History: seen this morning BG significantly elevated in 400s reports poor control in home pain in right knee Review of Systems Review of Systems: Yes all other systems are reviewed and are negative Physical Exam 2 Vital Signs: Vital Signs: Last Vital Signs Temp 97.4 F 01/27/25 11:26 Pulse 82 01/27/25 11:26 Resp 16 01/27/25 11:26 BP 131/73 01/27/25 11:26 Pulse Ox 97 01/27/25 11:26 O2 Del Method Room Air 01/27/25 11:26 O2 Flow Rate 1 01/26/25 19:17 BMI result Body Mass Index 44.0 Const: Other: Constitutional : interactive, morbid obesity, not in distress Cardiovascular : no JVP, no lower extremity edema Respiratory : bilateral chest movement, not in resp distress Gastrointestinal: soft, lax, Non tender Skin : Warm, Dry extremities: Right knee in dressing Neurological : Alert & oriented , No focal deficit Objective Data Active Medications Acetaminophen (Acetaminophen 325 Mg Tablet) 650 mg PO Q6H PRN PRN Reason: Pain, Mild 1-3,fever,headache Celecoxib (Celecoxib 200 Mg Capsule) 200 mg PO BID [facility] Last Admin: 01/27/25 07:43 Dose: 200 mg Documented By: ANDRÉS Dextrose (Dextrose 50 % 25 Gm/50 Ml Syringe) 25 gm IVPUSH Q15M PRN; Protocol PRN Reason: per Hypoglycemia Standing Ord. Docusate Sodium (Docusate Sodium 100 Mg Capsule) 100 mg PO BID [facility] Last Admin: 01/27/25 07:44 Dose: 100 mg Documented By: ANDRÉS Fluoxetine HCl (Fluoxetine Hcl 20 Mg Capsule) 40 mg PO DAILY [facility] Last Admin: 01/27/25 07:48 Dose: Not Given Documented By: ANDRÉS Non-Admin Reason: Patient Refused Glipizide (Glipizide Xl 10 Mg Tab.Er.24) 10 mg PO BIDWM [facility] Last Admin: 01/27/25 08:45 Dose: 10 mg Documented By: ANDRÉS Glucose (Glucose Gel 15 Gm Gel..Gram.) 15 gm PO Q15M PRN; Protocol PRN Reason: per Hypoglycemia Standing Ord. Hydromorphone HCl (Hydromorphone Hcl 0.5 Mg/0.5 Ml Syringe) 0.25 mg IVPUSH Q4H PRN; Protocol PRN Reason: Pain, Severe (Pain Scale 7-10) Insulin Glargine (Insulin Glargine,Hum.Rec.Anlog 100 Unit/Ml 10 Ml Vial) 35 unit SUBCUT DAILY [facility] Insulin Human Lispro (Insulin Lispro 100 Unit/Ml 3 Ml Vial) 0 unit SUBCUT QIDACHS [facility]; Protocol Last Admin: 01/27/25 10:21 Dose: 10 unit Documented By: ANDRÉS Melatonin (Melatonin 3 Mg Tablet) 9 mg PO BEDTIME PRN PRN Reason: Sleep Naloxone HCl (Naloxone Hcl 0.4 Mg/Ml Vial) 0.04 mg IVPUSH Q5M PRN PRN Reason: Excessive sedation or RR < 8 Ondansetron HCl (Ondansetron Hcl 4 Mg/2 Ml Vial) 4 mg IVPUSH Q8H PRN PRN Reason: Nausea and Vomiting Last Admin: 01/26/25 21:18 Dose: 4 mg Documented By: SAL Oxycodone HCl (Oxycodone Hcl Immed Release 5 Mg Tablet) 5 mg PO Q4H PRN PRN Reason: Pain, Moderate(Pain Scale 4-6) Last Admin: 01/27/25 07:42 Dose: 5 mg Documented By: ANDRÉS Oxycodone HCl (Oxycodone Hcl Er 10 Mg Tab.Er.12h) 10 mg PO BID [facility] Last Admin: 01/27/25 07:41 Dose: 10 mg Documented By: ANDRÉS Sodium Chloride (0.9 % Sodium Chloride Flush 3 Ml Syringe) 3 ml IVFLUSH QSHIFT [facility] Last Admin: 01/27/25 07:47 Dose: Not Given Documented By: ANDRÉS Non-Admin Reason: IV Running Labs 01/27/25 09:02 Labs: Laboratory Results - last 24 hr 01/26/25 01/26/25 01/26/25 13:57 16:13 22:36 Anion Gap 14 Estim Creat Clear Calc 137.1 Estimated GFR > 60 POC Glucose 281 H 293 H Random Glucose 415 H* Estimat Average Glucose Hemoglobin A1c % Calcium 9.1 Troponin I High Sens < 2.7 01/26/25 01/27/25 01/27/25 22:42 07:02 09:02 Anion Gap 15 Estim Creat Clear Calc 141.9 Estimated GFR > 60 POC Glucose 444 H* 318 H Random Glucose 455 H* Estimat Average Glucose 289 Hemoglobin A1c % 11.7 H Calcium 9.4 Troponin I High Sens 01/27/25 11:09 Anion Gap Estim Creat Clear Calc Estimated GFR POC Glucose 357 H* Random Glucose Estimat Average Glucose Hemoglobin A1c % Calcium Troponin I High Sens Assessment and Plan (1) Uncontrolled diabetes mellitus with hyperglycemia: Status: Acute Plan pt is a 44 yo male with a pmhx significant for T2DM on insulin, mood disorder, morbid obesity, s/p R quad tendon repair today, medical consult placed for diabetes management. s/p R quadriceps tendon repair pain controlled currently orthopedic following Uncontrolled T2DM with hyperglycemia without gap or metabolic acidosis A1c 11.7 Increase Lantus total to 35 units SSI Pen to be sent home Switch Glipizide from PRN to Scheduled To follow with PCP as outpatient for better control continue to monitor while inpatient Does not take Metformin for GI symptoms FANY CPAP at bedtime anxiety continue home fluoxetine and melatonin Morbid obesity BMI 44.0 weight loss encouraged Thank you for allowing me to participate in the pt's care. Will continue to follow due to uncontrolled DM. Please contact the medical team if any questions or concerns. Quality Stroke Does the patient have a stroke diagnosis?: No VTE Prior VTE?: No VTE Risk Level:: Medical - moderate - high VTE Device Contraindication: N/A - Device Ordered VTE Drug Contraindication: Treatment Not Indicated
[2025-01-27 12:18] LABS: Glucose Random 455 mg/dL (60-115)
[2025-01-27] MEDS: Insulin Lispro 100 UNIT/ML 3 ML VIAL 8 UNIT SUBCUT (12:24)
[2025-01-27] MEDS: Insulin Glargine,Hum.rec.anlog 100 UNIT/ML 10 ML VIAL SUBCUT (12:24)
[2025-01-27 13:44] LABS: Glucose, Whole Blood 145 mg/dL (60-115)
== END 2025-01-27 14:20 | disposition home or self-care (01) ==
LOC: HO.SSS 16:13 → HO.S3 18:27
PROVIDERS: Physician Assistant; Student in an Organized Health Care Education/Training Program; PCP Internal Medicine; Visit Provider Orthopaedic Surgery
PROC: (CPT 27386; principal; 2025-01-26 13:30)
DX: S76.111A Strain of right quadriceps muscle, fascia and tendon, initial encounter (principal); M25.561 Pain in right knee; S76.191A Other specified injury of right quadriceps muscle, fascia and tendon, initial encounter; X50.1XXA Overexertion from prolonged static or awkward postures, initial encounter; Y93.9 Activity, unspecified; Y92.9 Unspecified place or not applicable; Y99.9 Unspecified external cause status; E11.65 Type 2 diabetes mellitus with hyperglycemia; I10 Essential (primary) hypertension; F39 Unspecified mood [affective] disorder; F41.9 Anxiety disorder, unspecified; E66.01 Morbid (severe) obesity due to excess calories; Z68.41 Body mass index [BMI] 40.0-44.9, adult; J45.909 Unspecified asthma, uncomplicated; G47.33 Obstructive sleep apnea (adult) (pediatric); Z79.4 Long term (current) use of insulin; Z79.84 Long term (current) use of oral hypoglycemic drugs; Z99.89 Dependence on other enabling machines and devices; Z88.0 Allergy status to penicillin; Z87.891 Personal history of nicotine dependence
CPT/HCPCS: 27386; 36415; 80048; 82947; 83036; 84484; 94660; 97162; 97166; C1713; C1763; J0131; J0736; J1171; J2405; J2704; J2795; J3010; J7120

== ENCOUNTER → 2025-01-26 09:35 | Outpatient (BNV) | payer MEDICARE, MEDICAID, SELFPAY | PROVIDERS: PCP Internal Medicine; Visit Provider Orthopaedic Surgery | DX: S76.101A Unspecified injury of right quadriceps muscle, fascia and tendon, initial encounter (principal) | CPT/HCPCS: 27386 ==

== ENCOUNTER → 2025-01-26 09:35 | Outpatient (BNV) | payer MEDICARE, MEDICAID, SELFPAY | PROVIDERS: PCP Internal Medicine; Visit Provider Student in an Organized Health Care Education/Training Program | DX: S76.111A Strain of right quadriceps muscle, fascia and tendon, initial encounter (principal); E11.9 Type 2 diabetes mellitus without complications; E66.01 Morbid (severe) obesity due to excess calories; E11.65 Type 2 diabetes mellitus with hyperglycemia | CPT/HCPCS: 99223; 99231 ==

== ENCOUNTER 2025-02-01 14:01 | Outpatient (AMB) | payer MEDICARE, MEDICAID, SELFPAY ==
--- NOTE | 2025-02-01 14:02 | MHC.OFFVIS ---
Intake Visit Reasons: PO-Rt Quad Tendon, Possible Repair 01/26/25 NE Intake Note: Delonte is a 44 year old male who presents today for a post operative visit status post right quad tendon repair, DOS 01/26/[address] Munroe. Patient reports that that his most discomfort comes at night time. He has concerns of bandage peeling off. Allergies Penicillins Allergy (Severe, Verified 02/01/25 14:10) angioedema and SOB Medication List - Last Reconciled 02/01/25 by Dylon Luo PA-C acetaminophen (Tylenol Extra Strength) 1,000 mg (2 x 500 mg) PO Q6H PRN amitriptyline 25 mg PO BEDTIME PRN blood sugar diagnostic (FreeStyle Lite Strips) Test four times a day or as directed. blood-glucose meter (FreeStyle Lite Meter kit) As Directed celecoxib 200 mg PO BID 30 days docusate sodium 100 mg PO BID 30 days fluoxetine 40 mg PO DAILY glipizide ER 10 mg PO BIDWM insulin glargine (Lantus Solostar U-100 Insulin) 35 units (0.35 mL) subcut DAILY insulin lispro (Humalog KwikPen (U-100) Insulin) 1 sliding scale dose subcut .TIDACH lancets (FreeStyle Lancets) Test four times a day or as directed. melatonin 10 mg PO BEDTIME PRN metformin 1,000 mg PO BID oxycodone 5 mg PO Q4H PRN 7 days pen needle, diabetic Use four times a day or as directed. HPI HPI PO-Rt Quad Tendon, Possible Repair 01/26/25 NE: Details: 44-year-old gentleman returns to the office today status post revision right quad tendon repair 01/26/2025. Patient is doing well. He is ambulating with a brace locked in extension. No concerns today. [facility] Medical History (Updated 01/29/25 @ 00:01 by Jyothi Graham) Morbid obesity FANY (obstructive sleep apnea) HTN (hypertension) Asthma Diabetes Surgical History History of surgery on lower extremity Hx of appendectomy Family History Father No problems noted. Mother No problems noted. 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 Incision looks clean dry and intact. No significant erythema or swelling. Calf is supple nontender neurovascularly intact. Assessment & Plan Assessment & Plan (1) Rupture of right quadriceps tendon: Code(s): S76.111A - Strain of right quadriceps muscle, fascia and tendon, initial encounter Category: Medical Plan: Natalie will remain intact for 1 more week. He will continue with the brace weightbearing as tolerated locked in extension at all times. Avoid showering at this time. He will see me back in 1 week for staple removal. Coding Level of Care Code Global (12630) Diagnoses Rupture of right quadriceps tendon S76.111A
--- OUTSIDE RECORDS SUMMARY | 2025-02-01 15:56 | XMS_ITS | Encounter Summary ---
Author Organization [employer] Address [address] [facility] [address] [place] [address] Care Team Providers Care Input Output Clerk Name Role Phone Aubree Matute MD Primary Care Provide r Encounter Details Date Type Department Care Team (Late st Contact Info) Description 03/26/2023 Orders Only [facility] MED & PEDS [address] [place], [place] [phone] Astrid Irvin LPN Social History Tobacco Use [...] documented as of this encounter Care Teams Input Output Clerk Relationship Specialty Start Date End Date Aubree Matute MD [address] [place], [place] [phone] PCP - General Family Medicine 11/10/19 documented as of this encounter
== END 2025-02-01 14:21 | disposition home or self-care (01) ==
LOC: HO.HOS 14:02
PROVIDERS: PCP Internal Medicine; Visit Provider Physician Assistant
DX: S76.111A Strain of right quadriceps muscle, fascia and tendon, initial encounter (principal)
CPT/HCPCS: 99024

== ENCOUNTER → 2025-02-01 14:01 | Outpatient (BNVA) | payer MEDICARE, MEDICAID, SELFPAY | PROVIDERS: PCP Internal Medicine; Visit Provider Physician Assistant | DX: S76.111D Strain of right quadriceps muscle, fascia and tendon, subsequent encounter (principal) | CPT/HCPCS: 99212 ==

== ENCOUNTER 2025-02-08 12:53 | Outpatient (AMB) | payer MEDICARE, MEDICAID, SELFPAY ==
--- NOTE | 2025-02-08 12:59 | A.OFFVIS_ITS ---
Intake Visit Reasons: PO-Rt Quad Tendon, Possible Repair 01/26/25 NE Intake Note: Delonte is a 44 year old male who presents today for an unplanned post operative visit s/p Right Quad Tendon Repair 01/26/25. Patient reports that his bandage is coming loose and he is hopeful to have jose removed today so he does not need to come in for appointment on Allergies Penicillins Allergy (Severe, Verified 02/01/25 14:10) angioedema and SOB HPI HPI PO-Rt Quad Tendon, Possible Repair 01/26/25 NE: Details: Mr. Flanagan is a 44-year-old male status post right quad tendon repair initially performed on 12-22-24. Patient has sustained a re-rupture after a fall and underwent another repair of the right quad tendon on 01/27/2025. Patient presents to the office today for bandage changes the Aquacel dressing as rolling off. Patient is able to demonstrate a straight leg raise on today's appointment. [facility] Medical History (Updated 01/29/25 @ 00:01 by Jyothi Graham) Morbid obesity FANY (obstructive sleep apnea) HTN (hypertension) Asthma Diabetes Surgical History History of surgery on lower extremity Hx of appendectomy Family History Father No problems noted. Mother No problems noted. 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 [place] intact. The incision site is healing well with no signs of infection. No surrounding erythema or drainage. Able to perform a straight leg raise. NVI. Assessment & Plan Assessment & Plan (1) Rupture of right quadriceps tendon: Code(s): S76.111A - Strain of right quadriceps muscle, fascia and tendon, initial encounter Category: Medical Plan Mr. Flanagan is a 44-year-old male status post right quad tendon repair initially performed on 12-22-24. Patient has sustained a re-rupture after a fall and underwent another repair of the right quad tendon on 01/27/2025. Patient presents to the office today for bandage changes the Aquacel dressing as rolling off. Patient is able to demonstrate a straight leg raise on today's appointment. While in the office today, the patient is requesting that staple removal be performed today. He has an appointment in 2 days for scheduled staple removal. The incision site look well approximated and are healing well. Therefore jose were removed while in the office today and Steri-Strips were applied. He was placed back into the ACL brace locked in extension. An order for physical therapy has been placed while in the office today. He would like to attend an outside facility therefore the PT protocol was also provided to the patient and a staple [employer] business card to the packet should the physical therapist have any questions they can contact our office. Additionally, I provided the patient with a work note keeping him out of work for approximately the next 3 months. He will follow up in [address] Munroe, gui if naomi hutchins. Orders: Orders PT Evaluation and Treatment Today S76.111A - Strain of right quadriceps muscle, fascia and tendon, initial encounter Coding Level of Care Code Global (83346) Diagnoses Rupture of right quadriceps tendon S76.111A
--- OUTSIDE RECORDS SUMMARY | 2025-02-08 14:15 | XMS_ITS | Encounter Summary ---
Author Organization [employer] Address [address] [facility] [address] [place] [address] Care Team Providers Care Waterworks Chief Engineer Name Role Phone Aubree Matute MD Primary Care Provide r Encounter Details Date Type Department Care Team (Late st Contact Info) Description 03/26/2023 Orders Only [facility] MED & PEDS [address] [place], [place] [phone] Astrid Irvin LPN Social History Tobacco Use [...] documented as of this encounter Care Teams Waterworks Chief Engineer Relationship Specialty Start Date End Date Aubree Matute MD [address] [place], [place] [phone] PCP - General Family Medicine 11/10/19 documented as of this encounter
== END 2025-02-08 13:39 | disposition home or self-care (01) ==
LOC: HO.HOS 12:54
PROVIDERS: PCP Internal Medicine; Visit Provider Physician Assistant
DX: S76.111A Strain of right quadriceps muscle, fascia and tendon, initial encounter (principal)
CPT/HCPCS: 99024

== ENCOUNTER → 2025-02-08 12:53 | Outpatient (BNVA) | payer MEDICARE, MEDICAID, SELFPAY | PROVIDERS: PCP Internal Medicine; Visit Provider Physician Assistant | DX: Z48.02 Encounter for removal of sutures (principal); S76.111D Strain of right quadriceps muscle, fascia and tendon, subsequent encounter | CPT/HCPCS: 99212 ==

== ENCOUNTER 2025-03-08 11:07 | Outpatient (AMB) | payer MEDICARE, MEDICAID, SELFPAY ==
--- NOTE | 2025-03-08 11:08 | MHC.OFFVIS ---
Intake Visit Reasons: PO-Rt Quad Tendon, Possible Repair 01/26/25 NE Intake Note: Delonte is a 44 year old male who presents today for a post operative visit s/p Right Quad Tendon Repair 01/26/25. At his last visit he was instructed to continue use of the ACL brace locked in extension and he remains out of work at this time. Patient reports that he is doing well, but is having pain when laying down. The pain is decribed as a sharp pain over the knee cap. He has been wearing the brace but states that her forgot it today. Allergies Penicillins Allergy (Severe, Verified 02/01/25 14:10) angioedema and SOB HPI HPI PO-Rt Quad Tendon, Possible Repair 01/26/25 NE: Details: Delonte is a 44 year old male who presents today for a post operative visit s/p Right Quad Tendon Repair 01/26/25. At his last visit he was instructed to continue use of the ACL brace locked in extension and he remains out of work at this time. Patient reports that he is doing well, but is having pain when laying down. The pain is decribed as a sharp pain over the knee cap. He has been wearing the brace but states that her forgot it today. He is sitting today with his knees bent at 90 degrees. [facility] Medical History (Updated 01/29/25 @ 00:01 by Jyothi Graham) Morbid obesity FANY (obstructive sleep apnea) HTN (hypertension) Asthma Diabetes Surgical History (Reviewed 02/01/25 @ 14:10 by Janette Kaye [facility]) History of surgery on lower extremity Hx of appendectomy Family History Father No problems noted. Mother No problems noted. 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 0-100 degrees of motion. No pain with resisted quad extension. No palpable defect. Assessment & Plan Assessment & Plan (1) Rupture of right quadriceps tendon: Code(s): S76.111A - Strain of right quadriceps muscle, fascia and tendon, initial encounter Category: Medical Plan: 44-year-old now 6 weeks status post revision right quad tendon. He is doing remarkably well which is a surprise considering how noncompliant is but he is not complaining pain has excellent motion with good strength. I recommend he progress slowly past 90 degrees and he continue to wear his knee brace while ambulating. Follow up 6 weeks. Coding Level of Care Code Global (82403) Diagnoses Rupture of right quadriceps tendon S76.111A
--- OUTSIDE RECORDS SUMMARY | 2025-03-08 12:12 | XMS_ITS | Encounter Summary ---
Author Organization [employer] Address [address] [facility] [address] [place] [address] Care Team Providers Care Signals Collection Technician Name Role Phone Aubree Matute MD Primary Care Provide r Encounter Details Date Type Department Care Team ([facility] Contact Info) Description 03/26/2023 Orders Only [facility] MED & PEDS [address] [place] [address] Astrid Irvin LPN Social History Tobacco Use [...] Department Care Team (Late Contact Info) Description 03/08/2025 7:20 PM EDT Office Visit [facility] [address] [place] [address] documented as of this encounter Visit Diagnoses Not on filedocumented in this encounter Additional Health Concerns Assessment Noted Time PHQ-9 Depression Total Score: 13 023 1:12 PM EDT documented as of this encounter Care Teams Signals Collection Technician Relationship Specialty Start Date End Date Aubree Matute MD [address] [place] [address] PCP - General Family Medicine 11/10/19 documented as of this encounter
--- OUTSIDE RECORDS SUMMARY | 2025-03-08 12:12 | XMS_ITS | Clinical Summary ---
Author Organization [address] [facility] Address [address] [place] [address] Phone Care Team Providers Care Drug Abuse Worker Name Role Phone Aubree Matute MD Primary Care Provide r Medications amitriptyline (ELAVIL) 25 mg tablet Take 1 tablet (25 mg total) by mouth at bedtime. Active insulin glargine,hum.re c.anlog (Basaglar KwikPen U-100 Insulin) 100 unit/mL (3 mL) injection pen Inject 100 Units under the skin at bedtime. Active blood-glucose meter,continuou s (Dexcom G7 Pole Incisor Operator) misc Activ e cyclobenzaprine (FLEXERIL) 10 mg [...] hyperglycemia, with long-term current use of insulin ([facility] V24, [facility] V28) 07/06/2024 Diabetic polyneuropathy asso ciated with type 2 diabetes mellitus ([facility] V24, [facility] V28) 07/06/2024 Cigarette smoker 07/06/2024 [...] 5 Years) and At-Risk Patients (6 to 49 Years) (1 of 2 - PCV) 1997 Cholesterol Screening (Lipid Panel) 07/29/2022 Colorectal Cancer Screening: Colonoscopy 07/29/2022 Depression Screening 07/29/2022 HIV Screening 07/29/2022 Hepatitis C Screening 07/29/2022 Medicare Annual Wellness Visit 07/29/2022 Social Influencers of Health Screening 07/29/2022 COVID-19 Vaccine (1 - 2023-2 5 season) 2024 Diabetes: Annual Urine Albumin-Creatinine Ratio (uACR) 07/06/2024 Diabetes: Blood Sugar Contro l Test (HGBA1C) 07/06/2024 Hypertension/CHF/CAD Annual BMP Blood Test 07/06/2024 Influenza Vaccine (#1) 2025 HIB Vaccines Aged Out No longer [...] Insurance MEDICARE MEDICAID - [place] Care Teams Drug Abuse Worker Relationship Specialty Start Date End Date Aubree Matute MD [address] [phone] PCP - General 04/20/24
== END 2025-03-08 11:33 | disposition home or self-care (01) ==
LOC: HO.HOS 11:07
PROVIDERS: PCP Internal Medicine; Visit Provider Orthopaedic Surgery
DX: S76.111A Strain of right quadriceps muscle, fascia and tendon, initial encounter (principal)
CPT/HCPCS: 99024

== ENCOUNTER → 2025-03-08 11:07 | Outpatient (BNVA) | payer MEDICARE, MEDICAID, SELFPAY | PROVIDERS: PCP Internal Medicine; Visit Provider Orthopaedic Surgery | DX: S76.111D Strain of right quadriceps muscle, fascia and tendon, subsequent encounter (principal) | CPT/HCPCS: 99212 ==